=== PATIENT | female | born 1980 | race Caucasian/White ===

== ENCOUNTER → 2018-11-15 09:17 | Outpatient (CLI) | payer OTHER, SELFPAY ==
--- NOTE | 2018-11-15 09:21 | BI_ITS ---
MAMMOGRAPHY - BILATERAL DIAGNOSTIC REASON FOR EXAM: Female, 38 years old. Tiny palpable abnormality in the upper outer quadrant of the left breast. Occasional milky discharge. PERTINENT HISTORY: Non-contributory. TECHNIQUE: Digital bilateral breast crescencio (3D mammographic acquisition) in the CC and MLO projections. 2-D mediolateral oblique (MLO) and craniocaudad (CC) views of both breasts were obtained. CAD: Full Field Digital Mammography with Computer Added Detection was performed. COMPARISON: None. Baseline examination. FINDINGS: Breast Composition: The breasts are heterogeneously dense, which may obscure small masses. There are no dominant masses or suspicious calcifications. No other significant abnormalities are identified. BI/DIAG MAMM W/CAD, BILAT IMPRESSION: Negative diagnostic mammogram. With the patient's history of a papillotomy multi and discharge of the right breast, correlation with ultrasound is recommended. ASSESSMENT CATEGORY: BIRADS Category 0: Incomplete. Need additional imaging evaluation. A letter regarding these results will be sent to the patient by the facility within 30 days. Approximately 10% of breast cancers are not detected by mammography. A normal mammogram should not delay biopsy of a clinically suspicious abnormality. Electronically Signed: Duran Rollins MD at 12:27 EST , Service support ,
--- NOTE | 2018-11-15 09:21 | US_ITS ---
STUDY: ULTRASOUND BREAST - RIGHT REASON FOR EXAM: Female, 38 years old. Palpable lump in the right breast. TECHNIQUE: Axial and longitudinal images of the RIGHT breast were performed with a high resolution ultrasound transducer. COMPARISON: Comparison is made with prior mammogram done earlier today. FINDINGS: RIGHT Breast: The periareolar region was examined by ultrasound. Mild degree of ductal dilatation. No solid or cystic mass lesion is seen. US/Breast Limited Unilateral IMPRESSION: Mild degree of ductal dilatation. ASSESSMENT CATEGORY: BIRADS Category 2: Benign. A letter regarding these results will be sent to the patient by the facility within 30 days. Electronically Signed: Duran Rollins MD at 12:28 EST , Service support ,
== END ==
PROVIDERS: Family Provider Family Medicine; PCP Family Medicine; Referring Provider Obstetrics & Gynecology; Visit Provider Obstetrics & Gynecology
DX: N63.0 Unspecified lump in unspecified breast (principal)
CPT/HCPCS: 76642; 77062; 77066; G0279

== ENCOUNTER → 2019-03-09 | Outpatient (CLI) | payer OTHER, SELFPAY ==
[2019-03-09 10:07] LABS: Absolute Lymphocyte Count 2.05 X10^3/ul (0.83-4.51); Absolute Neutrophil Count 2.3 X10^3/uL (2.0-7.7); Basophil# 0.03 X10^3/uL; Basophil% 0.6 % (0-1); Eosinophil# 0.06 X10^3/uL; Eosinophils% 1.3 % (0-5); Hematocrit 36.7 % (37-47); Hemoglobin 11.5 g/dl (12.0-15.0); Lymphocyte # 2.05 X10^3/ul (4.0); Lymphocyte % 43.4 % (19-41); Mean Corp Hgb Conc 31.3 g/gl (32-36); Mean Corpuscular Hgb 28.2 pg (27.0-32.0); Mean Platelet Vol. 10.4 fl (6.2-12.0); Monocyte# 0.24 X10^3/uL; Monocyte% 5.1 % (0-10); Neutrophil # 2.34 X10^3/uL (2.7-7.7); Neutrophil % 49.6 % (47-70); Platelet Count 329 K/mm3 (150-450); RBC Distribution Width CV 14.4 % (11.6-14.6); RBC Distribution Width SD 46.6 fl (35.1-43.9); Red Blood Count 4.08 M/mm3 (4.2-5.4); White Blood Count 4.7 K/mm3 (4.4-11.0)
[2019-03-09 10:10] LABS: POSITIVE COUNT NO; POSITIVE DIFFERENTIAL NO; POSITIVE MORPHOLOGY NO
[2019-03-09 10:40] LABS: Thyroid Stim Hormone (TSH) 2.17 uIU/mL (0.358-3.74)
== END | disposition home or self-care (01) ==
LOC: BFHLAB 09:30
PROVIDERS: Family Provider Family Medicine; PCP Family Medicine; Visit Provider Family Medicine
DX: R00.0 Tachycardia, unspecified (principal)
CPT/HCPCS: 36415; 84443; 85025

== ENCOUNTER → 2019-03-14 | Outpatient (CLI) | payer OTHER, SELFPAY | END | disposition home or self-care (01) | LOC: PSN 11:15 | PROVIDERS: Family Provider Family Medicine; PCP Family Medicine; Referring Provider Family Medicine; Visit Provider Family Medicine | DX: R00.0 Tachycardia, unspecified (principal) | CPT/HCPCS: 93225; 93226 ==

== ENCOUNTER → 2019-11-28 | Outpatient (CLI) | payer OTHER, SELFPAY ==
[2019-12-04 13:48] LABS: HPV APTIMA, High Risk Negative (Negative); HPV Reflexed? YES, CHARGE PATIENT
== END | disposition home or self-care (01) ==
PROVIDERS: PCP Family Medicine; Referring Provider Obstetrics & Gynecology; Visit Provider Obstetrics & Gynecology
DX: Z12.4 Encounter for screening for malignant neoplasm of cervix (principal)
CPT/HCPCS: 87624; 88175; G0145

== ENCOUNTER → 2019-12-07 09:52 | Outpatient (CLI) | payer OTHER, SELFPAY ==
[2017-04-21 11:16] VITALS: BMI 21.6
[2019-12-05 10:37] VITALS: BMI 20.2
[2019-12-07 12:30] LABS: Estradiol 83.7 pg/mL
[2019-12-07 12:31] LABS: Progesterone Level 15.03 ng/mL (See Comment)
[2019-12-08 06:07] LABS: DHEA Sulfate 171.6 ug/dL (57.3-279.2)
[2019-12-08 08:31] LABS: Sex Hormone-binding Globulin 90.3 nmol/L (24.6-122.0)
== END ==
PROVIDERS: PCP Family Medicine; Visit Provider Obstetrics & Gynecology
DX: N92.6 Irregular menstruation, unspecified (principal)
CPT/HCPCS: 36415; 82627; 82670; 84144; 84270; 84403; 82626

== ENCOUNTER → 2021-01-16 11:26 | Outpatient (CLI) | payer OTHER, SELFPAY ==
[2021-01-16 10:28] VITALS: BMI 22.9
--- NOTE | 2021-01-16 11:56 | EKG12_ITS ---
Test Reason : Blood Pressure : / mmHG Vent. Rate : 066 BPM Atrial Rate : 066 BPM P-R Int : 144 ms QRS Dur : 076 ms QT Int : 394 ms P-R-T Axes : 079 076 070 degrees QTc Int : 413 ms Normal sinus rhythm Normal ECG Confirmed by DENZEL BERGMAN, ALLAN ([id number]), associate entertainment editor BEN JETER ([id number]) on 01/19/2021 8:46:00 AM Referred By: Camacho Winters Confirmed By:ALLAN MAHONEY MD
[2021-01-16 12:33] LABS: Absolute Lymphocyte Count 2.37 X10^3/uL (0.83-4.51); Absolute Neutrophil Count 3.4 X10^3/uL (2.0-7.7); Basophil# 0.04 X10^3/uL; Basophil% 0.6 % (0-1); Eosinophils% 1.6 % (0-5); Hematocrit 34.8 % (37-47); Hemoglobin 10.3 g/dL (12.0-15.0); Lymphocyte # 2.37 X10^3/ul (0.83-4.51); Lymphocyte % 37.8 % (19-41); Mean Corp Hgb Conc 29.6 g/dL (32-36); Mean Corpuscular Hgb 26.4 pg (27.0-32.0); Mean Corpuscular Volume 89.2 fL (81-99); Mean Platelet Vol. 10.3 fl (6.2-12.0); Monocyte% 4.8 % (0-10); NRBC Flagged by Analyzer 0 % (0-5); Neutrophil # 3.44 X10^3/uL (2.7-7.7); Neutrophil % 54.9 % (47-70); Platelet Count 417 K/mm3 (150-450); RBC Distribution Width CV 15.8 % (11.6-14.6); RBC Distribution Width SD 51.6 fl (35.1-43.9); White Blood Count 6.3 K/mm3 (4.4-11.0)
[2021-01-16 13:04] LABS: ALB/GLOB Ratio 1.2 RATIO (0.9-2.4); AST(SGOT) 19 U/L (15-37); Alanine Aminotransfer ALT/SGPT 19 U/L (13-56); Albumin, Serum 4.1 g/dL (3.2-5.0); Alkaline Phosphatase 51 U/L (45-117); Anion Gap 4 (5-15); BUN 9 mg/dL (7-18); BUN/Creat Ratio 13.4 RATIO (10-20); Calcium,Total 8.9 mg/dL (8.5-10.1); Chloride 105 mmol/L (98-107); Cholesterol 165 mg/dL (200); Creatinine, Serum 0.67 mg/dL (0.55-1.02); EST Glomerular Filtration Rate 104 mL/min (>60); Est Glom Filt Rate - Afr Amer 126 mL/min (>60); Globulin 3.3 g/dL (2.2-4.2); Glucose 101 mg/dL (74-106); High Density Lipoprotein 81 mg/dL; Protein, Total 7.4 g/dL (6.4-8.2); Sodium Level 139 mmol/L (136-145); Triglycerides 50 mg/dL; Very Low Density Lipoprotein 10 mg/dL (5-40)
[2021-01-16 13:40] LABS: Ferritin 4 ng/mL (8-252); Iron 19 ug/dL (50-170); Iron Binding Capacity,Total 438 ug/dL (250-450)
== END ==
PROVIDERS: PCP Internal Medicine; Referring Provider Internal Medicine; Visit Provider Internal Medicine
DX: Z00.00 Encounter for general adult medical examination without abnormal findings (principal); D64.9 Anemia, unspecified; Z82.49 Family history of ischemic heart disease and other diseases of the circulatory system
CPT/HCPCS: 36415; 80053; 80061; 82728; 83540; 83550; 85025; 93005

== ENCOUNTER 2022-01-21 05:46 | Day surgery (SDC) | payer OTHER, SELFPAY ==
[2022-01-20 11:40] LABS: Hematocrit 37.7 % (37-47); Hemoglobin 12.3 g/dL (12.0-15.0); Mean Corp Hgb Conc 32.6 g/dL (32-36); Mean Corpuscular Hgb 32.4 pg (27.0-32.0); Mean Corpuscular Volume 99.2 fL (81-99); Mean Platelet Vol. 10.3 fl (6.2-12.0); Platelet Count 318 K/mm3 (150-450); RBC Distribution Width CV 12.2 % (11.6-14.6); White Blood Count 5.4 K/mm3 (4.4-11.0)
[2022-01-20 11:49] LABS: International Normalized Ratio 1.1; Prothrombin Time (Protime)PT. 13.4 SECONDS (11.7-14.9)
[2022-01-21] VITALS (10 sets, daily range): BP systolic 90–100; BP diastolic 54–64; PULSE 59–72; RESP 15–16; TEMP 36.9–37.2; O2SAT 98–100; BMI 20.9
--- NOTE | 2022-01-21 05:06 | PCM.HP.BLA ---
History and Physical Date of Admission: 01/21/22 Date: 01/20/2022 Name: PRASHANT MORAN Age: 41 Date of : 1980 HISTORY OF PRESENT ILLNESS: On 01/20/2022, Prashant Moran, a 41 year old female 2 0 0 0 2, presented for: -- Pre-Op -- Prashant is here for pre-op visit. She has questions about proceeding with tubal. She was planning on having vasectomy but they changed their mind and she will have tubal. Consents are reviewed and signed. LMT as above. Prashant is scheduled for hysteroscopy, D, endometrial ablation with IUD removal and laparoscopic salpingectomy. She has a hx menorrhagia with Paragard IUD in situ. m ALLERGIES: No Known Drug Allergies MEDICATIONS HISTORY: Patient is also takin. ParaGard T 380A 380 square mm intrauterine device, As Directed 2. citalopram 10 mg tablet, daily REVIEW OF SYSTEMS: GENERAL - Denies fever, or chills SKIN - Denies skin changes EYES - Denies visual changes EARS - Denies difficulty hearing NOSE - Denies nasal congestion or bleeding MOUTH - Denies sore throat or difficulty swallowing NECK - Denies pain or swelling RESPIRATORY - Denies shortness of breath or wheezing CARDIOVASCULAR - Denies palpitations or chest pain GASTROINTESTINAL - Denies nausea, vomiting, diarrhea, constipation GENITOURINARY - Heavy menses with large clot MUSCULOSKELETAL - Denies joint or muscle pain NEUROLOGICAL - Denies localized numbness or weakness PSYCHIATRIC - Denies depression or anxiety ENDOCRINE - Denies heat or cold intolerance, weight loss or gain HEMATO-IMMUNOLOGIC - anemic PAST HISTORY: Breast/Ovarian/Colon Cancers - Denies Infections - none Illnesses - none Accidents - no injuries of consequence History of Abnormal PAPS - Denies Hospitalizations - Childbirth low back pain, insomnia and kidney stones; SURGICAL HISTORY: 1. Mckenney Teeth Removal, 1993 2. 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 Illicit Drug Use - denies use of street drugs Sexual Activity - Hours Worked - 30 wk Spouse-Sig Other Name - Lionel Spouse-Sig Other Occupation - infection prevention Children Name(s) - Jason Jose Control - paragard PHYSICAL EXAMINATION BP- 100/70 Sitting, Right arm, regular cuff Temp- 98.4 Taken Orally Weight- 126.0 lbs Height- 65.25 inch BMI:20.80 CONSTITUTIONAL - NAD, well nourished, and well developed SKIN - No rash, lesions, or ulcers HEENT - Normocephalic, PERRLA, EOMI LUNGS - clear to auscultation and normal respiratory rate and rhythm CARDIAC - Regular rate and rhythm, S1, S2 BREAST - No dominant masses, no tenderness, no axillary adenopathy, no nipple discharge, no skin changes ABDOMEN - Without hepatosplenomegaly, distention, masses, rebound, or guarding; normal bowel sounds; no hernias NEUROLOGICAL - normal gait, normal balance, normal motor PSYCHIATRIC - A and O to time, place, person, mood and affect CBC 01/20/22 5.4> 12.3/37.7<318 ASSESSMENT: 1. Excessive And Frequent Menstruation With Regular Cycle 2. Encounter For Sterilization PLAN BY DIAGNOSIS: 1. Encounter For Sterilization, Encounter For Surveillance Of Intrauterine Contraceptive Device and Excessive And Frequent Menstruation With Regular Cycle Plan for hysteroscopy, D and C, ablation and IUD removal with bilateral salpingectomy Reviewed procedural r/b/i/a, consents signed Preop preparation and packet reviewed counseled on postop instructions, physical activity
[2022-01-21 06:13] LABS: Internal QC Validated? YES +Cl - CLEAR BKGD; Pregnancy, Urine Negative Negative
[2022-01-21] MEDS: Lactated Ringers 1,000 ML 15 ML IV ×2 (06:25→09:24)
--- NOTE | 2022-01-21 07:30 | FALS_PTH ---
PATIENT: PRASHANT MORAN LOC: [facility] [place] U#:[id number] AGE/SX: 41/F ROOM: RE01/21/[address]: Dr. Sherri Asif MD : 1980 BED: DIS: 01/21/2022 SPEC #: [id number] RECD: 01/21/22 10:08 STATUS: ADRIANA WALTERS #: [id number] DAVE: 01/21/22 07:[address]: Sherri Patrick DEPT: SURGICAL PATHOLOGY RECD BY: Chelo Daniels ENTERED: 01/21/22 13:37 SP TYPE: FALL TUBES OTHR DR: Dr. Camacho Winters MD Tissues: A - Endometrium, NOS B - Fallopian tube Procedures: Surgery Specimen Level III Surgery Specimen Level IV HEADER OPERATION: Laparoscopic salpingectomy PRE-OP DIAGNOSIS: Excessive and frequent menstruation with regular cycle, sterilization TISSUE SUBMITTED: A ? Endometrial curettings, B ? Bilateral fallopian tubes MICROSCOPIC DIAGNOSIS A. Endometrium, curettings: Mildly disordered proliferative endometrium. Mild chronic endometritis. Rare fragments of benign superficial endocervix and squamous mucosa. B. Right and left fallopian tubes, bilateral salpingectomies: Two complete cross-sections of fallopian tubes with no pathologic change. AM:lyn 01/22/2022 MICROSCOPIC DESCRIPTION Slides are reviewed. GROSS DESCRIPTION A - Received in fixative is one container labeled with the patient's name and designated endometrial curettings. The specimen consists of multiple irregular fragments of red-felix soft tissue that in aggregate measure 5.5 x 3 x 0.2 cm. The specimen is totally submitted in two cassettes. B - Received in fixative is one container labeled with the patient's name and designated bilateral fallopian tubes. The specimen consists of two fallopian tubes with an average length of 6 cm and has an average diameter of 0.6 cm. Both fallopian tubes have normal fimbriated ends. No mass lesions are identified. Turn Laster sections are submitted in two cassettes as follows: 1 - one fallopian tube, 2 - the other fallopian tube. / AM:lyn 01/21/2022 TC:3 CPT: 91960 x2, 16552
[2022-01-21] MEDS: Lubricating Jelly 60 GM Tube 30 GM (07:43)
[2022-01-21] MEDS: Bupivacaine 0.25% 30 ML Vial (08:26)
--- NOTE | 2022-01-21 08:27 | OP.PCM_ITS ---
Problems Associated Problem List Diagnoses (1) Menorrhagia: (2) Anemia: Report of Operation Date of Procedure: 01/21/22 Pre-Operative Diagnosis: 1. Excessive and frequent menstruation with regular cycle 2. Iron deficiency anemia Post-Operative Diagnosis: 1. Excessive and frequent menstruation with regular cycle 2. Iron deficiency anemia Surgery/Procedure Performed:: 1. Hysteroscopy 2. Dilation and curettage 3. ParaGard IUD removal 4. Maritza endometrial ablation 5. Laparoscopic bilateral salpingectomy Description of Surgical Findings:: Indications: 41-year-old 2 para 2-0-0-2 presents with history of heavy menstrual bleeding with associated anemia. She completed childbearing and had a ParaGard IUD in place. She was counseled regarding management options and opted to proceed with IUD removal, hysteroscopy D&C endometrial ablation, and bilateral salpingectomy for tubal sterilization. The risks, benefits, indications and alternatives were reviewed and informed consent was obtained. Procedures: The patient was brought to the operating room and sinus performed. She is placed in the dorsal supine position and induced under general anesthesia and intubated. She was repositioned to dorsal lithotomy. The perineum and abdomen were prepped and draped in sterile fashion. Straight catheterization of the bladder was performed. The patient was placed into high lithotomy and a bivalve speculum was placed vaginally. The IUD strings were visualized grasped and the ParaGard IUD removed. The cervix was grasped at the anterior cervical lip using a single-tooth tenaculum and a paracervical block was placed for total of 10 cc of quarter percent ropivacaine. The uterus sounded to 9 cm. The cervix was subsequently dilated and hysteroscopy performed showing normal uterine cavity shape. The scope was removed and sharp curettage performed. Maritza endometrial ablation system was introduced and the endometrium was ablated. The ablation device was removed and hysteroscopy again performed demonstrating global cavity ablation. The scope was removed. A ZUMI uterine manipulator was placed and the tenaculum was removed from the cervix with hemo static tenaculum site. Attention was turned to the abdomen and patient was placed into lithotomy. An inferior umbilical incision was made using a scalpel and a varies needle was placed at this site with successful hand drop test and no aspirate. The abdomen was insufflated to 15 mmHg and the varies needle removed. A 5 mm port was placed under laparoscopic guidance confirming entry into the abdominal cavity. The abdomen and pelvis were inspected. Tubes and ovaries and uterus were normal in appearance. A tap block was placed under laparoscopic guidance in the right and left lower quadrants using quarter percent mepivacaine. Incisions were placed at both of these sites in the right and left left lower quadrant and 5 mm ports introduced into the abdominal cavity. The patient was placed into Trendelenburg. The left tubal fimbria was identified. The left tube was transected from the mesosalpinx using the Enseal device to the level of the uterine cornua with salpingectomy performed. In similar fashion the right tubal fimbria was identified and right salpingectomy was performed. The tubes were removed via ports under laparoscopic guidance. Excellent hemostasis. The procedure was complete. The abdomen was desufflated and trochars removed. The skin was closed with 4-0 Monocryl by the CONTROLS TECHNICIAN under my supervision. Steri- Strips and OpSite dressings were placed over the incisions. The ZUMI uterine manipulator was removed. The patient was placed into dorsal supine position, awakened, and extubated without complication. She will be transferred to the recovery room. Sponge and needle counts are correct x2. Surgeon: Sherri Patrick set o type operator: Demarcus Vyas Type of Anesthesia: General and Local Anesthesiologist: Alfredo Gonzalez Specimen's removed: 1. endometrial curettings 2. bilateral tubes Estimated Blood Loss (mL): 10 Fluids Replaced: 800 ml Complications None Admit VTE Documentation VTE Present on Admission: No VTE Mechan Device Prophylaxis: SCD's VTE Pharm Prophylaxis ordered?: No
--- NOTE | 2022-01-21 08:41 | PCM.DC ---
Discharge Instructions Diet Discharge Diet: No restrictions Activity Discharge Activity: Return to Normal Activity May resume sexual activity in: - (2- 4 weeks) Lifting Restrictions: 10 lb Dressing / Incision Call your doctor if you observe: Fever of 101 or Higher, Using more than 1 pad per hour, Shortness of breath, Chest pain, Calf discomfort and Uncontrolled pain Remove Dressing in: 1 day (24 hours) Cleanse incision/area with: Soap & Water Additional Dressing/Incision Instructions:: Remove steri-strips in 3 days Follow Up Care Please Follow Up With: Sherri Asif MD When: 2-4 weeks Test Results: Test results from this visit will be discussed in further detail at your follow-up appointment, if applicable. Discharge Plan Admission Primary Reason for Your Visit: Hysteroscopy, D and C, Ablation and Tube Removal Attending Provider: Sherri Patrick Primary Care Provider: Camacho Winters Instructions Patient Instructions: Endometrial Ablation Discharge Orders/Prescriptions Prescriptions: New oxycodone 5 mg capsule 5 mg PO Q8H PRN (Reason: pain) 5 Days Qty: 5 RF: 0 ibuprofen 800 mg tablet 800 mg PO Q8H PRN (Reason: pain) Qty: 30 RF: 0 Continued ferrous sulfate 325 mg (65 mg iron) tablet 325 mg PO DAILY Qty: 90 RF: 3 Referrals / Follow Up: Camacho Winters MD [Primary Care Provider] - Disposition Disposition (needs filled in before D/C Order can be placed): Home, Self Care
[2022-01-21] MEDS: HYDROcodone Bitartrate/Apap 5/325 Tablet PO (10:35)
== END 2022-01-21 11:20 | disposition home or self-care (01) ==
LOC: SDC 05:48 → AC 05:48
PROVIDERS: Anesthesiology; PCP Internal Medicine; Referring Provider Obstetrics & Gynecology; Visit Provider Obstetrics & Gynecology
PROC: (CPT 58661; principal; 2022-01-21 07:15)
PROC: 0U5B8ZZ Destruction of Endometrium, Via Natural or Artificial Opening Endoscopic (ICD-10-PCS; CPT 58558; 2022-01-21 07:15)
DX: N71.1 Chronic inflammatory disease of uterus (principal); Z30.2 Encounter for sterilization; N92.0 Excessive and frequent menstruation with regular cycle; D50.9 Iron deficiency anemia, unspecified; Z30.432 Encounter for removal of intrauterine contraceptive device
CPT/HCPCS: 58661; 58563; 58301; 00840; 36415; 81025; 85027; 85610; 85730; 86850; 86900; 86901; 88304; 88305; J7120; C1760; J2405

== ENCOUNTER → 2022-06-11 | Outpatient (CLI) | payer OTHER, SELFPAY ==
[2022-06-11 15:24] LABS: Absolute Lymphocyte Count 2.01 X10^3/uL (0.83-4.51); Absolute Neutrophil Count 5.1 X10^3/uL (2.0-7.7); Basophil# 0.03 X10^3/uL; Basophil% 0.4 % (0-1); Eosinophil# 0.06 X10^3/uL; Eosinophils% 0.8 % (0-5); Hematocrit 37.9 % (37-47); Hemoglobin 12.6 g/dL (12.0-15.0); Lymphocyte # 2.01 X10^3/ul (0.83-4.51); Lymphocyte % 26.9 % (19-41); Mean Corp Hgb Conc 33.2 g/dL (32-36); Mean Corpuscular Hgb 32.9 pg (27.0-32.0); Mean Platelet Vol. 10.5 fl (6.2-12.0); Monocyte# 0.24 X10^3/uL; Monocyte% 3.2 % (0-10); NRBC Flagged by Analyzer 0 % (0-5); Neutrophil # 5.12 X10^3/uL (2.7-7.7); Neutrophil % 68.4 % (47-70); Platelet Count 317 K/mm3 (150-450); RBC Distribution Width CV 11.8 % (11.6-14.6); RBC Distribution Width SD 43.2 fl (35.1-43.9); Red Blood Count 3.83 M/mm3 (4.2-5.4); White Blood Count 7.5 K/mm3 (4.4-11.0)
[2022-06-11 16:13] LABS: ALB/GLOB Ratio 1.2 RATIO (0.9-2.4); AST(SGOT) 15 U/L (15-37); Alanine Aminotransfer ALT/SGPT 23 U/L (13-56); Alkaline Phosphatase 45 U/L (45-117); Anion Gap 7 (5-15); BUN 15 mg/dL (7-18); BUN/Creat Ratio 23.1 RATIO (10-20); Chloride 101 mmol/L (98-107); Cholesterol 155 mg/dL (200); Creatinine, Serum 0.65 mg/dL (0.55-1.02); EST Glomerular Filtration Rate 108 mL/min (>60); Est Glom Filt Rate - Afr Amer 130 mL/min (>60); Globulin 3.2 g/dL (2.2-4.2); Glucose 90 mg/dL (74-106); High Density Lipoprotein 74 mg/dL; Potassium 3.6 mmol/L (3.5-5.1); Protein, Total 7.2 g/dL (6.4-8.2); Sodium Level 137 mmol/L (136-145); Triglycerides 38 mg/dL; Very Low Density Lipoprotein 8 mg/dL (5-40)
== END | disposition home or self-care (01) ==
LOC: BIMLAB 11:19
PROVIDERS: PCP Internal Medicine; Visit Provider Internal Medicine
DX: Z00.00 Encounter for general adult medical examination without abnormal findings (principal)
CPT/HCPCS: 36415; 80053; 80061; 85025

== ENCOUNTER → 2022-11-26 | Outpatient (CLI) | payer OTHER, SELFPAY ==
--- NOTE | 2022-11-26 09:29 | BI_ITS ---
MAMMOGRAPHY - BILATERAL SCREENING REASON FOR EXAM: Female, 42 years old. Routine annual screening examination. PERTINENT HISTORY: Non-contributory. TECHNIQUE: Digital bilateral breast los (3D mammographic acquisition) in the CC and MLO projections. 2-D mediolateral oblique (MLO) and craniocaudad (CC) views of both breasts were obtained. CAD: Full Field Digital Mammography with Computer Added Detection was performed. COMPARISON: Comparison is made with prior examination dated 11/15/2018. FINDINGS: Breast Composition: The breasts are heterogeneously dense, which may obscure small masses. There are no dominant masses or suspicious calcifications. No other significant abnormalities are identified. There has been no significant change since the prior study. BI/SCRN MAMM (CAD)W/LOS BILAT IMPRESSION: Stable bilateral screening mammogram. Yearly follow-up mammogram recommended. (A) ASSESSMENT CATEGORY: BIRADS Category 1: Negative. A letter regarding these results will be sent to the patient by the facility within 30 days. Approximately 10% of breast cancers are not detected by mammography. A normal mammogram should not delay biopsy of a clinically suspicious abnormality. [id number] Electronically Signed: Duran Rollins MD at 10:54 EST ,
== END | disposition home or self-care (01) ==
LOC: OPBI 09:28
PROVIDERS: PCP Internal Medicine; Visit Provider Internal Medicine
DX: Z12.31 Encounter for screening mammogram for malignant neoplasm of breast (principal)
CPT/HCPCS: 77063; 77067

== ENCOUNTER → 2023-03-17 | Outpatient (CLI) | payer OTHER, SELFPAY | END | disposition home or self-care (01) | LOC: LABSPEC 10:29 | PROVIDERS: PCP Internal Medicine; Referring Provider Physician Assistant Surgical; Visit Provider Physician Assistant Surgical | DX: J02.9 Acute pharyngitis, unspecified (principal) | CPT/HCPCS: 87070 ==

== ENCOUNTER → 2023-04-13 | Outpatient (CLI) | payer OTHER, SELFPAY ==
[2023-04-13 17:58] LABS: Absolute Lymphocyte Count 2.84 X10^3/uL (0.83-4.51); Absolute Neutrophil Count 4.5 X10^3/uL (2.0-7.7); Basophil# 0.04 X10^3/uL; Basophil% 0.5 % (0-1); Eosinophils% 1.3 % (0-5); Hematocrit 38.9 % (37-47); Hemoglobin 12.6 g/dL (12.0-15.0); Lymphocyte # 2.84 X10^3/ul (0.83-4.51); Lymphocyte % 35.7 % (19-41); Mean Corp Hgb Conc 32.4 g/dL (32-36); Mean Corpuscular Hgb 33.3 pg (27.0-32.0); Mean Corpuscular Volume 102.9 fL (81-99); Mean Platelet Vol. 10.7 fl (6.2-12.0); Monocyte# 0.44 X10^3/uL; Monocyte% 5.5 % (0-10); NRBC Flagged by Analyzer 0 % (0-5); Neutrophil # 4.52 X10^3/uL (2.7-7.7); Neutrophil % 56.7 % (47-70); Platelet Count 264 K/mm3 (150-450); RBC Distribution Width CV 12.3 % (11.6-14.6); Red Blood Count 3.78 M/mm3 (4.2-5.4)
[2023-04-13 18:14] LABS: Hepatitis B Surface Antibody Reactive
[2023-04-13 18:31] LABS: ALB/GLOB Ratio 1.1 RATIO (0.9-2.4); AST(SGOT) 16 U/L (15-37); Alanine Aminotransfer ALT/SGPT 18 U/L (13-56); Albumin, Serum 3.9 g/dL (3.2-5.0); Alkaline Phosphatase 51 U/L (45-117); Anion Gap 5 (5-15); BUN 16 mg/dL (7-18); BUN/Creat Ratio 25.2 RATIO (10-20); Chloride 106 mmol/L (98-107); Cholesterol 151 mg/dL (200); Creatinine, Serum 0.63 mg/dL (0.55-1.02); EST Glomerular Filtration Rate 110 mL/min (>60); Est Glom Filt Rate - Afr Amer 133 mL/min (>60); Globulin 3.4 g/dL (2.2-4.2); Glucose 79 mg/dL (74-106); High Density Lipoprotein 79 mg/dL; Potassium 3.9 mmol/L (3.5-5.1); Protein, Total 7.3 g/dL (6.4-8.2); Sodium Level 137 mmol/L (136-145); Triglycerides 39 mg/dL; Very Low Density Lipoprotein 8 mg/dL (5-40)
== END | disposition home or self-care (01) ==
LOC: MTLAB 15:50
PROVIDERS: PCP Family Medicine; Referring Provider Family Medicine; Visit Provider Family Medicine
DX: Z13.220 Encounter for screening for lipoid disorders (principal); R53.83 Other fatigue
CPT/HCPCS: 36415; 80053; 80061; 85025; 86706

== ENCOUNTER → 2024-01-18 | Outpatient (CLI) | payer OTHER, SELFPAY ==
--- NOTE | 2024-01-18 11:47 | BI_ITS ---
MAMMOGRAPHY - BILATERAL SCREENING REASON FOR EXAM: Female, 43 years old. Routine annual screening examination. PERTINENT HISTORY: Non-contributory. TECHNIQUE: Digital bilateral breast los (3D mammographic acquisition) in the CC and MLO projections. 2-D mediolateral oblique (MLO) and craniocaudad (CC) views of both breasts were obtained. CAD: Full Field Digital Mammography with Computer Added Detection was performed. COMPARISON: Comparison is made with prior study dated November 26, 2022 and November 15, 2018. FINDINGS: Breast Composition: The breasts are extremely dense, which lowers the sensitivity of mammography. There are no dominant masses or suspicious calcifications. No other significant abnormalities are identified. There has been no significant change since the prior study. BI/SCRN MAMM (CAD)W/LOS BILAT IMPRESSION: Stable bilateral screening mammogram. Yearly follow-up mammogram recommended. (A) ASSESSMENT CATEGORY: BIRADS Category 1: Negative. A letter regarding these results will be sent to the patient by the facility within 30 days. Approximately 10% of breast cancers are not detected by mammography. A normal mammogram should not delay biopsy of a clinically suspicious abnormality. [id number] Electronically Signed: Duran Rollins MD at 13:36 EDT ,
== END | disposition home or self-care (01) ==
LOC: OPBI 11:46
PROVIDERS: PCP Family Medicine; Referring Provider Family Medicine; Visit Provider Family Medicine
DX: Z12.31 Encounter for screening mammogram for malignant neoplasm of breast (principal)
CPT/HCPCS: 77063; 77067

== ENCOUNTER → 2024-05-30 | Outpatient (CLI) | payer SELFPAY ==
--- NOTE | 2024-05-30 07:45 | CT_ITS ---
STUDY: CT CHEST WITHOUT CONTRAST REASON FOR EXAM: Female, 43 years old. Family history of ischemic heart disease and other diseases of th RADIATION DOSAGE (If Supplied By Facility): CTDIvol = ( 12.19 ) mGy, DLP = ( 170.66 ) mGycm TECHNIQUE: Transaxial imaging was performed without the administration of intravenous contrast material. Cardiac over read examination. Individualized dose optimization techniques were used for this CT. COMPARISON: No relevant priors. FINDINGS: CHEST The lungs are normal. There is no demonstrated pleural abnormality. Normal heart and pericardium. No coronary artery calcification is seen. Normal mediastinum. Normal hilar regions. Normal unenhanced pulmonary arteries. Normal aorta arch and descending thoracic aorta. Normal osseous structures. There is no demonstrated abnormality of the visualized upper abdomen. CT/Limited Chest CT Cardiac Only IMPRESSION: Normal unenhanced CT chest. Electronically Signed: Duran Rollins MD at 9:20 EDT ,
--- NOTE | 2024-06-05 06:33 | CA.SCORE ---
Calcium Scoring Date of Study:: 05/30/24 Coronary Calcium Scoring: High-resolution Computed Tomographic imaging of the chest was performed on [05/30/2024], with particular attention paid to the coronary arteries. Images from the examination were analyzed for the presence and extent of coronary artery calcification , using coronary calcium quantification software. The patient tolerated the procedure well and there were no complications. The results of the coronary calcification analysis are provided below. Findings Coronary Artery Left Main (LM): 0 Left Anterior Descending (LAD): 0 Left Circumflex (LCX): 0 Right Coronary Artery (RCA): 0 Total Agatston Score: 0 Percentile Rankin% Calcium Scoring Interpretation: Different methods to categorize the overall amount of coronary plaque. Overall amount CAC SIS Visual of coronary plaque P1 Mild -100 <2 1-2 vessels with mild amount of plaque P2 Moderate 101-300 3-4 1-2 vessels with moderate amount, 3 vessels with mild amount of plaque P3 Severe 301-999 5-7 3 vessels with moderate amount, 1 vessel with severe amount of plaque P4 Extensive >1000 >8 2-3 vessels with severe amount of plaque Conclusion: No atherosclerotic plaquing noted
== END | disposition home or self-care (01) ==
LOC: CT 07:43
PROVIDERS: PCP Family Medicine; Referring Provider Family Medicine; Visit Provider Family Medicine
DX: Z82.49 Family history of ischemic heart disease and other diseases of the circulatory system (principal)
CPT/HCPCS: 75571; 76380

== ENCOUNTER → 2024-12-03 | Outpatient (CLI) | payer OTHER, SELFPAY ==
--- NOTE | 2024-12-03 12:30 | RAD_ITS ---
EXAM: XR Lumbosacral Spine, 4 or 5 views CLINICAL INDICATION: TECHNIQUE: Five views of the lumbar spine. COMPARISON: No relevant prior studies available. FINDINGS: VERTEBRAE: Mild endplate degenerative changes of L5-S1. Normal alignment. No acute fracture. SACRUM/COCCYX: Unremarkable as visualized. No acute fracture. DISC SPACES: No acute findings. No significant narrowing. SOFT TISSUES: Unremarkable. RAD/L/S Spine Min 4 Views IMPRESSION: 1. No acute fracture. 2. Degenerative changes as above. Reading Location: [facility]
== END | disposition home or self-care (01) ==
LOC: RAD 12:29
PROVIDERS: PCP Family Medicine; Referring Provider Family Medicine; Visit Provider Family Medicine
DX: M54.50 Low back pain, unspecified (principal)
CPT/HCPCS: 72110

== ENCOUNTER → 2024-12-24 | Outpatient (CLI) | payer OTHER, SELFPAY ==
--- NOTE | 2024-12-24 11:00 | MRI_ITS ---
PROCEDURE: SPINE LUMBAR (ROUTINE) 12/24/2024 REASON FOR EXAM: 44 yo F, chronic low back pain, worsening in the last 2 months. No known injury. TECHNIQUE: Multiplaner MRI of the lumbar spine performed without contrast. Multiple pulse sequences were obtained. COMPARISON: Lumbar radiographs 12/03/24. FINDINGS: Vertebrae: No acute fracture. The vertebral bodies are normal in height. Alignment: Normal. Conus Medullaris: Normal in signal, terminates at the L1 vertebral body. L1-2: Unremarkable L2-3: Unremarkable L3-4: Unremarkable L4-5: Unremarkable L5-S1: Ruptured intervertebral disc, disk dessication, and intervertebral herniation of the disc within the anterior S1 vertebral body. No associated osseous STIR hyperintensity. No central or neural foraminal stenosis. Sacrum: The bilateral SI joints are grossly maintained. Enlarged retroflexed uterus seen on senior validation engineer imaging. MRI/Spine Lumbar (Routine) IMPRESSION: 1. Ruptured intervertebral disc with disc desiccation and Schmorl's node at the L5-S1 intervertebral space. No central or neural foraminal stenosis. 2. Partially visualized enlarged uterus. Reading Location: [id number]
== END | disposition home or self-care (01) ==
LOC: MRI 10:18
PROVIDERS: PCP Family Medicine; Referring Provider Family Medicine; Visit Provider Family Medicine
DX: M54.50 Low back pain, unspecified (principal); M79.605 Pain in left leg
CPT/HCPCS: 72148

== ENCOUNTER → 2024-12-31 | Outpatient (CLI) | payer OTHER, SELFPAY ==
--- NOTE | 2024-12-31 16:15 | US_ITS ---
PROCEDURE: PELVIC W/ TRANSVAGINAL REASON FOR EXAM: ENLARGED UTERUS ON MRI TECHNIQUE: Transabdominal and transvaginal pelvic ultrasound COMPARISON: None FINDINGS: Measurements: Uterus: 7.9 cm x 5.5 cm x 4.8 cm with a volume of 109 mL Endometrial Thickness: 4.1 mm Right Ovary: 3.5 cm x 1.8 cm x 2.5 cm with a volume of 8.05 mL. Left Ovary: 2.4 cm x 1.4 cm x 1.4 cm with a volume of 2.49 mL. TRANSABDOMINAL: Uterus: Heterogeneous appearance of the myometrium although no focal fibroid is seen. Endometrium: Unremarkable. Right ovary: There is a 2.1 cm x 1.5 cm x 1.5 cm solid nodule in the right ovary. Left ovary: Normal size and echotexture. Transvaginal sonography was performed to better visualize the endometrium. TRANSVAGINAL: Uterus: Heterogeneous appearance of the myometrium suggestive of fibroid change. Endometrium: Normal echotexture. Right ovary: 2.1 cm x 1.5 cm x 1.5 cm solid nodule in the right ovary. Clinical correlation recommended. Left ovary: Normal size and echotexture. Other adnexal findings: None. Cul-de-sac: No free intraperitoneal fluid identified. US/Pelvic w/ Transvaginal IMPRESSION: Heterogeneous appearance of the uterus in keeping with a fibroid change althoug h no focal fibroid is seen. 2.1 cm x 1.5 cm x 1.5 cm solid nodule in the right ovary. Clinical correlation recommended. Reading Location: [id number]
== END | disposition home or self-care (01) ==
PROVIDERS: PCP Family Medicine; Referring Provider Family Medicine; Visit Provider Family Medicine
DX: N85.2 Hypertrophy of uterus (principal); R93.89 Abnormal findings on diagnostic imaging of other specified body structures
CPT/HCPCS: 76830; 76856

== ENCOUNTER → 2025-01-02 | Outpatient (CLI) | payer OTHER, SELFPAY ==
[2025-01-02 13:35] LABS: Internal QC Validated? YES +Cl - CLEAR BKGD; Pregnancy, Serum, hCG Quali. NEGATIVE Negative
[2025-01-03 04:08] LABS: Cancer Antigen 125 7.4 U/mL (0.0-38.1)
== END | disposition home or self-care (01) ==
LOC: LAB 11:12
PROVIDERS: PCP Family Medicine; Referring Provider Family Medicine; Visit Provider Family Medicine
DX: N83.8 Other noninflammatory disorders of ovary, fallopian tube and broad ligament (principal)
CPT/HCPCS: 36415; 84703; 86304

== ENCOUNTER → 2025-01-18 | Outpatient (CLI) | payer OTHER, SELFPAY ==
--- NOTE | 2025-01-18 08:47 | BI_ITS ---
EXAM: SCRN MAMM (CAD)W/LOS BILAT 01/18/2025 CLINICAL HISTORY: F, Age 44 y/o , SCREENING TECHNIQUE: Bilateral screening digital breast tomosynthesis with 2D and 3D images. Computer aided detection. COMPARISON: Prior exam(s) dated 01/18/2024, 11/26/2022. FINDINGS: TISSUE DENSITY: The breast tissue is heterogenously dense, which may obscure small masses. The mammogram demonstrates that the patient has dense breasts. Supplemental screening with whole breast ultrasound or MRI may be considered for further evaluation. Bilateral Breast Mammographic Findings: There is an asymmetry in the lateral right breast at posterior depth visualized on the CC view. No significant masses, calcifications or other abnormalities are identified in the left breast. BI/SCRN MAMM (CAD)W/LOS BILAT IMPRESSION: The asymmetry in the lateral right breast at posterior depth visualized on the CC view requires further evaluation. Recommend diagnostic mammogram of the right breast and ultrasound on the day of diagnosti c if indicated. Right Breast: BIRADS 0 Incomplete: Need additional imaging evaluation and/or pr ior mammograms for comparison.. Left Breast: BIRADS 1 NEGATIVE. OVERALL FINAL ASSESSMENT: BIRADS 0 Incomplete: Need additional imaging evaluati on and/or prior mammograms for comparison.. RECOMMENDATION: Recommendation: Additional projections. A letter with findings and recommendations will be mailed to the patient. Reading Location: [facility]
== END | disposition home or self-care (01) ==
LOC: OPBI 08:45
PROVIDERS: PCP Family Medicine; Referring Provider Family Medicine; Visit Provider Family Medicine
DX: Z12.31 Encounter for screening mammogram for malignant neoplasm of breast (principal)
CPT/HCPCS: 77063; 77067

== ENCOUNTER → 2025-01-21 | Outpatient (CLI) | payer OTHER, SELFPAY ==
[2025-01-23 15:08] LABS: HPV APTIMA, High Risk Negative (Negative)
== END | disposition home or self-care (01) ==
LOC: LABSPEC 11:07
PROVIDERS: PCP Family Medicine; Referring Provider Nurse Practitioner Women's Health; Visit Provider Nurse Practitioner Women's Health
DX: Z12.4 Encounter for screening for malignant neoplasm of cervix (principal)
CPT/HCPCS: 87624; 88175; G0145

== ENCOUNTER → 2025-01-23 | Outpatient (CLI) | payer OTHER, SELFPAY ==
--- NOTE | 2025-01-23 11:57 | BI_ITS ---
EXAM: Diagnostic unilateral mammogram of right breast. CLINICAL HISTORY: Abnormal screening mammogram. COMPARISON: Comparison is made with prior mammogram dated January 18, 2025. TECHNIQUE: Compression spot views and 90 degree lateral view of the right breast was obtained. FINDINGS: Heterogeneous fibroglandular tissue. No mammographic abnormality is seen. Sonographic correlation recommended. BI/DIAG MAMM W/CAD, UNILAT IMPRESSION: No mammographic abnormality is seen. Sonographic correlation recommended. BI-RADS category 0. Reading Location: [place] [id number]
--- NOTE | 2025-01-23 11:57 | US_ITS ---
PROCEDURE: BREAST LIMITED UNILATERAL 01/23/2025 REASON FOR EXAM: ASYMMETRY Abnormal mammogram. TECHNIQUE: Targeted right breast ultrasound. COMPARISON: Comparison is made with prior mammogram done earlier in the day as well as January 18, 2025. FINDINGS: Right breast ultrasound was targeted to the lateral aspect of the right breast.. The breast tissue appears sonographically normal. No cyst, solid mass, or suspicious shadowing. US/Breast Limited Unilateral IMPRESSION: BI-RADS 1: NEGATIVE. RECOMMEND ANNUAL MAMMOGRAPHIC SCREENING. Follow-up code: Routine Follow-up Reading Location: [place] [id number]
== END | disposition home or self-care (01) ==
LOC: OPBI 11:55
PROVIDERS: PCP Family Medicine; Referring Provider Family Medicine; Visit Provider Family Medicine
DX: N64.89 Other specified disorders of breast (principal)
CPT/HCPCS: 76642; 77061; 77065; G0279

== ENCOUNTER → 2025-02-04 | Outpatient (CLI) | payer OTHER, SELFPAY ==
--- NOTE | 2025-02-04 11:57 | US_ITS ---
PROCEDURE: PELVIC W/ TRANSVAGINAL, 02/04/2025 REASON FOR EXAM: OVARIAN CYST TECHNIQUE: Grayscale and color doppler transabdominal and transvaginal pelvic ultrasound was performed. COMPARISON: 12/31/2024 FINDINGS: Exam limited by shadowing bowel gas. Uterus: 7.8 x 5.7 x 5.0 cm, Retroflexed. Unremarkable echotexture. Endometrium: 4 mm, echogenic secretory appearance. Cervix: Unremarkable. Right ovary: 2.5 x 1.8 x 1.9 cm. Peripherally vascular solid-appearing structure is redemonstrated, ill-defined and difficult to measure, roughly 1.5 x 1.4 x 1.1 cm. A peripherally vascular structure in the region previously measured, unclear if 2.1 x 1.5 x 1.5 cm this reflects the same structure. Left ovary: Only visualized by transabdominal approach. 2.7 x 2.1 x 1.7 cm. Grossly unremarkable limited transabdominal appearance. Free fluid: None visualized. Other: Estimated bladder volume 223 mL.. Prominent parauterine vasculature. US/Pelvic w/ Transvaginal IMPRESSION: 1. A peripherally vascular solid-appearing RIGHT ovarian lesion measures 1.5 cm , possible collapsed/involuting corpus luteal cyst. Unclear if this reflects the previously seen 2.1 cm structure or a new f inding. Given that the appearance is not pathognomonic for a corpus luteal cyst, follow-up is recommended. 2. Additional description as above. Reading Location: [id number]
== END | disposition home or self-care (01) ==
LOC: OPUS 11:56
PROVIDERS: PCP Family Medicine; Referring Provider Nurse Practitioner Women's Health; Visit Provider Nurse Practitioner Women's Health
DX: N83.201 Unspecified ovarian cyst, right side (principal)
CPT/HCPCS: 76830; 76856

== ENCOUNTER 2025-03-08 07:30 | Outpatient (RCR) | payer OTHER, SELFPAY ==
--- NOTE | 2025-01-23 15:07 | HP.PTEVAL ---
Patient's Visit Information Visit Information Visit Information: PRASHANT MORAN is a 44 year old F referred to Physical Therapy by Dr. Camilla Kay DO with a diagnosis of LOW BACK PAIN ,RUPTURED DISC L5-S1. Date of Evaluation: 01/23/25 Physical Therapist: Darnell Renner, PT, Cert MDT, OCS Visit Plan Frequency: 2x /Week Duration: 4 Weeks Plan: FOCUS ON NEUTRAL DLS PT INTERVENTIONS DLS ,POSTURAL EX'S ,LE FLEXABILITY ,ACTIVITY MODIFICATION , POSTURE/BODY MECHANICS AND MODALTIES Subjective Subjective: This 44 y/o female presents to physical therapy with ruptured disc L5-S1 . Patient developed lumbar pain years. Patient reports end of November noticed increase pain in lumbar . Patient had some pain gluts. Patient seen DR x-rays showed DDD L5-S1 ,and MRI 5-S1: Ruptured intervertebral disc, disk desiccation, and intervertebral herniation of the disc. Patient had episode lumbar pain 2 weeks ago severe. Patient prescribed meloxicam and bactofilin. Aggravating bending,sitting ,lifting ,driving adn standing. Alleviating factors walking. Patient denies paresthesia/tingling . Coughing/sneezing-. No pain management . Patient pain affects QOL and function/job demands. Patient goals to decrease pain. Chiropractor did not help. 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 Pain Bilateral Back: Pain Intensity (Out of 10): 1 Pain Intensity Range: 10 Objective Objective: POSTURE: WFL GAIT: reciprocal pattern PALAPTION: unremarkable NEURO: denies paresthesia/tingling , reflexes L3-4 ,L4-L5 ,L5-S1 1/3 FLEXABILITY: hamstring min/mod tight MMT: quads/hams/hip 4/5 ,ankle 5/5 LUMBAR ROM: flexion WFL ,extension min loss ,side glides min loss PROM: hip IR 25 degrees Special Tests L/S Slump test left side: Negative L/S Slump test right side: Negative L/S Left Straight Leg Raise: Negative L/S Right Straight Leg Raise: Negative Lumbar Standing: Flexion - Mechanical Response: No effect Lumbar Standing: Flexion - Symptoms During Testing: No effect Lumbar Standing: Flexion - Symptoms After Testing: No effect Lumbar Standing: Extension - Mechanical Response: No effect Lumbar Standing: Extension - Symptoms During Testing: Increases Lumbar Standing: Extension - Symptoms After Testing: No worse Lumbar Standing: Right Side Glides - Mechanical Response: No effect Lumbar Standing: Right Side [place] - Symptoms During Testing: No effect Lumbar Standing: Right Side [place] - Symptoms After Testing: No effect Lumbar Standing: Left Side [place] - Mechanical Response: No effect Lumbar Standing: Left Side [place] - Symptoms During Testing: No effect Lumbar Standing: Left Side [place] - Symptoms After Testing: No effect Lumbar Lying: Flexion - Mechanical Response: No effect Lumbar Lying: Flexion - Symptoms During Testing: No effect Lumbar Lying: Flexion - Symptoms After Testing: No effect Lumbar Lying: Extension - Mechanical Response: No effect Lumbar Lying: Extension - Symptoms During Testing: Increases Lumbar Lying: Extension - Symptoms After Testing: No worse Balance/Special Test Scores Oswestry Low Back Score: 27 Goals Goal 1:: Patient to be I with Hep for back Goal Time Frame: 4-6 Weeks Goal 2:: Patient to improve lumbar ROM for function of recovery for job demands Goal Time Frame: 4-6 Weeks Goal 3:: Patient to improve lumbar ROM for function of recovery for job demands Goal Time Frame: 4-6 Weeks Goal 4:: Patient to improve back oswestry score by 5 points to improve QOL and function Goal Time Frame: 4-6 Weeks Goal 5:: Patient to improve posture/body mechanics by 90 % to include sitting for job demands and housework tasks Goal Time Frame: 4-6 Weeks Rehabilitation Potential Physical Therapy Diagnosis: Patient has asymmetrical/symmetrical back pain with ruptured disc with pain worse with positioning and motion testing especially sitting with job demands thus benefit from skilled PT Rehabilitation Potential: Good Anticipated Interventions Patient/Client Instruction: Educate patient on: Condition and Plan of Care For the Purpose of:: To decrease pain, To increase ROM, To improve muscle performance and motor function, To improve ability to perform ADL's, To increase tolerance to activity/condition/position, To improve ability of physical actions for home/community/work/leisure, To improve health of tissue, To decrease soft tissue restriction, To increase flexibility/ROM, To reduce risk of recurrence, To prevent re-injury and To improve tolerance to ADL's Therapeutic Exercise to Include: Strength training, Body mechanics, Postural training, Flexibilty training, Dynamic Lumbar Stabilization and Jovanny Exercises For the Purpose of:: To decrease pain, To increase ROM, To improve muscle performance and motor function, To improve ability to perform ADL's, To increase tolerance to activity/condition/position, To improve ability of physical actions for home/community/work/leisure, To improve health of tissue, To decrease soft tissue restriction, To increase flexibility/ROM, To reduce risk of recurrence, To prevent re-injury and To improve tolerance to ADL's TENS: Yes IF ES: Yes Cryotherapy (ice pack, ice massage): Yes Thermo therapy (hot pack): Yes Ultrasound (thermal/non thermal): Yes For the Purpose of:: To decrease pain, To decrease swelling/inflammation, To improve muscle performance and motor function, To improve ability to perform ADL's, To improve health of tissue and To decrease soft tissue restriction Text: Thank you for the opportunity to evaluate your patient. For Medicare and Medicare HMO plans, please review the plan of care and approve it. It will need to be FAXED BACK to us at [phone] for Medicare purposes. For Medicare only, by signing this I certify the plan of care. Please let me know if there are questions or concerns regarding this plan of care. Physician Signature: Date:
--- NOTE | 2025-06-10 18:24 | HP.PTDCNRP_ITS ---
Patient Information Patient Information: PRASHANT MORAN was seen in my office for initial evaluation on 01/23/25. The following Plan of Care was established for this patient: POC Established Initial Frequency: 2x /Week Initial Duration: 4 Weeks Anticipated Interventions Patient/Client Instruction: Educate patient on: Condition and Plan of Care For the Purpose of:: To decrease pain, To increase ROM, To improve muscle performance and motor function, To improve ability to perform ADL's, To increase tolerance to activity/condition/position, To improve ability of physical actions for home/community/work/leisure, To improve health of tissue, To decrease soft tissue restriction, To increase flexibility/ROM, To reduce risk of recurrence, To prevent re-injury and To improve tolerance to ADL's Therapeutic Exercise to Include: Strength training, Body mechanics, Postural training, Flexibilty training, Dynamic Lumbar Stabilization and Jovanny E xercises For the Purpose of:: To decrease pain, To increase ROM, To improve muscle performance and motor function, To improve ability to perform ADL's, To increase tolerance to activity/condition/position, To improve ability of physical actions for home/community/work/leisure, To improve health of tissue, To decrease soft tissue restriction, To increase flexibility/ROM, To reduce risk of recurrence, To prevent re-injury and To improve tolerance to ADL's TENS: Yes IF ES: Yes Cryotherapy (ice pack, ice massage): Yes Thermo therapy (hot pack): Yes Ultrasound (thermal/non thermal): Yes For the Purpose of:: To decrease pain, To decrease swelling/inflammation, To improve muscle performance and motor function, To improve ability to perform ADL's, To improve health of tissue and To decrease soft tissue restriction Last Seen Last Seen: This patient was last seen in our office . Pertinent comments regarding their Physical therapy will appear below: Patient was seen for PT ruptured disc doing fairly well ,managing symptoms thus d/c At this point I will be discontinuing this patient from physical therapy. I would be happy to see this patient again in the future if found appropriate by the physician. Thank you! Darnell Renner, PT, Cert MDT, OCS Balance/Gait/Functional tests Balance/Special Test Scores Oswestry Low Back Score: 27
== END 2025-03-08 19:00 | disposition home or self-care (01) ==
LOC: PT 07:30
PROVIDERS: PCP Family Medicine; Referring Provider Family Medicine; Visit Provider Family Medicine
DX: M54.16 Radiculopathy, lumbar region (principal); M54.50 Low back pain, unspecified
CPT/HCPCS: 97110; 97162

== ENCOUNTER → 2025-03-18 | Outpatient (CLI) | payer OTHER, SELFPAY ==
--- NOTE | 2025-03-18 12:38 | US_ITS ---
PROCEDURE: PELVIC W/ TRANSVAGINAL REASON FOR EXAM: MONITOR CYST TECHNIQUE: PELVIC W/ TRANSVAGINAL COMPARISON: February 04, 2025. FINDINGS: Measurements: Uterus: 8.7 cm x 5.2 cm x 5.1 cm with a volume of 119.8 mL Endometrial Thickness: 5 mm. It is hyperechoic. Right Ovary: 3.6 cm x 2.8 cm x 1.9 cm with a volume of 9.69 mL. Left Ovary: 2.8 cm x 2 cm x 1.4 cm with a volume of 4.12 mL. TRANSABDOMINAL: Uterus: Heterogeneous echotexture of the uterus suggestive of fibroid change although no distinct fibroid is seen. Endometrium: Unremarkable. Right ovary: 2.1 cm 1.7 cm 1.2 cm simple right ovarian cyst. Left ovary: Normal size and echotexture. Other: No large pelvic mass identified. Transvaginal sonography was performed to better visualize the endometrium. TRANSVAGINAL: Uterus: Retroverted. Endometrium: Normal echotexture. Right ovary: 2.1 cm x 1.7 cm 1.2 cm simple right ovarian cyst. Left ovary: Normal size and echotexture. Other adnexal findings: None. Cul-de-sac: Minimal free fluid in the pelvis within normal limits. Tenderness: No tenderness US/Pelvic w/ Transvaginal IMPRESSION: 2.1 cm 1.7 cm 1.2 cm simple cyst in the right ovary. Minimal fluid is seen in the pelvis. Fibroid change of the uterus. Reading Location: [place] [id number]
== END | disposition home or self-care (01) ==
LOC: US 12:31
PROVIDERS: PCP Family Medicine; Referring Provider Nurse Practitioner Women's Health; Visit Provider Nurse Practitioner Women's Health
DX: N83.201 Unspecified ovarian cyst, right side (principal)
CPT/HCPCS: 76830; 76856

== ENCOUNTER 2025-04-23 05:16 | Day surgery (SDC) | payer OTHER, SELFPAY ==
[2025-04-15 12:33] LABS: Hematocrit 39.2 % (37-47); Hemoglobin 13.0 g/dL (12.0-15.0); Mean Corp Hgb Conc 33.2 g/dL (32-36); Mean Corpuscular Volume 99.5 fL (81-99); Mean Platelet Vol. 10.8 fl (6.2-12.0); Platelet Count 272 K/mm3 (150-450); RBC Distribution Width CV 11.5 % (11.6-14.6); RBC Distribution Width SD 42.5 fl (35.1-43.9); Red Blood Count 3.94 M/mm3 (4.2-5.4); White Blood Count 5.8 K/mm3 (4.4-11.0)
[2025-04-15 13:08] LABS: Magnesium 2.3 mg/dL (1.5-2.2)
[2025-04-23] VITALS (14 sets, daily range): BP systolic 91–111; BP diastolic 57–69; PULSE 69–92; RESP 12–18; TEMP 36.2–37.6; O2SAT 97–100; BMI 21.4
--- OUTSIDE RECORDS SUMMARY | 2025-04-23 05:30 | XMS RPT_ITS | CCD ---
Author Organization [facility] Care Team Providers Care Java Application Engineer Name Role Phone Dr. Camacho Winters Primary Care Provider [phone] Dr. Camacho Winters Attending Provider [phone] Dr. Camacho Winters Referring Provider [phone] Vianey, Dr. Sauer Primary Care Provider [phone] Dr. Camacho Winters Referring Provider [phone] TRISTAN Gregg Attending Provider Mylene RECRUITMENT COORDINATOR, RECRUITMENT COORDINATOR-C Thelma Attending Provider [phone] Dr. Camilla Kay DO Primary Care Provider [phone] Dr. Camilla Kay DO Attending Provider [phone] Camilla Kay DO Referring Provider [phone] Mylene RECRUITMENT COORDINATOR-CThelma Attending Provider [phone] Mylene RECRUITMENT COORDINATOR-CThelma Referring Provider Dr. Patsy Torres DO Attending Provider Dr. Camilla Kay DO Primary Care Provider [phone] Dr. Camilla Kay DO Attending Provider [phone] Camilla Kay DO Referring Provider [phone] Camilla Kay Primary Care Unavailable Patsy Torres Attending Unavailabl e Mylene RECRUITMENT COORDINATORThelma Referring Unavailable Mylene RECRUITMENT COORDINATORThelma Attending Unavailable Malys, Camilla Primary Care Unavailable Malys, Camilla Referring Unavailable Loretta, Hussain Attending Unavailable Malys, Camilla Primary Care Unavailable Malys, Camilla Consulting Unavailable Malys, Camilla Primary Care Unavailable Malys, Camilla Referring Unavailable Loretta, Parthenon Attending Unavailable Vande Velde, Patsy Attending Unavailabl e Malys, Camilla Primary Care Unavailable Malys, Camilla Referring Unavailable Malys, Camilla Referring Unavailable Malys, Camilla Primary Care Unavailable Vande Velde, Patsy Attending Unavailabl e Mylene RECRUITMENT COORDINATOR, Thelma Attending Unavailable Malys, Camilla Primary Care Unavailable Malys, Camilla Referring Unavailable Malys, Camilla Attending Unavailable Malys, Camilla Referring Unavailable Malys, Camilla Primary Care Unavailable Malys, Camilla Attending Unavailable Malys, Camilla Referring Unavailable Malys, Camilla Primary Care Unavailable Malys, Camilla Attending Unavailable Malys, Camilla Referring Unavailable Malys, Camilla Primary Care Unavailable Malys, Camilla Attending Unavailable Malys, Camilla Referring Unavailable Malys, Camilla Primary Care Unavailable Malys, Camilla Attending Unavailable Malys, Camilla Primary Care Unavailable Malys, Camilla Referring Unavailable Malys, Camilla Attending Unavailable Malys, Camilla Primary Care Unavailable Malys, Camilla Referring Unavailable Malys, Camilla Attending Unavailable Malys, Camilla Primary Care Unavailable Malys, Camilla Referring Unavailable [place] RECRUITMENT COORDINATOR, Thelma Referring Unavailable [place] RECRUITMENT COORDINATOR, Thelma Attending Unavailable Malys, Camilla Primary Care Unavailable Malys, Camilla Attending Unavailable Malys, Camilla Primary Care Unavailable Malys, Camilla Referring Unavailable Mylene RECRUITMENT COORDINATOR, Thelma Referring Unavailable Mylene RECRUITMENT COORDINATOR, Thelma Attending Unavailable Malys, Camilla Primary Care Unavailable Medications Current Medications Medication Drug Class(es) Dates Sig (Normalized) Sig (Original) Multivitamin tablet (3 sources) Start: 02-13-2025 Multivitamin tablet Active 1 {tbl} PO daily February 13, 2025 12:00am Completed/Discontinued Medications Medication Drug Class(es) Dates Sig (Normalized) Sig (Original) amoxicillin 875 mg / clavulanate 125 mg oral tablet (12 sources) Penicillin-class Antibacterial Start: 03-17-2023 End: 03-27-2023 Amoxicillin-Pot Clavulanate 875-125 mg tablet Discontinued 1 {tbl} PO Q12H 20 10 0 March 17, 2023 12:00am March 26, 2023 12:00am March 27, 2023 12:04am Acute sinusitis, unspecified Start: 03-17-2023 End: 03-27-2023 take 1 tablet by mouth every twelve hours Amoxicillin-Pot Clavulanate Discontinued 1 TABLET PO Q12H 20 10 March 17, 2023 12:00am March 27, 2023 12:04am citalopram 10 mg oral tablet (15 sources) Serotonin Reuptake Inhibitor Start: 01-16-2021 End: 06-17-2021 take 1 tablet by mouth once daily Citalopram 10 mg tablet Discontinued 10 mg PO DAILY January 16, 2021 12:00am June 17, 2021 10:16am ferrous sulfate 325 mg oral tablet (20 sources) Start: 01-19-2021 End: 03-17-2023 take 1 tablet by mouth once daily Ferrous Sulfate 325 mg (65 mg iron) tablet Discontinued 325 mg PO DAILY 90 3 November 05, 2021 7:39pm March 17, 2023 6:47am ibuprofen 200 mg oral capsule (18 sources) Nonsteroidal Anti-inflammatory Drug Start: 02-13-2025 End: 04-10-2025 take 1 capsule by mouth every six hours as needed Ibuprofen 200 mg capsule Discontinued 200 mg PO EVERY 6 HOURS as needed February 13, 2025 12:00am April 10, 2025 2:15pm Start: 01-21-2022 End: 01-21-2025 take 1 tablet by mouth every eight hours as needed for pain Ibuprofen 800 mg tablet Discontinued 800 mg PO Q8H as needed for pain 30 0 January 21, 2022 12:00am January 21, 2025 9:54am meloxicam 15 mg oral tablet (5 sources) Nonsteroidal Anti-inflammatory Drug Start: 01-21-2025 End: 02-13-2025 take 1 tablet by mouth once daily Meloxicam 15 mg tablet Discontinued 15 mg PO daily January 21, 2025 12:00am February 13, 2025 10:33am oxyCODONE hydrochloride 5 mg oral capsule (15 sources) Opioid Agonist Start: 01-21-2022 End: 06-11-2022 take 1 capsule by mouth every eight hours as needed for pain Oxycodone 5 mg capsule Discontinued 5 mg PO Q8H as needed for pain 5 5 0 January 21, 2022 June 11, 2022 11:02am Menorrhagia Anemia Excessive and frequent menstruation with regular cycle Anemia, unspecified Problems Active Problems Problem Classification Problem Date Documented Da te Episodic/Chronic Complications of surgical procedures or medical care (5 sources) Postoperative complication; 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] 02-13-2025 Episodic Deficiency and other anemia (17 sources) Anemia; Translations: [Anemia, unspecified] 01-21-2022 Episodic Comment on above: ON IRON Deficiency and other anemia (1 source) Anemia, unspecified; Translations: [Anemia, unspecified] Episodic Menstrual disorders (20 sources) Menorrhagia; Translations: [Excessive and frequent menstruation with regular cycle] Chronic Comment on above: probable post ablati on syndrome Nonmalignant breast conditions (1 source) Other specified disorders of breast; Translations: [Other specified disorders of breast] Onset: 01-28-2025 Episodic Other bone disease and musculoskeletal deformities (20 sources) Segmental and somatic dysfunction; Translations: [Segmental and somatic dysfunction of cervical region] 12-05-2019 Episodic Other nervous system disorders (5 sources) Ulnar neuropathy; Translations: [Lesion of ulnar nerve, right upper limb] 06-17-2021 Chronic Other nervous system disorders (10 sources) Lesion of ulnar nerve, right upper limb; Translations: [Ulnar neuropathy at elbow of right upper extremity] 06-17-2021 Chronic Other screening for suspected conditions (not mental disorders or infectious disease) (1 source) Abnormal findings on diagnostic imaging of other specified body structures; Translations: [Abnormal findings on diagnostic imaging of other specified body structures] Onset: 01-03-2025 Chronic Other screening for suspected conditions (not mental disorders or infectious disease) (17 sources) Mammography abnormal; Translations: [Other abnormal and inconclusive findings on diagnostic imaging of breast] Onset: 01-24-2025 01-21-2025 Episodic Comment on above: Needs [facility] views and [place] Other skin disorders (11 sources) Hidradenitis; Translations: [Hidradenitis suppurativa] 03-23-2023 Episodic Other skin disorders (1 source) Hidradenitis suppurativa; Translations: [Hidradenitis] 03-23-2023 Episodic Other upper respiratory infections (14 sources) Acute pharyngitis; Translations: [Acute pharyngitis, unspecified] 03-17-2023 Episodic Ovarian cyst (13 sources) Cyst of ovary; Translations: [Unspecified ovarian cyst, right side] Onset: 03-21-2025 01-21-2025 Episodic Comment on above: solid nodule. Nl CA 125. Rpt 4 wk Spondylosis; intervertebral disc disorders; other back problems (12 sources) Pain in the coccyx; Translations: [Sacrococcygeal disorders, not elsewhere classified] 01-21-2025 Episodic Comment on above: chronic Unclassified (1 source) Low back pain, unspecified; Translations: [Low back pain, unspecified] Onset: 12-29-2024 Past or Other Problems Problem Classification Problem Date Documented Date Episodic/Chronic Other female genital disorders (1 source) Other noninflammatory disorders of ovary, fallopian tube and broad ligament; Translations: [Other noninflammatory disorders of ovary, fallopian tube and broad ligament] Onset: 01-07-2025 Episodic Residual codes; unclassified (2 sources) Family history of ischemic heart disease and other diseases of the circulatory system; Translations: [Family history of ischemic heart disease and other diseases of the circulatory system] Onset: 06-12-2024 Episodic Results Test Name Value Interpretation Reference Range Facility CBC-Complete Blood Cnt No Di ffon 04-15-2025 Erythrocyte distribution width (RBC) [Ratio] 11.5 % Low 11.6-14.6 [facility] Comment on above: Performed By: #### L 400.7600, BTSPAT, L100.0500 ####[facility] [address] [place], [place], [id number] Hematocrit (Bld) [Volume fraction] 39.2 % Normal 37-47 [facility] Comment on above: Performed By: #### L 400.7600, BTSPAT, L100.0500 ####[facility] [address] [place], [address] Hemoglobin (Bld) [Mass/Vol] 13.0 g/dL Normal 12.0-15.0 [facility] Comment on above: Performed By: #### L 400.7600, BTSPAT, L100.0500 ####[facility] [address] [place], [address] MCH (RBC) [Entitic mass] 33.0 pg High 27.0-32.0 [facility] Comment on above: Performed By: #### L 400.7600, BTSPAT, L100.0500 ####[facility] [address] [place], [address] MCHC (RBC) [Mass/Vol] 33.2 g/dL Normal 32-36 [facility] Comment on above: Performed By: #### L 400.7600, BTSPAT, L100.0500 ####[facility] [address] [place], [address] MCV (RBC) [Entitic vol] 99.5 fL High 81-99 [facility] Comment on above: Performed By: #### L 400.7600, BTSPAT, L100.0500 ####[facility] [address] [place], [address] Platelet mean volume (Bld) [Entitic vol] 10.8 fL Normal 6.2-12.0 [facility] Comment on above: Performed By: #### L 400.7600, BTSPAT, L100.0500 ####[facility] [address] [place], [address] Platelets (Bld) [#/Vol] 272 10*3/uL Normal 150-450 [facility] Comment on above: Performed By: #### L 400.7600, BTSPAT, L100.0500 ####[facility] [address] [place], [address] RBC (Bld) [#/Vol] 3.94 10*6/uL Low 4.2-5.4 [facility] Comment on above: Performed By: #### L 400.7600, BTSPAT, L100.0500 ####[facility] [address] [place], [address] RDW SD 42.5 fl Normal 35.1-43.9 [facility] Comment on above: Performed By: #### L 400.7600, BTSPAT, L100.0500 ####[facility] [address] [place], [address] WBC (Bld) [#/Vol] 5.8 10*3/uL Normal 4.4-11.0 [facility] Comment on above: Performed By: #### L 400.7600, BTSPAT, L100.0500 ####[facility] [address] [place], [address] Magnesiumon 04-15-2025 Magnesium [Mass/Vol] 2.3 mg/dL High 1.5-2.2 [facility] Comment on above: Performed By: #### L 501.5200 ####[facility] [address] [place], [address] Sales Representative Publications Office Visit Reporton 04-15-2025 Sales Representative Publications Office Visit Report [facility]'[address], [address] [place] [address] OFFICE VISIT Date of Service: 04/15/25 MR#: [id number] Acct: [id number] Name: PRASHANT MORAN Rep #: [id number] : 1980 Provider: Dr. Patsy Ferguson DO Age/Sex: 44/F Location: [facility] [place] Status: Signed Intake Vital Signs 02/13/25 10:26 04/15/25 10:41 04/15/25 10:42 Height 5 ft 5 in 5 ft 5 in 5 ft 5 in Weight: 131 lb 6 oz 125 lb 4 oz BMI 21.8 20.8 BP 109/69 118/73 Intake Visit Reasons: TRH possible right ooph possible cystectomy Chief Complaint: Preop TRH Resolution Specialist Required: No Is patient in pain?: No Allergies No Known Allergies Allergy (Verified 04/15/25 10:41) Medications ???Medication ???Instructions ???Recorded ???Confirmed ???Type multivitamin 1 tab PO QDAY 02/13/25 04/15/25 Hi story Post menopausal: No Patient : No : No [facility] Medical History Low iron Injury of back Alcohol use Non-smoker Normal Holter exam Surgical History History of endometrial ablation History of salpingectomy History of removal of skin mole History of wisdom tooth extraction History of tonsillectomy Family History Brother Myocardial infarction, Onset Age: 49 super healthy Heart disease Hypertension Hyperlipemia Mother Basal cell carcinoma Hypertension Father Heart disease Hypertension Hyperlipemia Grandmother Heart disease Diabetes Uncle Diabetes Social History household members: spouse housing: house number of children: 2 current occupational status: employed 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 She had an ablation and a laparoscopic tubal ligation in [address] Blaine leo. There was no mention of endometriosis in the operative note but she has moderate pelvic pain and back pain. She is seeing chiropractors and PT, etc for her back pain. She also has a nodule on the right ovary that we are following and that side is very painful, enough to keep her up at night. She had 2 vaginal deliveries and is Lionel at [employer]'s . She states that she has been gearing up to just have a hysterectomy and kind of wishes she did it 2 years ago. Ultrasound below: PROCEDURE: PELVIC W/ TRANSVAGINAL, 02/04/2025 REASON FOR EXAM: OVARIAN CYST TECHNIQUE: Grayscale and color doppler transabdominal and transvaginal pelvic ultrasound was performed. COMPARISON: 12/31/2024 FINDINGS: Exam limited by shadowing bowel gas. Uterus: 7.8 x 5.7 x 5.0 cm, Retroflexed. Unremarkable echotexture. Endometrium: 4 mm, echogenic secretory appearance. Cervix: Unremarkable. Right ovary: 2.5 x 1.8 x 1.9 cm. Peripherally vascular solid-appearing structure is redemonstrated, ill-defined and difficult to measure, roughly 1.5 x 1.4 x 1.1 cm. A peripherally vascular structure in the region previously measured, unclear if 2.1 x 1.5 x 1.5 cm this reflects the same structure. Left ovary: Only visualized by transabdominal approach. 2.7 x 2.1 x 1.7 cm. Grossly unremarkable limited transabdominal appearance. Free fluid: None visualized. Other: Estimated bladder volume 223 mL.. Prominent parauterine vasculature. US/Pelvic w/ Transvaginal IMPRESSION: 1. A peripherally vascular solid-appearing RIGHT ovarian lesion measures 1.5 cm, possible collapsed/involuting corpus luteal cyst. Unclear if this reflects the previously seen 2.1 cm structure or a new finding. Given that the appearance is not pathognomonic for a corpus luteal cyst, follow-up is recommended. 2. Additional description as above. History 2 Elective abortions Hx Para 2 Spontaneous abortions Hx # Term Pregnancies Ectopic pregnancies Hx # Pregnancies Multiple births # of living children 2 Past Pregnancies Del. 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 Normal [facility] ,Urineon 04-15-2025 Beta HCG ( test) Ql (U) Normal [facility] Comment on above: Result Comment: TO Bebeto E DONE SDC Performed By: #### L 388.3973, BTSPAT, L100.0500 ####[facility] [address] [place], [address] INTERNAL QC OK? Normal [facility] Comment on above: Result Comment: TO B E DONE SDC Performed By: #### L 400.7600, BTSPAT, L100.0500 ####[facility] [address] [place], [address] RECORD KIT LOT# Normal [facility] Comment on above: Result Comment: TO B E DONE SDC Performed By: #### L 400.7600, BTSPAT, L100.0500 ####[facility] [address] [place], [address] Type AND Screen - PAT ONLYon 04-15-2025 Ab SCREEN GEL Negative Normal [facility] Comment on above: Order Comment: Surge ry Date: 04/23/25Reason for Laboratory Test [id number] HYSTERECTOMY Performed By: #### L 400.7600, BTSPAT, L100.0500 ####[facility] [address] [place], [address] ABO and Rh group Nom (Bld) Blood group A Rh(D) positive [facility] Comment on above: Order Comment: Surge ry Date: 04/23/25Reason for Laboratory Test [id number] HYSTERECTOMY Performed By: #### L 400.7600, BTSPAT, L100.0500 ####[facility] [address] [place], [address] Pelvic w/ Transvaginalon Pelvic w/ Transvaginal [facility] [address] [place] [address] Pelvic w/ Transvaginal MR#: [id number] Acct: [id number] Name: PRASHANT MORAN Rep #: [id number] : 1980 F 44 From: Duran damon MD PCP: Dr. Camilla Kay, DO Status: REG CLI Study: Pelvic w/ Transvaginal Date of Exam: 03/18/25 Exam# [id number] Ordering Dr: Thelma Chakraborty NP, NP PROCEDURE: PELVIC W/ TRANSVAGINAL REASON FOR EXAM: MONITOR CYST TECHNIQUE: PELVIC W/ TRANSVAGINAL COMPARISON: February 04, 2025. FINDINGS: Measurements: Uterus: 8.7 cm x 5.2 cm x 5.1 cm with a volume of 119.8 mL Endometrial Thickness: 5 mm. It is hyperechoic. Right Ovary: 3.6 cm x 2.8 cm x 1.9 cm with a volume of 9.69 mL. Left Ovary: 2.8 cm x 2 cm x 1.4 cm with a volume of 4.12 mL. TRANSABDOMINAL: Uterus: Heterogeneous echotexture of the uterus suggestive of fibroid change although no distinct fibroid is seen. Endometrium: Unremarkable. Right ovary: 2.1 cm 1.7 cm 1.2 cm simple right ovarian cyst. Left ovary: Normal size and echotexture. Other: No large pelvic mass identified. Transvaginal sonography was performed to better visualize the endometrium. TRANSVAGINAL: Uterus: Retroverted. Endometrium: Normal echotexture. Right ovary: 2.1 cm x 1.7 cm 1.2 cm simple right ovarian cyst. Left ovary: Normal size and echotexture. Other adnexal findings: None. Cul-de-sac: Minimal free fluid in the pelvis within normal limits. Tenderness: No tenderness US/Pelvic w/ Transvaginal IMPRESSION: 2.1 cm 1.7 cm 1.2 cm simple cyst in the right ovary. Minimal fluid is seen in the pelvis. Fibroid change of the uterus. Reading Location: [facility] CC: LENORE Chakraborty; Dr. Camilla Kay DO Unit Manager [employer]: Signed Normal [facility] Sales Representative Publications Office Visit Reporton 02-13-2025 Sales Representative Publications Office Visit Report [facility] [address], [address] [place] [address] OFFICE VISIT Date of Service: 02/13/25 MR#: [id number] Acct: [id number] Name: PRASHANT MORAN Rep #: [id number] : 1980 Provider: Dr. Patsy Ferguson DO Age/Sex: 44/F Location: [facility] [place] Status: Signed Intake Vital Signs 01/21/25 09:54 02/13/25 10:26 Height 5 ft 5 in 5 ft 5 in Weight: 131 lb 6 oz BMI 21.8 BP 109/69 Intake Visit Reasons: SURGICAL CONSULT $20 COPAY Resolution Specialist Required: No Is patient in pain?: No Allergies No Known Allergies Allergy (Verified 02/13/25 10:25) Medications ???Medication ???Instructions ???Recorded ???Confirmed ???Type ibuprofen 200 mg capsule 200 mg PO Q6H PRN 02/13/25 5 History multivitamin 1 tab PO QDAY 02/13/25 02/13/25 Hi story Post menopausal: No Patient : No : No [facility] Medical History Alcohol use Anemia Non-smoker Normal Holter exam Ulnar neuropathy at elbow of right upper extremity Surgical History History of endometrial ablation History of salpingectomy History of removal of skin mole History of wisdom tooth extraction History of tonsillectomy Family History Brother Myocardial infarction, Onset Age: 49 super healthy Heart disease Hypertension Hyperlipemia Mother Basal cell carcinoma Hypertension Father Heart disease Hypertension Hyperlipemia Grandmother Heart disease Diabetes Uncle Diabetes Social History household members: spouse housing: house number of children: 2 current occupational status: employed 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 She had an ablation and a laparoscopic tubal ligation in [address] Blaine leo. There was no mention of endometriosis in the operative note but she has moderate pelvic pain and back pain. She is seeing chiropractors and PT, etc for her back pain. She also has a nodule on the right ovary that we are following and that side is very painful, enough to keep her up at night. She had 2 vaginal deliveries and is Lionel at [employer] [employer]'s !. She states that she has been gearing up to just have a hysterectomy and kind of wishes she did it 2 years ago. Ultrasound below: PROCEDURE: PELVIC W/ TRANSVAGINAL, 02/04/2025 REASON FOR EXAM: OVARIAN CYST TECHNIQUE: Grayscale and color doppler transabdominal and transvaginal pelvic ultrasound was performed. COMPARISON: 12/31/2024 FINDINGS: Exam limited by shadowing bowel gas. Uterus: 7.8 x 5.7 x 5.0 cm, Retroflexed. Unremarkable echotexture. Endometrium: 4 mm, echogenic secretory appearance. Cervix: Unremarkable. Right ovary: 2.5 x 1.8 x 1.9 cm. Peripherally vascular solid-appearing structure is redemonstrated, ill-defined and difficult to measure, roughly 1.5 x 1.4 x 1.1 cm. A peripherally vascular structure in the region previously measured, unclear if 2.1 x 1.5 x 1.5 cm this reflects the same structure. Left ovary: Only visualized by transabdominal approach. 2.7 x 2.1 x 1.7 cm. Grossly unremarkable limited transabdominal appearance. Free fluid: None visualized. Other: Estimated bladder volume 223 mL.. Prominent parauterine vasculature. US/Pelvic w/ Transvaginal IMPRESSION: 1. A peripherally vascular solid-appearing RIGHT ovarian lesion measures 1.5 cm, possible collapsed/involuting corpus luteal cyst. Unclear if this reflects the previously seen 2.1 cm structure or a new finding. Given that the appearance is not pathognomonic for a corpus luteal cyst, follow-up is recommended. 2. Additional description as above. History 2 Elective abortions Hx Para 2 Spontaneous abortions Hx # Term Pregnancies Ectopic pregnancies Hx # Pregnancies Multiple births # of living children 2 Past Pregnancies Del. Date Name GA/Weeks Outcome Route Bth Weight Infant Gen Labor Lgth Anesthesia Del Locatn Provider FOB 02/11/09 Rebeca 09/03/10 [place] ROS Const ROS Unobtainable: All systems reviewed are unremarkable except as noted in H Resp Resp: Reports system reviewed and no additional complaints, except as docum (more content not included)... Normal [facility] Pelvic w/ Transvaginalon Pelvic w/ Transvaginal [facility] Imaging Services [address] [place] [address] Pelvic w/ Transvaginal MR#: [id number] Acct: [id number] Name: PRASHANT MORAN Rep #: [id number] : 1980 F 44 From: Gino Tapia MD PCP: Dr. Camilla Kay DO Status: DEP CLI Study: Pelvic w/ Transvaginal Date of Exam: 02/04/25 Exam# [id number] Ordering Dr: Thelma Chakraborty NP, NP -C ADDENDUM by Dr. Gino Tapia MD on 02/13/25 at 1215 Addendum has been requested for billing purposes requesting O-RADS categorization and recommendation. Note that at times, clinical medicine does not conform precisely to established algorithms. The described RIGHT ovarian lesion thought to perhaps reflect a collapsed corpus luteal cyst however not pathognomonic for such is borderline and difficult to categorize by O-RADS, felt best considered O-RADS 3 although again technically not meeting criteria for this. Follow-up again recommended. Consider pelvic ultrasound in 4-6 weeks from the initial exam. END OF ADDENDUM Reading Location: [id number] 02/13/25 1216 Date cc: LENORE Chakraborty; Dr. Camilla Kay DO * Signed PROCEDURE: PELVIC W/ TRANSVAGINAL, 02/04/2025 REASON FOR EXAM: OVARIAN CYST TECHNIQUE: Grayscale and color doppler transabdominal and transvaginal pelvic ultrasound was performed. COMPARISON: 12/31/2024 FINDINGS: Exam limited by shadowing bowel gas. Uterus: 7.8 x 5.7 x 5.0 cm, Retroflexed. Unremarkable echotexture. Endometrium: 4 mm, echogenic secretory appearance. Cervix: Unremarkable. Right ovary: 2.5 x 1.8 x 1.9 cm. Peripherally vascular solid-appearing structure is redemonstrated, ill-defined and difficult to measure, roughly 1.5 x 1.4 x 1.1 cm. A peripherally vascular structure in the region previously measured, unclear if 2.1 x 1.5 x 1.5 cm this reflects the same structure. Left ovary: Only visualized by transabdominal approach. 2.7 x 2.1 x 1.7 cm. Grossly unremarkable limited transabdominal appearance. Free fluid: None visualized. Other: Estimated bladder volume 223 mL.. Prominent parauterine vasculature. US/Pelvic w/ Transvaginal IMPRESSION: 1. A peripherally vascular solid-appearing RIGHT ovarian lesion measures 1.5 cm, possible collapsed/involuting corpus luteal cyst. Unclear if this reflects the previously seen 2.1 cm structure or a new finding. Given that the appearance is not pathognomonic for a corpus luteal cyst, follow-up is recommended. 2. Additional description as above. Reading Location: [id number] CC: LENORE Chakraborty; Dr. Camilla Kay DO Unit Manager [employer]: Signed Normal [facility] Breast Limited Unilateralon 01-23-2025 Breast Limited Unilateral [facility] Imaging Services [address] [place] [id number] Breast Limited Unilateral MR#: [id number] Acct: [id number] Name: PRASHANT MORAN Rep #: [id number] : 1980 F 44 From: Duran damon MD PCP: Dr. Camilla Kay DO Status: REG CLI Study: Breast Limited Unilateral Date of Exam: Exam# [id number] Ordering Dr: Camilla Kay DO PROCEDURE: BREAST LIMITED UNILATERAL 01/23/2025 REASON FOR EXAM: ASYMMETRY Abnormal mammogram. TECHNIQUE: Targeted right breast ultrasound. COMPARISON: Comparison is made with prior mammogram done earlier in the day as well as January 18, 2025. FINDINGS: Right breast ultrasound was targeted to the lateral aspect of the right breast.. The breast tissue appears sonographically normal. No cyst, solid mass, or suspicious shadowing. US/Breast Limited Unilateral IMPRESSION: BI-RADS 1: NEGATIVE. RECOMMEND ANNUAL MAMMOGRAPHIC SCREENING. Follow-up code: Routine Follow-up Reading Location: [place] [address] CC: Dr. Camilla Kay DO Unit Manager [employer]: Signed Normal [facility] DIAG MAMM W/CAD, UNILATon DIAG MAMM W/CAD, UNILAT [facility] Imaging Services [address] [place] [address] DIAG MAMM W/CAD, UNILAT MR#: [id number] Acct: [id number] Name: PRASHANT MORAN Rep #: [id number] : 1980 F 44 From: Duran damon MD PCP: Dr. Camilla Kay DO Status: REG CLI Study: DIAG MAMM W/CAD, UNILAT Date of Exam: 01/23/25 Exam# [id number] Ordering Dr: Camilla Kay DO EXAM: Diagnostic unilateral mammogram of right breast. CLINICAL HISTORY: Abnormal screening mammogram. COMPARISON: Comparison is made with prior mammogram dated January 18, 2025. TECHNIQUE: Compression spot views and 90 degree lateral view of the right breast was obtained. FINDINGS: Heterogeneous fibroglandular tissue. No mammographic abnormality is seen. Sonographic correlation recommended. BI/DIAG MAMM W/CAD, UNILAT IMPRESSION: No mammographic abnormality is seen. Sonographic correlation recommended. BI-RADS category 0. Reading Location: [facility] CC: Dr. Camilla Kay DO Unit Manager [employer]: Signed Normal [facility] Inital Evaluation (1) - PTon 01-23-2025 Inital Evaluation (1) - PT [facility] Physical Therapy [address] [place] [address] / REHABILITATION SERVICES INITIAL EVALUATION MR#: [id number] Acct: [id number] Name: PRASHANT MORAN Rep #: [id number] : 1980 44 From: Darnell Renner PT, Jose Rafael. MD Faith, OCS Referring Dr.: Dr. Camilla Kay DO Status: REG R CR [facility] SELF PAY INSURANCE Patient's Visit Information Visit Information Visit Information: PRASHANT MORAN is a 44 year old F referred to Physical Therapy by Dr. Camilla Kay DO with a diagnosis of LOW BACK PAIN ,RUPTURED DISC L5-S1. Date of Evaluation: 01/23/25 Physical Therapist: Darnell Renner PT, Cert WILBERT, OCS Visit Plan Frequency: 2x /Week Duration: 4 Weeks Plan: FOCUS ON NEUTRAL DLS PT INTERVENTIONS DLS ,POSTURAL EX'S ,LE FLEXABILITY ,ACTIVITY MODIFICATION , POSTURE/BODY MECHANICS AND MODALTIES Subjective Subjective: This 44 y/o female presents to physical therapy with ruptured disc L5-S1 . Patient developed lumbar pain years. Patient reports end of November noticed increase pain in lumbar . Patient had some pain gluts. Patient seen DR x-rays showed DDD L5-S1 ,and MRI 5-S1: Ruptured intervertebral disc, disk desiccation, and intervertebral herniation of the disc. Patient had episode lumbar pain 2 weeks ago severe. Patient prescribed meloxicam and bactofilin. Aggravating bending,sitting ,lifting ,driving adn standing. Alleviating factors walking. Patient denies paresthesia/tingling . Coughing/sneezing-. No pain management . Patient pain affects QOL and function/job demands. Patient goals to decrease pain. Chiropractor did not help. 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 Pain Bilateral Back: Pain Intensity (Out of 10): 1 Pain Intensity Range: 10 Objective Objective: POSTURE: WFL GAIT: reciprocal pattern PALAPTION: unremarkable NEURO: denies paresthesia/tingling , reflexes L3-4 ,L4-L5 ,L5-S1 1/3 FLEXABILITY: hamstring min/mod tight MMT: quads/hams/hip 4/5 ,ankle 5/5 LUMBAR ROM: flexion WFL ,extension min loss ,side glides min loss PROM: hip IR 25 degrees Special Tests L/S Slump test left side: Negative L/S Slump test right side: Negative L/S Left Straight Leg Raise: Negative L/S Right Straight Leg Raise: Negative Lumbar Standing: Flexion - Mechanical Response: No effect Lumbar Standing: Flexion - Symptoms During Testing: No effect Lumbar Standing: Flexion - Symptoms After Testing: No effect Lumbar Standing: Extension - Mechanical Response: No effect Lumbar Standing: Extension - Symptoms During Testing: Increases Lumbar Standing: Extension - Symptoms After Testing: No worse Lumbar Standing: Right Side Glides - Mechanical Response: No effect Lumbar Standing: Right Side [place] - Symptoms During Testing: No effect Lumbar Standing: Right Side [place] - Symptoms After Testing: No effect Lumbar Standing: Left Side [place] - Mechanical Response: No effect Lumbar Standing: Left Side [place] - Symptoms During Testing: No effect Lumbar Standing: Left Side [place] - Symptoms After Testing: No effect Lumbar Lying: Flexion - Mechanical Response: No effect Lumbar Lying: Flexion - Symptoms During Testing: No effect Lumbar Lying: Flexion - Symptoms After Testing: No effect Lumbar Lying: Extension - Mechanical Response: No effect Lumbar Lying: Extension - Symptoms During Testing: Increases Lumbar Lying: Extension - Symptoms After Testing: No worse Balance/Special Test Scores Oswestry Low Back Score: 27 Goals Goal 1:: Patient to be I with Hep for back Goal Time Frame: 4-6 Weeks Goal 2:: Patient to improve lumbar ROM for function of recovery for job demands Goal Time Frame: 4-6 Weeks Goal 3:: Patient to improve lumbar ROM for function of recovery for job demands Goal Time Frame: 4-6 Weeks Goal 4:: Patient to improve back oswestry score by 5 points to improve QOL and function Goal Time Frame: 4-6 Weeks Goal 5:: Patient to improve posture/body mechanics by 90 % to include sitting for job demands and housework tasks Goal Time Frame: 4-6 Weeks Rehabilitation Potential Physical Therapy Diagnosis: Patient has asymmetrical/symmetrical back pain with ruptured disc with pain worse with positioning and motion testing especially sitting with job demands thus benefit from skilled PT Rehabilitation Potential: Good Anticipated Interventions Patient/Client Instruction: Educate patient on: Condition and Plan of Care For the Purpose of:: To decrease pain, To increase ROM, To improve muscle performance and motor function, To improve ability to perform ADL's, To increase tolerance to activity/condition/position , To improve ability of physical actions for home/community/work/leisure , To improve health of tissue, To decrease soft tissue restriction, To increase flexibility/ROM, To reduce risk of recurrence, To prevent re-injury and To i (more content not included)... Normal [facility] PAP IG HPV APTIMA 16/18,45on 01-23-2025 ADEQ Comment Normal . [facility] Comment on above: Order Comment: Speci men Comment: [id number] Comment: No. of containers..01 ThinPrep Vial Result Comment: Sati sfactory for evaluation. Endocervical and/or squamous metaplastic cells (endocervical component) are present. Performed By: #### L 7400.0280 ####[facility] [address] [place], [place], [id number] COMM . Normal . [facility] Comment on above: Order Comment: Speci men Comment: [id number] Comment: No. of containers..01 ThinPrep Vial Performed By: #### L 7400.0280 ####[facility] [address] [place], [address] COMMENT Comment Normal . [facility] Comment on above: Order Comment: Speci men Comment: [id number] Comment: No. of containers..01 ThinPrep Vial Result Comment: This liquid based ThinPrep(R) pap test was screened with the use of an image guided system. Performed By: #### L 7400.0280 ####[facility] [address] [place], [address] DIAG Comment Normal . [facility] Comment on above: Order Comment: Speci men Comment: [id number] Comment: No. of containers..01 ThinPrep Vial Result Comment: NEGA TIVE FOR INTRAEPITHELIAL LESION OR MALIGNANCY. Performed By: #### L 7400.0280 ####[facility] [address] [place], [address] HPV APTIMA, HR Negative Normal Negative [facility] Comment on above: Order Comment: Speci men Comment: [id number] Comment: No. of containers..01 ThinPrep Vial Result Comment: This nucleic acid amplification test detects fourteen high- risk HPV types (16,18,31,33,35,39,45,51,52,56,58,59,66,68) without differentiation. Performed By: #### L 7400.0280 ####[facility] [address] [place], [address] HPV Kendra Rfx Comment Normal . [facility] Comment on above: Order Comment: Speci men Comment: [id number] Comment: No. of containers..01 ThinPrep Vial Result Comment: Crit eria not met, HPV Genotype not performed. Performed at: - [address] [id number] Tool Repair Technician: Nathalie Pozo MD, Phone: [phone] Performed at: = - [facility] [id number] Tool Repair Technician: Nathalie Pozo MD, Phone: [phone] Performed By: #### L 7400.0280 ####[facility] [address] [place], [address] PAPSMR Comment Normal . [facility] Comment on above: Order Comment: Speci men Comment: [id number] Comment: No. of containers..01 ThinPrep Vial Result Comment: The Pap smear is a screening test designed to aid in the detection of premalignant and malignant conditions of the uterine cervix. It is not a diagnostic procedure and should not be used as the sole means of detecting cervical cancer. Both false-positive and false-negative reports do occur. Performed By: #### L 7400.0280 ####[facility] [address] [place], [place], [id number] PERFORM Comment Normal . [facility] Comment on above: Order Comment: Speci men Comment: [id number] Comment: No. of containers..01 ThinPrep Vial Result Comment: Brigida Perez, Lab Director (ASCP) Performed By: #### L 7400.0280 ####[facility] [address] [place], [address] Cervical or vaginal specimen microscopic examination by liquid based cytology (reportOrdered By: Thelma Chakraborty on 01-21-2025 Cytology report Cyto stain.thin prep Doc (Cvx/Vag) Comment . [facility] Comment on above: Criteria not met, HP V Genotype not performed.Performed at: [facility] [address] [id number] Director: Nathalie Pozo MD, Phone: [phone] at: =[facility] [address] [id number] Director: Nathalie Pozo MD, Phone: [phone] Cervical or vagninal specime n microscopic examination by cytology stain (reported asOrdered By: Thelma Chakraborty on 01-21-2025 Cytology report Cyto stain Doc (Cvx/Vag) Comment . [facility] Comment on above: The Pap smear is a s creening test designed to aid in thedetection of premalignant and malignant conditions of theuterine cervix. It is not a diagnostic procedure andshould not be used as the sole means of detecting cervicalcancer. Both false-positive and false-negative reports dooccur. Lab Director Cyto stain Nom (C vx/Vag) [ID]Ordered By: Thelma Chakraborty on 01-21-2025 Pap Smear Performed By Comment . [facility] Comment on above: Jerri Perez Cyto logist (ASCP) Cytology report Cyto stain D oc (Cvx/Vag)Ordered By: Thelma Chakraborty on 01-21-2025 Thin Prep Pap Smear Comment . [facility] Comment on above: The Pap smear is a s creening test designed to aid in thedetection of premalignant and malignant conditions of theuterine cervix. It is not a diagnostic procedure andshould not be used as the sole means of detecting cervicalcancer. Both false-positive and false-negative reports dooccur. Cytology report Cyto stain.t hin prep Doc (Cvx/Vag)Ordered By: Thelma Chakraborty on 01-21-2025 HPV Genotype Special Info Comment . [facility] Comment on above: Criteria not met, HP V Genotype not performed.Performed at: WB - [facility] [address] [id number] Director: Nathalie Pozo MD, Phone: [phone] at: =G - [facility] [address] [id number] Director: Nathalie Pozo MD, Phone: [phone] Detection in cervical specim en of any of human papilloma virus (HPV) 16, 18, 31, 33,Ordered By: Thelma Chakraborty on 01-21-2025 HPV 16+18+31+33+35+39+45+ 51+52+56+58+59+66+68 DNA Probe+sig amp Ql (Cvx) Negative Negative [facility] Comment on above: This nucleic acid am plification test detects fourteen high- risk HPV types (16,18,31,33,35,39,45,51,52,56,58,59,66,68)without differentiation. HPV 16+18+31+33+35+39+45+51+ 52+56+58+59+66+68 DNA Probe+sig amp Ql (Cvx)Ordered By: Thelma Chakraborty on 01-21-2025 Human Papillomavirus High Risk Negative Negative [facility] Comment on above: This nucleic acid am plification test detects fourteen high- risk HPV types (16,18,31,33,35,39,45,51,52,56,58,59,66,68)without differentiation. Image-guided ThinPrep PapOrd ered By: Thelma Chakraborty on 01-21-2025 Pap Smear Note Comment . [facility] Comment on above: This liquid based Th inPrep(R) pap test was screened withthe use of an image guided system. Image-guided liquid-based Pa pOrdered By: Thelma Chakraborty on 01-21-2025 Pap Smear Diagnosis Comment . [facility] Comment on above: NEGATIVE FOR INTRAEP ITHELIAL LESION OR MALIGNANCY. Laboratory - CytologyOrdered By: Thelma Chakraborty on 01-21-2025 Lab Director Cyto stain Nom (Cvx/Vag) [ID] Comment . [facility] Comment on above: Parul Christy logist (ASCP) Laboratory - Miscellaneous t estsOrdered By: Thelma Chakraborty on 01-21-2025 Service comment (Unsp spec) [Interp] . . [facility] No Panel InformationOrdered By: Thelma Chakraborty on 01-21-2025 Pap Smear Specimen Adequacy Comment . [facility] Comment on above: Satisfactory for raven luation. Endocervical and/or squamous metaplasticcells (endocervical component) are present. Sales Representative Publications Office Visit Reporton 01-21-2025 Sales Representative Publications Office Visit Report [facility] [address], [address] [place] [address] OFFICE VISIT Date of Service: 01/21/25 MR#: [id number] Acct: [id number] Name: PRASHANT MORAN Rep #: [id number] : 1980 Provider: LENORE anderson Age/Sex: 44/F Location: [facility] [place] Status: Signed Intake Vital Signs 03/23/23 14:34 01/21/25 09:49 01/21/25 09:54 Height 5 ft 5 in 5 ft 5 in 5 ft 5 in Weight: 132 lb BMI 21.9 BP 108/64 Intake Visit Reasons: BACK PAIN HAD (US COMPLETED) *copay $20 Chief Complaint: Back pain Resolution Specialist Required: No Is patient in pain?: No Allergies No Known Allergies Allergy (Verified 01/21/25 09:48) Medications ???Medication ???Instructions ???Recorded ???Confirmed ???Type meloxicam 15 mg tablet 15 mg PO QDAY 01/21/25 01/21/25 Hi story Is last menstrual period known: Yes Last Menstrual Period: 01/06/25 Post menopausal: No Patient : No : No Control Method: Tubal PFSH Medical History Alcohol use Anemia Non-smoker Normal Holter exam Ulnar neuropathy at elbow of right upper extremity Surgical History History of endometrial ablation History of salpingectomy History of removal of skin mole History of wisdom tooth extraction History of tonsillectomy Family History Brother Myocardial infarction, Onset Age: 49 super healthy Heart disease Hypertension Hyperlipemia Mother Basal cell carcinoma Hypertension Father Heart disease Hypertension Hyperlipemia Grandmother Heart disease Diabetes Uncle Diabetes Social History household members: spouse housing: house number of children: 2 current occupational status: employed 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 She had pelvic ultrasound 12/31/[address] Kay: normal uterus but does have 2cm solid nodule in right ovary/CA 125 was normal. States she had uterine ablation and although very light menses, has significant pain with menses. She denies issues with bowel habits, no constipation. Female Reproductive History Last Menstrual Period: 01/06/25 History 2 Elective abortions Hx Para 2 Spontaneous abortions Hx # Term Pregnancies Ectopic pregnancies Hx # Pregnancies Multiple births # of living children 2 Past Pregnancies Del. Date Name GA/Weeks Outcome Route Bth Weight Gen Labor Lgth Anesthesia Del Locatn Provider FOB 02/11/09 [place] 09/03/10 [place] ROS Const Constitutional: Reports system reviewed and no additional complaints, except as documented Eyes Eyes: Reports system reviewed and no additional complaints, except as documented GI GI: Denies abdominal pain or change in bowel habits : Reports as per HPI Exam Const General: cooperative and no acute distress Orientation: oriented x3 General: bladder normal to palpation External Female Exam: normal external appearance and normal appearance of the urethra Urethra: normal appearance of the urethra Speculum Exam - Vagina: normal appearance of the vagina, normal vaginal discharge, no lesions and nontender Speculum Exam - Cervix: normal appearance of the cervix Bimanual Exam- Vagina Uterus: normal bimanual exam, uterine size normal, bladder normal to palpation, uterine shape normal, uterine mobility normal and non-tender Bimanual Exam- Adnexa, other: normal adnexae, no masses and non-tender Coding Level of Care Code Off vis,est,level 4 Diagnoses Dysmenorrhea N94.6 Right ovarian cyst N83.201 Pain, coccyx M53.3 Abnormal mammogram of right breast R92.8 Pap smear for cervical cancer screening Z12.4 Assessment and Plan Assessment and Plan (1) Dysmenorrhea: Status: Acute Comment: 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 Nl CA 125. Rpt 4 wk (3) Pain, coccyx: Status: Acute Comment: chronic (4) Abnormal mammogram of right breast: Status: Acute Comment: Needs rpt views and US (5) Pap smear for cervical cancer screening: Orders: Ord (more content not included)... Normal [facility] Service comment (Unsp spec) [Interp]Ordered By: Thelma Chakraborty on 01-21-2025 Pap Smear Comment (3) . . [facility] Breast imaging reportOrdered By: Erin Solorzano on 01-18-2025 Study report [facility] Imaging Services [address] [place] [address] SCRN MAMM (CAD)W/LOS BILAT MR#: [id number] Acct: [id number] Name: PRASHANT MORAN Rep #: [id number] : 1980 F 44 From: Gayathri Solorzano MD PCP: Dr. Camilla Kay DO Status: REG CLI Study:SCRN MAMM (CAD)W/LOS BILAT Date of Exa m: 01/18/25 Exam# [id number] Ordering Dr: Armida Kay sa, DO EXAM: SCRN MAMM (CAD)W/LOS BILAT 01/18/2025 CLINICAL HISTORY: F, Age 44 y/o , SCREENING TECHNIQUE: Bilateral screening digital breast tomosynthesis with 2D and 3D images. Computeraided detection. COMPARISON: Prior exam(s) dated 01/18/2024, 11/26/2022. FINDINGS: TISSUE DENSITY: The breast tissue is heterogenously dense, which may obscure small masses. The mammogram demonstrates that the patient has dense breasts. Supplemental screening with whole breast ultrasound or MRI may be considered for further evaluation. Bilateral Breast Mammographic Findings: There is an asymmetry in the lateral right breast at posterior depth visualized on the CC view. No significant masses, calcifications or other abnormalities are identified in the left breast. BI/SCRN MAMM (CAD)W/LOS BILAT IMPRESSION: The asymmetry in the lateral right breast at posterior depth visualized on the CC view requires further evaluation. Recommend diagnostic mammogram of the right breast and ultrasound on the day of diagnosticif indicated. Right Breast: BIRADS 0 Incomplete: Need additional imaging evaluation and/or prior mammograms for comparison.. Left Breast: BIRADS 1 NEGATIVE. OVERALL FINAL ASSESSMENT: BIRADS 0 Incomplete: Need additional imaging evaluation and/or prior mammograms for comparison.. RECOMMENDATION: Recommendation: Additional projections. A letter with findings and recommendations will be mailed to the patient. Reading Location: [facility] CC: Dr. Camilla Kay DO ~ Unit Manager [employer]: Signed [facility] SCRN MAMM (CAD)W/LOS BILATo n 01-18-2025 SCRN MAMM (CAD)W/LOS BILAT [facility] Imaging Services [address] [place] [id number] SCRN MAMM (CAD)W/LOS BILAT MR#: [id number] Acct: [id number] Name: PRASHANT MORAN Rep #: [id number] : 1980 F 44 From: Erin Solorzano MD PCP: Dr. Camilla Kay DO Status: REG CLI Study: SCRN MAMM (CAD)W/LOS BILAT Date of Exam: 01/01 05/27 Exam# [id number] Ordering Dr: Camilla Kay DO EXAM: SCRN MAMM (CAD)W/LOS BILAT 01/18/2025 CLINICAL HISTORY: F, Age 44 y/o , SCREENING TECHNIQUE: Bilateral screening digital breast tomosynthesis with 2D and 3D images. Computer aided detection. COMPARISON: Prior exam(s) dated 01/18/2024, 11/26/2022. FINDINGS: TISSUE DENSITY: The breast tissue is heterogenously dense, which may obscure small masses. The mammogram demonstrates that the patient has dense breasts. Supplemental screening with whole breast ultrasound or MRI may be considered for further evaluation. Bilateral Breast Mammographic Findings: There is an asymmetry in the lateral right breast at posterior depth visualized on the CC view. No significant masses, calcifications or other abnormalities are identified in the left breast. BI/SCRN MAMM (CAD)W/LOS BILAT IMPRESSION: The asymmetry in the lateral right breast at posterior depth visualized on the CC view requires further evaluation. Recommend diagnostic mammogram of the right breast and ultrasound on the day of diagnostic if indicated. Right Breast: BIRADS 0 Incomplete: Need additional imaging evaluation and/or prior mammograms for comparison.. Left Breast: BIRADS 1 NEGATIVE. OVERALL FINAL ASSESSMENT: BIRADS 0 Incomplete: Need additional imaging evaluation and/or prior mammograms for comparison.. RECOMMENDATION: Recommendation: Additional projections. A letter with findings and recommendations will be mailed to the patient. Reading Location: [facility] CC: Dr. Camilla Kay DO Unit Manager [employer]: Signed Normal [facility] Cancer Antigen 125on 01-03-2 025 CA 125 7.4 U/mL Normal 0.0-38.1 [facility] Comment on above: Result Comment: [employer] Electrochemiluminescence Immunoassay (ECLIA) Values obtained with different assay methods or kits cannot be used interchangeably. Results cannot be interpreted as absolute evidence of the presence or absence of malignant disease. Performed at: [address] [id number] Tool Repair Technician: Robert Conteh PhD, Phone: [phone] Performed By: #### L 935.4250, L3055.5000 #### [facility] [address] [place], [address] Beta HCG ( test) Ql Ordered By: Camilla Kay on 01-02-2025 Serum Test, Qualitative Negative [facility] Cancer antigen 125 (CA-125) measurementOrdered By: Camilla Kay on 01-02-2025 CA 125 Antigen 7.4 U/mL 0.0-38.1 [facility] Comment on above: [employer] ectrochemiluminescence Immunoassay(ECLIA)Values obtained with different assay methods or kits cannotbe used interchangeably. Results cannot be interpreted asabsolute evidence of the presence or absence of malignantdisease.Performed at: [facility] [address] [id number] Director: Robert Conteh PhD, Phone: [phone] Cancer antigen 125 (CA-125) measurement 7.4 U/mL 0.0-38.1 [facility] Comment on above: [employer] ectrochemiluminescence Immunoassay(ECLIA)Values obtained with different assay methods or kits cannotbe used interchangeably. Results cannot be interpreted asabsolute evidence of the presence or absence of malignantdisease.Performed at: [facility] [address] [id number] Director: Robert Conteh PhD, Phone: [phone] ,Serum,hCG Quali.on 01-02-2025 HCG, SERUM QUAL Negative Normal [facility] Comment on above: Performed By: #### L 700.6800, L3100.5000 #### [facility] [address] [place], [address] Serum beta-hCG test, qualita tiveOrdered By: Camilla Kay on 01-02-2025 Beta HCG ( test) Ql Negative [facility] Pelvic w/ Transvaginalon Pelvic w/ Transvaginal [facility] Imaging Services [address] [place] [address] Pelvic w/ Transvaginal MR#: [id number] Acct: [id number] Name: PRASHANT MORAN Rep #: [id number] : 1980 F 44 From: Duran damon MD PCP: Dr. Camilla Kay DO Status: REG CLI Study: Pelvic w/ Transvaginal Date of Exam: 12/31/24 Exam# [id number] Ordering Dr: Camilla Kay DO PROCEDURE: PELVIC W/ TRANSVAGINAL REASON FOR EXAM: ENLARGED UTERUS ON MRI TECHNIQUE: Transabdominal and transvaginal pelvic ultrasound COMPARISON: None FINDINGS: Measurements: Uterus: 7.9 cm x 5.5 cm x 4.8 cm with a volume of 109 mL Endometrial Thickness: 4.1 mm Right Ovary: 3.5 cm x 1.8 cm x 2.5 cm with a volume of 8.05 mL. Left Ovary: 2.4 cm x 1.4 cm x 1.4 cm with a volume of 2.49 mL. TRANSABDOMINAL: Uterus: Heterogeneous appearance of the myometrium although no focal fibroid is seen. Endometrium: Unremarkable. Right ovary: There is a 2.1 cm x 1.5 cm x 1.5 cm solid nodule in the right ovary. Left ovary: Normal size and echotexture. Transvaginal sonography was performed to better visualize the endometrium. TRANSVAGINAL: Uterus: Heterogeneous appearance of the myometrium suggestive of fibroid change. Endometrium: Normal echotexture. Right ovary: 2.1 cm x 1.5 cm x 1.5 cm solid nodule in the right ovary. Clinical correlation recommended. Left ovary: Normal size and echotexture. Other adnexal findings: None. Cul-de-sac: No free intraperitoneal fluid identified. US/Pelvic w/ Transvaginal IMPRESSION: Heterogeneous appearance of the uterus in keeping with a fibroid change although no focal fibroid is seen. 2.1 cm x 1.5 cm x 1.5 cm solid nodule in the right ovary. Clinical correlation recommended. Reading Location: [id number] CC: Dr. Camilla Kay DO Unit Manager [employer]: Signed Normal [facility] Magnetic resonance imaging r eportOrdered By: Rose Pereyra on 12-24-2024 Study report [facility] Imaging Services [address] [place] [address] Spine Lumbar (Routine) MR#: [id number] Acct: [id number] Name: PRASHANT MORAN Rep #: [id number] : 1980 F 44 From: Pia Pereyra MD PCP: Dr. Camilla Kay DO Status: REG CLI Study:Spine Lumbar (Routine) Date of Exam: 12/24/24 Exam# [id number] Ordering Dr: Armida Kay sa, DO PROCEDURE: SPINE LUMBAR (ROUTINE) 12/24/2024 REASON FOR EXAM: 44 yo F, chronic low back pain, worsening in the last 2 months. No known injury. TECHNIQUE: Multiplaner MRI of the lumbar spine performed without contrast. Multiple pulse sequences were obtained. COMPARISON: Lumbar radiographs 12/03/24. FINDINGS: Vertebrae: No acute fracture. The vertebral bodies are normal in height. Alignment: Normal. Conus Medullaris: Normal in signal, terminates at the L1 vertebral body. L1-2: Unremarkable L2-3: Unremarkable L3-4: Unremarkable L4-5: Unremarkable L5-S1: Ruptured intervertebral disc, disk dessication, and intervertebral herniation of the disc within the anterior S1 vertebral body. No associated osseous STIR hyperintensity. No central or neural foraminal stenosis. Sacrum: The bilateral SI joints are grossly maintained. Enlarged retroflexed uterus seen on medical center representative imaging. MRI/Spine Lumbar (Routine) IMPRESSION: 1. Ruptured intervertebral disc with disc desiccation and Schmorl's node at the L5-S1 intervertebral space. No central or neural foraminal stenosis. 2. Partially visualized enlarged uterus. Reading Location: [id number] CC: Dr. Camilla Kay DO ~ Unit Manager [employer]: Signed [facility] Spine Lumbar (Routine)on Spine Lumbar (Routine) [facility] Imaging Services [address] [place] [address] Spine Lumbar (Routine) MR#: [id number] Acct: [id number] Name: PRASHANT MORAN Rep #: [id number] : 1980 F 44 From: Rose Camacho nd, MD PCP: Dr. Camilla Kay DO Status: REG CLI Study: Spine Lumbar (Routine) Date of Exam: 12/24/24 Exam# [id number] Ordering Dr: Camilla Kay DO PROCEDURE: SPINE LUMBAR (ROUTINE) 12/24/2024 REASON FOR EXAM: 44 yo F, chronic low back pain, worsening in the last 2 months. No known injury. TECHNIQUE: Multiplaner MRI of the lumbar spine performed without contrast. Multiple pulse sequences were obtained. COMPARISON: Lumbar radiographs 12/03/24. FINDINGS: Vertebrae: No acute fracture. The vertebral bodies are normal in height. Alignment: Normal. Conus Medullaris: Normal in signal, terminates at the L1 vertebral body. L1-2: Unremarkable L2-3: Unremarkable L3-4: Unremarkable L4-5: Unremarkable L5-S1: Ruptured intervertebral disc, disk dessication, and intervertebral herniation of the disc within the anterior S1 vertebral body. No associated osseous STIR hyperintensity. No central or neural foraminal stenosis. Sacrum: The bilateral SI joints are grossly maintained. Enlarged retroflexed uterus seen on medical center representative imaging. MRI/Spine Lumbar (Routine) IMPRESSION: 1. Ruptured intervertebral disc with disc desiccation and Schmorl's node at the L5-S1 intervertebral space. No central or neural foraminal stenosis. 2. Partially visualized enlarged uterus. Reading Location: [facility] CC: Dr. Camilla Kay DO Unit Manager [employer]: Signed Normal [facility] L/S Spine Min 4 Viewson L/S Spine Min 4 Views [facility] Imaging Services [address] [place] [address] L/S Spine Min 4 Views MR#: [id number] Acct: [id number] Name: PRASHANT MORAN Rep #: [id number] : 1980 F 44 From: Gino Williamson MD PCP: Dr. Camilla Kay DO Status: REG CLI Study: L/S Spine Min 4 Views Date of Exam: 12/03/24 Exam# [id number] Ordering Dr: Camilla Kay DO EXAM: XR Lumbosacral Spine, 4 or 5 views CLINICAL INDICATION: TECHNIQUE: Five views of the lumbar spine. COMPARISON: No relevant prior studies available. FINDINGS: VERTEBRAE: Mild endplate degenerative changes of L5-S1. Normal alignment. No acute fracture. SACRUM/COCCYX: Unremarkable as visualized. No acute fracture. DISC SPACES: No acute findings. No significant narrowing. SOFT TISSUES: Unremarkable. RAD/L/S Spine Min 4 Views IMPRESSION: 1. No acute fracture. 2. Degenerative changes as above. Reading Location[facility] CC: Dr. Camilla Kay DO Unit Manager [employer]: Signed Normal [facility] Coronary Angiography CTon Coronary Angiography CT [facility] Imaging Services [address] [place] [address] 06/05/24 0633 MR#: [id number] Acct: [id number] Name: PRASHANT MORAN Rep #: [id number] : 1980 43 From: Hussain Burgos MD PCP: Dr. Camilla Kay DO Status:REG CLI Y Location: CT Calcium Scoring Date of Study:: 05/30/24 Coronary Calcium Scoring: High-resolution Computed Tomographic imaging of the chest was performed on [05/30/2024], with particular attention paid to the coronary arteries. Images from the examination were analyzed for the presence and extent of coronary artery calcification , using coronary calcium quantification software. The patient tolerated the procedure well and there were no complications. The results of the coronary calcification analysis are provided below. Findings Coronary Artery Left Main (LM): 0 Left Anterior Descending (LAD): 0 Left Circumflex (LCX): 0 Right Coronary Artery (RCA): 0 Total Agatston Score: 0 Percentile Rankin% Calcium Scoring Interpretation: Different methods to categorize the overall amount of coronary plaque. Overall amount CAC SIS Visual of coronary plaque P1 Mild -100 <2 1-2 vessels with mild amount of plaque P2 Moderate 101-300 3-4 1-2 vessels with moderate amount, 3 vessels with mild amount of plaque P3 Severe 301-999 5-7 3 vessels with moderate amount, 1 vessel with severe amount of plaque P4 Extensive >1000 >8 2-3 vessels with severe amount of plaque Conclusion: No atherosclerotic plaquing noted 06/05/24 0634 Date Hussain Burgos MD Cosigner Signature (if applicable): Date CC: Dr. Hussain Burgos MD; Dr. Camilla Kay DO Signed Normal [facility] Limited Chest CT Cardiac Onl yon 05-30-[address] Cardiac Only [facility] Imaging Services [address] [place] [id number] Cardiac Only MR#: [id number] Acct: [id number] Name: PRASHANT MORAN Rep #: [id number] : 1980 F 43 From: Duran damon MD PCP: Dr. Camilla Kay DO Status: [facility] Study: Limited Chest CT Cardiac Only Date of Exam: Exam# [id number] Ordering Dr: Camilla Kay DO [id number] STUDY: CT CHEST WITHOUT CONTRAST REASON FOR EXAM: Female, 43 years old. Family history of ischemic heart disease and other diseases of th RADIATION DOSAGE (If Supplied By Facility): CTDIvol = ( 12.19 ) mGy, DLP = ( 170.66 ) mGycm TECHNIQUE: Transaxial imaging was performed without the administration of intravenous contrast material. Cardiac over read examination. Individualized dose optimization techniques were used for this CT. COMPARISON: No relevant priors. FINDINGS: CHEST The lungs are normal. There is no demonstrated pleural abnormality. Normal heart and pericardium. No coronary artery calcification is seen. Normal mediastinum. Normal hilar regions. Normal unenhanced pulmonary arteries. Normal aorta arch and descending thoracic aorta. Normal osseous structures. There is no demonstrated abnormality of the visualized upper abdomen. CT/Limited Chest CT Cardiac Only IMPRESSION: Normal unenhanced CT chest. Electronically Signed: Duran Rollins MD at 9:20 EDT , CC: Dr. Camilla Kay, Unit Manager [employer]: Signed Normal [facility] Absolute lymphocyte countOrd ered By: Camilla Kay on 04-13-2023 Lymphocytes Auto (Unsp spec) [#/Vol] 2.84 10*3/uL 0.83-4.51 [facility] Basophil percentageOrdered B y: Camilla Kay on 04-13-2023 Basophils/100 WBC (Bld) 0.5 % 0-1 [facility] Bilirubin [Mass/Vol] 0.40 mg/dL 0.20-1.00 [facility] Comment on above: For patients on eltr ombopag therapy, use of Dimension Entiat TBIL is not recommended. Chloride [Moles/Vol] 106 mmol/L 98-107 [facility] Cholesterol [Mass/Vol] 151 mg/dL <200 [facility] Comment on above: <200 mg/dL Desirable 200-240 mg/dL Borderline >240 mg/dL High Risk Eosinophils/100 WBC (Bld) 1.3 % 0-5 [facility] Glucose [Mass/Vol] 79 mg/dL 74-106 [facility] Neutrophils (Bld) [#/Vol] 4.5 10*3/uL 2.0-7.7 [facility] Neutrophils/100 WBC (Bld) 56.7 % 47-70 [facility] Potassium [Moles/Vol] 3.9 mmol/L 3.5-5.1 [facility] Protein [Mass/Vol] 7.3 g/dL 6.4-8.2 [facility] Sodium [Moles/Vol] 137 mmol/L 136-145 [facility] Triglyceride [Mass/Vol] 39 mg/dL <199 [facility] Comment on above: The drugs N-Acetylcy steine and Metamizole may falsely depress this assay.Serum Triglycerides Reference Interval Normal <150 mg/dL Borderline high 150 - 199 mg/dL High 200 - 499 mg/dL Very High > or = 500 mg/dL WBC (Bld) [#/Vol] 8.0 10*3/uL 4.4-11.0 [facility] Blood erythrocytes count (nu mber/volume)Ordered By: Camilla Kay on 04-13-2023 RBC (Bld) [#/Vol] 3.78 10*6/uL 4.2-5.4 [facility] Blood hemoglobin measurement (mass/volume)Ordered By: Camilla Kay on 04-13-2023 Hemoglobin (Bld) [Mass/Vol] 12.6 g/dL 12.0-15.0 [facility] Blood lymphocytes/100 leukoc ytesOrdered By: Camilla Kay on 04-13-2023 Lymphocytes/100 WBC (Bld) 35.7 % 19-41 [facility] Blood monocytes/100 leukocyt esOrdered By: Camilla Kay on 04-13-2023 Monocytes/100 WBC (Bld) 5.5 % 0-10 [facility] Blood platelet mean volumeOr dered By: Camilla Kay on 04-13-2023 Platelet mean volume (Bld) [Entitic vol] 10.7 fL 6.2-12.0 [facility] Determination of erythrocyte mean corpuscular volume (MCV)Ordered By: Camilla Kay on 04-13-2023 MCV (RBC) [Entitic vol] 102.9 fL 81-99 [facility] Hematocrit Auto (Bld) [Volum e fraction]Ordered By: Camilla Kay on 04-13-2023 Hematocrit (Bld) [Volume fraction] 38.9 % 37-47 [facility] - Chemistry and C hemistry - challengeOrdered By: Camilla Kay on 04-13-2023 ALP [Catalytic activity/Vol] 51 U/L 45-117 [facility] ALT [Catalytic activity/Vol] 18 U/L 13-56 [facility] CO2 [Moles/Vol] 26.0 mmol/L 21.0-32.0 [facility] Globulin (S) [Mass/Vol] 3.4 g/dL 2.2-4.2 [facility] Urea nitrogen/Creatinine [Mass ratio] 25.2 mg/mg 10-20 [facility] - Hematology and Cell countsOrdered By: Camilla Kay on 04-13-2023 Erythrocyte distribution width (RBC) [Entitic vol] 47.0 fL 35.1-43.9 [facility] Erythrocyte distribution width (RBC) [Ratio] 12.3 % 11.6-14.6 [facility] Immature granulocytes/100 WBC (Bld) 0.300 % 0.0-0.9 [facility] Comment on above: IG% - Immature Granu locytes (promyelocytes, myelocytes and metamyelocytes) > 1% indicates that a LEFT SHIFT is Present. MCH (RBC) [Entitic mass] 33.3 pg 27.0-32.0 [facility] Nucleated RBC/100 WBC (Bld) [Ratio] 0 % 0-5 [facility] MCHC Auto (RBC) [Mass/Vol]Or dered By: Camilla Kay on 04-13-2023 MCHC (RBC) [Mass/Vol] 32.4 g/dL 32-36 [facility] No Panel InformationOrdered By: Camilla Kay on 04-13-2023 Estimated GFR (MDRD) Amer 133 mL/min >60 [facility] Comment on above: GFR Calc Estimated GFR (MDRD) Non-Af Amer 110 mL/min >60 [facility] Comment on above: Non- GFR Calc Platelets bldOrdered By: Pinky Kay on 04-13-2023 Platelets (Bld) [#/Vol] 264 10*3/uL 150-450 [facility] Serum hepatitis B virus surf bernice antibody IgG detectionOrdered By: Camilla Kay on 04-13-2023 HBV surface IgG Ql (S) Reactive [facility] Comment on above: Non Reactive: Incons istent with immunity less than <10 mIU/mL Reactive: Consistent with immunity greater than or equal to 10 mIU/mL Serum or plasma albumin doni urement (mass/volume)Ordered By: Camilla Kay on 04-13-2023 Albumin [Mass/Vol] 3.9 g/dL 3.2-5.0 [facility] Serum or plasma albumin/glob ulin mass ratioOrdered By: Camilla Kay on 04-13-2023 Albumin/Globulin [Mass ratio] 1.1 {ratio} 0.9-2.4 [facility] Serum or plasma calcium doni urement (mass/volume)Ordered By: Camilla Kay on 04-13-2023 Calcium [Mass/Vol] 9.0 mg/dL 8.5-10.1 [facility] Serum or plasma cholesterol in HDL measurement (mass/volume)Ordered By: Camilla Kay on 04-13-2023 Cholesterol in HDL [Mass/Vol] 79 mg/dL >40 [facility] Comment on above: The drugs N-Acetylcy steine and Metamizole may falsely depress this assay. Reference Range HDL <40 mg/dL Low HDL Cholesterol HDL >or= 60 mg/dL High HDL Cholesterol Serum or plasma cholesterol in VLDL measurement (mass/volume)Ordered By: Camilla Kay on 04-13-2023 Cholesterol in VLDL [Mass/Vol] 8 mg/dL 5-40 [facility] Serum or plasma creatinine m easurement (mass/volume)Ordered By: Camilla Kay on 04-13-2023 Creatinine [Mass/Vol] 0.63 mg/dL 0.55-1.02 [facility] Comment on above: The validity of the calculated GFR & GFRAA in patients over 70 years has not been determined. Clinical correlation is essential. Serum or plasma low density lipoprotein (LDL) cholesterol measurement (mass/volume)Ordered By: Camilla Kay on 04-13-2023 Cholesterol in LDL [Mass/Vol] 64 mg/dL 0-130 [facility] Serum or plasma urea nitroge n measurement (mass/volume)Ordered By: Camilla Kay on 04-13-2023 Urea nitrogen [Mass/Vol] 16 mg/dL 7-18 [facility] Thin prep Papanicolaou smear with manual screeningOrdered By: Camilla Kay on 04-13-2023 Thin prep Papanicolaou smear with manual screening 16 U/L 15-37 [facility] Thin prep Papanicolaou smear with manual screening 5 5-15 [facility] Throat specimen bacteria kirby ntification by cultureOrdered By: Karl Weiner on 03-19-2023 Bacteria identified Cx Nom (Throat) streptococcus isolated. [facility] Throat specimen bacteria kirby ntification by cultureOrdered By: Karl Weiner on 03-17-2023 Bacteria identified Cx Nom (Throat) streptococcus isolated. [facility] Absolute lymphocyte counton 06-11-2022 Lymphocytes Auto (Unsp spec) [#/Vol] 2.01 10*3/uL 0.83-4.51 [facility] Work Phone: Basophil percentageon 2021 Basophils/100 WBC (Bld) 0.4 % 0-1 [facility] Work Phone: Bilirubin [Mass/Vol] 0.60 mg/dL 0.20-1.00 [facility] Work Phone: Comment on above: For patients on eltr ombopag therapy, use of Dimension Entiat TBIL is not recommended. Chloride [Moles/Vol] 101 mmol/L 98-107 [facility] Work Phone: Cholesterol [Mass/Vol] 155 mg/dL <200 [facility] Work Phone: Comment on above: <200 mg/dL Desirable 200-240 mg/dL Borderline >240 mg/dL High Risk Eosinophils/100 WBC (Bld) 0.8 % 0-5 [facility] Work Phone: Glucose [Mass/Vol] 90 mg/dL 74-106 [facility] Work Phone: Neutrophils (Bld) [#/Vol] 5.1 10*3/uL 2.0-7.7 [facility] Work Phone: Neutrophils/100 WBC (Bld) 68.4 % 47-70 [facility] Work Phone: Potassium [Moles/Vol] 3.6 mmol/L 3.5-5.1 [facility] Work Phone: Protein [Mass/Vol] 7.2 g/dL 6.4-8.2 [facility] Work Phone: Sodium [Moles/Vol] 137 mmol/L 136-145 [facility] Work Phone: Triglyceride [Mass/Vol] 38 mg/dL <199 [facility] Work Phone: Comment on above: The drugs N-Acetylcy steine and Metamizole may falsely depress this assay.Serum Triglycerides Reference Interval Normal <150 mg/dL Borderline high 150 - 199 mg/dL High 200 - 499 mg/dL Very High > or = 500 mg/dL WBC (Bld) [#/Vol] 7.5 10*3/uL 4.4-11.0 [facility] Work Phone: Blood erythrocytes count (nu mber/volume)on 06-11-2022 RBC (Bld) [#/Vol] 3.83 10*6/uL 4.2-5.4 [facility] Work Phone: Blood hemoglobin measurement (mass/volume)on 06-11-2022 Hemoglobin (Bld) [Mass/Vol] 12.6 g/dL 12.0-15.0 [facility] Work Phone: Blood lymphocytes/100 leukoc yteson 06-11-2022 Lymphocytes/100 WBC (Bld) 26.9 % 19-41 [facility] Work Phone: Blood monocytes/100 leukocyt eson 06-11-2022 Monocytes/100 WBC (Bld) 3.2 % 0-10 [facility] Work Phone: Blood platelet mean volumeon 06-11-2022 Platelet mean volume (Bld) [Entitic vol] 10.5 fL 6.2-12.0 [facility] Work Phone: Determination of erythrocyte mean corpuscular volume (MCV)on 06-11-2022 MCV (RBC) [Entitic vol] 99.0 fL 81-99 [facility] Work Phone: Hematocrit Auto (Bld) [Volum e fraction]on 06-11-2022 Hematocrit (Bld) [Volume fraction] 37.9 % 37-47 [facility] Work Phone: Laboratory - Chemistry and C hemistry - challengeon 06-11-2022 ALP [Catalytic activity/Vol] 45 U/L 45-117 [facility] Work Phone: ALT [Catalytic activity/Vol] 23 U/L 13-56 [facility] Work Phone: CO2 [Moles/Vol] 29.0 mmol/L 21.0-32.0 [facility] Work Phone: Globulin (S) [Mass/Vol] 3.2 g/dL 2.2-4.2 [facility] Work Phone: Urea nitrogen/Creatinine [Mass ratio] 23.1 mg/mg 10-20 [facility] Work Phone: Laboratory - Hematology and Cell countson 06-11-2022 Erythrocyte distribution width (RBC) [Entitic vol] 43.2 fL 35.1-43.9 [facility] Work Phone: Erythrocyte distribution width (RBC) [Ratio] 11.8 % 11.6-14.6 [facility] Work Phone: Immature granulocytes/100 WBC (Bld) 0.300 % 0.0-0.9 [facility] Work Phone: Comment on above: IG% - Immature Granu locytes (promyelocytes, myelocytes and metamyelocytes) > 1% indicates that a LEFT SHIFT is Present. MCH (RBC) [Entitic mass] 32.9 pg 27.0-32.0 [facility] Work Phone: Nucleated RBC/100 WBC (Bld) [Ratio] 0 % 0-5 [facility] Work Phone: MCHC Auto (RBC) [Mass/Vol]on 06-11-2022 MCHC (RBC) [Mass/Vol] 33.2 g/dL 32-36 [facility] Work Phone: No Panel Informationon 06-11 Estimated GFR (MDRD) Amer 130 mL/min >60 [facility] Work Phone: Comment on above: GFR Calc Estimated GFR (MDRD) Non-Af Amer 108 mL/min >60 [facility] Work Phone: Comment on above: Non- GFR Calc Platelets bldon 06-11-2022 Platelets (Bld) [#/Vol] 317 10*3/uL 150-450 [facility] Work Phone: Serum or plasma albumin doni urement (mass/volume)on 06-11-2022 Albumin [Mass/Vol] 4.0 g/dL 3.2-5.0 [facility] Work Phone: Serum or plasma albumin/glob ulin mass ratioon 06-11-2022 Albumin/Globulin [Mass ratio] 1.2 {ratio} 0.9-2.4 [facility] Work Phone: Serum or plasma calcium doni urement (mass/volume)on 06-11-2022 Calcium [Mass/Vol] 9.0 mg/dL 8.5-10.1 [facility] Work Phone: Serum or plasma cholesterol in HDL measurement (mass/volume)on 06-11-2022 Cholesterol in HDL [Mass/Vol] 74 mg/dL >40 [facility] Work Phone: Comment on above: The drugs N-Acetylcy steine and Metamizole may falsely depress this assay. Reference Range HDL <40 mg/dL Low HDL Cholesterol HDL >or= 60 mg/dL High HDL Cholesterol Serum or plasma cholesterol in VLDL measurement (mass/volume)on 06-11-2022 Cholesterol in VLDL [Mass/Vol] 8 mg/dL 5-40 [facility] Work Phone: Serum or plasma creatinine m easurement (mass/volume)on 06-11-2022 Creatinine [Mass/Vol] 0.65 mg/dL 0.55-1.02 [facility] Work Phone: Comment on above: The validity of the calculated GFR & GFRAA in patients over 70 years has not been determined. Clinical correlation is essential. Serum or plasma low density lipoprotein (LDL) cholesterol measurement (mass/volume)on 06-11-2022 Cholesterol in LDL [Mass/Vol] 73 mg/dL 0-130 [facility] Work Phone: Serum or plasma urea nitroge n measurement (mass/volume)on 06-11-2022 Urea nitrogen [Mass/Vol] 15 mg/dL 7-18 [facility] Work Phone: Thin prep Papanicolaou smear with manual screeningon 06-11-2022 Thin prep Papanicolaou smear with manual screening 15 U/L 15-37 [facility] Work Phone: Thin prep Papanicolaou smear with manual screening 7 5-15 [facility] Work Phone: Laboratory - Chemistry and C hemistry - challengeon 01-21-2022 HCG ( test) Ql (U) Negative [facility] Work Phone: Comment on above: Very dilute urine sp ecimens, as indicated by a low specificgravity, may not contain statement services representative levels of hCG. If is still suspected, a first morning urinespecimen should be collected 48 hours later and tested. Basophil percentageon 2021 WBC (Bld) [#/Vol] 5.4 10*3/uL 4.4-11.0 [facility] Work Phone: Blood erythrocytes count (nu mber/volume)on 01-20-2022 RBC (Bld) [#/Vol] 3.80 10*6/uL 4.2-5.4 [facility] Work Phone: Blood hemoglobin measurement (mass/volume)on 01-20-2022 Hemoglobin (Bld) [Mass/Vol] 12.3 g/dL 12.0-15.0 [facility] Work Phone: Blood platelet mean volumeon 01-20-2022 Platelet mean volume (Bld) [Entitic vol] 10.3 fL 6.2-12.0 [facility] Work Phone: Determination of erythrocyte mean corpuscular volume (MCV)on 01-20-2022 MCV (RBC) [Entitic vol] 99.2 fL 81-99 [facility] Work Phone: Hematocrit Auto (Bld) [Volum e fraction]on 01-20-2022 Hematocrit (Bld) [Volume fraction] 37.7 % 37-47 [facility] Work Phone: INR in Blood by Coagulation assayon 01-20-2022 INR Coag (Bld) [Relative time] 1.1 {INR} [facility] Work Phone: Laboratory - Coagulationon 0 01-20-2022 aPTT Coag (Bld) [Time] 32.0 s 24.1-36.2 [facility] Work Phone: PT Coag (PPP) [Time] 13.4 s 11.7-14.9 [facility] Work Phone: Laboratory - Hematology and Cell countson 01-20-2022 Erythrocyte distribution width (RBC) [Entitic vol] 45.0 fL 35.1-43.9 [facility] Work Phone: Erythrocyte distribution width (RBC) [Ratio] 12.2 % 11.6-14.6 [facility] Work Phone: MCH (RBC) [Entitic mass] 32.4 pg 27.0-32.0 [facility] Work Phone: MCHC Auto (RBC) [Mass/Vol]on 01-20-2022 MCHC (RBC) [Mass/Vol] 32.6 g/dL 32-36 [facility] Work Phone: Platelets bldon 01-20-2022 Platelets (Bld) [#/Vol] 318 10*3/uL 150-450 [facility] Work Phone: Vital Signs Date Time Vital Sign Value Performing Clinician Jered hines 04-15-2025 10:42-0400 Body height 165.[address] Camilla Kay DO Work Phone: [facility] 04-15-2025 10:41-0400 Body mass index (BMI) [Ratio] 20.8 kg/m2 Dr. Camilla Kay DO Work Phone: [facility] 04-15-2025 10:41-0400 Body weight 56.[address] Camilla Kay DO Work Phone: [facility] 04-15-2025 10:41-0400 Diastolic blood pressure 73 mm[Hg] Dr. Camilla Kay DO Work Phone: [facility] 04-15-2025 10:41-0400 Systolic blood pressure 118 mm[Hg] Dr. Camilla Kay DO Work Phone: [facility] 02-13-2025 10:26-0400 Body height 165.[address] Camilla Kay DO Work Phone: [facility] 02-13-2025 10:26-0400 Body mass index (BMI) [Ratio] 21.8 kg/m2 Dr. Camilla Kay DO Work Phone: [facility] 02-13-2025 10:26-0400 Body weight 59.[address] Camilla Kay DO Work Phone: [facility] 02-13-2025 10:26-0400 Diastolic blood pressure 69 mm[Hg] Dr. Camilla Kay DO Work Phone: [facility] 02-13-2025 10:26-0400 Systolic blood pressure 109 mm[Hg] Dr. Camilla Kay DO Work Phone: [facility] 01-21-2025 09:54-0400 Body height 165.[address] Camilla Kay DO Work Phone: [facility] 01-21-2025 09:49-0400 Body mass index (BMI) [Ratio] 21.9 kg/m2 Dr. Camilla Kay DO Work Phone: [facility] 01-21-2025 09:49-0400 Body weight 59.[address] Camilla Kay DO Work Phone: [facility] 01-21-2025 09:49-0400 Diastolic blood pressure 64 mm[Hg] Dr. Camilla Kay DO Work Phone: [facility] 01-21-2025 09:49-0400 Systolic blood pressure 108 mm[Hg] Dr. Camilla Kay DO Work Phone: [facility] 03-23-2023 14:34-0400 Body height 165.[address] Camacho Winters Work Phone: [facility] 03-23-2023 14:26-0400 Body mass index (BMI) [Ratio] 20 kg/m2 Dr. Camacho Winters Work Phone: [facility] 03-23-2023 14:26-0400 Body weight 54.[address] Camacho Winters Work Phone: [facility] 03-23-2023 14:26-0400 Diastolic blood pressure 62 mm[Hg] Dr. Camacho Winters Work Phone: [facility] 03-23-2023 14:26-0400 Systolic blood pressure 94 mm[Hg] Dr. Camacho Winters Work Phone: [facility] 03-17-2023 06:44-0400 Body height 165.[address] Camacho Winters Work Phone: [facility] 03-17-2023 06:44-0400 Body mass index (BMI) [Ratio] 20 kg/m2 Dr. Camacho Winters Work Phone: [facility] 03-17-2023 06:44-0400 Body temperature 98.2 [degF] Dr. Camacho Winters Work Phone: [facility] 03-17-2023 06:44-0400 Body weight 54.[address] Camacho Winters Work Phone: [facility] 03-17-2023 06:44-0400 Diastolic blood pressure 60 mm[Hg] Dr. Camacho Winters Work Phone: [facility] 03-17-2023 06:44-0400 Heart rate 97 /min Dr. Camacho Winters Work Phone: [facility] 03-17-2023 06:44-0400 Respiratory rate 16 /min Dr. Camacho Winters Work Phone: [facility] 03-17-2023 06:44-0400 SaO2% (BldA) [Mass fraction] 98 % Dr. Camacho Winters Work Phone: [facility] 03-17-2023 06:44-0400 Systolic blood pressure 102 mm[Hg] Dr. Camacho Winters Work Phone: [facility] 06-11-2022 10:58-0400 Body height 165.[address] Camacho Winters Work Phone: [facility] Work Phone: 06-11-2022 10:58-0400 Body mass index (BMI) [Ratio] 21.8 kg/m2 Dr. Camacho Witners Work Phone: [facility] Work Phone: 06-11-2022 10:58-0400 Body temperature 97.5 [degF] Dr. Camacho Winters Work Phone: [facility] Work Phone: 06-11-2022 10:58-0400 Body weight 59.[address] Camacho Winters Work Phone: [facility] Work Phone: 06-11-2022 10:58-0400 Diastolic blood pressure 58 mm[Hg] Dr. Camacho Winters Work Phone: [facility] Work Phone: 06-11-2022 10:58-0400 Heart rate 85 /min Dr. Camacho Winters Work Phone: [facility] Work Phone: 06-11-2022 10:58-0400 Respiratory rate 16 /min Dr. Camacho Winters Work Phone: [facility] Work Phone: 06-11-2022 10:58-0400 SaO2% (BldA) [Mass fraction] 94 % Dr. Camacho Winters Work Phone: [facility] Work Phone: 06-11-2022 10:58-0400 Systolic blood pressure 92 mm[Hg] Dr. Camacho Winters Work Phone: [facility] Work Phone: 01-21-2022 11:15-0400 Body temperature 99 [degF] [facility] Work Phone: 01-21-2022 11:15-0400 Diastolic blood pressure 54 mm[Hg] [facility] Work Phone: 01-21-2022 11:15-0400 Heart rate 70 /min [facility] Work Phone: 01-21-2022 11:15-0400 Respiratory rate 15 /min [facility] Work Phone: 01-21-2022 11:15-0400 SaO2% (BldA) [Mass fraction] 100 % [facility] Work Phone: 01-21-2022 11:15-0400 Systolic blood pressure 100 mm[Hg] [facility] Work Phone: 01-21-2022 06:21-0400 Body height 165.1 cm [facility] Work Phone: 01-21-2022 06:21-0400 Body mass index (BMI) [Ratio] 20.9 kg/m2 [facility] Work Phone: 01-21-2022 06:21-0400 Body weight 57 kg [facility] Work Phone: Encounters Encounter Date Encounter Type Care Provider Facility Start: 04-23-2025 ambulatory Camilla Kay Facility:[facility] Start: 04-22-2025 Encounter for other preprocedural examination Patsy Torres [facility] Start: 04-15-2025 End: 04-15-[address] Patsy Torres DO -[facility] Work Phone: Start: 04-15-2025 End: 04-15-[address] Camilla Kay DO Work Phone: -[facility] Start: 03-18-2025 End: 03-18-[address] Camilla Kay DO Work Phone: [facility] Work Phone: Start: 03-18-2025 End: 03-18-2025 Patient encounter procedure Thelma Chakraborty RECRUITMENT COORDINATOR-C -Ultrasound [facility] Work Phone: Start: 03-18-2025 End: 03-18-2025 ambulatory Thelma Chakraborty NP Facility:[facility] Start: 03-08-2025 ambulatory Camilla Kay Facility:[facility] Start: 03-08-[address] Camilla Kay DO -Physical Therapy Work Phone: Start: 02-13-2025 End: 02-13-[address] Patsy Torres DO -[facility] Work Phone: Start: 02-13-2025 End: 02-13-[address] Camilla Kay DO Work Phone: [facility] Work Phone: Start: 02-08-[address] Camilla Kay DO -Physical Therapy Work Phone: Start: 02-04-2025 End: 02-04-[address] Camilla Kay DO Work Phone: [facility] Work Phone: Start: 02-04-2025 End: 02-04-2025 Patient encounter procedure Thelma Mylene RECRUITMENT COORDINATOR-C -[facility] Work Phone: Start: 02-04-[address] Camilla Kay DO -Physical Therapy Work Phone: Start: 02-04-2025 End: 02-04-2025 ambulatory Thelma Chakraborty RECRUITMENT COORDINATOR Facility:[facility] Start: 01-23-2025 End: 01-23-[address] Camilla Kay DO -Outpatient Breast Imaging Work Phone: Start: 01-23-[address] Camilla Kay DO -Physical Therapy Work Phone: Start: 01-23-2025 End: 01-23-2025 ambulatory Camilla Kay Facility:[facility] Start: 01-21-2025 End: 01-21-2025 Patient encounter procedure Thelma [place] RECRUITMENT COORDINATOR-C -Laboratory, Specimen Work Phone: Start: 01-21-2025 End: 01-21-2025 Patient encounter procedure Thelma Mylene RECRUITMENT COORDINATOR-C -[facility] Work Phone: Start: 01-21-2025 End: 01-21-2025 ambulatory Thelma Chakraborty RECRUITMENT COORDINATOR Facility:[facility] Start: 01-21-2025 End: 01-21-2025 ambulatory Thelma Chakraborty RECRUITMENT COORDINATOR Facility:[facility] Start: 01-18-2025 End: 01-18-[address] Camilla Kay DO Work Phone: [facility] Work Phone: Start: 01-18-2025 End: 01-18-[address] Camilla Kay DO -Outpatient Breast Imaging Work Phone: Start: 01-18-2025 End: 01-18-2025 ambulatory Camilla Kay Facility:[facility] Start: 01-02-2025 End: 01-02-[address] Camilla Kay DO Work Phone: [facility] Work Phone: Start: 01-02-2025 End: 01-02-[address] Camilla Kay DO -Laboratory Work Phone: Start: 01-02-2025 End: 01-02-2025 ambulatory Camilla Kay Facility:[facility] Start: 12-31-2024 End: 12-31-[address] Camilla Kay DO Work Phone: [facility] Work Phone: Start: 12-31-2024 End: 12-31-[address] Camilla Kay DO -Ultrasound, [facility] Work Phone: Start: 12-31-2024 End: 12-31-2024 ambulatory Camilla Kay Facility:[facility] Start: 12-24-2024 End: 12-24-[address] Camilla Kay DO Work Phone: [facility] Work Phone: Start: 12-24-2024 End: 12-24-[address] Camilla Kay DO -MRI - [facility] Work Phone: Start: 12-24-2024 End: 12-24-2024 ambulatory Camilla Kay Facility:[facility] Start: 12-03-2024 End: 12-03-[address] Camilla Kay DO Work Phone: [facility] Work Phone: Start: 12-03-2024 End: 12-03-[address] Camilla Kay DO -Radiology, [facility] Work Phone: Start: 12-03-2024 End: 12-03-2024 ambulatory Camilla Kay Facility:[facility] Start: 06-05-2024 ambulatory Camilla Kay Facility:[facility] Start: 05-30-2024 End: 05-30-2024 [facility] Start: 01-18-2024 End: 01-18-[address] [facility] Work Phone: Start: 01-18-2024 End: 01-18-[address] [facility] Work Phone: Start: 04-13-2023 End: 04-13-[address] Camacho Winters Work Phone: [facility] Work Phone: Start: 04-13-2023 End: 04-13-[address] Camacho Winters Work Phone: [facility], [place] Work Phone: Start: 03-23-2023 End: 03-23-[address] Camacho Winters Work Phone: [facility] Work Phone: Start: 03-17-2023 End: 03-17-[address] Camacho Winters Work Phone: [facility] Work Phone: Start: 03-17-2023 End: 03-17-[address] Camacho Winters Work Phone: [facility]-Laboratory, Specimen Start: 03-17-2023 End: 03-17-[address] Camacho Winters Work Phone: [facility] Start: 11-26-2022 End: 11-26-[address] [facility] Work Phone: Start: 11-26-2022 End: 11-26-[address] [facility] Start: 06-11-2022 End: 06-11-[address] Camacho Winters Work Phone: [facility] Work Phone: Start: 06-11-[address] Julio Cesar Winters Work Phone: [facility] Start: 06-11-2022 End: 06-11-2022 Encounter for general adult medical examination without abnormal findings Dr. Camacho Winters Work Phone: [facility] Start: 06-11-2022 End: 06-11-[address] Camacho Winters Work Phone: [facility] Start: 01-21-2022 End: 01-21-2022 Admission to same day surgery center [facility] Procedures Date Procedure Procedure Detail Performing Clinician Start: 03-18-[address] Florinda Kay DO Work Phone: Start: 02-04-[address] Florinda Kay DO Work Phone: Start: 01-23-[address] Camilla carvajal DO Work Phone: Start: 01-23-[address] Camilla Kay DO Work Phone: Start: 01-21-2025 Liquid based cervica l cytology screening Dr. Camilla Kay DO Work Phone: Comment on above: NEGATIVE FOR INTRAEP ITHELIAL LESION OR MALIGNANCY. This liquid based Th inPrep(R) pap test was screened withthe use of an image guided system. Start: 01-18-2025 Screening mammography Dennis Kay DO Work Phone: Start: 12-31-[address] Florinda Kay DO Work Phone: Start: 12-24-2024 MRI of lumbar spine Dr. Camilla Kay DO Work Phone: Start: 12-03-2024 X-ray of lumbosacral spine Dr. Camilla Kay DO Work Phone: Start: 01-18-2024 Screening mammography Start: 03-17-2023 Bacteria identificat ion test Dr. Camacho Winters Work Phone: Start: 11-26-2022 Screening mammography Start: 01-21-2022 Hysteroscopy with endometrial ablation Start: 01-21-2022 Laparoscopic salpingectomy Bacteria identificat ion test Dr. Camacho Winters Work Phone: H/O: surgery History of salpingectomy Dr. Camacho Winters Work Phone: Comment on above: 2021 H/O: surgery History of salpingectomy Dr. Patsy Torres DO Plan of Treatment Date Care Activity Detail Author Start: 01-23-2025 Mammography DIAG MAMM W/CAD, UNILAT [facility] Start: 01-23-[address] [facility] Start: 01-23-2025 Ultrasonography of breast Breast Limited Unilateral [facility] Start: 01-23-[address] [facility] Start: 06-11-[address] [facility] Work Phone: MG Breast - bilatera l Screening [facility] Work Phone: Patient Education Endometrial Ablation [facility] Work Phone: Patient referral [facility] Work Phone: US Pelvis [facility] Payers Date Payer Category Payer Unknown [id number] 2024 Self-pay [id number] 2024 Self-pay [id number] Unknown [id number] Unknown [id number] 2.16.8 [id number] Unknown [id number] 2.16.8 [id number] Unknown [id number] 2.16.8 [id number] Unknown [id number] 2.16.8 [id number] Unknown [id number] 2.16.8 [id number] Unknown [id number] 2.16.8 [id number] Unknown [id number] 2.16.8 [id number] Unknown [id number] 2.16.8 [id number] Unknown [id number] 2.16.8 [id number] Unknown [id number] 2.16.8 [id number] Unknown [id number] 2.16.8 [id number] Unknown [id number] 2.16.8 [id number] Unknown [id number] 2.16.8 [id number] Unknown [id number] 2.16.8 [id number] Unknown [id number] 2.16.8 [id number] Unknown [id number] 2.16.8 [id number] Unknown [id number] 2.16.8 [id number] Social History Date Type Detail Facility [facility] Work Phone: Start: 01-13-2022 End: 03-23-2023 Tobacco smoking status NHIS Unknown if ever smoked [facility] Start: 1980 Sex Assigned At Female W [facility] Start: 03-23-2023 End: 04-10-2025 Tobacco smoking status NHIS Never smoked tobacco (finding) [facility] Start: 12-12-2024 End: 01-24-2025 Sex Female (finding) [facility] Goals Date Patient Goal Desired Activity /State Mental Status Date Assessment Result Facility 01-21-2022 Cognitive function Voice/Name [facility] Work Phone: Clinical Notes 12-03-2024 to 03-19-2025 Note Date & Type Note Facility 03-19-2025 Radiology Diagnostic study note [facility] Imaging Services [address] [place] [address] Pelvic w/ Transvaginal MR#: [id number] Acct: [id number] Name: PRASHANT MORAN Rep #: [id number] : 1980 F 44 From: Lenny Rollins MD PCP: Dr. Camilla Kay, DO Status: REG CLI Study:Pelvic w/ Transvaginal Date of Exam: 03/18/25 Exam# [id number] Ordering Dr: Thelma Chakraborty RECRUITMENT COORDINATOR RECRUITMENT COORDINATOR-C PROCEDURE: PELVIC W/ TRANSVAGINAL REASON FOR EXAM: MONITOR CYST TECHNIQUE: PELVIC W/ TRANSVAGINAL COMPARISON: February 04, 2025. FINDINGS: Measurements: Uterus: 8.7 cm x 5.2 cm x 5.1 cm with a volume of 119.8 mL Endometrial Thickness: 5 mm. It is hyperechoic. Right Ovary: 3.6 cm x 2.8 cm x 1.9 cm with a volume of 9.69 mL. Left Ovary: 2.8 cm x 2 cm x 1.4 cm with a volume of 4.12 mL. TRANSABDOMINAL: Uterus: Heterogeneous echotexture of the uterus suggestive of fibroid change although no distinct fibroid is seen. Endometrium: Unremarkable. Right ovary: 2.1 cm 1.7 cm 1.2 cm simple right ovarian cyst. Left ovary: Normal size and echotexture. Other: No large pelvic mass identified. Transvaginal sonography was performed to better visualize the endometrium. TRANSVAGINAL: Uterus: Retroverted. Endometrium: Normal echotexture. Right ovary: 2.1 cm x 1.7 cm 1.2 cm simple right ovarian cyst. Left ovary: Normal size and echotexture. Other adnexal findings: None. Cul-de-sac: Minimal free fluid in the pelvis within normal limits. Tenderness: No tenderness US/Pelvic w/ Transvaginal IMPRESSION: 2.1 cm 1.7 cm 1.2 cm simple cyst in the right ovary. Minimal fluid is seen in the pelvis. Fibroid change of the uterus. [facility] CC: LENORE Chakraborty; Dr. Camilla Kay DO ~ Unit Manager [employer]: Signed [facility] 02-04-2025 Radiology Diagnostic study note [facility] Imaging Services [address] [place] [address] Pelvic w/ Transvaginal MR#: [id number] Acct: [id number] Name: PRASHANT MORAN Rep #: [id number] : 1980 F 44 From: Agnieszka Tapia MD PCP: Dr. Camilla Kay DO Status: REG CLI Study:Pelvic w/ Transvaginal Date of Exam: 02/04/25 Exam# [id number] Ordering Dr: Thelma Chakraborty NP, NP-C PROCEDURE: PELVIC W/ TRANSVAGINAL, 02/04/2025 REASON FOR EXAM: OVARIAN CYST TECHNIQUE: Grayscale and color doppler transabdominal and transvaginal pelvic ultrasound was performed. COMPARISON: 12/31/2024 FINDINGS: Exam limited by shadowing bowel gas. Uterus: 7.8 x 5.7 x 5.0 cm, Retroflexed. Unremarkable echotexture. Endometrium: 4 mm, echogenic secretory appearance. Cervix: Unremarkable. Right ovary: 2.5 x 1.8 x 1.9 cm. Peripherally vascular solid-appearing structure is redemonstrated, ill-defined and difficult to measure, roughly 1.5 x 1.4 x 1.1 cm. A peripherally vascular structure in the region previously measured, unclear if 2.1 x 1.5 x 1.5 cm this reflects the same structure. Left ovary: Only visualized by transabdominal approach. 2.7 x 2.1 x 1.7 cm. Grossly unremarkable limited transabdominal appearance. Free fluid: None visualized. Other: Estimated bladder volume 223 mL.. Prominent parauterine vasculature. US/Pelvic w/ Transvaginal IMPRESSION: 1. A peripherally vascular solid-appearing RIGHT ovarian lesion measures 1.5 cm,possible collapsed/involuting corpus luteal cyst. Unclear if this reflects the previously seen 2.1 cm structure or a new finding. Given that the appearance is not pathognomonic for a corpus luteal cyst, follow-up is recommended. 2. Additional description as above. Reading Location: [id number] CC: LENORE Chakraborty; Dr. Camilla Kay, DO ~ Unit Manager [employer]: Signed [facility] 01-21-[address] [facility] Pap Smear Specimen Adequacy January 21, 2025 11:59pm Comment . Satisfactory for evaluation. Endocervical and/or squamous metaplasticcells (endocervical component) are present. Comment on above: Satisfactory for raven luation. Endocervical and/or squamous metaplasticcells (endocervical component) are present. 01-21-2025 Evaluation note Diagnosis Onset Date Resolution Abnormal mammogram of right breast acute January 21, 2025 9:44am Dysmenorrhea acute January 21, 2025 9:44am Pain, coccyx acute January 21, 2025 9:44am Right ovarian cyst acute January 21, 2025 9:44am Pap smear for cervical cancer screening noneactive January 21 9:44am [facility] Work Phone: 1(891) 812-936004-21-2025 Evaluation note* Diagnosis Onset Date Resolution Status Admit Date Abnormal mammogram of right breast acute January 21, 2025 9:44am Dysmenorrhea acute January 21, 2025 9:44am Pain, coccyx acute January 21, 2025 9:44am Right ovarian cyst acute January 21, 2025 9:44am Pap smear for cervical cance r screening noneactive January 21, 2025 9:44am Anemia acute February 13, 2025 9:48am Dysmenorrhea acute February 13 9:48am History of salpingectomy acute February 13, 2025 9:48am Menorrhagia acute February 13 9:48am Pain, coccyx acute February 13 9:48am 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 Work Phone: 1(864) 580-346604-01-2025 Radiology Diagnostic study note [facility] Imaging Services [address] [place] [address] Pelvic w/ Transvaginal MR#: [id number] Acct: [id number] Name: PRASHANT MORAN Rep #: [id number] : 1980 F 44 From: Lenny Rollins MD PCP: Dr. Camilla Kay DO Status: REG CLI Study:Pelvic w/ Transvaginal Date of Exam: 12/31/24 Exam# [id number] Ordering Dr: Armida Kay sa, DO PROCEDURE: PELVIC W/ TRANSVAGINAL REASON FOR EXAM: ENLARGED UTERUS ON MRI TECHNIQUE: Transabdominal and transvaginal pelvic ultrasound COMPARISON: None FINDINGS: Measurements: Uterus: 7.9 cm x 5.5 cm x 4.8 cm with a volume of 109 mL Endometrial Thickness: 4.1 mm Right Ovary: 3.5 cm x 1.8 cm x 2.5 cm with a volume of 8.05 mL. Left Ovary: 2.4 cm x 1.4 cm x 1.4 cm with a volume of 2.49 mL. TRANSABDOMINAL: Uterus: Heterogeneous appearance of the myometrium although no focal fibroid is seen. Endometrium: Unremarkable. Right ovary: There is a 2.1 cm x 1.5 cm x 1.5 cm solid nodule in the right ovary. Left ovary: Normal size and echotexture. Transvaginal sonography was performed to better visualize the endometrium. TRANSVAGINAL: Uterus: Heterogeneous appearance of the myometrium suggestive of fibroid change. Endometrium: Normal echotexture. Right ovary: 2.1 cm x 1.5 cm x 1.5 cm solid nodule in the right ovary. Clinicalcorrelation recommended. Left ovary: Normal size and echotexture. Other adnexal findings: None. Cul-de-sac: No free intraperitoneal fluid identified. US/Pelvic w/ Transvaginal IMPRESSION: Heterogeneous appearance of the uterus in keeping with a fibroid change althoughno focal fibroid isseen. 2.1 cm x 1.5 cm x 1.5 cm solid nodule in the right ovary. Clinical correlation recommended. Reading Location: LOCO CC: Dr. Camilla Kay DO ~ Unit Manager [employer]: Signed [facility]03-03-2025 Radiology Diagnostic study note [facility] Imaging Services [address] [place] [address] [id number] L/S Spine Min 4 Views MR#: [id number] Acct: [id number] Name: PRASHANT MORAN Rep #: [id number] : 1980 F 44 From: Agnieszka Williamson MD PCP: Dr. Camilla Kay DO Status: REG CLI Study:L/S Spine Min 4 Views Date of Exam: 12/03/24 Exam# [id number] Ordering Dr: Armida Kay sa, DO EXAM: XR Lumbosacral Spine, 4 or 5 views CLINICAL INDICATION: TECHNIQUE: Five views of the lumbar spine. COMPARISON: No relevant prior studies available. FINDINGS: VERTEBRAE: Mild endplate degenerative changes of L5-S1. Normal alignment. No acute fracture. SACRUM/COCCYX: Unremarkable as visualized. No acute fracture. DISC SPACES: No acute findings. No significant narrowing. SOFT TISSUES: Unremarkable. RAD/L/S Spine Min 4 Views IMPRESSION: 1. No acute fracture. 2. Degenerative changes as above. Reading Location: [place] CC: Dr. Camilla Kay DO ~ Unit Manager [employer]: [facility] Diagnosis Onset Date Resolution Status Anemia acute Menorrhagia acute [facility] Work Phone: Evaluation note* Diagnosis Onset Date Resolution Status Preventative health care acu te [facility] Work Phone: Evaluation noteNo assessment information available [facility] Work Phone: Evaluation note* Diagnosis Onset Date Resolution Status Acute pharyngitis acute [facility] Work Phone: Evaluation note* Diagnosis Onset Date Resolution Status Acute pharyngitis resolved Hidradenitis acute Encounter for routine gynecological examination noneactive 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 Acute pharyngitis Hidradenitis Encounter for routine gynecological examination Chief Complaint Admit Date LOW BACK PAIN WITH RADICULOPATHY December 022024 10:18am Chief Complaint Admit Date LOW BACK PAIN WITH RADICULOPATHY December 022024 10:18am ENLARGED UTERUS ON MRI December 31, 2024 4:10pm Chief Complaint Admit Date LOW BACK PAIN WITH RADICULOPATHY December 022024 10:18am ENLARGED UTERUS ON MRI December 31, 2024 4:10pm SCREENING January 18, 2025 8:4 4am BACK PAIN HAD (US COMPLETED) *copay $20 January 21, 2025 9:44am BACK RX HERE January 23, 2025 9:5 4am ABNORMAL BI January 23, 2025 11: 55am Reason for Visit Admit Date Abnormal mammogram of right breast January 21, 2025 9:44am Dysmenorrhea January 21, 2025 9:4 4am Pain, coccyx January 21, 2025 9:4 4am Right ovarian cyst January 21, 2025 9:4 4am Pap smear for cervical cancer screening January 21, 2025 9:44am Chief Complaint Admit Date LOW BACK PAIN WITH RADICULOPATHY December 022024 10:18am ENLARGED UTERUS ON MRI December 31, 2024 4:10pm SCREENING January 18, 2025 8:4 4am BACK PAIN HAD (US COMPLETED) *copay $20 January 21, 2025 9:44am ABNORMAL BI January 23, 2025 11: 55am BACK RX HERE February 04, 2025 10:30a m OVARIAN CYST February 04, 2025 11:56a m Chief Complaint Admit Date LOW BACK PAIN WITH RADICULOPATHY December 022024 10:18am ENLARGED UTERUS ON MRI December 31, 2024 4:10pm SCREENING January 18, 2025 8:4 4am BACK PAIN HAD (US COMPLETED) *copay $20 January 21, 2025 9:44am ABNORMAL BI January 23, 2025 11: 55am OVARIAN CYST February 04, 2025 11:56a m BACK RX HERE February 08, 2025 8:00am SURGICAL CONSULT $20 COPAY February 13 9:48am Chief Complaint Admit Date LOW BACK PAIN WITH RADICULOPATHY December 022024 10:18am ENLARGED UTERUS ON MRI December 31, 2024 4:10pm SCREENING January 18, 2025 8:4 4am BACK PAIN HAD (US COMPLETED) *copay $20 January 21, 2025 9:44am ABNORMAL BI January 23, 2025 11: 55am OVARIAN CYST February 04, 2025 11:56a m SURGICAL CONSULT $20 COPAY February 13 9:48am BACK RX HERE March 08, 2025 7:30a m RIGHT OVARIAN CYST March 18, 2025 12:3 0pm Reason for Visit Admit Date Abnormal mammogram of right breast January 21, 2025 9:44am Dysmenorrhea January 21, 2025 9:4 4am Pain, coccyx January 21, 2025 9:4 4am Right ovarian cyst January 21, 2025 9:4 4am Pap smear for cervical cancer screening January 21, 2025 9:44am Anemia February 13, 2025 9:48a m Dysmenorrhea February 13, 2025 9:48a m History of salpingectomy February 13, 2025 9:48am Menorrhagia February 13, 2025 9:48a m Pain, coccyx February 13, 2025 9:48a m Post endometrial ablation syndrome January 312024 9:48am Right ovarian cyst February 13, 2025 9:48a m Chief Complaint Admit Date LOW BACK PAIN WITH RADICULOPATHY December 022024 10:18am ENLARGED UTERUS ON MRI December 31, 2024 4:10pm SCREENING January 18, 2025 8:4 4am BACK PAIN HAD (US COMPLETED) *copay $20 January 21, 2025 9:44am ABNORMAL BI January 23, 2025 11: 55am OVARIAN CYST February 04, 2025 11:56a m SURGICAL CONSULT $20 COPAY February 13 9:48am BACK RX HERE March 08, 2025 7:30a m RIGHT OVARIAN CYST March 18, 2025 12:3 0pm TRH possible right ooph possible cystect nan April 15, 2025 10:25am Family History No Family History Records Found Relationship Condition Age at Onset Recorded Date/T john brother Myocardial infarction 51 Cardiac disease Unknown Hypertension Unknown Hyperlipidemia Unknown mother Basal cell carcinoma (BCC) Unknown father Cardiac disease Unknown grandmother Cardiac disease Unknown Diabetes mellitus Unknown uncle Diabetes mellitus Unknown Advance Directives No Advanced Directives Records Found Advance Directive Response Recorded Date/ Time Living Will No January 13, 2022 2:49pm Power of Loom Operator Apprentice No January 13 2:49pm Advance Directive Response Recorded Date/ Time Living Will No January 13, 2022 1:49pm Power of Loom Operator Apprentice No January 13 1:49pm Summary Purpose Additional Source Comments Care Teams (unrecognized sec tion and content) Team Status: Active Member Role Status Dates Dr. Camilla Kay DO Family Provider Active Dr. Camacho Winters MD Primary Care Provider Active Team Status: Inactive Member Role Status Dates Dr. Camacho Winters MD Primary Care Provider, Atten ding Provider Active Team Status: Inactive Member Role Status Dates Dr. Camacho Winters MD Primary Care Provider, Refer ring Provider Active Karl HUDSON PA Attending Provider Active Team Status: Inactive Member Role Status Dates Dr. Camacho Winters MD Primary Care Provider Active Karl HUDSON PA Attending Provider, Referring Provi bryon Active Team Status: Active Member Role Status Dates Dr. Camilla Kay DO Family Provider Active Dr. Camilla Kay DO Primary Care Provider Active Team Status: Inactive Member Role Status Dates Dr. Camacho Winters MD Primary Care Provider, Refer ring Provider Active Thelma Chakraborty RECRUITMENT COORDINATOR, RECRUITMENT COORDINATOR-C Attending Provider Active Team Status: Inactive Member Role Status Dates Dr. Camilla Kay DO Primary Care Provide r, Attending Provider, Referring Provider Active Team Status: Active Member Role Status Dates Dr. Camilla Kay DO Primary Care Provider Active Team Status: Inactive Member Role Status Dates Dr. Camilla Kay DO Primary Care Provider Active Start: December 03, 2024 End: December 03, 2024 Dr. Camilla Kay DO Attending Provider Active St art: December 03, 2024 End: December 03, 2024 Dr. Camilla Kay DO Referring Provider Active St art: December 03, 2024 End: December 03, 2024 Team Status: Inactive Member Role Status Dates Dr. Camilla Kay DO Primary Care Provider Active Start: December 24, 2024 End: December 24, 2024 Dr. Camilla Kay DO Attending Provider Active St art: December 24, 2024 End: December 24, 2024 Dr. Camilla Kay DO Referring Provider Active St art: December 24, 2024 End: December 24, 2024 Team Status: Inactive Member Role Status Dates Dr. Camilla Kay DO Primary Care Provider Active Start: December 31, 2024 End: December 31, 2024 Dr. Camilla Kay DO Attending Provider Active St art: December 31, 2024 End: December 31, 2024 Dr. Camilla Kay DO Referring Provider Active St art: December 31, 2024 End: December 31, 2024 Team Status: Active Member Role Status Dates Dr. Camilla Kay DO Primary Care Provider Active Start: January 02, 2025 Dr. Camilla Kay DO Attending Provider Active St art: January 02, 2025 Dr. Camilla Kay DO Referring Provider Active St art: January 02, 2025 Team Status: Inactive Member Role Status Dates Dr. Camilla Kay DO Primary Care Provider Active Start: January 02, 2025 End: January 02, 2025 Dr. Camilla Kay DO Attending Provider Active St art: January 02, 2025 End: January 02, 2025 Dr. Camilla Kay DO Referring Provider Active St art: January 02, 2025 End: January 02, 2025 Team Status: Inactive Member Role Status Dates Dr. Camilla Kay DO Primary Care Provider Active Start: January 18, 2025 End: January 18, 2025 Dr. Camilla Kay DO Attending Provider Active St art: January 18, 2025 End: January 18, 2025 Dr. Camilla Kay DO Referring Provider Active St art: January 18, 2025 End: January 18, 2025 Team Status: Inactive Member Role Status Dates Dr. Camilla Kay DO Primary Care Provider Active Start: January 21, 2025 End: January 21, 2025 Dr. Camilla Kay DO Referring Provider Active St art: January 21, 2025 End: January 21, 2025 Thelma Chakraborty RECRUITMENT COORDINATOR, RECRUITMENT COORDINATOR-C Attending Provider Active Start: January 21, 2025 End: January 21, 2025 Team Status: Active Member Role Status Dates Dr. Camilla Kay DO Primary Care Provider Active Start: January 21, 2025 Thelma Chakraborty RECRUITMENT COORDINATOR, RECRUITMENT COORDINATOR-C Attending Provider Active Start: January 21, 2025 Thelma Chakraborty RECRUITMENT COORDINATOR, RECRUITMENT COORDINATOR-C Referring Provider Active Start: January 21, 2025 Team Status: Active Member Role Status Dates Dr. Camilla Kay DO Primary Care Provider Active Start: January 23, 2025 Dr. Camilla Kay DO Attending Provider Active St art: January 23, 2025 Dr. Camilla Kay DO Referring Provider Active St art: January 23, 2025 Team Status: Inactive Member Role Status Dates Dr. Camilla Kay DO Primary Care Provider Active Start: January 21, 2025 End: January 21, 2025 Thelma Chakraborty RECRUITMENT COORDINATOR, RECRUITMENT COORDINATOR-C Attending Provider Active Start: January 21, 2025 End: January 21, 2025 Thelma Chakraborty RECRUITMENT COORDINATOR, RECRUITMENT COORDINATOR-C Referring Provider Active Start: January 21, 2025 End: January 21, 2025 Team Status: Inactive Member Role Status Dates Dr. Camilla Kay DO Primary Care Provider Active Start: January 23, 2025 End: January 23, 2025 Dr. Camilla Kay DO Attending Provider Active St art: January 23, 2025 End: January 23, 2025 Dr. Camilla Kay DO Referring Provider Active St art: January 23, 2025 End: January 23, 2025 Team Status: Active Member Role Status Dates Dr. Camilla Kay DO Primary Care Provider Active Start: February 04, 2025 Dr. Camilla Kay DO Attending Provider Active St art: February 04, 2025 Dr. Camilla Kay DO Referring Provider Active St art: February 04, 2025 Team Status: Inactive Member Role Status Dates Dr. Camilla Kay DO Primary Care Provider Active Start: February 04, 2025 End: February 04, 2025 Thelma Chakraborty RECRUITMENT COORDINATOR, RECRUITMENT COORDINATOR-C Attending Provider Active Start: February 04, 2025 End: February 04, 2025 Thelma Chakraborty RECRUITMENT COORDINATOR, RECRUITMENT COORDINATOR-C Referring Provider Active Start: February 04, 2025 End: February 04, 2025 Team Status: Active Member Role Status Dates Dr. Camilla Kay DO Primary Care Provider Active Start: February 08, 2025 Dr. Camilla Kay DO Attending Provider Active St art: February 08, 2025 Dr. Camilla Kay DO Referring Provider Active St art: February 08, 2025 Team Status: Inactive Member Role Status Dates Dr. Camilla Kay DO Primary Care Provider Active Start: February 13, 2025 End: February 13, 2025 Dr. Camilla Kay DO Referring Provider Active St art: February 13, 2025 End: February 13, 2025 Dr. Patsy Torres DO Attending Provider Activ e Start: February 13, 2025 End: February 13, 2025 Team Status: Active Member Role Status Dates Dr. Camilla Kay DO Primary Care Provider Active Start: March 08, 2025 Dr. Camilla Kay DO Attending Provider Active St art: March 08, 2025 Dr. Camilla Kay DO Referring Provider Active St art: March 08, 2025 Team Status: Inactive Member Role Status Dates Dr. Camilla Kay DO Primary Care Provider Active Start: March 18, 2025 End: March 18, 2025 Thelma Chakraborty RECRUITMENT COORDINATOR, RECRUITMENT COORDINATOR-C Attending Provider Active Start: March 18, 2025 End: March 18, 2025 Thelma Chakraborty RECRUITMENT COORDINATOR, RECRUITMENT COORDINATOR-C Referring Provider Active Start: March 18, 2025 End: March 18, 2025 Team Status: Active Member Role/Relationship Status Dates Dr. Camilla Kay DO Primary Care Provider Active Team Status: Inactive Member Role/Relationship Status Dates Dr. Camilla Kay DO Primary Care Provider Active Start: December 24, 2024 End: December 24, 2024 Dr. Camilla Kay DO Attending Provider Active St art: December 24, 2024 End: December 24, 2024 Dr. Camilla Kay DO Referring Provider Active St art: December 24, 2024 End: December 24, 2024 Team Status: Inactive Member Role/Relationship Status Dates Dr. Camilla Kay DO Primary Care Provider Active Start: December 31, 2024 End: December 31, 2024 Dr. Camilla Kay DO Attending Provider Active St art: December 31, 2024 End: December 31, 2024 Dr. Camilla Kay DO Referring Provider Active St art: December 31, 2024 End: December 31, 2024 Team Status: Inactive Member Role/Relationship Status Dates Dr. Camilla Kya DO Primary Care Provider Active Start: January 02, 2025 End: January 02, 2025 Dr. Camilla Kay DO Attending Provider Active St art: January 02, 2025 End: January 02, 2025 Dr. Camilla Kay DO Referring Provider Active St art: January 02, 2025 End: January 02, 2025 Team Status: Inactive Member Role/Relationship Status Dates Dr. Camilla Kay DO Primary Care Provider Active Start: January 18, 2025 End: January 18, 2025 Dr. Camilla Kay DO Attending Provider Active St art: January 18, 2025 End: January 18, 2025 Dr. Camilla Kay DO Referring Provider Active St art: January 18, 2025 End: January 18, 2025 Team Status: Inactive Member Role/Relationship Status Dates Dr. Camilla Kay DO Primary Care Provider Active Start: January 21, 2025 End: January 21, 2025 Dr. Camilla Kay DO Referring Provider Active St art: January 21, 2025 End: January 21, 2025 Thelma Chakraborty RECRUITMENT COORDINATOR, RECRUITMENT COORDINATOR-C Attending Provider Active Start: January 21, 2025 End: January 21, 2025 Team Status: Inactive Member Role/Relationship Status Dates Dr. Camilla Kay DO Primary Care Provider Active Start: January 21, 2025 End: January 21, 2025 Thelma Chakraborty RECRUITMENT COORDINATOR, RECRUITMENT COORDINATOR-C Attending Provider Active Start: January 21, 2025 End: January 21, 2025 Thelma Chakraborty RECRUITMENT COORDINATOR, RECRUITMENT COORDINATOR-C Referring Provider Active Start: January 21, 2025 End: January 21, 2025 Team Status: Inactive Member Role/Relationship Status Dates Dr. Camilla Kay DO Primary Care Provider Active Start: January 23, 2025 End: January 23, 2025 Dr. Camilla Kay DO Attending Provider Active St art: January 23, 2025 End: January 23, 2025 Dr. Camilla Kay DO Referring Provider Active St art: January 23, 2025 End: January 23, 2025 Team Status: Inactive Member Role/Relationship Status Dates Dr. Camilla Kay DO Primary Care Provider Active Start: February 04, 2025 End: February 04, 2025 Thelma Chakraborty RECRUITMENT COORDINATOR, RECRUITMENT COORDINATOR-C Attending Provider Active Start: February 04, 2025 End: February 04, 2025 Thelma Chakraborty RECRUITMENT COORDINATOR, RECRUITMENT COORDINATOR-C Referring Provider Active Start: February 04, 2025 End: February 04, 2025 Team Status: Inactive Member Role/Relationship Status Dates Dr. Camilla Kay DO Primary Care Provider Active Start: February 13, 2025 End: February 13, 2025 Dr. Camilla Kay DO Referring Provider Active St art: February 13, 2025 End: February 13, 2025 Dr. Patsy Torres DO Attending Provider Activ e Start: February 13, 2025 End: February 13, 2025 Team Status: Active Member Role/Relationship Status Dates Dr. Camilla Kay DO Primary Care Provider Active Start: March 08, 2025 Dr. Camilla Kay DO Attending Provider Active St art: March 08, 2025 Dr. Camilla Kay DO Referring Provider Active St art: March 08, 2025 Team Status: Inactive Member Role/Relationship Status Dates Dr. Camilla Kay DO Primary Care Provider Active Start: March 18, 2025 End: March 18, 2025 Thelma Chakraborty RECRUITMENT COORDINATOR, RECRUITMENT COORDINATOR-C Attending Provider Active Start: March 18, 2025 End: March 18, 2025 Thelma Chakraborty RECRUITMENT COORDINATOR, RECRUITMENT COORDINATOR-C Referring Provider Active Start: March 18, 2025 End: March 18, 2025 Team Status: Inactive Member Role/Relationship Status Dates Dr. Camilla Kay DO Primary Care Provider Active Start: April 15, 2025 End: April 15, 2025 Dr. Camilla Kay DO Referring Provider Active St art: April 15, 2025 End: April 15, 2025 Dr. Patsy Torres DO Attending Provider Activ e Start: April 15, 2025 End: April 15, 2025 INFORMATION SOURCE (unrecogn ized section and content) DATE CREATED AUTHOR 04/22/2025 [facility] FOR RECORDS PERTAINING TO PATIENTS WHO ARE OR HAVE BEEN ENROLLED IN A CHEMICAL DEPENDENCY/SUBSTANCEABUSE PROGRAM, SOME INFORMATION MAY BE OMITTED. This clinical summary was aggregated from multiple sources. Caution should be exercised in using it in the provision of clinical care. This summary normalizes information from multiple sources, and as a consequence, information in this document may materially change the coding, format and clinical context of patient data. In addition, data may be omitted in some cases. CLINICAL DECISIONS SHOULD BE BASED ON THE PRIMARY CLINICAL RECORDS. [employer] provides no warranty or guarantee of the accuracy or completeness of information in this document.
[2025-04-23 06:06] LABS: Internal QC Validated? YES +Cl - CLEAR BKGD; Pregnancy, Urine Negative Negative; Record Kit Lot#,Urine Preg 0000962302
[2025-04-23] MEDS: Magnesium 1 GM over 15 mins IV (06:16)
[2025-04-23] MEDS: Lactated Ringers 1,000 ML 40 ML IV (06:16)
--- NOTE | 2025-04-23 06:55 | PCM.PRE.AN2 ---
ASA Classification* ASA Classification ASA Classification: 1 Assessment & Plan Anesthesia* Anesthesia Assessment Anesthesia Assessment: Discussed sedation and/or anesthesia options, risks, benefits, and alternatives with patient/parents/legal guardian/POA. Questions invited. The patient/parents/legal guardian/POA seems to understand and agrees to proceed with anesthesia plan. Reviewed the physical assessment, medical history, allergy history and patient home medications list prior to surgery/procedure/anesthetic and documented any changes. Performed airway and anesthesia risk assessments. Anesthesia Type Anesthesia Type: General History Source History Obtained from:: Patient and Chart Anesthesia Focused Assessment* Temperature: 98.1 F Pulse Rate: 75 Blood Pressure: 91/68 Respiratory Rate: 12 Pulse Ox: 99 Airway Assessment Mouth opens: >3 cm Mallampati Score: I Teeth Condition: Intact Neck Range of motion (ROM): Full ROM Labs Anesthesia Preop lab: CBC WBC 5.8 K/mm3 (4.4-11.0) 04/15/25 11:24 04/15/25 RBC 3.94 M/mm3 (4.2-5.4) L 04/15/25 11:24 04/15/25 Hgb 13.0 g/dL (12.0-15.0) 04/15/25 11:24 04/15/25 Hct 39.2 % (37-47) 04/15/25 11:24 04/15/25 Plt Count 272 K/mm3 (150-450) 04/15/25 11:24 04/15/25 CHEMISTRY Potassium 3.9 mmol/L (3.5-5.1) 04/13/23 15:52 04/13/23 Sodium 137 mmol/L (136-145) 04/13/23 15:52 04/13/23 Magnesium 2.3 mg/dL (1.5-2.2) H 04/15/25 11:23 04/15/25 BUN 16 mg/dL (7-18) 04/13/23 15:52 04/13/23 Creatinine 0.63 mg/dL (0.55-1.02) 04/13/23 15:52 04/13/23 Glucose 79 mg/dL (74-106) 04/13/23 15:52 04/13/23 TSH 2.17 uIU/mL (0.358-3.74) 03/09/19 09:31 03/09/19 COAG PT 13.4 SECONDS (11.7-14.9) 01/20/22 10:53 01/20/22 Urine Test Negative Negative 04/23/25 06:00 04/23/25 Pre-Assessment Diagnosis/Proposed Procedure Planned Operative Procedure(s): LAP TOTAL ROBOTIC HYSTERECTOMY POSS RIGHT OOPHERECTOMY POSS CYSTECTOMY POSS CYSTO Anesthesia History Anesthesia History - informatics developer: Anesthesia History - informatics developer Hx Hospitalization No 04/10/25 14:16 Any Problems With Anesthesia No 04/10/25 14:16 Cholinesterase deficiency No 04/10/25 14:16 You/Your Family Experience No 04/10/25 14:16 fever (hyperthermia) with Relationship Recent Exposure to Contagious No 04/23/25 06:25 Disease Does patient have nerve No 04/10/25 14:16 stimulator Patient instructed to have device shut off --Does patient have Pacemaker No 04/23/25 06:25 or ICD? When Was Last Pacemaker Check QUESTION #4 FULL TEXT: You/Your Family Experience fever (hyperthermia) with Anesthesia Any additional information?: No Last Oral Intake Last Oral intake: Last Oral Intake NPO since 04:00 04/23/25 06:25 Meds taken in AM with sips of No 04/23/25 06:25 water? Meds patient instructed to take am of surgery Any additional information?: No PONV PONV - informatics developer: PONV - informatics developer Female Yes 04/10/25 14:16 HX of Motion Sickness No 04/10/25 14:16 HX of N/V After Surgery No 04/10/25 14:16 Non-Smoker Yes 04/10/25 14:16 Duration of Surgery greater Yes 04/10/25 14:16 than 60 minutes Number of Risk Factors 3 04/10/25 14:16 PONV Score Moderate Risk 04/10/25 14:16 Any additional information?: No Height & Weight Height & Weight: Anesthesia: Height & Weight Height 5 ft 5 in 04/23/25 06:25 Weight: 58.3 kg 04/23/25 06:25 Body Mass Index (BMI) 21.4 04/23/25 06:25 Respiratory Assessment Respiratory Assessment - informatics developer: Respiratory Tract Infection Hx - informatics developer Hx Respiratory Tract Infection No 04/10/25 14:16 Any additional information?: No STOP Sleep Apnea STOP Sleep Apnea - informatics developer: STOP Sleep Apnea - informatics developer Hx Hypertension No 04/10/25 14:16 Hx Sleep Apnea No 04/10/25 14:16 CPAP BIPAP Do you snore loudly (louder No 04/10/25 14:16 than talking or can be heard Do you often feel tired/ No 04/10/25 14:16 fatigued/ sleepy during daytime? Has anyone observed you stop No 04/10/25 14:16 breathing during sleep? STOP Results Negative 04/10/25 14:16 QUESTION #5 FULL TEXT : Do you snore loudly (louder than talking or can be heard through closed doors)? 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 Specify any problems Hx of Preganancy in last 3 No 04/10/25 14:16 Months Nurse Filling Out Transfusion DSCHRIBER 04/10/25 14:16 & Questions: Date: 04/10/25 04/10/25 14:16 Time: 14:17 04/10/25 14:16 Patient unable to answer at this time (ie. confused, unrespo Any additional information?: No /Reproduction History /Reproductive History - informatics developer: /Reproductive Hx- informatics developer Hx Now No 04/10/25 14:16 Gestational Age (in weeks): EDC: Hx Hx Para Hx Section SAB No 04/15/25 10:42 Any additional information?: No Active Medications Active Medications: Current Medications Generic Name Dose Route Start Last Admin Trade Name Freq PRN Reason Stop Dose Admin Acetaminophen 1,000 mg 04/23/25 09:55 04/23/25 06:33 Acetaminophen 500 Mg Tablet PO 04/23/25 09:56 1,000 mg PREOP ONE Administration Celecoxib 400 mg 04/23/25 09:55 04/23/25 06:33 Celecoxib 200 Mg Capsule PO 04/23/25 09:56 400 mg PREOP ONE Administration Gabapentin 600 mg 04/23/25 09:55 04/23/25 06:34 Gabapentin 600 Mg Tablet PO 04/23/25 09:56 600 mg PREOP ONE Administration Lactated Ringer's 1,000 mls @ 40 mls/hr 04/23/25 09:55 04/23/25 06:16 IV 40 mls/hr .Q25H BRIANNA Administration Cefazolin Sodium 2 gm/ Sodium 110 mls @ 150 mls/hr 04/23/25 09:55 Chloride IV 04/23/25 10:38 INTRAOP ONE Lactated Ringer's 1,000 mls @ 70 mls/hr 04/23/25 09:55 IV .[id number] BRIANNA Magnesium Sulfate 1 gm/ 102 mls @ 408 mls/hr 04/23/25 09:55 04/23/25 06:16 Dextrose IV 04/23/25 10:09 408 mls/hr PREOP ONE Administration Insulin Human Lispro 0 unit 04/23/25 09:55 Insulin Lispro 100 Unit/Ml Insuln.Pen SC 04/23/25 16:00 Q4H PRN PRN BG >/= 180, SEE PROTOCOL Protocol Ondansetron HCl 4 mg 04/23/25 09:55 Ondansetron 4 Mg/2 Ml Vial IV 04/23/25 09:56 INTRAOP ONE Phenazopyridine HCl 190 mg 04/23/25 09:55 04/23/25 06:34 Phenazopyridine 95 Mg Tablet PO 04/23/25 09:56 190 mg PREOP ONE Administration Scopolamine HBr 1 patch 04/23/25 09:55 Scopolamine 1mg/72hr Patch TD 04/23/25 09:56 PREOP ONE PFSH Medical History Low iron Injury of back Alcohol use Non-smoker Normal Holter exam Home Medications Medication Instructions Recorded Last Taken Type multivitamin 1 tab PO QDAY 02/13/25 04/20/25 History Allergy/AdvReac Type Severity Reaction Status Date / Time No Known Allergies Allergy Verified 04/23/25 06:14 Family History Brother Myocardial infarction, Onset Age: 49 super healthy Heart disease Hypertension Hyperlipemia Mother Basal cell carcinoma Hypertension Father Heart disease Hypertension Hyperlipemia Grandmother Heart disease Diabetes Uncle Diabetes Surgical History History of endometrial ablation History of salpingectomy History of removal of skin mole History of wisdom tooth extraction History of tonsillectomy Social History household members: spouse housing: house number of children: 2 current occupational status: employed 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 Review of Systems (Anesthesia) ROS Narrative System reviewed and no additional complaints, except as documented.
--- NOTE | 2025-04-23 07:07 | PCM.HP.BLA ---
History and Physical Date of Admission: 04/23/25 Intake Vital Signs 02/13/2510:26 04/15/2510:41 04/15/2510:42 Height 5 ft 5 in 5 ft 5 in 5 ft 5 in Weight: 131 lb 6 oz 125 lb 4 oz BMI 21.8 20.8 BP 109/69 118/73 Intake Visit Reasons: TRH possible right ooph possible cystectomy Chief Complaint: Preop TRH Air Breaker Operator Required: No Is patient in pain?: No Allergies No Known Allergies Allergy (Verified 04/15/25 10:41) Medications Medication Instructions Recorded Confirmed Type multivitamin 1 tab PO QDAY 02/13/25 04/15/25 History Post menopausal: No Patient : No : No [facility], [facility] Medical History Low iron Injury of back Alcohol use Non-smoker Normal Holter exam Surgical History History of endometrial ablation History of salpingectomy History of removal of skin mole History of wisdom tooth extraction History of tonsillectomy Family History Brother Myocardial infarction, Onset Age: 49 super healthy Heart disease Hypertension HyperlipemiaMother Basal cell carcinoma HypertensionFather Heart disease Hypertension HyperlipemiaGrandmother Heart disease DiabetesUncle Diabetes Social History household members: spouse housing: house number of children: 2 current occupational status: employed 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 She had an ablation and a laparoscopic tubal ligation in [address] Blaine leo. There was no mention of endometriosis in the operative note but she has moderate pelvic pain and back pain. She is seeing chiropractors and PT, etc for her back pain. She also has a nodule on the right ovary that we are following and that side is very painful, enough to keep her up at night. She had 2 vaginal deliveries and is Lionel at [facility] . She states that she has been gearing up to just have a hysterectomy and kind of wishes she did it 2 years ago. Ultrasound below: PROCEDURE: PELVIC W/ TRANSVAGINAL, 02/04/2025 REASON FOR EXAM: OVARIAN CYST TECHNIQUE: Grayscale and color doppler transabdominal and transvaginal pelvic ultrasound was performed. COMPARISON: 12/31/2024 FINDINGS: Exam limited by shadowing bowel gas. Uterus: 7.8 x 5.7 x 5.0 cm, Retroflexed. Unremarkable echotexture. Endometrium: 4 mm, echogenic secretory appearance. Cervix: Unremarkable. Right ovary: 2.5 x 1.8 x 1.9 cm. Peripherally vascular solid-appearing structure is redemonstrated, ill-defined and difficult to measure, roughly 1.5 x 1.4 x 1.1 cm. A peripherally vascular structure in the region previously measured, unclear if 2.1 x 1.5 x 1.5 cm this reflects the same structure. Left ovary: Only visualized by transabdominal approach. 2.7 x 2.1 x 1.7 cm. Grossly unremarkable limited transabdominal appearance. Free fluid: None visualized. Other: Estimated bladder volume 223 mL.. Prominent parauterine vasculature. US/Pelvic w/ Transvaginal IMPRESSION: 1. A peripherally vascular solid-appearing RIGHT ovarian lesion measures 1.5 cm, possible collapsed/involuting corpus luteal cyst. Unclear if this reflects the previously seen 2.1 cm structure or a new finding. Given that the appearance is not pathognomonic for a corpus luteal cyst, follow-up is recommended. 2. Additional description as above. History 2 Elective abortions Hx Para 2 Spontaneous abortions Hx # Term Pregnancies Ectopic pregnancies Hx # Pregnancies Multiple births # of living children 2 Past Pregnancies Del. 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 Nl CA 125. Rpt 4 wk Orders: Orders ,Urine Today N94.6 - Dysmenorrhea, unspecified, Z41.9 - Encounter for procedure for purposes other than remedying health state, unspecified Plan After discussing the patient's diagnosis and treatment plan options, patient wishes to proceed with surgical management. I have discussed with the patient the risks, benefits, and alternatives of the procedure which include but are not limited to risks of anesthesia, bleeding, infection, possible damage to bowel, bladder, or surrounding vasculature which could lead to additional surgery to evaluate any complications. Patient agrees to procedure and wishes to proceed. ACOG/uptodate references given for additional information regarding procedure. plan is for a total robotic hysterectomy, bs,possible right cystectomy or oophorectomy (if still there), and cystoscopy.
[2025-04-23] MEDS: Scopolamine 1mg/72hr Patch 1 PATCH TD (07:15)
--- NOTE | 2025-04-23 07:15 | DCINST_ITS ---
Discharge Instructions DC O2, CPAP, BIPAP needs Home O2 Discharge instructions: No Dressing / Incision Discharge Activity: May Shower May resume sexual activity in: 8 weeks Weight Bearing Status: Full weight bearing Lifting Restrictions: 10 pounds for 2 weeks Dressing / Incision Call your doctor if your incision/area has: Continuous Slow Oozing, Sudden I ncreased Bleeding, Increased Pain/ Swelling, Increased Redness and Foul Smelling Discharge Call your doctor if you observe: Fever of 101 or Higher, Using more than 1 pad per hour, Shortness of breath, Chest pain and Uncontrolled pain Suture Line Care: Avoid Pulling/Pushing and Avoid Pinching/Bending Remove Dressing in: 1 week (if present) Cleanse incision/area with: Soap & Water and Keep Dressing Clean & Dry Follow Up Care Please Follow Up With: Patsy Torres DO When: Call to make an appointment with your doctor for a postop visit in 2 and 6 weeks Test Results: Test results from this visit will be discussed in further detail at your follow- up appointment, if applicable. Discharge Plan Admission Primary Reason for Your Visit: hysterectomy Attending Provider: Patsy Torres Primary Care Provider: Camilla Kay Instructions Print Language: Korean Discharge Orders/Prescriptions Prescriptions: New ibuprofen 800 mg tablet 800 mg PO Q8H PRN (Reason: pain) Qty: 30 0RF ondansetron HCl 4 mg tablet 4 mg PO Q6H PRN (Reason: nausea and vomiting) Qty: 20 0RF oxycodone-acetaminophen [Percocet] 5-325 mg tablet 1 tab PO Q4H PRN (Reason: pain) 7 Days Qty: 20 0RF No Action multivitamin Tablet 1 tab PO QDAY Referrals / Follow Up: Camilla Kay DO [Primary Care Provider] - Disposition Disposition (needs filled in before D/C Order can be placed): Home, Self Care
--- NOTE | 2025-04-23 07:30 | UT_PTH ---
PATIENT: PRASHANT MORAN LOC: [facility] [place] U#:[id number] AGE/SX: 44/F ROOM: RE04/23/[address]: Dr. Patsy Torres DO : 1980 BED: DIS: 04/23/2025 SPEC #: [id number] RECD: 04/23/25 11:48 STATUS: ADRIANA WALTERS #: [id number] DAVE: 04/23/25 07:[address]: Patsy Torres DEPT: SURGICAL PATHOLOGY RECD BY: Christiano Horta ENTERED: 04/23/25 14:33 SP TYPE: UTERUS OTHR DR: Dr. Camilla Kay DO Tissues: A - Uterus, NOS Procedures: Surgery Specimen Level V HEADER OPERATION: ERAS, laparoscopic total robotic hysterectomy, cystoscopy PRE-OP DIAGNOSIS: Post endometrial ablation syndrome, dysmenorrhea, right ovarian cyst TISSUE SUBMITTED: A- Uterus, cervix MICROSCOPIC DIAGNOSIS A. Uterus, cervix, "post endometrial ablation syndrome, dysmenorrhea", total robotic hysterectomy: - Cervix: mild hyperkeratosis, dilated endocervical glands. - Endometrium: focal endometrial hyperplasia without atypia. - Myometrium: adenomyoma (1.2 cm), subserosal adenomyosis. MICROSCOPIC DESCRIPTION Slides are reviewed. GROSS DESCRIPTION A. Received in formalin labeled with the patient's name and date of . Designated as "uterus, cervix" is a 95.7 g, 7.6 x 5.1 x 4.4 cm uterus without attached adnexa. The serosa is eflix-pink with a 0.4 x 0.3 cm felix-white, possible serosal nodule on the posterior aspect. The attached cervix is felix-pink and measures 3.2 x 3.0 cm; the 1.0 cm os is probe patent and focally erythematous. The specimen is inked as follows: Dtidfafk-lsngnRkoirowjg-zdlsgSrsuziviptd-orange. Opening reveals a 5.4 x 0.7 cm stenotic and somewhat fibrotic endometrial canal (consistent with endometrial ablation) lined by minimal, possible pink endometrium that measures up to <0.1 cm thick. The myometrium is pale felix-pink and trabeculated and measures up to 2.2 cm thick. A 1.2 cm possible, intramural leiomyoma is identified (anterior) Levelman sections are submitted as follows: A1-A2: Anterior cervixA3-A4: Posterior cervixA5: Anterior endomyometriumA6: Posterior endomyometriumA7: Anterior endomyometrium with possible intramural leiomyomaA9: Posterior myometrium A9: Posterior serosa with possible nodule KS 04/23/2025 CPT:23319
--- NOTE | 2025-04-23 07:38 | OP.PCM_ITS ---
Problems Associated Problem List Diagnoses (1) Post endometrial ablation syndrome: (2) Dysmenorrhea: (3) Right ovarian cyst: Multi Select Codes Urinary/Genital Urinary/Genital CPT Codes: 27949 Cystoscopy and 73684 TLH <250gr uterus Operative Report (Standard) Operative Information Date of Procedure: 04/23/25 Pre-Operative Diagnosis: post-ablation syndrome, pelvic pain, ovarian nodule Post-Operative Diagnosis: post-ablation syndrome, pelvic pain, ovarian nodule Surgery/Procedure Performed: total robotic hysterectomy, cystoscopy sheet writer: Yes Floatlight Powder Mixer: Isidro Huerta Tasks completed by family readiness support assistant: Closing, Trocar and Other (irrigation, insertion of robotic instruments ) Additional refinery operator assistant?: No Type of Anesthesia: General RN Documented Start/Stop Times: Operation Date: 04/23/25 07:30 Case Time Into Pre-Op 04/23/25 06:14 Out of Pre-Op 04/23/25 07:25 Anesthesia Start 04/23/25 07:29 Into Room 04/23/25 07:29 Procedure Start 04/23/25 07:56 Procedure Start Time: 07:56 Procedure Stop Time: 09:21 Select all DRAINS/GRAFTS/IMPLANTS that apply: None Estimated Blood Loss: 30cc Fluids Replaced: 1000cc Specimen collected: Yes Description of specimen(s) removed: uterus and cervix Description of surgery: P Findings: 8 cm size uterus, normal appearing ovaries and tubes. On exploration of the abdominal cavity the uterus, adnexa, bowel, and liver were found to be normal. Cystoscopy showed no evidence of leaking at approximately 250 cc of normal saline, positive ureteral orifices and jet flow are seen and no suture material was appreciated in the bladder. Specimens removed: Uterus and cervix, [Bilateral tubes and ovaries] Reason for surgery: This is a 44year-old G3, P2 who presented to my office with history of post ablation syndrome. the planned procedure is for a robotic hysterectomy the risks benefits and alternatives were discussed with the patient the patient had a clear understanding of the procedure and a consent form was signed. Procedure: The patient was placed in the dorsal low lithotomy position and prepped and draped in the normal sterile fashion both abdominally and in the perineum. Her legs were placed in stirrups a Cheng catheter was inserted into the urethra without difficulty. A weighted speculum was placed in the vagina and a single- tooth tenaculum was used to grasp the anterior lip of the cervix. An advincula uterine manipulator was inserted through the cervix without complication. It was then tied into place at the 2 and 10:00 locations on the cervix. Gloves were changed and attention was turned towards the abdomen. Approximately 23 cm above the pubic symphysis in the midline, and after Marcaine injection, a 8 mm incision was made. An 8 mm trocar was inserted through the laparoscope, then inserted into the abdomen under direct visualization using the laparoscope. Good abdominal placement was noted and no complications were appreciated. An air seal device was utilized to create pneumoperitoneum. At 12 cm lateral to the midline on the left and right sides 8 mm accessory ports were placed. Next a left upper quadrant 8 mm refinery operator assistant port site was placed. The patient was placed in steep Trendelenburg position. The robot was docked. The hysterectomy was initiated first by taking down the round ligament on each side using the vessel sealer device. The fallopian tubes were noted to be surgically absent. The left ovary was found to have a small less than 1 cm cystic structure that was grasped with the vessel sealer and gently cauterized. There was a similar cyst on the right ovary and this was also ruptured and cauterized clear fluid returned from both sides. The broad ligament was then and taken down using the vessel sealer device. Next the bladder flap was taken down without complication. This was done using monopolar cautery to the level of the cervical vaginal junction. After the bladder flap was created, uterine vessels were then isolated and cauterized using the vessel sealer device and EndoShears. At this point the uterine vessels were taken down further starting from the ascending branch, dissecting along the edges of the cervix to the level of the cervical vaginal junction with hemostasis appreciated. The cervical vaginal junction was then using monopolar cautery in a circumferential pattern across the superior aspect of the cervix. The specimen was delivered through the vagina and sent to pathology. The remaining vaginal cuff was then closed using a V lock suture. This was performed in a running technique. Excellent hemostasis was obtained and good closure was noted. Irrigation was then performed. All operative sites were noted to be hemostatic. A cystoscopy was performed with a 70 degree cystoscope through the urethra into the bladder without complication. The bladder was instilled with approximately 250 cc of normal saline. Intraoperative images were made. Ureteral orifices and jets were identified. No suture material was appreciated in the bladder. The bladder was then drained and cystoscope was removed. The abdominal cavity was again examined using the laparoscope after the robot was undocked. All operative sites were noted to be hemostatic. The trochars were removed under direct visualization without complication and pneumoperitoneum was reduced. At this point the skin was then closed using 4-0 Monocryl subcuticular stitch and sealed with surgical glue. The patient tolerated the procedure well sponge lap and needle counts were correct x2 the patient was taken to the recovery room in stable condition. Surgical Findings: Stenotic cervix, bilateral functional appearing cysts on the ovaries. Complications Complications: No Admit VTE Documentation VTE Present on Admission: No VTE Mechan Device Prophylaxis: SCD's VTE Pharm Prophylaxis ordered?: No Reason prophylaxis not ordered: Treatment Not Indicated
--- NOTE | 2025-04-23 09:41 | PCM.POST.ANE ---
Anesthesia: Postop Eval I Current Vital Signs Temperature: 97.1 F Pulse Rate: 92 Blood Pressure: 106/64 Respiratory Rate: 16 Pulse Ox: 99 Oxygen Delivery Method: Room Air Assessment Airway patent: Yes Spontaneous unlabored respirations: Yes Mental status: Awake nausea: No Vomiting: No Anesthesia Complication: No Fluid Hydration Crystalloid volume administer (ml): 1,000 Total IV fluid infused: 1,000 Progress Note Anesthesia document: Postop Eval 1 completed: Yes
[2025-04-23] MEDS: Lactated Ringers @ 70 MLS/HR 70 ML IV (10:00)
--- NOTE | 2025-04-23 10:07 | POSTOPAN2_ITS ---
Anesthesia Postop Eval I Sum Postop Eval Completion status Anesthesia document: Postop Eval 1 completed: Yes Anesthesia Postop Eval I Summary Anesthesia Postop Eval I Summary: Anesthesia Postop Eval I: Assessment Summary Airway patent Yes 04/23/25 09:42 MACHINE SILVER [email or web address] Spontaneous unlabored Yes 04/23/25 09:42 MACHINE SILVER STRIPPER.SHOF respirations Mental status Awake 04/23/25 09:42 MACHINE SILVER STRIPPER.SHOF nausea No 04/23/25 09:42 MACHINE SILVER STRIPPER.SHOF Vomiting No 04/23/25 09:42 MACHINE SILVER STRIPPER.SHOF Anesthesia Postop Eval I: Fluid Summary Crystalloid volume administer 1,000 04/23/25 09:42 MACHINE SILVER STRIPPER.SHOF (ml) Colloids volume administered ( ml) Blood Product volume administered (ml) Total IV fluid infused 1,000 04/23/25 09:42 MACHINE SILVER STRIPPER.SHOF Anesthesia Postop Eval I: Summary Notes Anesthesia Complication No 04/23/25 09:42 MACHINE SILVER STRIPPER.SHOF Anesthesia Complication Comment: Post-operative progress note Anesthesia: Postop Eval II Evaluation Mental status: Awake and Calm Pain Level: 0 nausea: No Vomiting: No Complications Anesthesia Complication: No
--- NOTE | 2025-04-23 10:07 | PCM.POSTANE2 ---
Anesthesia Postop Eval I Sum Postop Eval Completion status Anesthesia document: Postop Eval 1 completed: Yes Anesthesia Postop Eval I Summary Anesthesia Postop Eval I Summary: Anesthesia Postop Eval I: Assessment Summary Airway patent Yes 04/23/25 09:42 [email or web address] Spontaneous unlabored Yes 04/23/25 09:42 COMPLIANCE [email or web address] respirations Mental status Awake 04/23/25 09:42 COMPLIANCE [email or web address] nausea No 04/23/25 09:42 COMPLIANCE CLERK.SHOF Vomiting No 04/23/25 09:42 COMPLIANCE CLERK.SHOF Anesthesia Postop Eval I: Fluid Summary Crystalloid volume administer 1,000 04/23/25 09:42 COMPLIANCE CLERK.SHOF (ml) Colloids volume administered ( ml) Blood Product volume administered (ml) Total IV fluid infused 1,000 04/23/25 09:42 COMPLIANCE CLERK.SHOF Anesthesia Postop Eval I: Summary Notes Anesthesia Complication No 04/23/25 09:42 COMPLIANCE CLERK.SHOF Anesthesia Complication Comment: Post-operative progress note Anesthesia: Postop Eval II Evaluation Mental status: Awake and Calm Pain Level: 0 nausea: No Vomiting: No Complications Anesthesia Complication: No
[2025-04-23] MEDS: HYDROcodone Bitartrate/Apap 5/325 Tablet PO (11:53)
== END 2025-04-23 13:40 | disposition home or self-care (01) ==
LOC: SDC 05:17 → AC 05:18
PROVIDERS: Anesthesiology; PCP Family Medicine; Referring Provider Obstetrics & Gynecology; Visit Provider Obstetrics & Gynecology
PROC: 0UT90ZZ Resection of Uterus, Open Approach (ICD-10-PCS; CPT 58570; principal; 2025-04-23 07:10)
DX: N99.85 Post endometrial ablation syndrome (principal); N80.03 Adenomyosis of the uterus; N83.201 Unspecified ovarian cyst, right side; N94.6 Dysmenorrhea, unspecified; N88.0 Leukoplakia of cervix uteri; D26.1 Other benign neoplasm of corpus uteri; R10.2 Pelvic and perineal pain
CPT/HCPCS: 58570; S2900; 00840; 36415; 81025; 82962; 83735; 85027; 86850; 86900; 86901; 88307; J2405; J3475

== ENCOUNTER 2025-05-06 10:56 | Emergency (ER) | payer OTHER, SELFPAY ==
[2025-05-06 10:57] VITALS: BP 109/72; PULSE 91; RESP 14; TEMP 37.1; O2SAT 98; BMI 21.1
[2025-05-06 11:48] LABS: Mucous, Urine 0 SEEN /hpf (<or=2+); Red Blood Cells-Urine 0 SEEN /hpf (0-5)
[2025-05-06 11:52] LABS: Hematocrit 38.9 % (37-47); Hemoglobin 12.8 g/dL (12.0-15.0); Immature Granulocytes Count 0.060 X10^3/uL (0.0-0.0); Mean Corp Hgb Conc 32.9 g/dL (32-36); Mean Corpuscular Volume 99.7 fL (81-99); Mean Platelet Vol. 9.6 fl (6.2-12.0); NRBC Flagged by Analyzer 0 % (0-5); Platelet Count 302 K/mm3 (150-450); RBC Distribution Width CV 11.6 % (11.6-14.6); RBC Distribution Width SD 42.7 fl (35.1-43.9); Red Blood Count 3.90 M/mm3 (4.2-5.4); White Blood Count 13.4 K/mm3 (4.4-11.0)
[2025-05-06 11:56] LABS: Color, Urine Straw (Yellow); Glucose, Dipstick Normal (Normal); Ketone-Dipstick Negative (Negative); Leukocyte Esterase-Dipstick Negative /ul (Negative); Nitrite-Dipstick Negative (Negative); Occult Blood-Urine 10 /ul (Negative); Protein-Dipstick 15 mg/dl (Negative); Specific Gravity, Urine 1.010 (1.002-1.030); Urine Bilirubin Dipstick Negative (Negative)
[2025-05-06 12:12] LABS: Squamous Epithelial Cells - UA 0-5 SEEN /hpf (5-10)
--- NOTE | 2025-05-06 12:28 | CT_ITS ---
PROCEDURE: ABDOMEN/PELVIS W IV CONT ONLY 05/06/2025 REASON FOR EXAM: DIFFUSE ABDOMINAL PAIN, RECENT LAPAROSCOPIC SURGER Patient had total hysterectomy 2 weeks ago. History of prior endometrial ablation. TECHNIQUE: ABDOMEN/PELVIS W IV CONT ONLY Coronal and Sagittal reconstruction series were provided. CONTRAST: Isovue-300 VOLUME: 100 mL One or more dose reduction techniques were used (e.g., Automated exposure control, adjustment of the mA and/or kV according to patient size, use of iterative reconstruction technique. RADIATION DOSE SUMMARY: CTDlvol: 13.8 mGy DLP: 329.64 mGycm COMPARISON: None FINDINGS: Lung bases: The lung bases are clear. The heart is nonenlarged. No coronary artery calcification is seen. Liver: Minimal degree of edematous changes in the portal triads. This may represent early inflammatory process. Gallbladder: No gallstones are seen. Spleen: Normal size. Pancreas: Normal size without evidence of mass surrounding inflammation or ductal dilation. Adrenals: Unremarkable Kidneys: Normal renal sizes. No hydronephrosis. Bladder: The urinary bladder is unremarkable. Reproductive Organs: The patient is status post hysterectomy. Bowel: Nonspecific bowel pattern Appendix: Unremarkable Lymph nodes: Unremarkable. Vasculature: The abdominal aorta and IVC are normal. Peritoneum / Retroperitoneum: Unremarkable Bones: Unremarkable CT/Abdomen/Pelvis W IV Cont ONLY IMPRESSION: Minimal degree of edematous changes in the portal triads. This may represent e levon inflammatory process. Status post hysterectomy. Reading Location: [id number]
[2025-05-06 12:32] LABS: Lipase 29 U/L (13-75)
--- NOTE | 2025-05-06 12:36 | EDS_ITS ---
HPI History of Present Illness Chief Complaint: Abd Pain Narrative Narrative: Chief complaint and HPI: Abdominal pain. History taken by patient as well as medical record. 44-year-old female who underwent total robotic hysterectomy, cystoscopy on 04/[address] Siddiqui presents for evaluation of abdominal pain. Patient states that her abdominal pain started approximately 3 days ago. Diffuse and radiates to her back. She endorses worsening pain with eating. Has had decreased p.o. intake due to this. Patient states that she has had pain since her surgery although states that the pain was improving. She states that she had issues with constipation which caused her to stop taking her narcotics. She states she stopped about a week ago. She is no longer constipated. She has been taking ibuprofen regularly. She denies any fever, chills, shortness of breath, chest pain, nausea, vomiting, dysuria, diarrhea. States she was seen at the [facility] office today in which she was sent in for further workup of abdominal pain. Review of systems: See HPI Medications: As listed on the chart Allergies: As listed on the chart PFSH: Per chart Vital signs: As listed on the chart. Reviewed. Physical exam: Gen: A&O x3 Head: Normocephalic, atraumatic Eyes: No sclera icterus, conjunctiva clear ENT: Moist mucous membranes Neck: Trachea midline, No JVD CV: RRR, no murmurs, no peripheral edema Resp: Lungs CTA BL, no w/r/c GI: Abd soft, non-distended, tender to palpation diffusely, + voluntary guarding, no rebound or rigidity : No CVA tenderness Musc: Full ROM, no deformity Skin: Warm, dry Neuro: Alert, oriented, grossly intact, sensation intact Psych: Cooperative, appropriate mood and affect [facility] Medical History Dysmenorrhea Menorrhagia Low iron Injury of back Alcohol use Non-smoker Normal Holter exam Home Medications ?Medication ?Instructions ?Recorded ?Last Taken ?Type NK 05/06/25 Unknown History Allergy/AdvReac Type Severity Reaction Status Date / Time No Known Allergies Allergy Verified 05/06/25 10:57 Family History Brother Myocardial infarction, Onset Age: 49 super healthy Heart disease Hypertension Hyperlipemia Mother Basal cell carcinoma Hypertension Father Heart disease Hypertension Hyperlipemia Grandmother Heart disease Diabetes Uncle Diabetes Surgical History History of robot-assisted laparoscopic hysterectomy (04/23/25) History of endometrial ablation History of salpingectomy History of removal of skin mole History of wisdom tooth extraction History of tonsillectomy Social History household members: spouse housing: house number of children: 2 current occupational status: employed 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 Smoking Status: Never smoker alcohol intake: current alcohol intake frequency: holidays/special occasions only substance use type: does not use what type of physical activity do you participate in: none seatbelt use: always do you feel safe at home: Yes additional social history: - 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 [employer] EXAM Physical Exam Const Vital Signs: 05/06/25 10:57 05/06/25 12:57 05/06/25 14:00 Temperature 98.7 F Temperature Source Temporal Pulse Rate 91 79 75 Respiratory Rate 14 14 16 Blood Pressure 109/72 105/79 106/69 Blood Pressure Mean 84 87 81 Pulse Ox 98 100 Oxygen Delivery Method Room Air Room Air 05/06/25 15:21 Temperature 97 F L Temperature Source Pulse Rate 78 Respiratory Rate 16 Blood Pressure 110/74 Blood Pressure Mean 86 Pulse Ox 100 Oxygen Delivery Method MDM MDM MDM Narrative Medical decision making narrative: 44-year-old female who underwent total robotic hysterectomy, cystoscopy on 04/[address] Siddiqui presents for evaluation of abdominal pain. See HPI. On chart review, I was able to find the operative note from [facility] which I did review. Differential diagnosis includes but is not limited to postoperative pain, ileus, constipation, bowel obstruction, appendicitis, pancreatitis, biliary disease, postoperative complication, UTI, gastritis. NS bolus, Zofran, Pepcid ordered for symptoms. Patient was offered narcotics but declined. She is concerned about constipation. I did explain to her that 1 dose of narcotics will not cause constipation however she declined. Abdominal pain workup ordered including CT abdomen and pelvis. CBC with mild leukocytosis of 13.4. No anemia or platelet dysfunction. CMP relatively unremarkable without significant electrolyte abnormality, KAI, transaminitis. Lipase unremarkable. Lactic acid unremarkable. UA negative for UTI. While waiting for CT abdomen pelvis, patient now agreeable to morphine. Morphine ordered. CT abdomen pelvis shows minimal degree of edematous changes in the portal triads. This may represent early inflammatory process. Status post hysterectomy. Otherwise no acute intra-abdominal process. Given the findings of CT abdomen pelvis, GI was consulted I spoke with Dr. Uribe. He reviewed the images. This is very nonspecific, can be seen with bowel cramping. No further workup needed. On reevaluation, patient still having abdominal pain. However her pain is more localized in the lower quadrants now. Not guarding is much. Her and her were updated of the results. Will p.o. challenge the patient. [facility] was consulted and he spoke with Dr. Siddiqui. Her concern was for possible appendicitis. She was updated on all the laboratory work results as well as the imaging. She suspects may be the patient's pain is secondary to postoperative changes and her not taking narcotics. She would like me to reiterate to the patient that it is okay to take narcotics for pain I am just to make sure that she continues her bowel regimen and MiraLAX daily. I do have low suspicion for ovarian torsion given that patient has no history of cyst however I did not officially rule this out as I did not perform ultrasound. I talked to Dr. Siddiqui about this, no concern for ovarian torsion at this time no ultrasound needed. I did update the patient and her of the rectum recommendations of Dr. Siddiqui. I did educate the patient that if she does continue to take ibuprofen she should take it not on an empty stomach as this can cause gastritis and stomach irritation. Recommended her continue the bowel regimen and the narcotics as needed for pain. Return precautions explained. Follow-up with [facility]. She was able to tolerate her p.o. intake. Patient stable to discharge home. Impression: 1. Abdominal pain 2. Total robotic hysterectomy/cystoscopy on 04/23 Lab Data Labs: Laboratory Results - last 24 hr 05/06/25 05/06/25 05/06/25 11:08 11:40 12:50 WBC 13.4 H RBC 3.90 L Hgb 12.8 Hct 38.9 MCV 99.7 H MCH 32.8 H MCHC 32.9 RDW Std Deviation 42.7 RDW Coeff of Felicity 11.6 Plt Count 302 MPV 9.6 Immature Gran % (Auto) 0.400 Neut % (Auto) 83.2 H Lymph % (Auto) 10.8 L Overton % (Auto) 4.8 Eos % (Auto) 0.4 Baso % (Auto) 0.4 Absolute Neuts (auto) 11.1 H Absolute Lymphs (auto) 1.45 Nucleated RBC % 0 Sodium 136 Potassium 4.1 Chloride 101 Carbon Dioxide 20.4 L Anion Gap 14 BUN 8 Creatinine 0.58 L Estim Creat Clear Calc 113.70 Est GFR (MDRD) Non-Af 116 BUN/Creatinine Ratio 13.8 Glucose 80 Lactic Acid 1.3 Calcium 9.5 Total Bilirubin 0.60 AST 19 ALT 11 Alkaline Phosphatase 64 Total Protein 7.3 Albumin 4.3 Globulin 3.0 Albumin/Globulin Ratio 1.4 Lipase 29 Urine Color Straw Urine Clarity Clear Urine pH 6.5 Ur Specific Blackstone 1.010 Urine Protein 15 H Urine Glucose (UA) Normal Urine Ketones Negative Urine Occult Blood 10 H Urine Nitrite Negative Urine Bilirubin Negative Urine Urobilinogen Normal Ur Leukocyte Esterase Negative Urine RBC 0 SEEN Urine WBC 0 SEEN Ur Squamous Epith Cells 0-5 SEEN Urine Bacteria 0 SEEN Urine Mucus 0 SEEN Radiography Diagnostic Testing: Clinical Impression(s) from Imaging Studies Abdomen/Pelvis CT 05/06/25 12:28 IMPRESSION: Minimal degree of edematous changes in the portal triads. This may represent early inflammatory process. Status post hysterectomy. Reading Location: [facility] Discharge Plan Triage Chief Complaint: Abd Pain ED Provider: Kurt Richardson Dx/Rx/DC Orders Clinical Impression: Abdominal pain Instructions: ED Abdominal Pain Unkn Cause Fem Prescriptions: No Action NK Primary Care Provider: Camilla Kay Referrals: Patsy Torres DO [Med Staff - Active Staff] - 3-5 Days Camilla Kay DO [Primary Care Provider] - 3-5 Days Activity Restrictions/Additional Instructions: Recommend taking your narcotic pain medicine that were prescribed to you along with the stool softeners and MiraLAX. Return back to ED if symptoms change or worsen. Follow-up with [facility]. Print Language: Kazakh Disposition Disposition: Home, Self Care Discharge Date/Time: 05/06/25 15:22
[2025-05-06 12:40] LABS: Albumin, Serum 4.3 g/dL (3.5-5.0); BUN 8 mg/dL (4-19); BUN/Creat Ratio 13.8 RATIO (10-20); Estimated Creatinine Clearance 113.70 ml/min (50-250); Glucose 80 mg/dL (70-99)
[2025-05-06 12:41] LABS: AST(SGOT) 19 U/L (<=31); Alanine Aminotransfer ALT/SGPT 11 U/L (<=34); Alkaline Phosphatase 64 U/L (35-104); Anion Gap 14 (5-15); Calcium,Total 9.5 mg/dL (7.6-11.0); Carbon Dioxide 20.4 mmol/L (21.0-32.0); Chloride 101 mmol/L (98-108); Globulin 3.0 g/dL (2.2-4.2); Potassium 4.1 mmol/L (3.3-5.1)
[2025-05-06] MEDS: 0.9% Normal Saline (1000mL) 1,000 ML 999 ML IV (12:42)
[2025-05-06] MEDS: Famotidine 200 MG/20 ML MDV 20 MG in 0.9% Normal Saline (Pres. free 8 ML 300 MG IV (12:43)
[2025-05-06 12:57] VITALS: BP 105/79; PULSE 79; RESP 14; O2SAT 100
[2025-05-06 14:00] VITALS: BP 106/69; PULSE 75; RESP 16
[2025-05-06 15:21] VITALS: BP 110/74; PULSE 78; RESP 16; TEMP 36.1; O2SAT 100
== END 2025-05-06 15:22 | disposition home or self-care (01) ==
PROVIDERS: Emergency Provider Surgery; PCP Family Medicine; Visit Provider Surgery
DX: R10.9 Unspecified abdominal pain (principal); Z98.890 Other specified postprocedural states
CPT/HCPCS: 74177; 80053; 81001; 83605; 83690; 85025; 96365; 96375; 99283; Q9967; A4216; J2405

== ENCOUNTER → 2025-09-11 | Outpatient (CLI) | payer OTHER, SELFPAY ==
--- NOTE | 2025-09-11 06:59 | BD_ITS ---
PROCEDURE: DEXA BONE DENSITY STUDY 09/11/2025 REASON FOR EXAM: F, age 44 y/o . Screening examination.. TECHNIQUE: Procedure Code: BDDBD Modality: DX Procedure: DEXA BONE DENSITY STUDY COMPARISON: None FINDINGS: BMD and T-SCORES Lumbar spine: 1.104 g/cm2, T-score 0.5 Levels: L1 through L4 Left femoral neck: 0.743 g/cm2, T-score -1.0 Femoral neck comparison data not recommended for monitoring change. Left total hip: 0.869 g/cm2, T-score -0.6 Right femoral neck: 0.745 g/cm2, T-score -0.9 Femoral neck comparison data not recommended for monitoring change. Right total hip: 0.855 g/cm2, T-score -0.7 The World Health Organization has defined the following categories based on bone density: Normal bone density: T-score equal to or greater than -1.0 Osteopenia: T-score between -1.0 and -2.5 Osteoporosis: T-score equal to or less than -2.5 FRAX (or Comparable) Fracture Risk Assessment: 10 Year Probability of Fracture: Major Osteoporotic Fracture: 2.1% Hip Fracture: 0.1% (Note: FRAX is not to be reported in setting of normal range bone density, osteoporosis on DEXA, known history of osteoporosis, prior osteoporotic hip or vertebral fracture, or for any patient undergoing pharmacological treatment for bone loss.) The National Osteoporosis Foundation (NOF) recommends pharmacological treatment for patients with a FRAX 10-year risk of 3% or higher for a hip fracture, or 20% or higher for a major osteoporotic fracture, to prevent osteoporosis and reduce fracture risk. The patient does not meet the pharmacological treatment recommendations for prevention of osteoporosis. BD/Dexa Bone Density Study IMPRESSION: NORMAL T-SCORES. Recommend follow-up as clinically warranted. Reading Location: [place] [id number]
--- OUTSIDE RECORDS SUMMARY | 2025-09-11 07:00 | XMS RPT_ITS | CCD ---
Author Organization [facility] CliniSyny Care Team Providers Care Slimer Name Role Phone Dr. Camacho Winters Primary Care Provider [phone] Dr. Camacho Winters Attending Provider [phone] Dr. Camacho Winters Referring Provider [phone] Vianey, Dr. Sauer Primary Care Provider [phone] Vianey, Dr. Sauer Referring Provider [phone] TRISTAN Gregg Attending Provider Mylene PAN DEVULCANIZER HELPER, PAN DEVULCANIZER HELPER-C Thelma Attending Provider [phone] Dr. Camilla Kay DO Primary Care Provider [phone] Dr. Camilla Kay DO Attending Provider Dr. Camilla Kay DO Referring Provider Mylene PAN DEVULCANIZER HELPER-CThelma Attending Provider Mylene PAN DEVULCANIZER HELPER-CThelma Referring Provider Dr. Patsy Torres DO Attending Provider Dr. Camilla Kay DO Primary Care Provider [phone] Dr. Camilla Kya DO Attending Provider Dr. Camilla Kay DO Referring Provider Dr. Patsy Torres DO Referring Provider Dr. Patsy Torres DO Other Provider Dr. Camilla Kay DO Primary Care Provider [phone] Camilla Kay DO Attending Provider Eliza DO, Dr. Sampson Referring [facility] Dr. Hicks Emergency Provider Eliza DO, Dr. Sampson Primary Care Provider Eliza DO, Dr. Sampson Referring Provider Eliza DO, Dr. Sampson Attending Provider Galena PAN DEVULCANIZER HELPER-C, Thelma Attending Provider Galena PAN DEVULCANIZER HELPER-C, Thelma Referring Provider [phone] [facility] Dr. Hicks Attending Provider Eliza DO, Dr. Sampson Primary Care Physician Eliza DO, Dr. Sampson Attending Physician Eliza DO, Dr. Sampson Referring Provider Galena PAN DEVULCANIZER HELPER-C, Thelma Attending Physician [phone] Lila Davis DO, Dr. Garner Attending Physician Lila Davis DO, Dr. Garner Nurse Practitioner [facility], Dr. Hicks Attending Physician [facility] , Dr[facility] Hicks [facility] Malys, Camilla Primary Care Unavailable Malys, Camilla Referring Unavailable Patsy Torres Attending Unavailabl e Galena PAN DEVULCANIZER HELPERThelma Attending Unavailable Malys, Camilla Primary Care Unavailable Malys, Camilla Referring Unavailable Malys, Camilla Attending Unavailable Malys, Camilla Primary Care Unavailable Malys, Camilla Referring Unavailable Malys, Camilla Primary Care Unavailable Malys, Camilla Referring Unavailable Patsy Torres Attending Unavailabl e Malys, Camilla Referring Unavailable Mylene PAN DEVULCANIZER HELPER, Thelma Attending Unavailable Malys, Camilla Primary Care Unavailable VandPatsy Avendano Attending Unavailabl e Malys, Camilla Primary Care Unavailable Malys, Camilla Referring Unavailable Malys, Camilla Attending Unavailable Malys, Camilla Referring Unavailable Malys, Camilla Primary Care Unavailable Malys, Camilla Primary Care Unavailable Malys, Camilla Referring Unavailable Malys, Camilla Attending Unavailable Malys, Camilla Attending Unavailable Malys, Camilla Primary Care Unavailable Malys, Camilla Referring Unavailable YariyKurt Zhu Attending Unavailabl e Malys, Camilla Primary Care Unavailable Patsy Torres Referring Unavailabl e Malys, Camilla Primary Care Unavailable Patsy Torres Attending Unavailabl e [place]ena PAN DEVULCANIZER HELPER, Thelma Referring Unavailable Mylene PAN DEVULCANIZER HELPER, Thelma Attending Unavailable Malys, Camilla Primary Care Unavailable Mylene PAN DEVULCANIZER HELPER, Thelma Referring Unavailable Mylene PAN DEVULCANIZER HELPER, Thelma Attending Unavailable Malys, Camilla Primary Care Unavailable Myelne PAN DEVULCANIZER HELPER, Thelma Referring Unavailable Mylene PAN DEVULCANIZER HELPER, Thelma Attending Unavailable Malys, Camilla Primary Care Unavailable Malys, Camilla Primary Care Unavailable Malys, Camilla Referring Unavailable Malys, Camilla Attending Unavailable Malys, Camilla Attending Unavailable Malys, Camilla Referring Unavailable Malys, Camilla Primary Care Unavailable Malys, Camilla Attending Unavailable Malys, Camilla Referring Unavailable Malys, Camilla Primary Care Unavailable Patsy Torres Consulting Unavailabl e Patsy Torres Referring Unavailabl e Malys, Camilla Primary Care Unavailable Patsy Torres Attending Unavailabl e Medications Current Medications Medication Drug Class(es) Dates Sig (Normalized) Sig (Original) [employer] (Nk) (3 sources) Start: 05-06-2025 [employer] (Nk) A ctive May 06, 2025 12:00am Completed/Discontinued Medications Medication Drug Class(es) Dates Sig (Normalized) Sig (Original) acetaminophen 325 mg / oxyCODONE hydrochloride 5 mg oral tablet (5 sources) Opioid Agonist Start: 04-23-2025 End: 05-06-2025 Oxycodone-Acetamin ophen (Percocet) 5-325 mg tablet Discontinued 1 {tbl} PO Q4H as needed for pain 20 7 0 April 23, 2025 May 06, 2025 11:12am Status post hysterectomy Acquired absence of both cervix and uterus amoxicillin 875 mg / clavulanate 125 mg oral tablet (17 sources) Penicillin-class Antibacterial Start: 03-17-2023 End: 03-27-2023 [...] 2023 12:04am citalopram 10 mg oral tablet (20 sources) Serotonin Reuptake Inhibitor Start: 01-16-2021 End: 06-17-2021 take 1 tablet by mouth once daily Citalopram 10 mg tablet Discontinued 10 mg PO DAILY January 16, 2021 12:00am June 17, 2021 10:16am diphenhydrAMINE hydrochloride 25 mg oral capsule (4 sources) Histamine-1 Receptor Antagonist Start: 05-06-2025 End: 05-06-2025 take 1 capsule by mouth at bedtime as needed Diphenhydramine Hcl (Benadryl) 25 mg capsule Discontinued 25 mg PO AT BEDTIME as needed May 06, 2025 12:00am May 06, 2025 11:12am ferrous sulfate 325 mg oral tablet (20 sources) Start: 01-19-2021 End: 03-17-2023 take 1 tablet by mouth once daily Ferrous Sulfate 325 mg (65 mg iron) tablet Discontinued 325 mg PO DAILY 90 3 November 05, 2021 7:39pm March 17, 2023 6:47am ibuprofen 800 mg oral tablet (20 sources) Nonsteroidal Anti-inflammatory Drug Start: 04-23-2025 End: 05-06-2025 take 1 tablet by mouth every eight hours as needed for pain Ibuprofen 800 mg tablet Discontinued 800 mg PO Q8H as needed for pain 30 0 April 23, 2025 12:00am May 06, 2025 11:12am Start: 02-13-2025 End: 04-10-2025 take 1 capsule [...] 2025 9:54am meloxicam 15 mg oral tablet (10 sources) Nonsteroidal Anti-inflammatory Drug Start: 01-21-2025 End: 02-13-2025 take 1 tablet by mouth once daily Meloxicam 15 mg tablet Discontinued 15 mg PO daily January 21, 2025 12:00am February 13, 2025 10:33am Multivitamin tablet (8 sources) Start: 02-13-2025 End: 05-06-2025 Multivitamin tablet Discontinued 1 {tbl} PO daily February 13, 2025 12:00am May 06, 2025 11:12am Start: 02-13-2025 Multivitamin t ablet Active 1 {tbl} PO daily February 13, 2025 12:00am ondansetron 4 mg oral tablet (5 sources) Serotonin-3 Receptor Antagonist Start: 04-23-2025 End: 05-06-2025 take 1 tablet by mouth every six hours as needed for nausea and vomiting Ondansetron Hcl 4 mg tablet Discontinued 4 mg PO EVERY 6 HOURS as needed for nausea and vomiting 20 0 April 23, 2025 12:00am May 06, 2025 11:12am oxyCODONE hydrochloride 5 mg oral capsule (20 sources) Opioid Agonist Start: 01-21-2022 End: 06-11-2022 [...] Classification Problem Date Documented Da te Episodic/Chronic Abdominal pain (11 sources) Abdominal pain; Translations: [Unspecified abdominal pain] Onset: 05-06-2025 05-06-2025 Episodic Comment on above: right > left Complications of surgical procedures or medical care (20 sources) Postoperative complication; 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] 02-13-2025 Episodic Deficiency and other anemia (20 sources) Anemia; Translations: [Anemia, unspecified] 01-21-2022 Episodic Comment on above: ON IRON Deficiency and other anemia (1 source) Anemia, unspecified; Translations: [Anemia, unspecified] Episodic Menstrual disorders (20 sources) Menorrhagia; Translations: [Excessive and frequent menstruation with regular cycle] Onset: 05-02-2025 Chronic Comment on above: probable post ablati on syndrome 04/23/25 hysterectomy probable post ablati on syndrome. resolved with hysterectomy 04/23/25 Other aftercare (3 sources) Surgical follow-up; Translations: [Encounter for follow-up examination after completed treatment for conditions other than malignant neoplasm] 05-06-2025 Episodic Other aftercare (1 source) Encounter for follow-up examination after completed treatment for conditions other than malignant neoplasm; Translations: [Encounter for follow-up examination after completed treatment for conditions other than malignant neoplasm] Onset: 05-06-2025 Episodic Other bone disease and musculoskeletal deformities (20 sources) Segmental and somatic dysfunction; Translations: [Segmental and somatic dysfunction of cervical region] 12-05-2019 Episodic Other nervous system disorders (5 sources) Ulnar neuropathy; Translations: [Lesion of ulnar nerve, right upper limb] 06-17-2021 Chronic Other nervous system disorders (15 sources) Lesion of ulnar nerve, right upper limb; Translations: [Ulnar neuropathy at elbow of right upper extremity] 06-17-2021 Chronic Other screening for suspected conditions (not mental disorders or infectious disease) (1 source) Abnormal findings on diagnostic imaging of other specified body structures; Translations: [Abnormal findings on diagnostic imaging of other specified body structures] Onset: 01-03-2025 Chronic Other skin disorders (16 sources) Hidradenitis; Translations: [Hidradenitis suppurativa] 03-23-2023 Episodic Other skin disorders (1 source) Hidradenitis suppurativa; Translations: [Hidradenitis] 03-23-2023 Episodic Other upper respiratory infections (19 sources) Acute pharyngitis; Translations: [Acute pharyngitis, unspecified] 03-17-2023 Episodic Residual codes; unclassified (1 source) Acquired absence of both cervix and uterus; Translations: [Acquired absence of both cervix and uterus] Onset: 05-06-2025 Episodic Residual codes; unclassified (1 source) Encounter for procedure for purposes other than remedying health state, unspecified; Translations: [Encounter for procedure for purposes other than remedying health state, unspecified] Onset: 05-02-2025 Episodic Spondylosis; intervertebral disc disorders; other back problems (20 sources) Pain in the coccyx; Translations: [Sacrococcygeal disorders, not elsewhere classified] 01-21-2025 Episodic Comment on above: chronic Unclassified (1 source) Post endometrial ablation syndrome; 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] Onset: 05-02-2025 Unclassified (1 source) Low back pain, unspecified; Translations: [Low back pain, unspecified] Onset: 12-29-2024 Past or Other Problems Problem Classification Problem Date Documented Date Episodic/Chronic Nonmalignant breast conditions (1 source) Other specified disorders of breast; Translations: [Other specified disorders of breast] Onset: 01-28-2025 Episodic Other female genital disorders (1 source) Other noninflammatory disorders of ovary, fallopian tube and broad ligament; Translations: [Other noninflammatory disorders of ovary, fallopian tube and broad ligament] Onset: 01-07-2025 Episodic Other screening for suspected conditions (not mental disorders or infectious disease) (20 sources) Mammography abnormal; Translations: [Other abnormal and inconclusive findings on diagnostic imaging of breast] Onset: 01-24-2025 01-21-2025 Episodic Comment on above: Needs rpt views and US Ovarian cyst (20 sources) Cyst of ovary; Translations: [Unspecified ovarian cyst, right side] Onset: 03-21-2025 01-21-2025 Episodic Comment on above: solid nodule. Nl CA 125. Rpt 4 wk Results Test Name Value Interpretation Reference Range Facility Milk Tester Office Visit Reporton 06-05-2025 Milk Tester Office Visit Report [facility] [address], [address] [place] [address] OFFICE VISIT Date of Service: 06/05/25 MR#: [id number] Acct: [id number] Name: PRASHANT MORAN Rep #: [id number] : 1980 Provider: Dr. Patsy Ferguson DO Age/Sex: 44/F Location: [facility] [place] Status: Signed Intake Vital Signs 02/13/25 10:26 05/06/25 10:57 06/05/25 13:07 06/05/25 13:08 Height 5 ft 5 in 5 ft 5 in 5 ft 5 in 5 ft 5 in Weight: 127 lb BMI 21.1 BP 107/67 Intake Visit Reasons: 6 wk hysterectomy Boiling Off Winder Required: No Is patient in pain?: No Allergies No Known Allergies Allergy (Verified 06/05/25 13:06) Medications ???Medication ???Instructions ???Recorded ???Confirmed ???Type NK 05/06/25 06/05/25 History Post menopausal: No Patient : No : No [facility] Medical History Dysmenorrhea Menorrhagia Low iron Injury of back Alcohol use Non-smoker Normal Holter exam Surgical History History of robot-assisted laparoscopic hysterectomy (04/23/25) History of endometrial ablation History of salpingectomy [...] home: Yes additional social history: - 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 She states that she is feeling much better. back to normal activity. pathology: terus, cervix, post endometrial ablation syndrome, dysmenorrhea, total robotic hysterectomy: - Cervix: mild hyperkeratosis, dilated endocervical glands. - Endometrium: focal endometrial hyperplasia without atypia. - Myometrium: adenomyoma (1.2 cm), subserosal adenomyosis History 2 Elective abortions Hx Para 2 Spontaneous abortions Hx # Term Pregnancies Ectopic pregnancies Hx # Pregnancies Multiple births # of living children 2 Past Pregnancies Del. Date Name GA/Weeks Outcome Route Bth Weight Infant Gen Labor Lgth Anesthesia Del Locatn Provider FOB 02/11/09 Rebeca 09/03/10 [facility] ENT: Reports system reviewed and no additional complaints, except as documented Cardio Card: Reports system reviewed and no additional complaints, except as documented Resp Resp: Denies cough, dyspnea or dyspnea on exertion GI GI: Denies abdominal pain, bloating or change in bowel habits : Denies vaginal odor or vaginal pruritus Details: lochia is mild Musc Musc: Reports system reviewed and no additional complaints, except as documented Exam Const General: cooperative, healthy appearing and comfortable Resp Effort Inspection: normal respiratory effort GI Palpation: soft and nontender Rectal Exam: other Other: cuff is intact and suture is dissolving. no bleeding or signs of infection Extrem General: no edema Coding Level of Care Code No Charge Diagnoses History of robot-assisted laparoscopic hysterectomy Z90.710 Assessment and Plan Assessment and Plan (1) History of robot-assisted laparoscopic hysterectomy: Status: Acute Comment: RUFINO Plan: healing well. restrictions lifted RTO in 1 year. Plan Details Goals Barriers: Goals Decrease pain Decrease spasm Improve sleep Improve ability to perform ADLs Barriers Work posture 06/05/25 1327 Date Patsy Camacho Signature: Date (if applicable) CC: Normal [facility] Abdomen/Pelvis W IV Cont ONL Yon 05-06-2025 Abdomen/Pelvis W IV Cont ONLY [facility] Imaging Services [address] [place] [address] [place], [place] [address] Abdomen/Pelvis W IV Cont ONLY MR#: [id number] Acct: [id number] Name: PRASHANT MORAN Rep #: [id number] : 1980 F 44 From: Duran damon MD PCP: Dr. 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 History of prior endometrial ablation. TECHNIQUE: ABDOMEN/PELVIS W IV CONT ONLY Coronal and Sagittal reconstruction series were provided. CONTRAST: Isovue-300 VOLUME: 100 mL One or more dose reduction techniques were used (e.g., Automated exposure control, adjustment of the mA and/or kV according to patient size, use of iterative reconstruction technique. RADIATION DOSE SUMMARY: CTDlvol: 13.8 mGy DLP: 329.64 mGycm COMPARISON: None FINDINGS: Lung bases: The lung bases are clear. The heart is nonenlarged. No coronary artery calcification is seen. Liver: Minimal degree of edematous changes in the portal triads. This may represent early inflammatory process. Gallbladder: No gallstones are seen. Spleen: Normal size. Pancreas: Normal size without evidence of mass surrounding inflammation or ductal dilation. Adrenals: Unremarkable Kidneys: Normal renal sizes. No hydronephrosis. Bladder: The urinary bladder is unremarkable. Reproductive Organs: The patient is status post hysterectomy. Bowel: Nonspecific bowel pattern Appendix: Unremarkable Lymph nodes: Unremarkable. Vasculature: The abdominal aorta and IVC are normal. Peritoneum / Retroperitoneum: Unremarkable Bones: Unremarkable CT/Abdomen/Pelvis W IV Cont ONLY IMPRESSION: Minimal degree of edematous changes in the portal triads. This may represent early inflammatory process. Status post hysterectomy. Reading Location: [id number] CC: Dr. Kurt Richardson DO; Dr. Camilla Kay DO Fisher Eel Spear: Signed Normal [facility] Absolute lymphocyte countOrd ered By: ED PROVIDER on 05-06-2025 Lymphocytes Auto (Unsp spec) [#/Vol] 1.45 10*3/uL 0.83-4.51 [facility] Absolute neutrophil countOrd ered By: ED PROVIDER on 05-06-2025 Neutrophils (Bld) [#/Vol] 11.1 10*3/uL High 2.0-7.7 [facility] Anion gap in Serum or Plasma Ordered By: Kurt Richardson on 05-06-2025 Anion gap [Moles/Vol] 14 mmol/L 5-15 [facility] Automated lymphocyte count a s percentage of total leukocytesOrdered By: ED PROVIDER on 05-06-2025 Lymphocytes/100 WBC Auto (Unsp spec) 10.8 % Low 19-41 [facility] BUN/creatinine ratioOrdered By: Kurt Richardson on 05-06-2025 Urea nitrogen/Creatinine [Mass ratio] 13.8 mg/mg 10-20 [facility] Basophil percentageOrdered B y: ED PROVIDER on 05-06-2025 Basophils/100 WBC (Bld) 0.4 % 0-1 [facility] Bilirubin Test strip Ql (U)O rdered By: ED PROVIDER on 05-06-2025 Bilirubin Ql (U) Negative Negative [facility] Bilirubin, totalOrdered By: Kurt Richardson on 05-06-2025 Bilirubin [Mass/Vol] 0.60 mg/dL 0.00-1.30 [facility] CBC W/Diff, Automatedon Absolute Lymph 1.45 X10 3/uL Normal 0.83-4.51 [facility] Comment on above: Performed By: #### L 100.0100, L501.2450, L500.4050 #### [facility] [address] [place], [address] Absolute Neut 11.1 X10 3/uL High 2.0-7.7 [facility] Comment on above: Performed By: #### L 100.0100, L501.2450, L500.4050 #### [facility] [address] [place], [address] Basophils/100 WBC (Bld) 0.4 % Normal 0-1 [facility] Comment on above: Performed By: #### L 100.0100, L501.2450, L500.4050 #### [facility] [address] [place], [address] Eosinophils/100 WBC (Bld) 0.4 % Normal 0-5 [facility] Comment on above: Performed By: #### L 100.0100, L501.2450, L500.4050 #### [facility] [address] [place], [address] Erythrocyte distribution width (RBC) [Ratio] 11.6 % Normal 11.6-14.6 [facility] Comment on above: Performed By: #### L 100.0100, L501.2450, L500.4050 #### [facility] [address] [place], [address] Hematocrit (Bld) [Volume fraction] 38.9 % Normal 37-47 [facility] Comment on above: Performed By: #### L 100.0100, L501.2450, L500.4050 #### [facility] [address] [place], [address] Hemoglobin (Bld) [Mass/Vol] 12.8 g/dL Normal 12.0-15.0 [facility] Comment on above: Performed By: #### L 100.0100, L501.2450, L500.4050 #### [facility] [address] [place], [address] IG% 0.400 Normal 0.0-0.9 [facility] Comment on above: Result Comment: IG% - Immature Granulocytes (promyelocytes, myelocytes and metamyelocytes) > 1% indicates that a LEFT SHIFT is Present. Performed By: #### L 100.0100, L501.2450, L500.4050 #### [facility] [address] [place], [address] Lymphocytes/100 WBC (Bld) 10.8 % Low 19-41 [facility] Comment on above: Performed By: #### L 100.0100, L501.2450, L500.4050 #### [facility] [address] [place], [address] MCH (RBC) [Entitic mass] 32.8 pg High 27.0-32.0 [facility] Comment on above: Performed By: #### L 100.0100, L501.2450, L500.4050 #### [facility] [address] [place], [address] MCHC (RBC) [Mass/Vol] 32.9 g/dL Normal 32-36 [facility] Comment on above: Performed By: #### L 100.0100, L501.2450, L500.4050 #### [facility] [address] [place], [address] MCV (RBC) [Entitic vol] 99.7 fL High 81-99 [facility] Comment on above: Performed By: #### L 100.0100, L501.2450, L500.4050 #### [facility] [address] [place], [address] Monocytes/100 WBC (Bld) 4.8 % Normal 0-10 [facility] Comment on above: Performed By: #### L 100.0100, L501.2450, L500.4050 #### [facility] [address] [place], [address] Neutrophils/100 WBC (Bld) 83.2 % High 47-70 [facility] Comment on above: Performed By: #### L 100.0100, L501.2450, L500.4050 #### [facility] [address] [place], [address] Nucleated RBC (Bld) [#/Vol] 0 10*3/uL Normal 0-5 [facility] Comment on above: Performed By: #### L 100.0100, L501.2450, L500.4050 #### [facility] [address] [place], [address] Platelet mean volume (Bld) [Entitic vol] 9.6 fL Normal 6.2-12.0 [facility] Comment on above: Performed By: #### L 100.0100, L501.2450, L500.4050 #### [facility] [address] [place], [address] Platelets (Bld) [#/Vol] 302 10*3/uL Normal 150-450 [facility] Comment on above: Performed By: #### L 100.0100, L501.2450, L500.4050 #### [facility] [address] [place], [address] RBC (Bld) [#/Vol] 3.90 10*6/uL Low 4.2-5.4 [facility] Comment on above: Performed By: #### L 100.0100, L501.2450, L500.4050 #### [facility] [address] [place], [address] RDW SD 42.7 fl Normal 35.1-43.9 [facility] Comment on above: Performed By: #### L 100.0100, L501.2450, L500.4050 #### [facility] [address] [place], [address] WBC (Bld) [#/Vol] 13.4 10*3/uL High 4.4-11.0 [facility] Comment on above: Performed By: #### L 100.0100, L501.2450, L500.4050 #### [facility] [address] [place], [address] Carbon dioxide, total [Moles /volume] in Central venous bloodOrdered By: Kurt Richardson on 05-06-2025 CO2 [Moles/Vol] 20.4 mmol/L Low 21.0-32.0 [facility] Chloride assayOrdered By: Ignacio Richardson on 05-06-2025 Chloride [Moles/Vol] 101 mmol/L 98-108 [facility] Comprehensive Metabolic Prof ilon 05-06-2025 Albumin/Globulin [Mass ratio] 1.4 {ratio} Normal 0.9-2.4 [facility] Comment on above: Performed By: #### L 100.0100, L501.2450, L500.4050 #### [facility] [address] [place], [address] ALK PHOS 64 U/L Normal 35-104 [facility] Comment on above: Performed By: #### L 100.0100, L501.2450, L500.4050 #### [facility] [address] [place], [address] ALT [Catalytic activity/Vol] 11 U/L Normal <=34 [facility] Comment on above: Performed By: #### L 100.0100, L501.2450, L500.4050 #### [facility] [address] [place], [address] AST [Catalytic activity/Vol] 19 U/L Normal <=31 [facility] Comment on above: Result Comment: Hemo lysis present, Results??could be affected. ?? Performed By: #### L 100.0100, L501.2450, L500.4050 #### [facility] [address] [place], [address] Bilirubin [Mass/Vol] 0.60 mg/dL Normal 0.00-1.30 [facility] Comment on above: Performed By: #### L 100.0100, L501.2450, L500.4050 #### [facility] [address] [place], [address] Calcium [Mass/Vol] 9.5 mg/dL Normal 7.6-11.0 [facility] Comment on above: Performed By: #### L 100.0100, L501.2450, L500.4050 #### [facility] [address] [place], [address] Chloride [Moles/Vol] 101 mmol/L Normal 98-108 [facility] Comment on above: Performed By: #### L 100.0100, L501.2450, L500.4050 #### [facility] [address] [place], [address] CO2 [Moles/Vol] 20.4 mmol/L Low 21.0-32.0 [facility] Comment on above: Performed By: #### L 100.0100, L501.2450, L500.4050 #### [facility] [address] [place], [address] GAP 14 Normal 5-15 [facility] Comment on above: Performed By: #### L 100.0100, L501.2450, L500.4050 #### [facility] [address] [place], [address] Globulin (S) [Mass/Vol] 3.0 g/dL Normal 2.2-4.2 [facility] Comment on above: Performed By: #### L 100.0100, L501.2450, L500.4050 #### [facility] [address] [place], [address] Potassium [Moles/Vol] 4.1 mmol/L Normal 3.3-5.1 [facility] Comment on above: Result Comment: Hemo lysis present, Results??could be affected. ?? Performed By: #### L 100.0100, L501.2450, L500.4050 #### [facility] [address] [place], [address] Sodium [Moles/Vol] 136 mmol/L Normal 133-145 [facility] Comment on above: Performed By: #### L 100.0100, L501.2450, L500.4050 #### [facility] [address] [place], [address] Albumin [Mass/Vol] 4.3 g/dL Normal 3.5-5.0 [facility] Comment on above: Performed By: #### L 100.0100, L501.2450, L500.4050 #### [facility] [address] [place], [address] BUN/CRE 13.8 RATIO Normal 10-20 [facility] Comment on above: Performed By: #### L 100.0100, L501.2450, L500.4050 #### [facility] [address] [place], [address] Creatinine [Mass/Vol] 0.58 mg/dL Low 0.70-1.20 [facility] Comment on above: Performed By: #### L 100.0100, L501.2450, L500.4050 #### [facility] [address] [place], [address] ECRCL 113.70 ml/min Normal 50-250 [facility] Comment on above: Performed By: #### L 100.0100, L501.2450, L500.4050 #### [facility] [address] [place], [address] GFR/1.73 sq M.predicted among non-blacks MDRD (S/P/Bld) [Vol rate/Area] 116 mL/min/{1.73_m2} Normal >60 [facility] Comment on above: Result Comment: mL/m in/1.73m2 CKD-EPI Creatinine Equation (2020) Performed By: #### L 100.0100, L501.2450, L500.4050 #### [facility] [address] [place], [address] Glucose [Mass/Vol] 80 mg/dL Normal 70-99 [facility] Comment on above: Performed By: #### L 100.0100, L501.2450, L500.4050 #### [facility] [address] [place], [address] T PROT 7.3 g/dL Normal 5.9-8.4 [facility] Comment on above: Performed By: #### L 100.0100, L501.2450, L500.4050 #### [facility] [address] [place], [address] Urea nitrogen [Mass/Vol] 8 mg/dL Normal 4-19 [facility] Comment on above: Performed By: #### L 100.0100, L501.2450, L500.4050 #### [facility] [address] [place], [address] Emergency Department Summary on 05-06-2025 Emergency Department Summary [facility] Medical Records Department [address] [place] [address] Emergency Department Summary 05/06/25 MR#: [id number] Acct: [id number] Name: PRASHANT MORAN Rep #: [id number] : 1980 44 From: Kurt Richardson DO PCP: Dr. Camilla Kay DO Status:DEP ER Location: ED HPI History of Present Illness Chief Complaint: Abd Pain Narrative Narrative: Chief complaint and HPI: Abdominal pain. History taken by patient as well as medical record. 44-year-old female who underwent total robotic hysterectomy, cystoscopy on 04/[address] Siddiqui presents for evaluation of abdominal pain. Patient states that her abdominal pain started approximately 3 days ago. Diffuse and radiates to her back. She endorses worsening pain with eating. Has had decreased p.o. intake due to this. Patient states that she has had pain since her surgery although states that the pain was improving. She states that she had issues with constipation which caused her to stop taking her narcotics. She states she stopped about a week ago. She is no longer constipated. She has been taking ibuprofen regularly. She denies any fever, chills, shortness of breath, chest pain, nausea, vomiting, dysuria, diarrhea. States she was seen at the [facility] office today in which she was sent in for further workup of abdominal pain. Review of systems: See HPI Medications: As listed on the chart Allergies: As listed on the chart PFSH: Per chart Vital signs: As listed on the chart. Reviewed. Physical exam: Gen: A O x3 Head: Normocephalic, atraumatic Eyes: No sclera icterus, conjunctiva clear ENT: Moist mucous membranes Neck: Trachea midline, No JVD CV: RRR, no murmurs, no peripheral edema Resp: Lungs CTA BL, no w/r/c GI: Abd soft, non-distended, tender to palpation diffusely, + voluntary guarding, no rebound or rigidity : No CVA tenderness Musc: Full ROM, no deformity Skin: Warm, dry Neuro: Alert, oriented, grossly intact, sensation intact Psych: Cooperative, appropriate mood and [facility] History Dysmenorrhea Menorrhagia Low iron Injury of back Alcohol use Non-smoker Normal Holter exam Home Medications ???Medication ???Instructions ???Recorded ???Last Taken ???Type NK 05/06/25 Unknown History Allergy/AdvReac Type Severity Reaction Status Date / Time No Known Allergies Allergy Verified 05/06/25 10:57 Family History Brother Myocardial infarction, Onset Age: 49 super healthy Heart disease Hypertension Hyperlipemia Mother Basal cell carcinoma Hypertension Father Heart disease Hypertension Hyperlipemia Grandmother Heart disease Diabetes Uncle Diabetes Surgical History History of robot-assisted laparoscopic hysterectomy (04/23/25) History of endometrial ablation History of salpingectomy History of removal of skin mole History of wisdom tooth extraction History of tonsillectomy Social History household members: spouse housing: house number of children: 2 current occupational status: employed 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 Smoking Status: Never smoker alcohol intake: current alcohol intake frequency: holidays/special occasions only substance use type: does not use what type of physical activity do you participate in: none seatbelt use: always do you feel safe at home: Yes additional social history: - 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 [employer] EXAM Physical Exam Const Vital Signs: 05/06/25 10:57 05/06/25 12:57 05/06/25 14:00 Temperature 98.7 F Temperature Source Temporal Pulse Rate 91 79 75 Respiratory Rate 14 14 16 Blood Pressure 109/72 105/79 106/69 Blood Pressure Mean 84 87 81 Pulse Ox 98 100 Oxygen Delivery Method Room Air Room Air 05/06/25 15:21 Temperature 97 F L Temperature Source Pulse Rate 78 Respiratory Rate 16 Blood Pressure 110/74 Blood Pressure Mean 86 Pulse Ox 100 Oxygen Delivery Method MDM MDM MDM Narrative Medical decision making narrative: 44-year-old female who underwent total robotic hysterectomy, cystoscopy on 04/[address] Siddiqui presents for evaluation of abdominal pain. See HPI. On chart review, I was able to find the operative note from [facility] which I did review. Differential diagnosis includes but is not limited to postoperative pain, ileus, constipation, bowel obstruction, appendicitis, pancreatitis, biliary disease, postoperative complication, UTI, gastritis. NS bolus, Zofran, Pepcid ordered for symptoms. Patient was offered narcotics but declined. She is concerned about constipation. I did explain to (more content not included)... Normal [facility] Eosinophil percentageOrdered By: ED PROVIDER on 05-06-2025 Eosinophils/100 WBC (Bld) 0.4 % 0-5 [facility] Erythrocyte distribution wid th ratioOrdered By: ED PROVIDER on 05-06-2025 Erythrocyte distribution width (RBC) [Ratio] 11.6 % 11.6-14.6 [facility] Erythrocyte distribution wid th standard deviationOrdered By: ED PROVIDER on 05-06-2025 Erythrocyte distribution width (RBC) [Ratio] 42.7 fl 35.1-43.9 [facility] Glomerular filtration rate ( GFR) estimation/1.73 sq m using serum, plasma, or whole bOrdered By: Kurt Richardson on 05-06-2025 GFR/1.73 sq M.predicted among non-blacks MDRD (S/P/Bld) [Vol rate/Area] 116 mL/min/{1.73_m2} >60 [facility] Comment on above: mL/min/1.73m2 CKD-EP I Creatinine Equation (2020) Hematocrit Auto (Bld) [Volum e fraction]Ordered By: ED PROVIDER on 05-06-2025 Hematocrit (Bld) [Volume fraction] 38.9 % 37-47 [facility] Hemoglobin measurementOrdere d By: ED PROVIDER on 05-06-2025 Hemoglobin (Bld) [Mass/Vol] 12.8 g/dL 12.0-15.0 [facility] Immature granulocytes/100 WB C Auto (Bld)Ordered By: ED PROVIDER on 05-06-2025 Immature granulocytes/100 WBC (Bld) 0.400 % 0.0-0.9 [facility] Comment on above: IG% - Immature Granu locytes (promyelocytes, myelocytes and metamyelocytes) > 1% indicates that a LEFT SHIFT is Present. Ketones Test strip Ql (U)Ord ered By: ED PROVIDER on 05-06-2025 Ketones Ql (U) Negative Negative [facility] - Chemistry and C hemistry - challengeOrdered By: Kurt Richardson on 05-06-2025 AST [Catalytic activity/Vol] 19 U/L <32 [facility] Comment on above: Hemolysis present, R esults could be affected. Lactic Acidon 05-06-2025 Lactate [Moles/Vol] 1.3 mmol/L Normal 0.0-2.0 [facility] Comment on above: Order Comment: Y Performed By: #### L 503.6005 ####[facility] [id number] [place], [place], [id number] Lactic acid measurementOrder ed By: Kurt Richardson on 05-06-2025 Lactate [Moles/Vol] 1.3 mmol/L 0.0-2.0 [facility] Lipaseon 05-06-2025 Lipase [Catalytic activity/Vol] 29 U/L Normal 13-75 [facility] Comment on above: Result Comment: Monika das note: LIPASE revised reference range effective 23. New Lipase methodology. Expected to produce lower values than the previous assay method. NEW Reference Range: 13 - 75 U/L Performed By: #### L 100.0100, L501.2450, L500.4050 #### [facility] [place], [address] Lipase measurementOrdered By : Kurt Richardson on 05-06-2025 Lipase [Catalytic activity/Vol] 29 U/L 13-75 [facility] Comment on above: Please note:LIPASE r evised reference range effective 23. New Lipase methodology. Expected to produce lower values than the previous assay method. NEW Reference Range: 13 - 75 U/L MCV (mean corpuscular volume ) determinationOrdered By: ED PROVIDER on 05-06-2025 MCV (RBC) [Entitic vol] 99.7 fL High 81-99 [facility] Mean corpuscular hemoglobin (MCH) determinationOrdered By: ED PROVIDER on 05-06-2025 MCH (RBC) [Entitic mass] 32.8 pg High 27.0-32.0 [facility] Mean corpuscular hemoglobin concentration (MCHC) determinationOrdered By: ED PROVIDER on 05-06-2025 MCHC (RBC) [Mass/Vol] 32.9 g/dL 32-36 [facility] Mean platelet volume determi nationOrdered By: ED PROVIDER on 05-06-2025 Platelet mean volume (Bld) [Entitic vol] 9.6 fL 6.2-12.0 [facility] Microscopic analysis of urin e for red blood cells (RBC)Ordered By: Kurt Richardson on 05-06-2025 Microscopic analysis of urine for red blood cells (RBC) 0 SEEN /hpf 0-5 [facility] Monocyte percentageOrdered B y: ED PROVIDER on 05-06-2025 Monocytes/100 WBC (Bld) 4.8 % 0-10 [facility] Mucus LM Ql (Urine sed)Order ed By: Kurt Richardson on 05-06-2025 Mucus Ql (Urine sed) 0 SEEN /hpf [facility] Neutrophil percentageOrdered By: ED PROVIDER on 05-06-2025 Neutrophils/100 WBC (Bld) 83.2 % High 47-70 [facility] Nitrite Test strip Ql (U)Ord ered By: ED PROVIDER on 05-06-2025 Nitrite Ql (U) Negative Negative [facility] Nucleated red blood cell per centageOrdered By: ED PROVIDER on 05-06-2025 Nucleated RBC/100 WBC (Bld) [Ratio] 0 % 0-5 [facility] Milk Tester Office Visit Reporton 05-06-2025 Milk Tester Office Visit Report [facility] [address], [address] [place] [address] OFFICE VISIT Date of Service: 05/06/25 MR#: [id number] Acct: [id number] Name: PRASHANT MORAN Rep #: [id number] : 1980 Provider: LENORE anderson Age/Sex: 44/F Location: [facility] Status: Signed Intake Vital Signs 02/13/25 10:26 04/23/25 06:25 05/06/25 10:22 05/06/25 10:29 Height 5 ft 5 in 5 ft 5 in 5 ft 5 in 5 ft 5 in Weight: 126 lb BMI 20.9 BP 105/70 Temp 98.2 F Temperature Source Oral Intake Visit Reasons: 2 wk Hysterectomy Chief Complaint: 2 Week Post Hyst Boiling Off Winder Required: No Is patient in pain?: No Allergies No Known Allergies Allergy (Verified 05/06/25 10:21) Medications ???Medication ???Instructions ???Recorded ???Confirmed ???Type multivitamin 1 tab PO QDAY 02/13/25 05/06/25 Hi story ibuprofen 800 mg tablet 800 mg PO Q8H PRN pain #30 tabs 05/06/25 Rx ondansetron HCl 4 mg tablet 4 mg PO Q6H PRN nausea and 5 05/06/25 Rx vomiting #20 tabs oxycodone-acetaminophen 5 mg-325 1 tab PO Q4H PRN pain 7 days #20 0 04/23/25 05/06/25 Rx mg tablet (Percocet) tabs diphenhydramine HCl 25 mg capsule 25 mg PO QHS PRN 05/06/25 5 History (Benadryl) Is last menstrual period known: No Post menopausal: No Patient : No : No Control Method: Hysterectomy [facility] Medical History Dysmenorrhea Menorrhagia Low iron Injury of back Alcohol use Non-smoker Normal Holter exam Surgical History History of robot-assisted laparoscopic hysterectomy (04/23/25) History of endometrial ablation History of salpingectomy [...] home: Yes additional social history: - 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 Tearful today. States started with increased abdominal pain 3 days ago. Denies fever or vaginal bleeding/discharge. States hurts more after eating. History 2 Elective abortions Hx Para 2 Spontaneous abortions Hx # Term Pregnancies Ectopic pregnancies Hx # Pregnancies Multiple births # of living children 2 Past Pregnancies Del. Date Name GA/Weeks Outcome Route Bth Weight Gen Labor Lgth Anesthesia Del Locatn Provider FOB 02/11/09 Rebeca 09/03/10 Jason Exam Const General: cooperative and anxious Orientation: oriented x3 Resp Effort Inspection: normal respiratory effort GI Palpation: soft (tender violetta right. + murphys sign. no masses) External Female Exam: normal external appearance Speculum Exam - Vagina: normal appearance of the vagina (healing well) and normal vaginal discharge Speculum Exam - Cervix: absent Bimanual Exam- Vagina Uterus: uterus absent Bimanual Exam- Adnexa, other: no masses and tender (R>L) Coding Level of Care Code No Charge Diagnoses Postop check Z09 History of robot-assisted laparoscopic hysterectomy Z90.710 Generalized abdominal pain R10.84 Abdominal location: generalized Assessment and Plan Assessment and Plan (1) Postop check: (2) History of robot-assisted laparoscopic hysterectomy: Status: Acute Comment: RUFINO (3) Abdominal pain: Status: Acute Qualifiers: Abdominal location: generalized Qualified Code(s): R10.84 - Generalized abdominal pain Comment: right > left Plan Patient reassessed per Dr Torres and sent to ED for CT scan and further evaluation Plan Details Goals Barriers: Goals Decrease pain Decrease spasm Improve sleep Improve ability to perform ADLs Barriers Work posture 05/06/25 1050 Date Thelma Chakraborty NP [employer] Cosigner Signature: Date ____ (more content not included)... Normal [facility] Platelet countOrdered By: ED PROVIDER on 05-06-2025 Platelets (Bld) [#/Vol] 302 10*3/uL 150-450 [facility] Potassium measurement (mass/ volume)Ordered By: Kurt Richardson on 05-06-2025 Potassium (Unsp spec) [Mass/Vol] 4.1 mmol/L 3.3-5.1 [facility] Comment on above: Hemolysis present, R esults could be affected. Protein Test strip Ql (U)Ord ered By: ED PROVIDER on 05-06-2025 Protein Ql (U) 15 mg/dl High Negative [facility] RBC Auto (Bld) [#/Vol]Ordere d By: ED PROVIDER on 05-06-2025 RBC (Bld) [#/Vol] 3.90 10*6/uL Low 4.2-5.4 [facility] Serum creatinine measurement (mass/volume)Ordered By: Kurt Richardson on 05-06-2025 Creatinine [Mass/Vol] 0.58 mg/dL Low 0.70-1.20 [facility] Serum globulin measurementOr dered By: Kurt Richardson on 05-06-2025 Globulin (S) [Mass/Vol] 3.0 g/dL 2.2-4.2 [facility] Serum glucose measurement (m ass/volume)Ordered By: Kurt Richardson on 05-06-2025 Glucose [Mass/Vol] 80 mg/dL 70-99 [facility] Serum or plasma alanine haas otransferase (ALT) measurementOrdered By: Kurt Richardson on 05-06-2025 ALT [Catalytic activity/Vol] 11 U/L <35 [facility] Serum or plasma albumin doni urement (mass/volume)Ordered By: Kurt Vargas on 05-06-2025 Albumin [Mass/Vol] 4.3 g/dL 3.5-5.0 [facility] Serum or plasma albumin/glob ulin mass ratioOrdered By: Kurt Richardson on 05-06-2025 Albumin/Globulin [Mass ratio] 1.4 {ratio} 0.9-2.4 [facility] Serum or plasma alkaline juan sphatase measurementOrdered By: Kurt Richardson on 05-06-2025 ALP [Catalytic activity/Vol] 64 U/L 35-104 [facility] Serum or plasma calcium doni urement (mass/volume)Ordered By: Kurt Vargas on 05-06-2025 Calcium [Mass/Vol] 9.5 mg/dL 7.6-11.0 [facility] Serum or plasma urea nitroge n measurement (mass/volume)Ordered By: Kurt Richardson on 05-06-2025 Urea nitrogen [Mass/Vol] 8 mg/dL 4-19 [facility] Sodium levelOrdered By: Troy Richardson on 05-06-2025 Sodium [Moles/Vol] 136 mmol/L 133-145 [facility] Squamous epithelial cells de tection in urine sediment by light microscopyOrdered By: Kurt Richardson on 05-06-2025 Epithelial cells.squamous LM Ql (Urine sed) 0-5 SEEN /hpf - [facility] Total proteinOrdered By: Ta Richardson on 05-06-2025 Protein [Mass/Vol] 7.3 g/dL 5.9-8.4 [facility] Urinalysis, Completeon 05-06 EPI,SQUAMOUS 0-5 SEEN Normal 5- [facility] Comment on above: Order Comment: CLEAN CATCH Performed By: #### L 400.0001 #### [facility] [address] [place], [address] BACTERIA 0 SEEN Normal None Seen [facility] Comment on above: Order Comment: CLEAN CATCH Performed By: #### L 400.0001 #### [facility] [address] [place], [address] Mucus Ql (Urine sed) 0 SEEN Normal [facility] Comment on above: Order Comment: CLEAN CATCH Performed By: #### L 400.0001 #### [facility] [address] [place], [address] RBC 0 SEEN Normal 0-5 [facility] Comment on above: Order Comment: CLEAN CATCH Performed By: #### L 400.0001 #### [facility] [address] [facility] [address] WBC 0 SEEN Normal 0-5 [facility] Comment on above: Order Comment: CLEAN CATCH Performed By: #### L 400.0001 #### [facility] [address] [place], [address] Urine clarityOrdered By: ED PROVIDER on 05-06-2025 Clarity (U) Clear Clear [facility] Urine color determinationOrd ered By: ED PROVIDER on 05-06-2025 Color (U) Straw Yellow [facility] Urine glucose detectionOrder ed By: ED PROVIDER on 05-06-2025 Glucose Ql (U) Normal mg/dl Normal [facility] Urine leukocyte esterase det ection by dipstickOrdered By: ED PROVIDER on 05-06-2025 Leukocyte esterase Test strip Ql (U) Negative Negative [facility] Urine pHOrdered By: ED PROVI BRYON on 05-06-2025 pH (U) 6.5 [pH] 5.0 - 8.0 [facility] Urine sediment bacteria coun t by microscopy (number/high power field)Ordered By: Kurt Richardson on 05-06-2025 Bacteria LM.HPF (Urine sed) [#/Area] 0 /[HPF] None Seen [facility] Urine specific gravity measu rementOrdered By: ED PROVIDER on 05-06-2025 Specific gravity (U) [Rel density] 1.010 1.002-1.030 [facility] Urine urobilinogen measureme ntOrdered By: ED PROVIDER on 05-06-2025 Urobilinogen Ql (U) Normal mg/dl Normal [facility] White blood cell (WBC) count Ordered By: ED PROVIDER on 05-06-2025 WBC (Bld) [#/Vol] 13.4 10*3/uL High 4.4-11.0 [facility] White blood cell countOrdere d By: Kurt Richardson on 05-06-2025 White blood cell count 0 SEEN /hpf 0-5 [facility] Glucoseon 04-23-2025 FINGERSTICK GLU 79 mg/dL Normal 74-106 [facility] Comment on above: Result Comment: TIARA MACHADOENT OF PATIENT CARE PER NURSING PROTOCOL Performed By: #### L 501.080 ####[facility] [id number] [address] [place], [address] Discharge Instructionon 04-03 Discharge Instruction [facility] Medical Records Department [address] [place] [address] Instructions for Home/Discharge Instructions 04/23/25 0715 MR#: [id number] Acct: [id number] Name: PRASHANT MORAN Rep #: [id number] : 1980 44 From: Patsy Torres DO PCP: Dr. Camilla Kay DO Status:REG SDC Discharge Instructions DC O2, CPAP, BIPAP needs Home O2 Discharge instructions: No Dressing / Incision Discharge Activity: May Shower May resume sexual activity in: 8 weeks Weight Bearing Status: Full weight bearing Lifting Restrictions: 10 pounds for 2 weeks Dressing / Incision Call your doctor if your incision/area has: Continuous Slow Oozing, Sudden Increased Bleeding, Increased Pain/ Swelling, Increased Redness and Foul Smelling Discharge Call your doctor if you observe: Fever of 101 or Higher, Using more than 1 pad per hour, Shortness of breath, Chest pain and Uncontrolled pain Suture Line Care: Avoid Pulling/Pushing and Avoid Pinching/Bending Remove Dressing in: 1 week (if present) Cleanse incision/area with: Soap Water and Keep Dressing Clean Dry Follow Up Care Please Follow Up With: Patsy Torres DO When: Call to make an appointment with your doctor for a postop visit in 2 and 6 weeks Test Results: Test results from this visit will be discussed in further detail at your follow-up appointment, if applicable. Discharge Plan Admission Primary Reason for Your Visit: hysterectomy Attending Provider: Patsy Torres Primary Care Provider: Camilla Kay Instructions Print Language: Nepalese Discharge Orders/Prescriptions Prescriptions: New ibuprofen 800 mg tablet 800 mg PO Q8H PRN (Reason: pain) Qty: 30 0RF ondansetron HCl 4 mg tablet 4 mg PO Q6H PRN (Reason: nausea and vomiting) Qty: 20 0RF oxycodone-acetaminophen [Percocet] 5-325 mg tablet 1 tab PO Q4H PRN (Reason: pain) 7 Days Qty: 20 0RF No Action multivitamin Tablet 1 tab PO QDAY Referrals / Follow Up: Camilla Kay DO [Primary Care Provider] - Disposition Disposition (needs filled in before D/C Order can be placed): Home, Self Care 04/23/25 0721 Patsy Torres DO CC: Dr. Camilla Kay DO Signed Normal [facility] Glucose measurement at [facility] deOrdered By: Patsy Davis on 04-23-2025 Glucose [Mass/Vol] 79 mg/dL 74-106 [facility] Comment on above: MANAGEMENT OF PATIEN T CARE PER NURSING PROTOCOL MR/POSTOP.ANEon 04-23-2025 MR/POSTOP.ANE [facility] Medical Records Department [address] [place] [place] [address] Anesthesia Postop Eval I 04/23/25 0941 MR#: [id number] Acct: [id number] Name: PRASHANT MORAN Rep #: [id number] : 1980 44 From: Scooter Steen CRNA PCP: Dr. Camilla Kay, DO Status:REG SDC Y Race: C Location: [place] [address] Anesthesia: Postop Eval I Current Vital Signs Temperature: 97.1 F Pulse Rate: 92 Blood Pressure: 106/64 Respiratory Rate: 16 Pulse Ox: 99 Oxygen Delivery Method: Room Air Assessment Airway patent: Yes Spontaneous unlabored respirations: Yes Mental status: Awake nausea: No Vomiting: No Anesthesia Complication: No Fluid Hydration Crystalloid volume administer (ml): 1,000 Total IV fluid infused: 1,000 Progress Note Anesthesia document: Postop Eval 1 completed: Yes 04/23/25 0942 Date Scooter Llamas Signature: Date CC: Signed Normal [facility] MR/ORUNRAII6ki 04-23-2025 MR/POSTOPAN2 [facility] Medical Records Department [address] [place] [address] Anesthesia Postop Eval II 04/23/25 1007 MR#: [id number] Acct: [id number] Name: PRASHANT MORAN Rep #: [id number] : 1980 44 From: Emilio Henriquez MD PCP: Dr. Camilla Kay, DO Status:REG SDC Y Race: C Location: [place] [address] Anesthesia Postop Eval I Sum Postop Eval Completion status Anesthesia document: Postop Eval 1 completed: Yes Anesthesia Postop Eval I Summary Anesthesia Postop Eval I Summary: Anesthesia Postop Eval I: Assessment Summary Airway patent Yes 04/23/25 09:42 BUGGY DRIVER.SHOF Spontaneous unlabored Yes 04/23/25 09:42 BUGGY DRIVER.SHOF respirations Mental status Awake 04/23/25 09:42 BUGGY DRIVER.SHOF nausea No 04/23/25 09:42 BUGGY DRIVER.SHOF Vomiting No 04/23/25 09:42 BUGGY DRIVER.SHOF Anesthesia Postop Eval I: Fluid Summary Crystalloid volume administer 1,000 04/23/25 09:42 BUGGY DRIVER.SHOF (ml) Colloids volume administered ( ml) Blood Product volume administered (ml) Total IV fluid infused 1,000 04/23/25 09:42 BUGGY DRIVER.SHOF Anesthesia Postop Eval I: Summary Notes Anesthesia Complication No 04/23/25 09:42 BUGGY DRIVER.SHOF Anesthesia Complication Comment: Post-operative progress note Anesthesia: Postop Eval II Evaluation Mental status: Awake and Calm Pain Level: 0 nausea: No Vomiting: No Complications Anesthesia Complication: No 04/23/25 1007 Date Emilio Llamas Signature: Date CC: Signed Normal [facility] Operative Reporton 5 Operative Report [facility] Medical Records Department [address] [place] [address] Operative Report 04/23/25 0738 MR#: [id number] Acct: [id number] Name: PRASHANT MORAN Rep #: [id number] : 1980 44 From: Patsy Torres DO PCP: Dr. Camilla Kay DO Status:[facility] Location: [place] [address] Problems Associated Problem List Diagnoses (1) Post endometrial ablation syndrome: (2) Dysmenorrhea: (3) Right ovarian cyst: Multi Select Codes Urinary/Genital Urinary/Genital CPT Codes: 03368 Cystoscopy and 92224 TLH <250gr uterus Operative Report (Standard) Operative Information Date of Procedure: 04/23/25 Pre-Operative Diagnosis: post-ablation syndrome, pelvic pain, ovarian nodule Post-Operative Diagnosis: post-ablation syndrome, pelvic pain, ovarian nodule Surgery/Procedure Performed: total robotic hysterectomy, cystoscopy burglar alarm mechanic: Yes Neurology Manager: Isidro Huerta Tasks completed by hospital clinic assistant: Closing, Trocar and Other (irrigation, insertion of robotic instruments ) Additional title assistant?: No Type of Anesthesia: General RN Documented Start/Stop Times: Operation Date: 04/23/25 07:30 Case Time Into Pre-Op 04/23/25 06:14 Out of Pre-Op 04/23/25 07:25 Anesthesia Start 04/23/25 07:29 Into Room 04/23/25 07:29 Procedure Start 04/23/25 07:56 Procedure Start Time: 07:56 Procedure Stop Time: 09:21 Select all DRAINS/GRAFTS/IMPLANTS that apply: None Estimated Blood Loss: 30cc Fluids Replaced: 1000cc Specimen collected: Yes Description of specimen(s) removed: uterus and cervix Description of surgery: P Findings: 8 cm size uterus, normal appearing ovaries and tubes. On exploration of the abdominal cavity the uterus, adnexa, bowel, and liver were found to be normal. Cystoscopy showed no evidence of leaking at approximately 250 cc of normal saline, positive ureteral orifices and jet flow are seen and no suture material was appreciated in the bladder. Specimens removed: Uterus and cervix, [Bilateral tubes and ovaries] Reason for surgery: This is a 44year-old G3, P2 who presented to my office with history of post ablation syndrome. the planned procedure is for a robotic hysterectomy the risks benefits and alternatives were discussed with the patient the patient had a clear understanding of the procedure and a consent form was signed. Procedure: The patient was placed in the dorsal low lithotomy position and prepped and draped in the normal sterile fashion both abdominally and in the perineum. Her legs were placed in stirrups a Cheng catheter was inserted into the urethra without difficulty. A weighted speculum was placed in the vagina and a single-tooth tenaculum was used to grasp the anterior lip of the cervix. An advincJianshu uterine manipulator was inserted through the cervix without complication. It was then tied into place at the 2 and 10:00 locations on the cervix. Gloves were changed and attention was turned towards the abdomen. Approximately 23 cm above the pubic symphysis in the midline, and after Marcaine injection, a 8 mm incision was made. An 8 mm trocar was inserted through the laparoscope, then inserted into the abdomen under direct visualization using the laparoscope. Good abdominal placement was noted and no complications were appreciated. An air seal device was utilized to create pneumoperitoneum. At 12 cm lateral to the midline on the left and right sides 8 mm accessory ports were placed. Next a left upper quadrant 8 mm title assistant port site was placed. The patient was placed in steep Trendelenburg position. The robot was docked. The hysterectomy was initiated first by taking down the round ligament on each side using the vessel sealer device. The fallopian tubes were noted to be surgically absent. The left ovary was found to have a small less than 1 cm cystic structure that was grasped with the vessel sealer and gently cauterized. There was a similar cyst on the right ovary and this was also ruptured and cauterized clear fluid returned from both sides. The broad ligament was then and taken down using the vessel sealer device. Next the bladder flap was taken down without complication. This was done using monopolar cautery to the level of the cervical vaginal junction. After the bladder flap was created, uterine vessels were then isolated and cauterized using the vessel sealer device and EndoShears. At this point the uterine vessels were taken down further starting from the ascending branch, dissecting along the edges of the cervix to the level of the cervical vaginal junction with hemostasis appreciated. The cervical vaginal junction was then using monopolar cautery in a circumferential pattern across the superior aspect of the cervix. The specimen was delivered through the vagina and sent to pathology. The remaining vaginal cuff was then closed (more content not included)... Normal [facility] ,Urineon 04-23-2025 Beta HCG ( test) Ql (U) Negative Normal [facility] Comment on above: Result Comment: Very dilute urine specimens, as indicated by a low specific gravity, may not contain termite control representative levels of hCG. If is still suspected, a first morning urine specimen should be collected 48 hours later and tested. Performed By: #### L 400.2120 #### [facility] [place], [address] Surgery Specimen Level Von 0 04-23-2025 Surgery Specimen Level V Patient Age/Sex Location Account Attending Physician PRASHANT MORAN 44/F [facility] [id number] [place] Specimen: [id number] Received: 04/23/25 Status: ADRIANA Mendez Num: [id number] Spec Type: UTERUS Subm Dr: Dr. Patsy Torres, DO HEADER OPERATION: ERAS, laparoscopic total robotic hysterectomy, cystoscopy PRE-OP DIAGNOSIS: Post endometrial ablation syndrome, dysmenorrhea, right ovarian cyst TISSUE SUBMITTED: A- Uterus, cervix MICROSCOPIC DIAGNOSIS A. Uterus, cervix, post endometrial ablation syndrome, dysmenorrhea, total robotic hysterectomy: - Cervix: mild hyperkeratosis, dilated endocervical glands. - Endometrium: focal endometrial hyperplasia without atypia. - Myometrium: adenomyoma (1.2 cm), subserosal adenomyosis. MICROSCOPIC DESCRIPTION Slides are reviewed. GROSS DESCRIPTION A. Received in formalin labeled with the patient's name and date of . Designated as uterus, cervix is a 95.7 g, 7.6 x 5.1 x 4.4 cm uterus without attached adnexa. The serosa is felix-pink with a 0.4 x 0.3 cm felix-white, possible serosal nodule on the posterior aspect. The attached cervix is felix-pink and measures 3.2 x 3.0 cm; the 1.0 cm os is probe patent and focally erythematous. The specimen is inked as follows: Zkmoyfhn-qfljgSrmeitqaz-gw ackParametrium-orange. Opening reveals a 5.4 x 0.7 cm stenotic and somewhat fibrotic endometrial canal (consistent with endometrial ablation) lined by minimal, possible pink endometrium that measures up to <0.1 cm thick. The myometrium is pale felix-pink and trabeculated and measures up to 2.2 cm thick. A 1.2 cm possible, intramural leiomyoma is identified (anterior) Slasher Tender sections are submitted as follows: A1-A2: Anterior cervixA3-A4: Posterior cervixA5: Anterior endomyometriumA6: Posterior endomyometriumA7: Anterior endomyometrium with possible intramural leiomyomaA9: Posterior myometrium A9: Posterior serosa with possible nodule MN 04/23/2025 CPT:87741 Patient Age/Sex Location Account Attending Physician PRASHANT MORAN 44/[place] [facility] [id number] Dr. Patsy Torres, [place] Signed (signature on file) Dr. Ruth Canseco MD 04/29/25 1218 Normal [facility] Comment on above: Performed By: #### P SUV ####[facility] [address] [place], [place], [address] Urine testOrdered By: Patsy Davis on 04-23-2025 HCG ( test) Ql (U) Negative [facility] Comment on above: Very dilute urine sp ecimens, as indicated by a low specificgravity, may not contain termite control representative levels of hCG. If is still suspected, a first morning urinespecimen should be collected 48 hours later and tested. CBC-Complete Blood Cnt No Di ffon 04-15-2025 Erythrocyte distribution width (RBC) [Ratio] 11.5 % Low 11.6-14.6 [facility] Comment on above: Performed By: #### L 400.7600, BTSPAT, L100.0500 ####[facility] [address] [place], [address] Hematocrit (Bld) [Volume fraction] 39.2 % Normal 37-47 [facility] Comment on above: Performed By: #### L 400.7600, BTSPAT, L100.0500 ####[facility] [address] [place], [address] Hemoglobin (Bld) [Mass/Vol] 13.0 g/dL Normal 12.0-15.0 [facility] Comment on above: Performed By: #### L 400.7600, BTSPAT, L100.0500 ####[facility] [address] [place], [address] MCH (RBC) [Entitic mass] 33.0 pg High 27.0-32.0 [facility] Comment on above: Performed By: #### L 400.7600, BTSPAT, L100.0500 ####[facility] [address] [place], [address] MCHC (RBC) [Mass/Vol] 33.2 g/dL Normal 32-36 [facility] Comment on above: Performed By: #### L 400.7600, BTSPAT, L100.0500 ####[facility] [address] [place], [address] MCV (RBC) [Entitic vol] 99.5 fL High 81-99 [facility] Comment on above: Performed By: #### L 400.7600, BTSPAT, L100.0500 ####[facility] [address] [place], [address] Platelet mean volume (Bld) [Entitic vol] 10.8 fL Normal 6.2-12.0 [facility] Comment on above: Performed By: #### L 400.7600, BTSPAT, L100.0500 ####[facility] [address] [place], [address] Platelets (Bld) [#/Vol] 272 10*3/uL Normal 150-450 [facility] Comment on above: Performed By: #### L 400.7600, BTSPAT, L100.0500 ####[facility] [address] [place], [address] RBC (Bld) [#/Vol] 3.94 10*6/uL Low 4.2-5.4 [facility] Comment on above: Performed By: #### L 400.7600, BTSPAT, L100.0500 ####[facility] [address] [place], [address] RDW SD 42.5 fl Normal 35.1-43.9 [facility] Comment on above: Performed By: #### L 400.7600, BTSPAT, L100.0500 ####[facility] [address] [place], [address] WBC (Bld) [#/Vol] 5.8 10*3/uL Normal 4.4-11.0 [facility] Comment on above: Performed By: #### L 400.7600, BTSPAT, L100.0500 ####[facility] [address] [place], [address] Erythrocyte distribution wid th ratioOrdered By: Patsy Davis on 04-15-2025 Erythrocyte distribution width (RBC) [Ratio] 11.5 % Low 11.6-14.6 [facility] Erythrocyte distribution wid th standard deviationOrdered By: Patsy Davis on 04-15-2025 Erythrocyte distribution width (RBC) [Ratio] 42.5 fl 35.1-43.9 [facility] Hematocrit Auto (Bld) [Volum e fraction]Ordered By: Patsy Davis on 04-15-2025 Hematocrit (Bld) [Volume fraction] 39.2 % 37-47 [facility] Hemoglobin measurementOrdere d By: Patsy Davis on 04-15-2025 Hemoglobin (Bld) [Mass/Vol] 13.0 g/dL 12.0-15.0 [facility] MCV (mean corpuscular volume ) determinationOrdered By: Patsy Davis on 04-15-2025 MCV (RBC) [Entitic vol] 99.5 fL High 81-99 [facility] Magnesiumon 04-15-2025 Magnesium [Mass/Vol] 2.3 mg/dL High 1.5-2.2 [facility] Comment on above: Performed By: #### L 501.5200 #### [facility] Laboratory [facility] [address] [place], [place], [address] Magnesium measurement (mass/ volume)Ordered By: Pollo Burk on 04-15-2025 Magnesium (Unsp spec) [Mass/Vol] 2.3 mg/dL High 1.5-2.2 [facility] Mean corpuscular hemoglobin (MCH) determinationOrdered By: Patsy Davis on 04-15-2025 MCH (RBC) [Entitic mass] 33.0 pg High 27.0-32.0 [facility] Mean corpuscular hemoglobin concentration (MCHC) determinationOrdered By: Patsy Davis on 04-15-2025 MCHC (RBC) [Mass/Vol] 33.2 g/dL 32-36 [facility] Mean platelet volume determi nationOrdered By: Patsy Davis on 04-15-2025 Platelet mean volume (Bld) [Entitic vol] 10.8 fL 6.2-12.0 [facility] Milk Tester Office Visit Reporton 04-15-2025 Milk Tester Office Visit Report [facility] [place] [facility]'[address], [address] [place] [address] OFFICE VISIT Date of Service: 04/15/25 MR#: [id number] Acct: [id number] Name: PRASHANT MORAN Rep #: [id number] : 1980 Provider: Dr. Patsy Ferguson DO Age/Sex: 44/F Location: [facility] Status: Signed Intake Vital Signs 02/13/25 10:26 04/15/25 10:41 04/15/25 10:42 Height 5 ft 5 in 5 ft 5 in 5 ft 5 in Weight: 131 lb 6 oz 125 lb 4 oz BMI 21.8 20.8 BP 109/69 118/73 Intake Visit Reasons: TRH possible right ooph possible cystectomy Chief Complaint: Preop TRH Boiling Off Winder Required: No Is patient in pain?: No Allergies No Known Allergies Allergy (Verified 04/15/25 10:41) Medications ???Medication ???Instructions ???Recorded ???Confirmed ???Type multivitamin 1 tab PO QDAY 02/13/25 04/15/25 Hi story Post menopausal: No Patient : No : No [facility] Medical History Low iron Injury of [...] home: Yes additional social history: - 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 [facility] Platelet countOrdered By: Mahin Davis on 04-15-2025 Platelets (Bld) [#/Vol] 272 10*3/uL 150-450 [facility] ,Urineon 04-15-2025 Beta HCG ( test) Ql (U) [facility] Comment on above: Result Comment: TO B E DONE SDC Performed By: #### L 400.7600, BTSPAT, L100.0500 ####[facility] [address] [place], [address] INTERNAL QC OK? [facility] Comment on above: Result Comment: TO B E DONE SDC Performed By: #### L 400.7600, BTSPAT, L100.0500 ####[facility] [address] [place], [address] RECORD KIT LOT# [facility] Comment on above: Result Comment: TO B E DONE SDC Performed By: #### L 400.7600, BTSPAT, L100.0500 ####[facility] [address] [place], [address] RBC Auto (Bld) [#/Vol]Ordere d By: Patsy Davis on 04-15-2025 RBC (Bld) [#/Vol] 3.94 10*6/uL Low 4.2-5.4 [facility] Type AND Screen - PAT ONLYon 04-15-2025 Ab SCREEN GEL Negative [facility] Comment on above: Order Comment: Surge ry Date: 04/23/25Reason for Laboratory Test [id number] HYSTERECTOMY Performed By: #### L 400.7600, BTSPAT, L100.0500 ####[facility] [address] [place], [address] ABO and Rh group Nom (Bld) Blood group A Rh(D) positive Normal [facility] Comment on above: Order Comment: Surge ry Date: 04/23/25Reason for Laboratory Test [id number] HYSTERECTOMY Performed By: #### L 400.7600, BTSPAT, L100.0500 ####[facility] [address] [place], [place], [address] White blood cell (WBC) count Ordered By: Patsy Davis on 04-15-2025 WBC (Bld) [#/Vol] 5.8 10*3/uL 4.4-11.0 [facility] Pelvic w/ Transvaginalon Pelvic w/ Transvaginal [facility] Imaging Services [address] [place], [place] [address] Pelvic w/ Transvaginal MR#: [id number] Acct: [id number] Name: PRASHANT MORAN Rep #: [id number] : 1980 F 44 From: Duran damon MD PCP: Dr. Camilla Kay, Status: REG CLI Study: Pelvic w/ Transvaginal Date of Exam: 03/18/25 Exam# [id number] Ordering Dr: Thelma Chakraborty PAN DEVULCANIZER HELPER PAN DEVULCANIZER HELPER -C PROCEDURE: PELVIC W/ TRANSVAGINAL REASON FOR EXAM: [...] Fibroid change of the uterus. Reading Location: [place] [address] CC: LENORE Chakraborty; Dr. Camilla Kay DO Fisher Eel Spear: Signed Normal [facility] Milk Tester Office Visit Reporton 02-13-2025 Milk Tester Office Visit Report [facility] [address], [address] [place] [address] OFFICE VISIT Date of Service: 02/13/25 MR#: [id number] Acct: [id number] Name: PRASHANT MORAN Rep #: [id number] : 1980 Provider: Dr. Patsy Ferguson DO Age/Sex: 44/F Location: [facility] Status: Signed Intake Vital Signs 01/21/25 09:54 02/13/25 10:26 Height 5 ft 5 in 5 ft 5 in Weight: 131 lb 6 oz BMI 21.8 BP 109/69 Intake Visit Reasons: SURGICAL CONSULT $20 COPAY Boiling Off Winder Required: No Is patient in pain?: No Allergies No Known Allergies Allergy (Verified 02/13/25 10:25) Medications ???Medication ???Instructions ???Recorded ???Confirmed ???Type ibuprofen 200 mg capsule 200 mg PO Q6H PRN 02/13/25 5 History multivitamin 1 tab PO QDAY 02/13/25 02/13/25 Hi story Post menopausal: No Patient : No : No PFSH Medical History Alcohol use Anemia Non-smoker [...] at home: Yes additional social history: - 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 She states that she has [...] Del Locatn Provider FOB 02/11/09 Rebeca 09/03/10 [facility] ROS Const ROS Unobtainable: All systems reviewed are unremarkable except as noted in H Resp Resp: Reports system reviewed and no additional complaints, except as docum (more content not included)... Normal [facility] Pelvic w/ Transvaginalon Pelvic w/ Transvaginal [facility] Imaging Services [address] [place], [place] [address] Pelvic w/ Transvaginal MR#: [id number] Acct: [id number] Name: PRASHANT MORAN Rep #: [id number] : 1980 F 44 From: Gino Tapia MD PCP: Dr. Camilla Kay, DO Status: DEP CLI Study: Pelvic w/ Transvaginal Date of Exam: 02/04/25 Exam# [id number] Ordering Dr: Thelma Chakraborty NP, NP ADDENDUM by Dr. Gino Tapia MD on [...] initial exam. END OF ADDENDUM Reading Location: [facility] 02/13/25 1216 Date cc: LENORE Chakraborty; Dr. [...] 2. Additional description as above. Reading Location: [id number] CC: LENORE Chakraborty; Dr. Camilla Kay DO Fisher Eel Spear: Signed Normal [facility] Breast Limited Unilateralon 01-23-2025 Breast Limited Unilateral [facility] Imaging Services [address] [place], [place] [address] Breast Limited Unilateral MR#: [id number] Acct: [id number] Name: PRASHANT MORAN Rep #: [id number] : 1980 F 44 From: Duran damon MD PCP: Dr. Camilla Kay DO Status: REG CLI Study: Breast Limited Unilateral Date of Exam: Exam# [id number] Ordering Dr: Camilla Kay DO PROCEDURE: BREAST [...] SCREENING. Follow-up code: Routine Follow-up Reading Location: [facility] CC: Dr. Camilla Kay DO Fisher Eel Spear: Signed Normal [facility] DIAG MAMM W/CAD, UNILATon DIAG MAMM W/CAD, UNILAT [facility] Imaging Services [address] [place] [address] DIAG MAMM W/CAD, UNILAT MR#: [id number] Acct: [id number] Name: PRASHANT MORAN Rep #: [id number] : 1980 F 44 From: Duran damon MD PCP: Dr. Camilla Kay DO Status: REG CLI Study: DIAG MAMM W/CAD, UNILAT Date of Exam: 01/23/25 Exam# [id number] Ordering Dr: Camilla Kay DO EXAM: Diagnostic [...] correlation recommended. BI-RADS category 0. Reading Location: [place] [address] CC: Dr. Camilla Kay DO Fisher Eel Spear: Signed Normal [facility] Inital Evaluation (1) - PTon 01-23-2025 Inital Evaluation (1) - PT [facility] Physical Therapy [facility] [address] [place] [address] [address] [place] [address] / REHABILITATION SERVICES INITIAL EVALUATION MR#: [id number] Acct: [id number] Name: PRASHANT MORAN Rep #: [id number] : 1980 44 From: Jose Rafael Monte PT. T, OCS Referring Dr.: Dr. Camilla Kay DO Status: REG R CR Insurance: [employer]/[facility] SELF PAY INSURANCE Patient's Visit Information Visit Information Visit Information: PRASHANT MORAN is a 44 year old F referred to Physical Therapy by Dr. Camilla Kay DO with a diagnosis of LOW BACK PAIN ,RUPTURED DISC L5-S1. Date of Evaluation: 01/23/25 Physical Therapist: Darnell Renner PT, Cert T, OCS Visit Plan Frequency: 2x /Week Duration: [...] Response: No effect Lumbar Standing: Right Side [place] - Symptoms During Testing: No effect Lumbar Standing: Right Side [place] - Symptoms After Testing: No effect Lumbar Standing: Left Side [place] - Mechanical Response: No effect Lumbar Standing: Left Side [place] - Symptoms During Testing: No effect Lumbar Standing: Left Side [place] - Symptoms After Testing: No effect Lumbar [...] to perform ADL's, To increase tolerance to activity/condition/positio n, To improve ability of physical actions for home/community/work/leisur e, To improve health of tissue, To decrease soft tissue restriction, To increase flexibility/ROM, To reduce risk of recurrence, To prevent re-injury and To i (more content not included)... Normal [facility] PAP IG HPV APTIMA 16/18,45on 01-23-2025 ADEQ Comment Normal . [facility] Comment on above: Order Comment: Speci men Comment: [id number] Specimen Comment: No. of containers..01 ThinPrep Vial Result Comment: Sati sfactory for evaluation. Endocervical and/or squamous metaplastic cells (endocervical component) are present. Performed By: #### L 7400.0280 #### [facility] [address] [place], [place], [id number] COMM . Normal . [facility] Comment on above: Order Comment: Speci men Comment: [id number] Specimen Comment: No. of containers..01 ThinPrep Vial Performed By: #### L 7400.0280 #### [facility] [address] [place], [address] COMMENT Comment Normal . [facility] Comment on above: Order Comment: Speci men Comment: [id number] Specimen Comment: No. of containers..01 ThinPrep Vial Result Comment: This liquid based ThinPrep(R) pap test was screened with the use of an image guided system. Performed By: #### L 7400.0280 #### [facility] [address] [place], [address] DIAG Comment Normal . [facility] Comment on above: Order Comment: Speci men Comment: [id number] Specimen Comment: No. of containers..01 ThinPrep Vial Result Comment: NEGA TIVE FOR INTRAEPITHELIAL LESION OR MALIGNANCY. Performed By: #### L 7400.0280 #### [facility] [address] [place], [address] HPV APTIMA, HR Negative Normal Negative [facility] Comment on above: Order Comment: Speci men Comment: [id number] Specimen Comment: No. of containers..01 ThinPrep Vial Result Comment: This nucleic acid amplification test detects fourteen high- risk HPV types (16,18,31,33,35,39,45,51,52,56,58,59,66,68) without differentiation. Performed By: #### L 7400.0280 #### [facility] [address] [place], [address] HPV Kendra Rfx Comment Normal . [facility] Comment on above: Order Comment: Speci men Comment: [id number] Specimen Comment: No. of containers..01 ThinPrep Vial Result Comment: Crit eria not met, HPV Genotype not performed. Performed at: [address] [id number] Wet Char Conveyor Tender: Nathalie Pozo MD, Phone: [phone] Performed at: =[address] [id number] Wet Char Conveyor Tender: Nathalie Pozo MD, Phone: [phone] Performed By: #### L 7400.0280 #### [facility] [address] [place], [place], [address] PAPSMR Comment Normal . [facility] Comment on above: Order Comment: Speci men Comment: [id number] Specimen Comment: No. of containers..01 ThinPrep Vial Result Comment: The Pap smear is a screening test designed to aid in the detection of premalignant and malignant conditions of the uterine cervix. It is not a diagnostic procedure and should not be used as the sole means of detecting cervical cancer. Both false-positive and false-negative reports do occur. Performed By: #### L 7400.0280 #### [facility] [address] [place], [place], [id number] PERFORM Comment Normal . [facility] Comment on above: Order Comment: Speci men Comment: [id number] Specimen Comment: No. of containers..01 ThinPrep Vial Result Comment: Brigida Perez Railway Signalling Engineer (ASCP) Performed By: #### L 7400.0280 #### [facility] [address] [place], [place], [address] Cervical or vaginal specimen microscopic examination by liquid based cytology (reportOrdered By: Thelma Chakraborty on 01-21-2025 Cytology report Cyto stain.thin prep Doc (Cvx/Vag) Comment . [facility] Comment on above: Criteria not met, HP V Genotype not performed.Performed at: [address] [id number] Director: Nathalie Pozo MD, Phone: [phone] at: =[address] [id number] Director: Nathalie Pozo MD, Phone: [phone] Cervical or vagninal specime n microscopic examination by cytology stain (reported asOrdered By: Thelma Chakraborty on 01-21-2025 Cytology report Cyto stain Doc (Cvx/Vag) Comment . [facility] Comment on above: The Pap smear is a s creening test designed to aid in thedetection of premalignant and malignant conditions of theuterine cervix. It is not a diagnostic procedure andshould not be used as the sole means of detecting cervicalcancer. Both false-positive and false-negative reports dooccur. Railway Signalling Engineer Cyto stain Nom (C vx/Vag) [ID]Ordered By: Thelma Chakraborty on 01-21-2025 Pap Smear Performed By Comment . [facility] Comment on above: Parul Christy logist (ASCP) Cytology report Cyto stain D oc (Cvx/Vag)Ordered By: Thelma Chakraborty on 01-21-2025 Thin Prep Pap Smear Comment . [facility] Comment on above: The Pap smear is [...] 01-21-2025 HPV Genotype Special Info Comment . [facility] Comment on above: Criteria not met, HP V Genotype not performed.Performed at: - [address] [id number] Director: Nathalie Pozo MD, Phone: [phone] at: = - [facility] [id number] Director: Nathalie Pozo MD, Phone: [phone] Detection in cervical specim en of any of human papilloma virus (HPV) 16, 18, 31, 33,Ordered By: Thelma Chakraborty on 01-21-2025 HPV 16+18+31+33+35+39+45+5 1+52+56+58+59+66+68 DNA Probe+sig amp Ql (Cvx) Negative Negative [facility] Comment on above: This nucleic acid am plification test detects fourteen high- risk HPV types (16,18,31,33,35,39,45,51,52,56,58,59,66,68)without differentiation. HPV 16+18+31+33+35+39+45+51+ 52+56+58+59+66+68 DNA Probe+sig amp Ql (Cvx)Ordered By: Thelma Chakraborty on 01-21-2025 Human Papillomavirus High Risk Negative Negative [facility] Comment on above: This nucleic acid am plification test detects fourteen high- risk HPV types (16,18,31,33,35,39,45,51,52,56,58,59,66,68)without differentiation. Image-guided ThinPrep PapOrd ered By: Thelma Chakraborty on 01-21-2025 Pap Smear Note Comment . [facility] Comment on above: This liquid based Th inPrep(R) pap test was screened withthe use of an image guided system. Image-guided liquid-based Pa pOrdered By: Thelma Chakraborty on 01-21-2025 Pap Smear Diagnosis Comment . [facility] Comment on above: NEGATIVE FOR INTRAEP ITHELIAL LESION OR MALIGNANCY. Laboratory - CytologyOrdered By: Thelma Chakraborty on 01-21-2025 Railway Signalling Engineer Cyto stain Nom (Cvx/Vag) [ID] Comment . [facility] Comment on above: Jerri Perez, Cyto logist (ASCP) Laboratory - Miscellaneous t estsOrdered By: Thelma Chakraborty on 01-21-2025 Service comment (Unsp spec) [Interp] . . [facility] No Panel InformationOrdered By: Thelma Chakraborty on 01-21-2025 Pap Smear Specimen Adequacy Comment . [facility] Comment on above: Satisfactory for raven luation. Endocervical and/or squamous metaplasticcells (endocervical component) are present. Milk Tester Office Visit Reporton 01-21-2025 Milk Tester Office Visit Report [facility] [address], [address] [place] [address] OFFICE VISIT Date of Service: 01/21/25 MR#: [id number] Acct: [id number] Name: PRASHANT MORAN Rep #: [id number] : 1980 Provider: LENORE anderson Age/Sex: 44/F Location: [facility] Status: Signed Intake Vital Signs 03/23/23 14:34 01/21/25 09:49 01/21/25 09:54 Height 5 ft 5 in 5 ft 5 in 5 ft 5 in Weight: 132 lb BMI 21.9 BP 108/64 Intake Visit Reasons: BACK PAIN HAD (US COMPLETED) *copay $20 Chief Complaint: Back pain Boiling Off Winder Required: No Is patient in pain?: No Allergies No Known Allergies Allergy (Verified 01/21/25 09:48) Medications ???Medication ???Instructions ???Recorded ???Confirmed ???Type meloxicam 15 mg tablet 15 mg PO QDAY 01/21/25 01/21/25 Hi story Is last menstrual period known: Yes Last Menstrual Period: 01/06/25 Post menopausal: No Patient : No : No Control Method: Tubal [facility] Medical History Alcohol use Anemia Non-smoker [...] home: Yes additional social history: - 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 Normal [facility] Service comment (Unsp spec) [Interp]Ordered By: Thelma Chakraborty on 01-21-2025 Pap Smear Comment (3) . . [facility] Breast imaging reportOrdered By: Erin Solorzano on 01-18-2025 Study report [facility] Imaging Services [address] [place] [address] SCRN MAMM (CAD)W/LOS BILAT MR#: [id number] Acct: [id number] Name: PRASHANT MORAN Rep #: [id number] : 1980 F 44 From: Gayathri Solorzano MD PCP: Dr. Camilla Kay, Status: REG CLI Study:SCRN MAMM (CAD)W/LOS BILAT Date of Exa m: 01/18/25 Exam# [id number] Ordering Dr: Armida Kay sa DO EXAM: SCRN MAMM (CAD)W/LOS BILAT 01/18/2025 [...] be mailed to the patient. Reading Location: [facility] CC: Dr. Camilla Kay DO ~ Fisher Eel Spear: Signed [facility] SCRN MAMM (CAD)W/LOS BILATo n 01-18-2025 SCRN MAMM (CAD)W/LOS BILAT [facility] Imaging Services [address] [place] [address] SCRN MAMM (CAD)W/LOS BILAT MR#: [id number] Acct: [id number] Name: PRASHANT MORAN Rep #: [id number] : 1980 F 44 From: Erin Solorzano MD PCP: Dr. Camilla Kay DO Status: REG CLI Study: SCRN MAMM (CAD)W/LOS BILAT Date of Exam: 01/01 05/27 Exam# [id number] Ordering Dr: Camilla Kay DO EXAM: SCRN [...] be mailed to the patient. Reading Location: [facility] CC: Dr. Camilla Kay, Fisher Eel Spear: Signed Normal [facility] Cancer Antigen 125on 025 CA 125 7.4 U/mL Normal 0.0-38.1 [facility] Comment on above: Result Comment: [employer] Electrochemiluminescence Immunoassay (ECLIA) Values obtained with different assay methods or kits cannot be used interchangeably. Results cannot be interpreted as absolute evidence of the presence or absence of malignant disease. Performed at: [facility] [id number] Wet Char Conveyor Tender: Robert Conteh PhD, Phone: [phone] Performed By: #### L 700.6800, L3100.5000 ####[facility] [address] [place], [address] Beta HCG ( test) Ql Ordered By: Camilla Kay on 01-02-2025 Serum Test, Qualitative Negative [facility] Cancer antigen 125 (CA-125) measurementOrdered By: Camilla Kay on 01-02-2025 CA 125 Antigen 7.4 U/mL 0.0-38.1 [facility] Comment on above: [employer] El ectrochemiluminescence Immunoassay(ECLIA)Values obtained with different assay methods or kits cannotbe used interchangeably. Results cannot be interpreted asabsolute evidence of the presence or absence of malignantdisease.Performed at: [facility] [id number] Director: Robert Conteh PhD, Phone: [phone] Cancer antigen 125 (CA-125) measurement 7.4 U/mL 0.0-38.1 [facility] Comment on above: [employer] El ectrochemiluminescence Immunoassay(ECLIA)Values obtained with different assay methods or kits cannotbe used interchangeably. Results cannot be interpreted asabsolute evidence of the presence or absence of malignantdisease.Performed at: - [facility] [id number] Director: Robert Conteh PhD, Phone: [phone] ,Serum,hCG Quali.on 01-02-2025 HCG, SERUM QUAL Negative Normal [facility] Comment on above: Performed By: #### L 700.6800, L3100.5000 #### [facility] [address] [facility] [place], [place], [id number] Serum beta-hCG test, qualita tiveOrdered By: Camilla Kay on 01-02-2025 Beta HCG ( test) Ql Negative [facility] Pelvic w/ Transvaginalon Pelvic w/ Transvaginal [facility] Imaging Services [address] [place] [address] Pelvic w/ Transvaginal MR#: [id number] Acct: [id number] Name: PRASHANT MORAN Rep #: [id number] : 1980 F 44 From: Duran damon MD PCP: Dr. Camilla Kay DO Status: REG CLI Study: Pelvic w/ Transvaginal Date of Exam: 12/31/24 Exam# [id number] Ordering Dr: Camilla Kay DO PROCEDURE: PELVIC [...] right ovary. Clinical correlation recommended. Reading Location: [facility] CC: Dr. Camilla Kay DO Fisher Eel Spear: Signed Normal [facility] Magnetic resonance imaging r eportOrdered By: Rose Pereyra on 12-24-2024 Study report [facility] Imaging Services [address] [place], [place] [address] Spine Lumbar (Routine) MR#: [id number] Acct: [id number] Name: PRASHANT MORAN Rep #: [id number] : 1980 F 44 From: Pia Pereyra MD PCP: Dr. Camilla Kay DO Status: REG CLI Study:Spine Lumbar (Routine) Date of Exam: 12/24/24 Exam# [id number] Ordering Dr: Armida Kay sa, DO PROCEDURE: [...] grossly maintained. 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 MRI/Spine Lumbar (Routine) IMPRESSION: 1. Ruptured intervertebral disc with disc desiccation and Schmorl's node at the L5-S1 intervertebral space. No central or neural foraminal stenosis. 2. Partially visualized enlarged uterus. Reading Location: [id number] CC: Dr. Camilla Kay DO ~ Fisher Eel Spear: Signed [facility] Spine Lumbar (Routine)on Spine Lumbar (Routine) [facility] Imaging Services [address] [place] [address] Spine Lumbar (Routine) MR#: [id number] Acct: [id number] Name: PRASHANT MORAN Rep #: [id number] : 1980 F 44 From: Rose Camacho nd, MD PCP: Dr. Camilla Kay DO Status: REG CLI Study: Spine Lumbar (Routine) Date of Exam: 12/24/24 Exam# [id number] Ordering Dr: Camilla Kay DO PROCEDURE: SPINE [...] grossly maintained. 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 MRI/Spine Lumbar (Routine) IMPRESSION: 1. Ruptured intervertebral disc with disc desiccation and Schmorl's node at the L5-S1 intervertebral space. No central or neural foraminal stenosis. 2. Partially visualized enlarged uterus. Reading Location: [facility] CC: Dr. Camilla Kay DO Fisher Eel Spear: Signed Normal [facility] L/S Spine Min 4 Viewson L/S Spine Min 4 Views [facility] Imaging Services [address] [place], [place] [address] L/S Spine Min 4 Views MR#: [id number] Acct: [id number] Name: PRASHANT MORAN Rep #: [id number] : 1980 F 44 From: Gino Williamson MD PCP: Dr. Camilla Kay DO Status: REG CLI Study: L/S Spine Min 4 Views Date of Exam: 12/03/24 Exam# [id number] Ordering Dr: Camilla Kay DO EXAM: XR [...] 2. Degenerative changes as above. Reading [facility] CC: Dr. Camilla Kay DO Fisher Eel Spear: Signed Normal [facility] Absolute lymphocyte countOrd ered By: Camilla Kay on 04-13-2023 Lymphocytes Auto (Unsp spec) [#/Vol] 2.84 10*3/uL 0.83-4.51 [facility] Basophil percentageOrdered B y: Camilla Kay on 04-13-2023 Basophils/100 WBC (Bld) 0.5 % 0-1 [facility] Bilirubin [Mass/Vol] 0.40 mg/dL 0.20-1.00 [facility] Comment on above: For patients on eltr ombopag therapy, use of Dimension Rudyard TBIL is not recommended. Chloride [Moles/Vol] 106 mmol/L 98-107 [facility] Cholesterol [Mass/Vol] 151 mg/dL <200 [facility] Comment on above: <200 mg/dL Desirable 200-240 mg/dL Borderline >240 mg/dL High Risk Eosinophils/100 WBC (Bld) 1.3 % 0-5 [facility] Glucose [Mass/Vol] 79 mg/dL 74-106 [facility] Neutrophils (Bld) [#/Vol] 4.5 10*3/uL 2.0-7.7 [facility] Neutrophils/100 WBC (Bld) 56.7 % 47-70 [facility] Potassium [Moles/Vol] 3.9 mmol/L 3.5-5.1 [facility] Protein [Mass/Vol] 7.3 g/dL 6.4-8.2 [facility] Sodium [Moles/Vol] 137 mmol/L 136-145 [facility] Triglyceride [Mass/Vol] 39 mg/dL <199 [facility] Comment on above: The drugs N-Acetylcy steine and Metamizole may falsely depress this assay.Serum Triglycerides Reference Interval Normal <150 mg/dL Borderline high 150 - 199 mg/dL High 200 - 499 mg/dL Very High > or = 500 mg/dL WBC (Bld) [#/Vol] 8.0 10*3/uL 4.4-11.0 [facility] Blood erythrocytes count (nu mber/volume)Ordered By: Camilla Kay on 04-13-2023 RBC (Bld) [#/Vol] 3.78 10*6/uL 4.2-5.4 [facility] Blood hemoglobin measurement (mass/volume)Ordered By: Camilla Kay on 04-13-2023 Hemoglobin (Bld) [Mass/Vol] 12.6 g/dL 12.0-15.0 [facility] Blood lymphocytes/100 leukoc ytesOrdered By: Camilla Kay on 04-13-2023 Lymphocytes/100 WBC (Bld) 35.7 % 19-41 [facility] Blood monocytes/100 leukocyt esOrdered By: Camilla Kay on 04-13-2023 Monocytes/100 WBC (Bld) 5.5 % 0-10 [facility] Blood platelet mean volumeOr dered By: Camilla Kay on 04-13-2023 Platelet mean volume (Bld) [Entitic vol] 10.7 fL 6.2-12.0 [facility] Determination of erythrocyte mean corpuscular volume (MCV)Ordered By: Camilla Kay on 04-13-2023 MCV (RBC) [Entitic vol] 102.9 fL 81-99 [facility] Hematocrit Auto (Bld) [Volum e fraction]Ordered By: Camilla Kay on 04-13-2023 Hematocrit (Bld) [Volume fraction] 38.9 % 37-47 [facility] - Chemistry and C hemistry - challengeOrdered By: Camilla Kay on 04-13-2023 ALP [Catalytic activity/Vol] 51 U/L 45-117 [facility] ALT [Catalytic activity/Vol] 18 U/L 13-56 [facility] CO2 [Moles/Vol] 26.0 mmol/L 21.0-32.0 [facility] Globulin (S) [Mass/Vol] 3.4 g/dL 2.2-4.2 [facility] Urea nitrogen/Creatinine [Mass ratio] 25.2 mg/mg 10-20 [facility] - Hematology and Cell countsOrdered By: Camilla Kay on 04-13-2023 Erythrocyte distribution width (RBC) [Entitic vol] 47.0 fL 35.1-43.9 [facility] Erythrocyte distribution width (RBC) [Ratio] 12.3 % 11.6-14.6 [facility] Immature granulocytes/100 WBC (Bld) 0.300 % 0.0-0.9 [facility] Comment on above: IG% - Immature Granu locytes (promyelocytes, myelocytes and metamyelocytes) > 1% indicates that a LEFT SHIFT is Present. MCH (RBC) [Entitic mass] 33.3 pg 27.0-32.0 [facility] Nucleated RBC/100 WBC (Bld) [Ratio] 0 % 0-5 [facility] MCHC Auto (RBC) [Mass/Vol]Or dered By: Camilla Kay on 04-13-2023 MCHC (RBC) [Mass/Vol] 32.4 g/dL 32-36 [facility] No Panel InformationOrdered By: Camilla Kay on 04-13-2023 Estimated GFR (MDRD) Amer 133 mL/min >60 [facility] Comment on above: GFR Calc Estimated GFR (MDRD) Non-Af Amer 110 mL/min >60 [facility] Comment on above: Non- GFR Calc Platelets bldOrdered By: Pinky Kay on 04-13-2023 Platelets (Bld) [#/Vol] 264 10*3/uL 150-450 [facility] Serum hepatitis B virus surf bernice antibody IgG detectionOrdered By: Camilla Kay on 04-13-2023 HBV surface IgG Ql (S) Reactive [facility] Comment on above: Non Reactive: Incons istent with immunity less than <10 mIU/mL Reactive: Consistent with immunity greater than or equal to 10 mIU/mL Serum or plasma albumin doni urement (mass/volume)Ordered By: Camilla Kay on 04-13-2023 Albumin [Mass/Vol] 3.9 g/dL 3.2-5.0 [facility] Serum or plasma albumin/glob ulin mass ratioOrdered By: Camilla Kay on 04-13-2023 Albumin/Globulin [Mass ratio] 1.1 {ratio} 0.9-2.4 [facility] Serum or plasma calcium doni urement (mass/volume)Ordered By: Camilla Kay on 04-13-2023 Calcium [Mass/Vol] 9.0 mg/dL 8.5-10.1 [facility] Serum or plasma cholesterol in HDL measurement (mass/volume)Ordered By: Camilla Kay on 04-13-2023 Cholesterol in HDL [Mass/Vol] 79 mg/dL >40 [facility] Comment on above: The drugs N-Acetylcy steine and Metamizole may falsely depress this assay. Reference Range HDL <40 mg/dL Low HDL Cholesterol HDL >or= 60 mg/dL High HDL Cholesterol Serum or plasma cholesterol in VLDL measurement (mass/volume)Ordered By: Camilla Kay on 04-13-2023 Cholesterol in VLDL [Mass/Vol] 8 mg/dL 5-40 [facility] Serum or plasma creatinine m easurement (mass/volume)Ordered By: Camilla Kay on 04-13-2023 Creatinine [Mass/Vol] 0.63 mg/dL 0.55-1.02 [facility] Comment on above: The validity of the calculated GFR & GFRAA in patients over 70 years has not been determined. Clinical correlation is essential. Serum or plasma low density lipoprotein (LDL) cholesterol measurement (mass/volume)Ordered By: Camilla Kay on 04-13-2023 Cholesterol in LDL [Mass/Vol] 64 mg/dL 0-130 [facility] Serum or plasma urea nitroge n measurement (mass/volume)Ordered By: Camilla Kay on 04-13-2023 Urea nitrogen [Mass/Vol] 16 mg/dL 7-18 [facility] Thin prep Papanicolaou smear with manual screeningOrdered By: Camilla Kay on 04-13-2023 Thin prep Papanicolaou smear with manual screening 16 U/L 15-37 [facility] Thin prep Papanicolaou smear with manual screening 5 5-15 [facility] Throat specimen bacteria kirby ntification by cultureOrdered By: Karl Weiner on 03-19-2023 Bacteria identified Cx Nom (Throat) streptococcus isolated. [facility] Throat specimen bacteria kirby ntification by cultureOrdered By: Karl Weiner on 03-17-2023 Bacteria identified Cx Nom (Throat) streptococcus isolated. [facility] Absolute lymphocyte counton 06-11-2022 Lymphocytes Auto (Unsp spec) [#/Vol] 2.01 10*3/uL 0.83-4.51 [facility] Work Phone: Basophil percentageon 2021 Basophils/100 WBC (Bld) 0.4 % 0-1 [facility] Work Phone: Bilirubin [Mass/Vol] 0.60 mg/dL 0.20-1.00 [facility] Work Phone: Comment on above: For patients on eltr ombopag therapy, use of Dimension Rudyard TBIL is not recommended. Chloride [Moles/Vol] 101 mmol/L 98-107 [facility]: Cholesterol [Mass/Vol] 155 mg/dL <200 [facility] [facility] Work Phone: Comment on above: <200 mg/dL Desirable 200-240 mg/dL Borderline >240 mg/dL High Risk Eosinophils/100 WBC (Bld) 0.8 % 0-5 [facility] Work Phone: Glucose [Mass/Vol] 90 mg/dL 74-106 [facility] Work Phone: Neutrophils (Bld) [#/Vol] 5.1 10*3/uL 2.0-7.7 [facility] Work Phone: Neutrophils/100 WBC (Bld) 68.4 % 47-70 [facility] Work Phone: Potassium [Moles/Vol] 3.6 mmol/L 3.5-5.1 [facility] Work Phone: Protein [Mass/Vol] 7.2 g/dL 6.4-8.2 [facility] Work Phone: Sodium [Moles/Vol] 137 mmol/L 136-145 [facility] Work Phone: Triglyceride [Mass/Vol] 38 mg/dL <199 [facility] Work Phone: Comment on above: The drugs N-Acetylcy steine and Metamizole may falsely depress this assay.Serum Triglycerides Reference Interval Normal <150 mg/dL Borderline high 150 - 199 mg/dL High 200 - 499 mg/dL Very High > or = 500 mg/dL WBC (Bld) [#/Vol] 7.5 10*3/uL 4.4-11.0 [facility] Work Phone: Blood erythrocytes count (nu mber/volume)on 06-11-2022 RBC (Bld) [#/Vol] 3.83 10*6/uL 4.2-5.4 [facility] Work Phone: Blood hemoglobin measurement (mass/volume)on 06-11-2022 Hemoglobin (Bld) [Mass/Vol] 12.6 g/dL 12.0-15.0 [facility] Work Phone: Blood lymphocytes/100 leukoc yteson 06-11-2022 Lymphocytes/100 WBC (Bld) 26.9 % 19-41 [facility] Work Phone: Blood monocytes/100 leukocyt eson 06-11-2022 Monocytes/100 WBC (Bld) 3.2 % 0-10 [facility] Work Phone: Blood platelet mean volumeon 06-11-2022 Platelet mean volume (Bld) [Entitic vol] 10.5 fL 6.2-12.0 [facility] Work Phone: Determination of erythrocyte mean corpuscular volume (MCV)on 06-11-2022 MCV (RBC) [Entitic vol] 99.0 fL 81-99 [facility] Work Phone: Hematocrit Auto (Bld) [Volum e fraction]on 06-11-2022 Hematocrit (Bld) [Volume fraction] 37.9 % 37-47 [facility] Work Phone: Laboratory - Chemistry and C hemistry - challengeon 06-11-2022 ALP [Catalytic activity/Vol] 45 U/L 45-117 [facility] Work Phone: ALT [Catalytic activity/Vol] 23 U/L 13-56 [facility] Work Phone: CO2 [Moles/Vol] 29.0 mmol/L 21.0-32.0 [facility] Work Phone: Globulin (S) [Mass/Vol] 3.2 g/dL 2.2-4.2 [facility] Work Phone: Urea nitrogen/Creatinine [Mass ratio] 23.1 mg/mg 10-20 [facility] Work Phone: Laboratory - Hematology and Cell countson 06-11-2022 Erythrocyte distribution width (RBC) [Entitic vol] 43.2 fL 35.1-43.9 [facility] Work Phone: Erythrocyte distribution width (RBC) [Ratio] 11.8 % 11.6-14.6 [facility] Work Phone: Immature granulocytes/100 WBC (Bld) 0.300 % 0.0-0.9 [facility] Work Phone: Comment on above: IG% - Immature Granu locytes (promyelocytes, myelocytes and metamyelocytes) > 1% indicates that a LEFT SHIFT is Present. MCH (RBC) [Entitic mass] 32.9 pg 27.0-32.0 [facility] Work Phone: Nucleated RBC/100 WBC (Bld) [Ratio] 0 % 0-5 [facility] Work Phone: MCHC Auto (RBC) [Mass/Vol]on 06-11-2022 MCHC (RBC) [Mass/Vol] 33.2 g/dL 32-36 [facility] Work Phone: No Panel Informationon 06-11 Estimated GFR (MDRD) Amer 130 mL/min >60 [facility] Work Phone: Comment on above: GFR Calc Estimated GFR (MDRD) Non-Af Amer 108 mL/min >60 [facility] Work Phone: Comment on above: Non- GFR Calc Platelets bldon 06-11-2022 Platelets (Bld) [#/Vol] 317 10*3/uL 150-450 [facility] Work Phone: Serum or plasma albumin doni urement (mass/volume)on 06-11-2022 Albumin [Mass/Vol] 4.0 g/dL 3.2-5.0 [facility] Work Phone: Serum or plasma albumin/glob ulin mass ratioon 06-11-2022 Albumin/Globulin [Mass ratio] 1.2 {ratio} 0.9-2.4 [facility] Work Phone: Serum or plasma calcium doni urement (mass/volume)on 06-11-2022 Calcium [Mass/Vol] 9.0 mg/dL 8.5-10.1 [facility] Work Phone: Serum or plasma cholesterol in HDL measurement (mass/volume)on 06-11-2022 Cholesterol in HDL [Mass/Vol] 74 mg/dL >40 [facility] Work Phone: Comment on above: The drugs N-Acetylcy steine and Metamizole may falsely depress this assay. Reference Range HDL <40 mg/dL Low HDL Cholesterol HDL >or= 60 mg/dL High HDL Cholesterol Serum or plasma cholesterol in VLDL measurement (mass/volume)on 06-11-2022 Cholesterol in VLDL [Mass/Vol] 8 mg/dL 5-40 [facility] Work Phone: Serum or plasma creatinine m easurement (mass/volume)on 06-11-2022 Creatinine [Mass/Vol] 0.65 mg/dL 0.55-1.02 [facility] Work Phone: Comment on above: The validity of the calculated GFR & GFRAA in patients over 70 years has not been determined. Clinical correlation is essential. Serum or plasma low density lipoprotein (LDL) cholesterol measurement (mass/volume)on 06-11-2022 Cholesterol in LDL [Mass/Vol] 73 mg/dL 0-130 [facility] Work Phone: Serum or plasma urea nitroge n measurement (mass/volume)on 06-11-2022 Urea nitrogen [Mass/Vol] 15 mg/dL 7-18 [facility] Work Phone: Thin prep Papanicolaou smear with manual screeningon 06-11-2022 Thin prep Papanicolaou smear with manual screening 15 U/L 15-37 [facility] Work Phone: Thin prep Papanicolaou smear with manual screening 7 5-15 [facility] Work Phone: Laboratory - Chemistry and C hemistry - challengeon 01-21-2022 HCG ( test) Ql (U) Negative [facility] Work Phone: Comment on above: Very dilute urine sp ecimens, as indicated by a low specificgravity, may not contain termite control representative levels of hCG. If is still suspected, a first morning urinespecimen should be collected 48 hours later and tested. Basophil percentageon 2021 WBC (Bld) [#/Vol] 5.4 10*3/uL 4.4-11.0 [facility] Work Phone: Blood erythrocytes count (nu mber/volume)on 01-20-2022 RBC (Bld) [#/Vol] 3.80 10*6/uL 4.2-5.4 [facility] Work Phone: Blood hemoglobin measurement (mass/volume)on 01-20-2022 Hemoglobin (Bld) [Mass/Vol] 12.3 g/dL 12.0-15.0 [facility] Work Phone: Blood platelet mean volumeon 01-20-2022 Platelet mean volume (Bld) [Entitic vol] 10.3 fL 6.2-12.0 [facility] Work Phone: Determination of erythrocyte mean corpuscular volume (MCV)on 01-20-2022 MCV (RBC) [Entitic vol] 99.2 fL 81-99 [facility] Work Phone: Hematocrit Auto (Bld) [Volum e fraction]on 01-20-2022 Hematocrit (Bld) [Volume fraction] 37.7 % 37-47 [facility] Work Phone: INR in Blood by Coagulation assayon 01-20-2022 INR Coag (Bld) [Relative time] 1.1 {INR} [facility] Work Phone: Laboratory - Coagulationon 0 01-20-2022 aPTT Coag (Bld) [Time] 32.0 s 24.1-36.2 [facility] Work Phone: PT Coag (PPP) [Time] 13.4 s 11.7-14.9 [facility] Work Phone: Laboratory - Hematology and Cell countson 01-20-2022 Erythrocyte distribution width (RBC) [Entitic vol] 45.0 fL 35.1-43.9 [facility] Work Phone: Erythrocyte distribution width (RBC) [Ratio] 12.2 % 11.6-14.6 [facility] Work Phone: MCH (RBC) [Entitic mass] 32.4 pg 27.0-32.0 [facility] Work Phone: MCHC Auto (RBC) [Mass/Vol]on 01-20-2022 MCHC (RBC) [Mass/Vol] 32.6 g/dL 32-36 [facility] Work Phone: Platelets bldon 01-20-2022 Platelets (Bld) [#/Vol] 318 10*3/uL 150-450 [facility] Work Phone: Vital Signs Date Time Vital Sign Value Performing Clinician Faci lity 06-05-2025 13:08-0400 Body height 165.[address] Camilla Kay DO Work Phone: [facility] 06-05-2025 13:07-0400 Body mass index (BMI) [Ratio] 21.1 kg/m2 Dr. Camilla Kay DO Work Phone: [facility] 06-05-2025 13:07-0400 Body weight 57.[address] Camilla Kay DO Work Phone: [facility] 06-05-2025 13:07-0400 Diastolic blood pressure 67 mm[Hg] Dr. Camilla Kay DO Work Phone: [facility] 06-05-2025 13:07-0400 Systolic blood pressure 107 mm[Hg] Dr. Camilla Kay DO Work Phone: [facility] 05-06-2025 15:21-0400 Body temperature 97 [degF] Dr. Camilla Kay DO Work Phone: [facility] 05-06-2025 15:21-0400 Diastolic blood pressure 74 mm[Hg] Dr. Camilla Kay DO Work Phone: [facility] 05-06-2025 15:21-0400 Heart rate 78 /min Dr. Camilla Kay DO Work Phone: [facility] 05-06-2025 15:21-0400 Respiratory rate 16 /min Dr. Camilla Kay DO Work Phone: [facility] 05-06-2025 15:21-0400 SaO2% (BldA) [Mass fraction] 100 % Dr. Camilla Kay DO Work Phone: [facility] 05-06-2025 15:21-0400 Systolic blood pressure 110 mm[Hg] Dr. Camilla Kay DO Work Phone: [facility] 05-06-2025 10:57-0400 Body height 165.[address] Camilla Kay DO Work Phone: [facility] 05-06-2025 10:57-0400 Body mass index (BMI) [Ratio] 21.1 kg/m2 Dr. Camilla Kay DO Work Phone: [facility] 05-06-2025 10:57-0400 Body weight 57.[address] Camilla Kay DO Work Phone: [facility] 05-06-2025 10:29-0400 Body height 165.[address] Camilla Kay DO Work Phone: [facility] 05-06-2025 10:22-0400 Body mass index (BMI) [Ratio] 20.9 kg/m2 Dr. Camilla Kay DO Work Phone: [facility] 05-06-2025 10:22-0400 Body temperature 98.2 [degF] Dr. Camilla Kay DO Work Phone: [facility] 05-06-2025 10:22-0400 Body weight 57.[address] Camilla Kay DO Work Phone: [facility] 05-06-2025 10:22-0400 Diastolic blood pressure 70 mm[Hg] Dr. Camilla Kay DO Work Phone: [facility] 05-06-2025 10:22-0400 Systolic blood pressure 105 mm[Hg] Dr. Camilla Kay DO Work Phone: [facility] 04-23-2025 13:20-0400 Body temperature 99.6 [degF] Dr. Camilla Kay DO Work Phone: [facility] 04-23-2025 13:20-0400 Diastolic blood pressure 57 mm[Hg] Dr. Camilla Kay DO Work Phone: [facility] 04-23-2025 13:20-0400 Heart rate 92 /min Dr. Camilla Kay DO Work Phone: [facility] 04-23-2025 13:20-0400 Respiratory rate 14 /min Dr. Camilla Kay DO Work Phone: [facility] 04-23-2025 13:20-0400 SaO2% (BldA) [Mass fraction] 97 % Dr. Camilla Kay DO Work Phone: [facility] 04-23-2025 13:20-0400 Systolic blood pressure 96 mm[Hg] Dr. Camilla Kay DO Work Phone: [facility] 04-23-2025 10:45-0400 Inhaled oxygen flow rate 4 L/min Dr. Camilla Kay DO Work Phone: [facility] 04-23-2025 06:25-0400 Body height 165.[address] Camilla Kay DO Work Phone: [facility] 04-23-2025 06:25-0400 Body mass index (BMI) [Ratio] 21.4 kg/m2 Dr. Camilla Kay DO Work Phone: [facility] 04-23-2025 06:25-0400 Body weight 58.[address] Camilla Kay DO Work Phone: [facility] 04-15-2025 10:42-0400 Body height 165.[address] Camilla Kay DO Work Phone: [facility] 04-15-2025 10:41-0400 Body mass index (BMI) [Ratio] 20.8 kg/m2 Dr. Camilla Kay DO Work Phone: [facility] 04-15-2025 10:41-0400 Body weight 56.[address] Camilla Kay DO Work Phone: [facility] 04-15-2025 10:41-0400 Diastolic blood pressure 73 mm[Hg] Dr. Camilla Kay DO Work Phone: [facility] 04-15-2025 10:41-0400 Systolic blood pressure 118 mm[Hg] Dr. Camilla Kay DO Work Phone: [facility] 02-13-2025 10:26-0400 Body height 165.[address] Camilla Kay DO Work Phone: [facility] 02-13-2025 10:26-0400 Body mass index (BMI) [Ratio] 21.8 kg/m2 Dr. Camilla Kay DO Work Phone: [facility] 02-13-2025 10:26-0400 Body weight 59.[address] Camilla Kay DO Work Phone: [facility] 02-13-2025 10:26-0400 Diastolic blood pressure 69 mm[Hg] Dr. Camilla Kay DO Work Phone: [facility] 02-13-2025 10:26-0400 Systolic blood pressure 109 mm[Hg] Dr. Camilla Kay DO Work Phone: [facility] 01-21-2025 09:54-0400 Body height 165.[address] Camilla Kay DO Work Phone: [facility] 01-21-2025 09:49-0400 Body mass index (BMI) [Ratio] 21.9 kg/m2 Dr. Camilla Kay DO Work Phone: [facility] 01-21-2025 09:49-0400 Body weight 59.[address] Camilla Kay DO Work Phone: [facility] 01-21-2025 09:49-0400 Diastolic blood pressure 64 mm[Hg] Dr. Camilla Kay DO Work Phone: [facility] 01-21-2025 09:49-0400 Systolic blood pressure 108 mm[Hg] Dr. Camilla Kay DO Work Phone: [facility] 03-23-2023 14:34-0400 Body height 165.[address] Camacho Winters Work Phone: [facility] 03-23-2023 14:26-0400 Body mass index (BMI) [Ratio] 20 kg/m2 Dr. Camacho Winters Work Phone: [facility] 03-23-2023 14:26-0400 Body weight 54.[address] Camacho Winters Work Phone: [facility] 03-23-2023 14:26-0400 Diastolic blood pressure 62 mm[Hg] Dr. Camacho Winters Work Phone: [facility] 03-23-2023 14:26-0400 Systolic blood pressure 94 mm[Hg] Dr. Camacho Winters Work Phone: [facility] 03-17-2023 06:44-0400 Body height 165.[address] Camacho Winters Work Phone: [facility] 03-17-2023 06:44-0400 Body mass index (BMI) [Ratio] 20 kg/m2 Dr. Camacho Winters Work Phone: [facility] 03-17-2023 06:44-0400 Body temperature 98.2 [degF] Dr. Camacho Winters Work Phone: [facility] 03-17-2023 06:44-0400 Body weight 54.[address] Camacho Winters Work Phone: [facility] 03-17-2023 06:44-0400 Diastolic blood pressure 60 mm[Hg] Dr. Camacho Winters Work Phone: [facility] 03-17-2023 06:44-0400 Heart rate 97 /min Dr. Camacho Winters Work Phone: [facility] 03-17-2023 06:44-0400 Respiratory rate 16 /min Dr. Camacho Winters Work Phone: [facility] 03-17-2023 06:44-0400 SaO2% (BldA) [Mass fraction] 98 % Dr. Camacho Winters Work Phone: [facility] 03-17-2023 06:44-0400 Systolic blood pressure 102 mm[Hg] Dr. Camacho Winters Work Phone: [facility] 06-11-2022 10:58-0400 Body height 165.[address] Camacho Winters Work Phone: [facility] Work Phone: 06-11-2022 10:58-0400 Body mass index (BMI) [Ratio] 21.8 kg/m2 Dr. Camacho Winters Work Phone: [facility] Work Phone: 06-11-2022 10:58-0400 Body temperature 97.5 [degF] Dr. Camacho Winters Work Phone: [facility] Work Phone: 06-11-2022 10:58-0400 Body weight 59.[address] Camacho Winters Work Phone: [facility] Work Phone: 06-11-2022 10:58-0400 Diastolic blood pressure 58 mm[Hg] Dr. Camacho Winters Work Phone: [facility] Work Phone: 06-11-2022 10:58-0400 Heart rate 85 /min Dr. Camacho Winters Work Phone: [facility] Work Phone: 06-11-2022 10:58-0400 Respiratory rate 16 /min Dr. Camacho Winters Work Phone: [facility] Work Phone: 06-11-2022 10:58-0400 SaO2% (BldA) [Mass fraction] 94 % Dr. Camacho Winters Work Phone: [facility] Work Phone: 06-11-2022 10:58-0400 Systolic blood pressure 92 mm[Hg] Dr. Camacho Winters Work Phone: [facility] Work Phone: 01-21-2022 11:15-0400 Body temperature 99 [degF] [facility] Work Phone: 01-21-2022 11:15-0400 Diastolic blood pressure 54 mm[Hg] [facility] Work Phone: 01-21-2022 11:15-0400 Heart rate 70 /min [facility] Work Phone: 01-21-2022 11:15-0400 Respiratory rate 15 /min [facility] Work Phone: 01-21-2022 11:15-0400 SaO2% (BldA) [Mass fraction] 100 % [facility] Work Phone: 01-21-2022 11:15-0400 Systolic blood pressure 100 mm[Hg] [facility] Work Phone: 01-21-2022 06:21-0400 Body height 165.1 cm [facility] Work Phone: 01-21-2022 06:040 Body mass index (BMI) [Ratio] 20.9 kg/m2 [facility] Work Phone: 01-21-2022 06: Body weight 57 kg [facility] Work Phone: Encounters Encounter Date Encounter Type Care Provider Facility Start: 06-05-2025 End: 06-05-[address] Patsy Torres DO -[facility] Work Phone: Start: 06-05-2025 End: 06-05-[address] Camilla Kay DO Work Phone: -[facility] Start: 05-06-2025 End: 05-06-2025 Emergency department patient visit Dr. Camilla Kay DO Work Phone: -Emergency Department Work Phone: Start: 05-06-2025 End: 05-06-2025 Patient encounter procedure Thelma GROVER -[facility] Work Phone: Start: 05-06-2025 End: 05-06-[address] Camilla Kay DO Work Phone: -[facility] Start: 05-02-2025 Encounter for other preprocedural examination Patsy Torres [facility] Start: 04-23-2025 ambulatory Patsy De Andaty:[facility] Start: 04-23-2025 Non-patient / Non-visit Dr. Mahin Torres DO -[facility] Start: 04-23-2025 End: 04-23-2025 Admission to same day surgery center Dr. Patsy Torres DO [facility] Start: 04-23-2025 End: 04-23-[address] Camilla Kay DO Work Phone: -[facility] Start: 04-15-2025 End: 04-15-[address] Patsy Torres DO -[facility] Work Phone: Start: 04-15-2025 End: 04-15-[address] Camilla Kay DO Work Phone: -[facility] Start: 03-18-2025 End: 03-18-[address] Camilla Kay DO Work Phone: [facility] Work Phone: Start: 03-18-2025 End: 03-18-2025 Patient encounter procedure Thelma Chakraborty [employer] -Ultrasound [facility] Work Phone: Start: 03-18-2025 End: 03-18-2025 ambulatory Thelma Chakraborty [employer] Facility:[facility] Start: 03-08-2025 End: 03-08-[address] Camilla Kay DO Work Phone: -Physical Therapy Start: 03-08-2025 End: 03-08-[address] Camilla Kay DO -Physical Therapy Work Phone: Start: 03-08-[address] Camilla Kay DO -Physical Therapy Work Phone: Start: 02-13-2025 End: 02-13-[address] Patsy Torres DO -[facility] Work Phone: Start: 02-13-2025 End: 02-13-[address] Camilla Kay DO Work Phone: [facility] Work Phone: Start: 02-08-[address] Camilla Kay DO -Physical Therapy Work Phone: Start: 02-04-2025 End: 02-04-[address] Camilla Kay DO Work Phone: [facility] Work Phone: Start: 02-04-2025 End: 02-04-2025 Patient encounter procedure Thelma Galena [employer]C -[facility] Work Phone: Start: 02-04-[address] Camilla Kay DO -Physical Therapy Work Phone: Start: 02-04-2025 End: 02-04-2025 ambulatory Thelma Mylene [employer] Facility:[facility] Start: 01-23-2025 End: 01-23-[address] Camilla Kay DO -Outpatient Breast Imaging Work Phone: Start: 01-23-[address] Camilla Kay DO -Physical Therapy Work Phone: Start: 01-23-2025 End: 01-23-2025 ambulatory Camilla Kay Facility:[facility] Start: 01-21-2025 End: 01-21-2025 Patient encounter procedure Thelma Mylene [employer] -Laboratory, Specimen Work Phone: Start: 01-21-2025 End: 01-21-2025 Patient encounter procedure Thelma Malcolmtings [employer]-C -[facility] Work Phone: Start: 01-21-2025 End: 01-21-2025 ambulatory Camilla Kay Facility:[facility] Start: 01-21-2025 End: 01-21-2025 ambulatory Thelma Chakraborty [employer] Facility:[facility] Start: 01-18-2025 End: 01-18-[address] Camilla Kay DO Work Phone: [facility] Work Phone: Start: 01-18-2025 End: 01-18-[address] Camilla Kay DO -Outpatient Breast Imaging Work Phone: Start: 01-18-2025 End: 01-18-2025 ambulatory Camilla Kay Facility:[facility] Start: 01-02-2025 End: 01-02-[address] Camilla Kay DO Work Phone: [facility] Work Phone: Start: 01-02-2025 End: 01-02-[address] Camilla Kay DO -Laboratory Work Phone: Start: 01-02-2025 End: 01-02-2025 ambulatory Camilla Kay Facility:[facility] Start: 12-31-2024 End: 12-31-[address] Camilla Kay DO Work Phone: [facility] Work Phone: Start: 12-31-2024 End: 12-31-[address] Camilla Kay DO -Ultrasound, [facility] Work Phone: Start: 12-31-2024 End: 12-31-2024 ambulatory Camilla Kay Facility:[facility] Start: 12-24-2024 End: 12-24-[address] Camilla Kay DO Work Phone: [facility] Work Phone: Start: 12-24-2024 End: 12-24-[address] Camilla Kay DO -MRI - [facility] Work Phone: Start: 12-24-2024 End: 12-24-2024 ambulatory Camilla Kay Facility:[facility] Start: 12-03-2024 End: 12-03-[address] Camilla Kay DO Work Phone: [facility] Work Phone: Start: 12-03-2024 End: 12-03-[address] Camilla Kay DO -Radiology, [facility] Work Phone: Start: 12-03-2024 End: 12-03-2024 [facility] Start: 01-18-2024 End: 01-18-2024 ambulatory [facility] Work Phone: Start: 01-18-2024 End: 01-18-2024 Patient encounter procedure [facility]-Outpatient Breast Imaging Work Phone: Start: 04-13-2023 End: 04-13-[address] Camacho Winters Work Phone: [facility] Work Phone: Start: 04-13-2023 End: 04-13-[address] Camacho Winters Work Phone: [facility]-Laboratory, [place] Work Phone: Start: 03-23-2023 End: 03-23-[address] Camacho Winters Work Phone: [facility] Work Phone: Start: 03-17-2023 End: 03-17-[address] Camacho Winters Work Phone: [facility] Work Phone: Start: 03-17-2023 End: 03-17-[address] Camacho Winters Work Phone: [facility]-Laboratory, Specimen Start: 03-17-2023 End: 03-17-[address] Camacho Winters Work Phone: [facility] Start: 11-26-2022 End: 11-26-2022 ambulatory [facility] Work Phone: Start: 11-26-2022 End: 11-26-2022 Patient encounter procedure [facility]-Outpatient Breast Imaging Start: 06-11-2022 End: 06-11-[address] Camacho Winters Work Phone: [facility] Work Phone: Start: 06-11-[address] Laurent Winters Work Phone: [facility] Start: 06-11-2022 End: 06-11-2022 Encounter for general adult medical examination without abnormal findings Dr. Camacho Winters Work Phone: [facility] Internal Medicine Start: 06-11-2022 End: 06-11-[address] Camacho Winters Work Phone: [facility] Internal [facility] Start: 01-21-2022 End: 01-21-2022 Admission to same day surgery center [facility] Procedures Date Procedure Procedure Detail Performing Clinician Start: 05-06-2025 Computed tomography of abdomen and pelvis with intravenous contrast Dr. Camilla Kay DO Work Phone: Start: 05-06-[address] Camilla Kay DO Work Phone: Start: 05-06-2025 Urnls dip stick/tabl et reagent auto microscopy Dr. 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 Camilla Kay DO Work Phone: Start: 03-18-[address] Florinda Kay [...] Treatment Date Care Activity Detail Author Start: 05-06-2025 [facility] Start: 04-23-2025 Anesthesia intraperitoneal lower abd w/laps nos ANESTH SURG LOWER ABDOMEN [facility] Start: 04-23-2025 Laparoscopy w total hysterectomy uterus 250 gm/< TLH UTERUS 250 G OR LESS [facility] Start: 04-23-2025 Patient discharge [facility] Start: 04-23-2025 Ambulation without limitation [facility] Start: 04-23-2025 Medication education [facility] Start: 04-23-2025 Planned voiding [facility] Start: 04-23-2025 Procedure discontinued [facility] Start: 04-23-2025 Taking patient vital signs [facility] Start: 04-23-2025 Vital signs measurements [facility] Start: 04-23-2025 [facility] Start: 01-23-2025 Mammography DIAG MAMM W/CAD, UNILAT [facility] Start: 01-23-2025 MG Breast Diagnostic [facility] Start: 01-23-2025 Ultrasonography of breast Breast Limited Unilateral [facility] Start: 01-23-2025 US Breast limited [facility] Start: 06-11-2022 Patient referral [facility] Work Phone: MG Breast - bilatera l Screening [facility] Work Phone: Patient Education [facility] Work Phone: Patient referral [facility] Work Phone: US Pelvis [facility] Payers Date Payer Category Payer Self-pay [id number] 2024 Unknown [id number] Self-pay [id number] Unknown [id number] Unknown [id number] 2.16.8 40.1.085549.3.579.2.462 Unknown [id number] 2.16.8 40.1.544427.3.579.2.462 Unknown [id number] 2.16.8 40.1.003198.3.579.2.462 Unknown [id number] 2.16.8 40.1.696249.3.579.2.462 Unknown [id number] 2.16.8 40.1.707100.3.579.2.462 Unknown [id number] 2.16.8 40.1.337822.3.579.2.462 Unknown [id number] 2.16.8 40.1.577411.3.579.2.462 Unknown [id number] 2.16.8 40.1.015761.3.579.2.462 Unknown [id number] 2.16.8 40.1.948315.3.579.2.462 Unknown [id number] 2.16.8 40.1.677096.3.579.2.462 Unknown [id number] 2.16.8 40.1.631102.3.579.2.462 Unknown [id number] 2.16.8 40.1.387041.3.579.2.462 Unknown [id number] 2.16.8 40.1.947263.3.579.2.462 Unknown [id number] 2.16.8 40.1.243293.3.579.2.462 Unknown [id number] 2.16.8 40.1.543815.3.579.2.462 Unknown [id number] 2.16.8 40.1.801098.3.579.2.462 Unknown [id number] 2.16.8 40.1.161146.3.579.2.462 Unknown [id number] 2.16.8 40.1.122297.3.579.2.462 Social History Date Type Detail Facility [facility] Work Phone: Start: 01-13-2022 End: 03-23-2023 Tobacco smoking status NHIS Unknown if ever smoked [facility] Start: 1980 Sex Assigned At Female [facility] Start: 03-23-2023 End: 05-06-2025 Tobacco smoking status NHIS Never smoked tobacco (finding) [facility] Start: 12-12-2024 End: 01-24-2025 Sex Female (finding) [facility] Not [facility] NEGATED: Highlighted row Not [facility] Goals Date Patient Goal Desired Activity /State Mental Status Date Assessment Result Facility 04-23-2025 Cognitive function Voice/Name [facility] Work Phone: 01-21-2022 Cognitive function Voice/Name [facility] Work Phone: Clinical Notes 12-03-2024 to 06-10-2025 Note Date & Type Note Facility 06-10-2025 Discharge summary Note Date/Time June 10, 2025 6:25pm [facility] Physical Therapy [facility] [address] [place] [address] / REHABILITATION SERVICES DISCHARGE SUMMARY MR#: [id number] Acct: [id number] Name: PRASHANT MORAN Rep #: [id number] : 1980 44 From: Cert. MADALYN NicholsT, OCS Referring Dr.: Dr. Camilla Kay, DO Status: REG RCR Insurance: [employer]/[facility] SELF PAY INSURANCE Patient Information Patient Information: PRASHANT MORAN was seen in my office for initial evaluation on 01/23/25. The following Plan of Care was established for this patient: POC Established Initial Frequency: 2x /Week Initial Duration: 4 Weeks Anticipated Interventions Patient/Client Instruction: Educate patient on: Condition and Plan of Care For the Purpose of:: To decrease pain, To increase ROM, To improve muscle performance and motor function, To improve ability to perform ADL's, To increasetolerance to activity/condition/position, To improve ability of physical actionsfor home/community/work/leisure, To improve health of tissue, To decrease soft tissue restriction, To increase flexibility/ROM, To reduce risk of recurrence, To prevent re-injury and To improve tolerance to ADL's Therapeutic Exercise to Include: Strength training, Body mechanics, Postural training, Flexibilty training, Dynamic Lumbar Stabilization and Jovanny Exercises For the Purpose of:: To decrease pain, To increase ROM, To improve muscle performance and motor function, To improve ability to perform ADL's, To increasetolerance to activity/condition/position, To improve ability of physical actionsfor home/community/work/leisure, To improve health of tissue, To decrease soft tissue restriction, To increase flexibility/ROM, To reduce risk of recurrence, To prevent re-injury and To improve tolerance to ADL's TENS: Yes IF ES: Yes Cryotherapy (ice pack, ice massage): Yes Thermo therapy (hot pack): Yes Ultrasound (thermal/non thermal): Yes For the Purpose of:: To decrease pain, To decrease swelling/inflammation, To improve muscle performance and motor function, To improve ability to perform ADL's, To improve health of tissue and To decrease soft tissue restriction Last Seen Last Seen: This patient was last seen in our office . Pertinent comments regarding their Physical therapy will appear below: Patient was seen for PT ruptured disc doing fairly well ,managing symptoms thus d/c At this point I will be discontinuing this patient from physical therapy. I would be happy to see this patient again in the future if found appropriate by the physician. Thank you! Darnell Renner PT, Jose Rafael ATKINS, OCS Balance/Gait/Functional tests Balance/Special Test Scores Oswestry Low Back Score: 27 <Electronically signed by Cert. WILBERT Monte PT, OCS> 06/10/25 1827 CC: Dr. Camilla Kay, DO ~ JLA Signed [facility] Work Phone: 1(906) 745-188609-08-2025 Discharge summary [facility] Physical Therapy [facility] [address] [place] [address]. [address] [place] [address] / REHABILITATION SERVICES DISCHARGE SUMMARY MR#: [id number] Acct: [id number] Name: PRASHANT MORAN Rep #: [id number] : 1980 44 From: Cert. WILBERT Nichols, FRANK Referring Dr.: Dr. Camilla Kay DO Status: REG RCR [facility] SELF PAY INSURANCE Patient Information Patient Information: PRASHANT MORAN was seen in my office for initial evaluation on 01/23/25. The following Plan of Care was established for this patient: POC Established Initial Frequency: 2x /Week Initial Duration: 4 Weeks Anticipated Interventions Patient/Client Instruction: Educate patient on: Condition and Plan of Care For the Purpose of:: To decrease pain, To increase ROM, To improve muscle performance and motor function, To improve ability to perform ADL's, To increasetolerance to activity/condition/position, To improve ability of physical actionsfor home/community/work/leisure, To improve health of tissue, To d ecrease soft tissue restriction, To increase flexibility/ROM, To reduce risk of recurrence, To prevent re-injury and To improve tolerance to ADL's Therapeutic Exercise to Include: Strength training, Body mechanics, Postural training, Flexibilty training, Dynamic Lumbar Stabilization and Jovanny Exercises For the Purpose of:: To decrease pain, To increase ROM, To improve muscle performance and motor function, To improve ability to perform ADL's, To increasetolerance to activity/condition/position, To improve ability of physical actionsfor home/community/work/leisure, To improve health of tissue, To d ecrease soft tissue restriction, To increase flexibility/ROM, To reduce risk of recurrence, To prevent re-injury and To improve tolerance to ADL's TENS: Yes IF ES: Yes Cryotherapy (ice pack, ice massage): Yes Thermo therapy (hot pack): Yes Ultrasound (thermal/non thermal): Yes For the Purpose of:: To decrease pain, To decrease swelling/inflammation, To improve muscle performance and motor function, To improve ability to perform ADL's, To improve health of tissue and To decrease soft tissue restriction Last Seen Last Seen: This patient was last seen in our office . Pertinent comments regarding their Physical therapy willappear below: Patient was seen for PT ruptured disc doing fairly well ,managing symptoms thus d/c At this point I will be discontinuing this patient from physical therapy. I would be happy to see this patient again in the future if found appropriate by the physician. Thank you! Darnell Renner, PT, Cert MDT, OCS Balance/Gait/Functional tests Balance/Special Test Scores Oswestry Low Back Score: 27 06/10/25 1825 CC: Dr. Camilla Kay DO ~ JLA Signed [facility]09-03-[address], [address] [place] [address] OFFICE VISIT Date of Service: 06/05/25 MR#: [id number] Acct: [id number] Name: PRASHANT MORAN Rep #: [id number] : 1980 Provider: Dr. Shayy Torres DO Age/Sex: 44/F Location: [facility] Status: Signed Intake Vital Signs 02/13/25 10:26 05/06/25 10:57 06/05/25 13:07 06/05/25 13:08 Height 5 ft 5 in 5 ft 5 in 5 ft 5 in 5 ft 5 in Weight: 127 lb BMI 21.1 BP 107/67 Intake Visit Reasons: 6 wk hysterectomy Boiling Off Winder Required: No Is patient in pain?: No Allergies No Known Allergies Allergy (Verified 06/05/25 13:06) Medications ?Medication ?Instructions ?Recorded ?Confirmed ?Type NK 05/06/25 06/05/25 History Post menopausal: No Patient : No : No [facility] Medical History Dysmenorrhea Menorrhagia Low iron Injury of back Alcohol use Non-smoker Normal Holter exam Surgical History History of robot-assisted laparoscopic hysterectomy (04/23/25) History of endometrial ablation History of salpingectomy [...] home: Yes additional social history: - 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 She states that she is feeling much better. back to normal activity. pathology: terus, cervix, post endometrial ablation syndrome, dysmenorrhea, total robotic hysterectomy: - Cervix: mild hyperkeratosis, dilated endocervical glands. - Endometrium: focal endometrial hyperplasia without atypia. - Myometrium: adenomyoma (1.2 cm), subserosal adenomyosis History 2 Elective abortions Hx Para 2 Spontaneous abortions Hx # Term Pregnancies Ectopic pregnancies Hx # Pregnancies Multiple births # of living children 2 Past Pregnancies Del. Date Name GA/Weeks Outcome Route Bth Weight Gen Labor Lgth Anesthesia Del Locatn Provider FOB 02/11/09 Rebeca 09/03/10 Jason ISAMAR ENT ENT: Reports system reviewed and no additional complaints, except as documented Cardio Card: Reports system reviewed and no additional complaints, except as documented Resp Resp: Denies cough, dyspnea or dyspnea on exertion GI GI: Denies abdominal pain, bloating or change in bowel habits : Denies vaginal odor or vaginal pruritus Details: lochia is mild Musc Musc: Reports system reviewed and no additional complaints, except as documented Exam Const General: cooperative, healthy appearing and comfortable Resp Effort & Inspection: normal respiratory effort GI Palpation: soft and nontender Rectal Exam: other Other: cuff is intact and suture is dissolving. no bleeding or signs of infection Extrem General: no edema Coding Level of Care Code No Charge Diagnoses History of robot-assisted laparoscopic hysterectomy Z90.710 Assessment and Plan Assessment and Plan (1) History of robot-assisted laparoscopic hysterectomy: Status: Acute Comment: JV Plan: healing well. restrictions lifted RTO in 1 year. Plan Details Goals & Barriers: Goals Decrease pain Decrease spasm Improve sleep Improve ability to perform ADLs Barriers Work posture 06/05/25 1327 e Velde DO> Date _ Patsy Torres DO Cosigner Signature: Date (if applicable) CC: ~ [facility]08-04-2025 Radiology Diagnostic study note [facility] Imaging Services [address] [place] [address] Abdomen/Pelvis W IV Cont ONLY MR#: [id number] Acct: [id number] Name: PRASHANT MORAN Rep #: [id number] : 1980 F 44 From: Lenny Rollins MD PCP: Dr. 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 History of prior endometrial ablation. TECHNIQUE: ABDOMEN/PELVIS W IV CONT ONLY Coronal and Sagittal reconstruction series were provided. CONTRAST: Isovue-300 VOLUME: 100 mL One or more dose reduction techniques were used (e.g., Automated exposure control, adjustment of the mA and/or kV according to patient size, use of iterative reconstruction technique. RADIATION DOSE SUMMARY: CTDlvol: 13.8 mGy DLP: 329.64 mGycm COMPARISON: None FINDINGS: Lung bases: The lung bases are clear. The heart is nonenlarged. No coronary artery calcification isseen. Liver: Minimal degree of edematous changes in the portal triads. This may represent early inflammatory process. Gallbladder: No gallstones are seen. Spleen: Normal size. Pancreas: Normal size without evidence of mass surrounding inflammation or ductal dilation. Adrenals: Unremarkable Kidneys: Normal renal sizes. No hydronephrosis. Bladder: The urinary bladder is unremarkable. Reproductive Organs: The patient is status post hysterectomy. Bowel: Nonspecific bowel pattern Appendix: Unremarkable Lymph nodes: Unremarkable. Vasculature: The abdominal aorta and IVC are normal. Peritoneum / Retroperitoneum: Unremarkable Bones: Unremarkable CT/Abdomen/Pelvis W IV Cont ONLY IMPRESSION: Minimal degree of edematous changes in the portal triads. This may represent early inflammatory process. Status post hysterectomy. Reading Location: [id number] CC: Dr. Kurt Richardson DO; Dr. Camilla Kay DO ~ Fisher Eel Spear: Signed [facility]07-22-2025 Consult note [facility] Medical Records Department [address] [place] [address] Anesthesia Postop Eval II 04/23/25 1007 MR#: [id number] Acct: [id number] Name: PRASHANT MORAN Rep #:[id number] : 1980 44 From: Emilio Collins PCP: Dr. Camilla Kay, DO Status:REG SDC Y Race: C Location: [place] [address] Anesthesia Postop Eval I Sum Postop Eval Completion status Anesthesia document: Postop Eval 1 completed: Yes Anesthesia Postop Eval I Summary Anesthesia Postop Eval I Summary: Anesthesia Postop Eval I: Assessment Summary Airway patent Yes 04/23/25 09:42 [email or web address] Spontaneous unlabored Yes 04/23/25 09:42 [email or web address] [email or web address].SHOF respirations Mental status Awake 04/23/25 09:42 [email or web address].SHOF nausea No 04/23/25 09:42 BUGGY DRIVER.SHOF Vomiting No 04/23/25 09:42 BUGGY [email or web address].SHOF Anesthesia Postop Eval I: Fluid Summary Crystalloid volume administer 1,000 04/23/25 09:42 BUGGY DRIVER.SHOF (ml) Colloids volume administered ( ml) Blood Product volume administered (ml) Total IV fluid infused 1,000 04/23/25 09:42 BUGGY [email or web address].SHOF Anesthesia Postop Eval I: Summary Notes Anesthesia Complication No 04/23/25 09:42 [email or web address] [email or web address].SHOF Anesthesia Complication Comment: Post-operative progress note Anesthesia: Postop Eval II Evaluation Mental status: Awake and Calm Pain Level: 0 nausea: No Vomiting: No Complications Anesthesia Complication: No 04/23/25 1007 MD> Date _ Emilio Henriquez MD Cosigner Signature: Date CC: ~ Signed [facility]07-22-2025 Consult note Author Emilio Henriquez [facility] Note Date/Time April 23, 2025 1:40 pm [facility] Medical Records Department [address] [place] [address] Anesthesia Postop Eval II 04/23/25 1007 MR#: [id number] Acct: [id number] Name: PRASHANT MORAN Rep #:[id number] : 1980 44 From: Emilio Collins PCP: Dr. Camilla Kay, DO Status:REG SDC Y Race: C Location: [place] [address] Anesthesia Postop Eval I Sum Postop Eval Completion status Anesthesia document: Postop Eval 1 completed: Yes Anesthesia Postop Eval I Summary Anesthesia Postop Eval I Summary: Anesthesia Postop Eval I: Assessment Summary Airway patent Yes 04/23/25 09:42 [email or web address] Spontaneous unlabored Yes 04/23/25 09:42 BUGGY DRIVER.SHOF respirations Mental status Awake 04/23/25 09:42 BUGGY DRIVER.SHOF nausea No 04/23/25 09:42 BUGGY DRIVER.SHOF Vomiting No 04/23/25 09:42 BUGGY DRIVER.SHOF Anesthesia Postop Eval I: Fluid Summary Crystalloid volume administer 1,000 04/23/25 09:42 BUGGY DRIVER.SHOF (ml) Colloids volume administered ( ml) Blood Product volume administered (ml) Total IV fluid infused 1,000 04/23/25 09:42 BUGGY DRIVER.SHOF Anesthesia Postop Eval I: Summary Notes Anesthesia Complication No 04/23/25 09:42 BUGGY [email or web address].SHOF Anesthesia Complication Comment: Post-operative progress note Anesthesia: Postop Eval II Evaluation Mental status: Awake and Calm Pain Level: 0 nausea: No Vomiting: No Complications Anesthesia Complication: No 04/23/25 1007 <Electronically signed by Emilio Henriquez MD> Date _ Emilio Henriquez MD Cosigner Signature: Date CC: ~ Signed [facility] Work Phone: 1(779) 676-155907-22-2025 Consult note Author Scooter Steen [facility] Note Date/Time April 23, 2025 9:42 am [facility] Medical Records Department [address] [place] [address] Anesthesia Postop Eval I 04/23/25940 MR#: [id number] Acct: [id number] Name: DEANPRASHANT JEFF Rep #:[id number] : 1980 44 From: Scooter Steen CRNA PCP: Dr. Camilla Kay, DO Status:REG SDC Y Race: C Location: [place] [address] Anesthesia: Postop Eval I Current Vital Signs Temperature: 97.1 F Pulse Rate: 92 Blood Pressure: 106/64 Respiratory Rate: 16 Pulse Ox: 99 Oxygen Delivery Method: Room Air Assessment Airway patent: Yes Spontaneous unlabored respirations: Yes Mental status: Awake nausea: No Vomiting: No Anesthesia Complication: No Fluid Hydration Crystalloid volume administer (ml): 1,000 Total IV fluid infused: 1,000 Progress Note Anesthesia document: Postop Eval 1 completed: Yes 04/23/25941 <Electronically signed by Scooter summers CRNA> Date _ Scooter Steen CRNA Cosigner Signature: Date CC: ~ Signed [facility] Work Phone: 1(699) 251-197707-22-2025 Consult note [facility] Medical Records Department [address] [place] [address] [place] [address] Anesthesia Postop Eval I 04/23/25940 MR#: [id number] Acct: [id number] Name: DEANPRASHANT AGUILAR Rep #:[id number] : 1980 44 From: Scooter Steen CRNA PCP: Dr. Camilla Kay, DO Status:REG SDC Y Race: C Location: [place] [address] Anesthesia: Postop Eval I Current Vital Signs Temperature: 97.1 F Pulse Rate: 92 Blood Pressure: 106/64 Respiratory Rate: 16 Pulse Ox: 99 Oxygen Delivery Method: Room Air Assessment Airway patent: Yes Spontaneous unlabored respirations: Yes Mental status: Awake nausea: No Vomiting: No Anesthesia Complication: No Fluid Hydration Crystalloid volume administer (ml): 1,000 Total IV fluid infused: 1,000 Progress Note Anesthesia document: Postop Eval 1 completed: Yes 04/23/25 0942 an BUGGY DRIVER> Date _ Scooter Steen BUGGY DRIVER Cosigner Signature: Date CC: ~ Signed [facility]07-22-2025 Procedure note [facility] Medical Records Department [address] [place] [address] Operative Report 04/23/25 0738 MR#: [id number] Acct: [id number] Name: PRASHANT OMRANTH Rep #:[id number] : 1980 44 From: Patsy Torres DO PCP: Dr. Camilla Kay DO Status:[facility] Location: [place] [address] Problems Associated Problem List Diagnoses (1) Post endometrial ablation syndrome: (2) Dysmenorrhea: (3) Right ovarian cyst: Multi Select Codes Urinary/Genital Urinary/Genital CPT Codes: 14068 Cystoscopy and 16937 TLH <250gr uterus Operative Report (Standard) Operative Information Date of Procedure: 04/23/25 Pre-Operative Diagnosis: post-ablation syndrome, pelvic pain, ovarian nodule Post-Operative Diagnosis: post-ablation syndrome, pelvic pain, ovarian nodule Surgery/Procedure Performed: total robotic hysterectomy, cystoscopy burglar alarm mechanic: Yes Neurology Manager: Isidro Huerta Tasks completed by hospital clinic assistant: Closing, Trocar and Other (irrigation, insertion of robotic instruments ) Additional title assistant?: No Type of Anesthesia: General RN Documented Start/Stop Times: Operation Date: 04/23/25 07:30 Case Time Into Pre-Op 04/23/25 06:14 Out of Pre-Op 04/23/25 07:25 Anesthesia Start 04/23/25 07:29 Into Room 04/23/25 07:29 Procedure Start 04/23/25 07:56 Procedure Start Time: 07:56 Procedure Stop Time: 09:21 Select all DRAINS/GRAFTS/IMPLANTS that apply: None Estimated Blood Loss: 30cc Fluids Replaced: 1000cc Specimen collected: Yes Description of specimen(s) removed: uterus and cervix Description of surgery: P Findings: 8 cm size uterus, normal appearing ovaries and tubes. On exploration of the abdominal cavity the uterus, adnexa, bowel, and liver were found to be normal. Cystoscopy showed no evidence of leaking at approximately 250 cc of normal saline, positive ureteral orifices and jet flow are seen and no suture material was appreciated in the bladder. Specimens removed: Uterus and cervix, [Bilateral tubes and ovaries] Reason for surgery: This is a 44year-old G3, P2 who presented to my office with history of post ablation syndrome. the planned procedure is for a robotic hysterectomy the risks benefits and alternatives were discussed with the patientthe patient had a clear understanding of the procedure and a consent form was signed. Procedure: The patient was placed in the dorsal low lithotomy position and prepped and draped in the normal sterile fashion both abdominally and in the perineum. Her legs were placed in stirrups a Cheng catheter was inserted into the urethra without difficulty. A weighted speculum was placed in the vagina blaine single- tooth tenaculum was used to grasp the anterior lip of the cervix. An advincula uterine manipulator was inserted through the cervix without complication. It wasthen tied into place at the 2 and 10:00 locations on the cervix. Gloves were changed and attention was turned towards the abdomen. Approximately 23 cm above the pubic symphysis in the midline, and after Marcaine injection, a 8 mm in cision was made. An 8 mm trocar was inserted through the laparoscope, then inserted into the abdomen under direct visualization using the laparoscope. Good abdominal placement was noted and no complications were appreciated. An air seal device was utilized to create pneumoperitoneum. At 12 cm lateral to the midline on the left and right sides 8 mm accessory ports were placed. Next a left upper quadrant 8 mm title assistant port site was placed. The patient was placed in steep Trendelenburg position. The robot was docked. The hysterectomy was initiated first by taking down the round ligament on each side using the vessel sealer device. The fallopian tubes were noted to be surgically absent. The left ovary was found to have a small less than 1 cm cystic structure that was grasped with the vessel sealer and gently cauterized. There was a similar cyst on the right ovary and this was also ruptured and cauterized clear fluid returned from both sides. The broad ligament was then and taken down using the vessel sealer device. Nextthe bladder flap was taken down without complication. This was done using monopolar cautery to the level of the cervical vaginal junction. After the bladder flap was created,uterine vessels were thenisolated and cauterized using the vessel sealer deviceand EndoShears. At this point the uterine vessels were taken down further starting from the ascending branch, dissecting along the edges of the cervix to the level of the cervical vaginal junction with hemostasis appreciated. The cervical vaginal junction was then using monopolar cautery in a circumferential pattern across the superior aspect of the cervix. The specimen was delivered through the vagina and sent to pathology. The remaining vaginal cuff was then closed using a V lock suture. This was performed in a running technique. Excellent hemostasis was obtained and good closure was noted. Irrigation was then performed. All operative sites were noted to be hemostatic. A cystoscopy was performed with a 70 degree cystoscope through the urethra into the bladder withoutcomplication. The bladder was instilled with approximately 250 cc of normal saline. Intraoperative images were made. Ureteral orifices and jets were identified. No suture material was appreciated in the bladder. The bladder was then drained and cystoscope was removed. The abdominal cavity was again examined using the laparoscope after the robot was undocked. All operative sites were noted to be hemostatic. The trochars were removed under direct visualization without complication and pneumoperitoneum was reduced. At this point the skin was then closed using 4-0 Monocryl subcuticular stitch and sealed with surgical glue. The patient tolerated the procedure well s ponge lap and needle counts were correct x2 the patient was taken to the recovery room in stable condition. Surgical Findings: Stenotic cervix, bilateral functional appearing cysts on the ovaries. Complications Complications: No Admit VTE Documentation VTE Present on Admission: No VTE Mechan Device Prophylaxis: SCD's VTE Pharm Prophylaxis ordered?: No Reason prophylaxis not ordered: Treatment Not Indicated 04/23/25 6212 Cosigner Signature (if applicable): CC: Dr. Patsy Torres, DO; Dr. Camilla Kay DO~ Signed [facility]07-22-2025 Discharge summary Author Patsy Davis [facility] Note Date/Time April 23, 2025 7:21 am [facility] Medical Records Department [address] [place] [address] Instructions for Home/Discharge Instructions 04/23/25 0715 MR#: [id number] Acct: [id number] Name: PRASHANT MORAN Rep #:[id number] : 1980 44 From: Patsy Torres DO PCP: Dr. Camilla Kay DO Status:REG SDC Discharge Instructions DC O2, CPAP, BIPAP needs Home O2 Discharge instructions: No Dressing / Incision Discharge Activity: May Shower May resume sexual activity in: 8 weeks Weight Bearing Status: Full weight bearing Lifting Restrictions: 10 pounds for 2 weeks Dressing / Incision Call your doctor if your incision/area has: Continuous Slow Oozing, Sudden Increased Bleeding, Increased Pain/ Swelling, Increased Redness and Foul Smelling Discharge Call your doctor if you observe: Fever of 101 or Higher, Using more than 1 pad per hour, Shortness of breath, Chest pain and Uncontrolled pain Suture Line Care: Avoid Pulling/Pushing and Avoid Pinching/Bending Remove Dressing in: 1 week (if present) Cleanse incision/area with: Soap & Water and Keep Dressing Clean & Dry Follow Up Care Please Follow Up With: Patsy Torres DO When: Call to make an appointment with your doctor for a postop visit in 2 and 6weeks Test Results: Test results from this visit will be discussed in further detail at your follow- up appointment, if applicable. Discharge Plan Admission Primary Reason for Your Visit: hysterectomy Attending Provider: Patsy Torres Primary Care Provider: Camilla Kay Print Language: Nepalese Discharge Orders/Prescriptions Prescriptions: New ibuprofen 800 mg tablet 800 mg PO Q8H PRN (Reason: pain) Qty: 30 0RF ondansetron HCl 4 mg tablet 4 mg PO Q6H PRN (Reason: nausea and vomiting) Qty: 20 0RF oxycodone-acetaminophen [Percocet] 5-325 mg tablet 1 tab PO Q4H PRN (Reason: pain) 7 Days Qty: 20 0RF No Action multivitamin Tablet 1 tab PO QDAY Referrals / Follow Up: Camilla Kay DO [Primary Care Provider] - Disposition Disposition (needs filled in before D/C Order can be placed): Home, Self Care 04/23/25720<Electronically signed by Patsy Torres DO>Patsy Torres DO CC: Dr. Camilla Kay, ~ Signed [facility] Work Phone: 1(696) 950-926907-22-2025 History and physical note [facility] Note Date/Time April 23, 2025 7:08 am [facility] Medical Records Department [address] [place] [address] History & Physical Exam 04/23/25706 MR#: [id number] Acct: [id number] Name: PRASHANT MORAN Rep #:[id number] : 1980 44 From: Patsy Torres DO PCP: Dr. Camilla Kay DO [place] [facility] [place] [address] History and Physical Date of Admission: 04/23/25 Intake Vital Signs 02/13/2510:26 04/15/2510:41 04/15/2510:42 Height 5 ft 5 in 5 ft 5 in 5 ft 5 in Weight: 131 lb 6 oz 125 lb 4 oz BMI 21.8 20.8 BP 109/69 118/73 Intake Visit Reasons: TRH possible right ooph possible cystectomy Chief Complaint: Preop TRH Boiling Off Winder Required: No Is patient in pain?: No Allergies No Known Allergies Allergy (Verified 04/15/25 10:41) Medications ?Medication ?Instructions ?Recorded ?Confirmed ?Type multivitamin 1 tab PO QDAY 02/13/25 04/15/25 History Post menopausal: No Patient : No : No PFSH Medical History Low iron Injury of back Alcohol use Non-smoker Normal Holter exam Surgical History History of endometrial ablation History of salpingectomy History of removal of skin mole History of wisdom tooth extraction History of tonsillectomy Family History Brother Myocardial infarction, Onset Age: 49 super healthy Heart disease Hypertension HyperlipemiaMother Basal cell carcinoma HypertensionFather Heart disease Hypertension HyperlipemiaGrandmother Heart disease DiabetesUncle Diabetes Social History household members: spouse housing: [...] home: Yes additional social history: - 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 She had anablation and a laparoscopic tubal ligation in 2021 [...] 2 vaginal deliveries and is Lionel at [employer]'s . 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 Nl CA 125. Rpt 4 wk Orders: Orders ,Urine Today N94.6 - Dysmenorrhea, unspecified, Z41.9 - Encounter for procedure for purposes other than remedying health state, unspecified Plan After discussing the patient's diagnosis and treatment plan options, patient wishes to proceed with surgical management. I have discussed with the patient the risks, benefits, and alternatives of the procedure which include but are notlimited to risks of anesthesia, bleeding, infection, possible damage to bowel, bladder, or surrounding vasculature which could lead to additional surgery to evaluate any complications. Patient agrees to procedure and wishes to proceed. ACOG/uptodate references given for additional information regarding procedure. plan is for a total robotic hysterectomy, bs,possible right cystectomy or oophorectomy (if still there), and cystoscopy. 04/23/25 0708 <Electronically signed by Patsy Vande Velde DO> Cosigner Signature (if applicable): CC: Dr. Patsy Torres DO; Dr. Camilla Kay DO~ Signed [facility] Work Phone: 1(661) 678-247007-22-2025 Consult note Author Emilio Henriquez [facility] Note Date/Time April 23, 2025 6:58 am [facility] Medical Records Department [address] [place] [address] Pre-Anesthesia Evaluation 04/23/25 0655 MR#: [id number] Acct: [id number] Name: PRASHANT MORAN Rep #:[id number] : 1980 44 From: Emilio Collins PCP: Dr. Camilla Kay DO Status:REG SDC Y Race: C Location: [place] [address] ASA Classification* ASA Classification ASA Classification: 1 Assessment & Plan Anesthesia* Anesthesia Assessment Anesthesia Assessment: Discussed sedation and/or anesthesia options, risks, benefits, and alternatives with patient/parents/legal guardian/POA. Questions invited. The patient/parents/legal guardian/POA seems to understand and agrees to proceedwith anesthesia plan. Reviewed the physical assessment, medical history, allergy history and patient home medications list prior to surgery/procedure/anesthetic and documented any changes. Performed airway and anesthesia risk assessments. Anesthesia Type Anesthesia Type: General History Source History Obtained from:: Patient and Chart Anesthesia Focused Assessment* Temperature: 98.1 F Pulse Rate: 75 Blood Pressure: 91/68 Respiratory Rate: 12 Pulse Ox: 99 Airway Assessment Mouth opens: >3 cm Mallampati Score: I Teeth Condition: Intact Neck Range of motion (ROM): Full ROM Labs Anesthesia Preop lab: CBC WBC 5.8 K/mm3 (4.4-11.0) 04/15/25 11:04/15/25 RBC 3.94 M/mm3 (4.2-5.4) L 04/15/25 11:24 04/15/25 Hgb 13.0 g/dL (12.0-15.0) 04/15/25 11:24 04/15/25 Hct 39.2 % (37-47) 04/15/25 11:24 04/15/25 Plt Count 272 K/mm3 (150-450) 04/15/25 11:24 04/15/25 CHEMISTRY Potassium 3.9 mmol/L (3.5-5.1) 04/13/23 15:52 04/13/23 Sodium 137 mmol/L (136-145) 04/13/23 15:52 04/13/23 Magnesium 2.3 mg/dL (1.5-2.2) H 04/15/25 11:23 04/15/25 BUN 16 mg/dL (7-18) 04/13/23 15:52 04/13/23 Creatinine 0.63 mg/dL (0.55-1.02) 04/13/23 15:52 04/13/23 Glucose 79 mg/dL (74-106) 04/13/23 15:52 04/13/23 TSH 2.17 uIU/mL (0.358-3.74) 03/09/19 09:31 COAG PT 13.4 SECONDS (11.7-14.9) 01/20/22 10:53 Urine Test Negative Negative 04/23/25 06:00 04/23/25 Pre-Assessment Diagnosis/Proposed Procedure Planned Operative Procedure(s): LAP TOTAL ROBOTIC HYSTERECTOMY POSS RIGHT OOPHERECTOMY POSS CYSTECTOMY POSS CYSTO Anesthesia History Anesthesia History - registered nurse first assistant: Anesthesia History - registered nurse first assistant Hx Hospitalization No 04/10/25 14:16 Any Problems With Anesthesia No 04/10/25 14:16 Cholinesterase deficiency No 04/10/25 14:16 You/Your Family Experience No 04/10/25 14:16 fever (hyperthermia) with Relationship Recent Exposure to Contagious No 04/23/25 06:25 Disease Does patient have nerve No 04/10/25 14:16 stimulator Patient instructed to have device shut off --Does patient have Pacemaker No 04/23/25 06:25 or ICD? When Was Last Pacemaker Check QUESTION #4 FULL TEXT: You/Your Family Experience fever (hyperthermia) with Anesthesia Any additional information?: No Last Oral Intake Last Oral intake: Last Oral Intake NPO since 04:00 04/23/25 06:25 Meds taken in AM with sips of No 04/23/25 06:25 water? Meds patient instructed to take am of surgery Any additional information?: No PONV PONV - registered nurse first assistant: PONV - registered nurse first assistant Female Yes 04/10/25 14:16 HX of Motion Sickness No 04/10/25 14:16 HX of N/V After Surgery No 04/10/25 14:16 Non-Smoker Yes 04/10/25 14:16 Duration of Surgery greater Yes 04/10/25 14:16 than 60 minutes Number of Risk Factors 3 04/10/25 14:16 PONV Score Moderate Risk 04/10/25 14:16 Any additional information?: No Height & Weight Height & Weight: Anesthesia: Height & Weight Height 5 ft 5 in 04/23/25 06:25 Weight: 58.3 kg 04/23/25 06:25 Body Mass Index (BMI) 21.4 04/23/25 06:25 Respiratory Assessment Respiratory Assessment - registered nurse first assistant: Respiratory Tract Infection Hx - registered nurse first assistant Hx Respiratory Tract Infection No 04/10/25 14:16 Any additional information?: No STOP Sleep Apnea STOP Sleep Apnea - registered nurse first assistant: STOP Sleep Apnea - registered nurse first assistant Hx Hypertension No 04/10/25 14:16 Hx Sleep Apnea No 04/10/25 14:16 CPAP BIPAP Do you snore loudly (louder No 04/10/25 14:16 than talking or can be heard Do you often feel tired/ No 04/10/25 14:16 fatigued/ sleepy during daytime? Has anyone observed you stop No 04/10/25 14:16 breathing during sleep? STOP Results Negative 04/10/25 14:16 QUESTION #5 FULL TEXT : Do you snore loudly (louder than talking or can be heard through closed doors)? 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 Specify any problems Hx of Preganancy in last 3 No 04/10/25 14:16 Months Nurse Filling Out Transfusion DSCHRIBER 04/10/25 14:16 & Questions: Date: 04/10/25 04/10/25 14:16 Time: 14:17 04/10/25 14:16 Patient unable to answer at this time (ie. confused, unrespo Any additional information?: No /Reproduction History /Reproductive History - registered nurse first assistant: /Reproductive Hx- registered nurse first assistant Hx Now No 04/10/25 14:16 Gestational Age (in weeks): EDC: Hx Hx Para Hx Section SAB No 04/15/25 10:42 Any additional information?: No Active Medications Active Medications: Current Medications Generic Name Dose Route Start Last Admin Trade Name Freq PRN Reason Stop Dose Admin Acetaminophen 1,000 mg 04/23/25 09:55 04/23/25 06:33 Acetaminophen 500 Mg Tablet PO 04/23/25 09:56 1,000 mg PREOP ONE Administration Celecoxib 400 mg 04/23/25 09:55 04/23/25 06:33 Celecoxib 200 Mg Capsule PO 04/23/25 09:56 400 mg PREOP ONE Administration Gabapentin 600 mg 04/23/25 09:55 04/23/25 06:34 Gabapentin 600 Mg Tablet PO 04/23/25 09:56 600 mg PREOP ONE Administration Lactated Ringer's 1,000 mls @ 40 mls/hr 04/23/25 09:55 04/23/25 06:16 IV 40 mls/hr .Q25H BRIANNA Administration Cefazolin Sodium 2 gm/ Sodium 110 mls @ 150 mls/hr 04/23/25 09:55 Chloride IV 04/23/25 10:38 INTRAOP ONE Lactated Ringer's 1,000 mls @ 70 mls/hr 04/23/25 09:55 IV .[id number] BRIANNA Magnesium Sulfate 1 gm/ 102 mls @ 408 mls/hr 04/23/25 09:55 04/23/25 06:16 Dextrose IV 04/23/25 10:09 408 mls/hr PREOP ONE Administration Insulin Human Lispro 0 unit 04/23/25 09:55 Insulin Lispro 100 Unit/Ml Insuln.Pen SC 04/23/25 16:00 Q4H PRN PRN BG >/= 180, SEE PROTOCOL Protocol Ondansetron HCl 4 mg 04/23/25 09:55 Ondansetron 4 Mg/2 Ml Vial IV 04/23/25 09:56 INTRAOP ONE Phenazopyridine HCl 190 mg 04/23/25 09:55 04/23/25 06:34 Phenazopyridine 95 Mg Tablet PO 04/23/25 09:56 190 mg PREOP ONE Administration Scopolamine HBr 1 patch 04/23/25 09:55 Scopolamine 1mg/72hr Patch TD 04/23/25 09:56 PREOP ONE [facility] Medical History Low iron Injury of back Alcohol use Non-smoker Normal Holter exam Home Medications ?Medication ?Instructions ?Recorded ?Last Taken ?Type multivitamin 1 tab PO QDAY 02/13/2504/20 History Allergy/AdvReac Type Severity Reaction Status Date / Time No Known Allergies Allergy Verified 04/23/25 06:14 Family History Brother Myocardial infarction, Onset Age: 49 super healthy Heart disease Hypertension Hyperlipemia Mother Basal cell carcinoma Hypertension Father Heart disease Hypertension Hyperlipemia Grandmother Heart disease Diabetes Uncle Diabetes Surgical History History of endometrial ablation History of salpingectomy History of removal of skin mole History of wisdom tooth extraction History of tonsillectomy Social History household members: spouse housing: house number of children: 2 current occupational status: employed 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 04/23/2558 <Electronically signed by Emilio Henriquez MD> Date _ Emilio Llamas Signature: Date CC: ~ Signed [facility] Work Phone: 1(601) 722-940807-22-2025 Discharge summary [facility] Medical Records Department [address] [place] [address] Instructions for Home/Discharge Instructions 04/23/25 0715 MR#: [id number] Acct: [id number] Name: PRASHANT MORAN Rep #:[id number] : 1980 44 From: Patsy Torres DO PCP: Dr. Camilla Kay DO Status:REG SDC Discharge Instructions DC O2, CPAP, BIPAP needs Home O2 Discharge instructions: No Dressing / Incision Discharge Activity: May Shower May resume sexual activity in: 8 weeks Weight Bearing Status: Full weight bearing Lifting Restrictions: 10 pounds for 2 weeks Dressing / Incision Call your doctor if your incision/area has: Continuous Slow Oozing, Sudden Increased Bleeding, Increased Pain/ Swelling, Increased Redness and Foul Smelling Discharge Call your doctor if you observe: Fever of 101 or Higher, Using more than 1 pad per hour, Shortness of breath, Chest pain and Uncontrolled pain Suture Line Care: Avoid Pulling/Pushing and Avoid Pinching/Bending Remove Dressing in: 1 week (if present) Cleanse incision/area with: Soap & Water and Keep Dressing Clean & Dry Follow Up Care Please Follow Up With: Patsy Torres DO When: Call to make an appointment with your doctor for a postop visit in 2 and 6weeks Test Results: Test results from this visit will be discussed in further detail at your follow- up appointment, if applicable. Discharge Plan Admission Primary Reason for Your Visit: hysterectomy Attending Provider: Patsy Torres Primary Care Provider: Camilla Kay Instructions Print Language: Nepalese Discharge Orders/Prescriptions Prescriptions: New ibuprofen 800 mg tablet 800 mg PO Q8H PRN (Reason: pain) Qty: 30 0RF ondansetron HCl 4 mg tablet 4 mg PO Q6H PRN (Reason: nausea and vomiting) Qty: 20 0RF oxycodone-acetaminophen [Percocet] 5-325 mg tablet 1 tab PO Q4H PRN (Reason: pain) 7 Days Qty: 20 0RF No Action multivitamin Tablet 1 tab PO QDAY Referrals / Follow Up: Camilla Kay DO [Primary Care Provider] - Disposition Disposition (needs filled in before D/C Order can be placed): Home, Self Care 04/23/25 0721Jefernando Torres DO CC: Dr. Camilla Kay DO ~ Signed [facility]07-22-2025 History and physical note [facility] Medical Records Department [address] [place] [address] History & Physical Exam 04/23/25 0707 MR#: [id number] Acct: [id number] Name: PRASHANT MORAN Rep #:[id number] : 1980 44 From: Patsy Torres DO PCP: Dr. Camilla Kay DO Status:[facility] Location: [place] [address] History and Physical Date of Admission: 04/23/25 Intake Vital Signs 02/13/2510:26 04/15/2510:41 04/15/2510:42 Height 5 ft 5 in 5 ft 5 in 5 ft 5 in Weight: 131 lb 6 oz 125 lb 4 oz BMI 21.8 20.8 BP 109/69 118/73 Intake Visit Reasons: TRH possible right ooph possible cystectomy Chief Complaint: Preop TRH Boiling Off Winder Required: No Is patient in pain?: No Allergies No Known Allergies Allergy (Verified 04/15/25 10:41) Medications ?Medication ?Instructions ?Recorded ?Confirmed ?Type multivitamin 1 tab PO QDAY 02/13/25 04/15/25 History Post menopausal: No Patient : No : No PFSH Medical History Low iron Injury of back Alcohol use Non-smoker Normal Holter exam Surgical History History of endometrial ablation History of salpingectomy History of removal of skin mole History of wisdom tooth extraction History of tonsillectomy Family History Brother Myocardial infarction, Onset Age: 49 super healthy Heart disease Hypertension HyperlipemiaMother Basal cell carcinoma HypertensionFather Heart disease Hypertension HyperlipemiaGrandmother Heart disease DiabetesUncle Diabetes Social History household members: spouse housing: [...] home: Yes additional social history: - 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 She had anablation and a laparoscopic tubal [place] [address] Blaine leo. There was no mention of endometriosis in the operative note but she has moderate pelvic pain and back pain. She is seeing chiropractors and PT, etcfor her back pain. She also has a nodule on the right ovary that we are following and that side is very painful, enough to keep her up at night. She had 2 vaginal deliveries and is Lionel at [employer] [facility]'s . She states that she has [...] 1.9 cm. 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 Nl CA 125. Rpt 4 wk Orders: Orders ,Urine Today N94.6 - Dysmenorrhea, unspecified, Z41.9 - Encounter for procedure for purposes other than remedying health state, unspecified Plan After discussing the patient's diagnosis and treatment plan options, patient wishes to proceed withsurgical management. I have discussed with the patient the risks, benefits, and alternatives of theprocedure which include but are notlimited to risks of anesthesia, bleeding, infection, possible damage to bowel, bladder, or surrounding vasculature which could lead to additional surgery to evaluate any complications. Patient agrees to procedure and wishes to proceed. ACOG/uptodate references given for additional information regarding procedure. plan is for a total robotic hysterectomy, bs,possible right cystectomy or oophorectomy (if still there), and cystoscopy. 04/23/25 0708 Cosigner Signature (if applicable): CC: Dr. Patsy Torres, DO; Dr. Camilla Kay, DO~ Signed [facility]07-22-2025 [facility] Medical Records Department [address] [place] [address] History Physical Exam 04/23/25 0707 MR#: [id number] Acct: [id number] Name: PRASHANT MORAN Rep #: [id number] : 1980 44 From: Patsy Torres DO PCP: Dr. Camilla Kay DO Status:[facility] Location: [place] [address] History and Physical Date of Admission: 04/23/25 Intake Vital Signs 02/13/2510:26 04/15/2510:41 04/15/2510:42 Height 5 ft 5 in 5 ft 5 in 5 ft 5 in Weight: 131 lb 6 oz 125 lb 4 oz BMI 21.8 20.8 BP 109/69 118/73 Intake Visit Reasons: TRH possible right ooph possible cystectomy Chief Complaint: Preop TRH Boiling Off Winder Required: No Is patient in pain?: No Allergies No Known Allergies Allergy (Verified 04/15/25 10:41) Medications ???Medication ???Instructions ???Recorded ???Confirmed ???Type multivitamin 1 tab PO QDAY 02/13/25 04/15/25 History Post menopausal: No Patient : No : No PFSH Medical History Low iron Injury of back Alcohol use Non-smoker Normal Holter exam Surgical History History of endometrial ablation History of salpingectomy History of removal of skin mole History of wisdom tooth extraction History of tonsillectomy Family History Brother Myocardial infarction, Onset Age: 49 super healthy Heart disease Hypertension HyperlipemiaMother Basal cell carcinoma HypertensionFather Heart disease Hypertension HyperlipemiaGrandmother Heart disease DiabetesUncle Diabetes Social History household members: spouse housing: [...] home: Yes additional social history: - 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 Camilla Kay, DO Status:[facility] Y Race: C Location: [place] [address] ASA Classification* ASA Classification ASA Classification: 1 Assessment & Plan Anesthesia* Anesthesia Assessment Anesthesia Assessment: Discussed sedation and/or anesthesia options, risks, benefits, and alternatives with patient/parents/legal guardian/POA. Questions invited. The patient/parents/legal guardian/POA seems to understand and agrees to proceedwith anesthesia plan. Reviewed the physical assessment, medical history, allergy history and patient home medications list prior to surgery/procedure/anesthetic and documented any changes. Performed airway and anesthesia risk assessments. Anesthesia Type Anesthesia Type: General History Source History Obtained from:: Patient and Chart Anesthesia Focused Assessment* Temperature: 98.1 F Pulse Rate: 75 Blood Pressure: 91/68 Respiratory Rate: 12 Pulse Ox: 99 Airway Assessment Mouth opens: >3 cm Mallampati Score: I Teeth Condition: Intact Neck Range of motion (ROM): Full ROM Labs Anesthesia Preop lab: CBC WBC 5.8 K/mm3 (4.4-11.0) 04/15/25 11:24 04/15/25 RBC 3.94 M/mm3 (4.2-5.4) L 04/15/25 11:24 04/15/25 Hgb 13.0 g/dL (12.0-15.0) 04/15/25 11:24 04/15/25 Hct 39.2 % (37-47) 04/15/25 11:24 04/15/25 Plt Count 272 K/mm3 (150-450) 04/15/25 11:24 04/15/25 CHEMISTRY Potassium 3.9 mmol/L (3.5-5.1) 04/13/23 15:52 04/13/23 Sodium 137 mmol/L (136-145) 04/13/23 15:52 04/13/23 Magnesium 2.3 mg/dL (1.5-2.2) H 04/15/25 11:23 04/15/25 BUN 16 mg/dL (7-18) 04/13/23 15:52 04/13/23 Creatinine 0.63 mg/dL (0.55-1.02) 04/13/23 15:52 04/13/23 Glucose 79 mg/dL (74-106) 04/13/23 15:52 04/13/23 TSH 2.17 uIU/mL (0.358-3.74) 03/09/19 09:31 COAG PT 13.4 SECONDS (11.7-14.9) 01/20/22 10:53 Urine Test Negative Negative 04/23/25 06:00 04/23/25 Pre-Assessment Diagnosis/Proposed Procedure Planned Operative Procedure(s): LAP TOTAL ROBOTIC HYSTERECTOMY POSS RIGHT OOPHERECTOMY POSS CYSTECTOMY POSS CYSTO Anesthesia History Anesthesia History - registered nurse first assistant: Anesthesia History - registered nurse first assistant Hx Hospitalization No 04/10/25 14:16 Any Problems With Anesthesia No 04/10/25 14:16 Cholinesterase deficiency No 04/10/25 14:16 You/Your Family Experience No 04/10/25 14:16 fever (hyperthermia) with Relationship Recent Exposure to Contagious No 04/23/25 06:25 Disease Does patient have nerve No 04/10/25 14:16 stimulator Patient instructed to have device shut off --Does patient have Pacemaker No 04/23/25 06:25 or ICD? When Was Last Pacemaker Check QUESTION #4 FULL TEXT: You/Your Family Experience fever (hyperthermia) with Anesthesia Any additional information?: No Last Oral Intake Last Oral intake: Last Oral Intake NPO since 04:00 04/23/25 06:25 Meds taken in AM with sips of No 04/23/25 06:25 water? Meds patient instructed to take am of surgery Any additional information?: No PONV PONV - registered nurse first assistant: PONV - registered nurse first assistant Female Yes 04/10/25 14:16 HX of Motion Sickness No 04/10/25 14:16 HX of N/V After Surgery No 04/10/25 14:16 Non-Smoker Yes 04/10/25 14:16 Duration of Surgery greater Yes 04/10/25 14:16 than 60 minutes Number of Risk Factors 3 04/10/25 14:16 PONV Score Moderate Risk 04/10/25 14:16 Any additional information?: No Height & Weight Height & Weight: Anesthesia: Height & Weight Height 5 ft 5 in 04/23/25 06:25 Weight: 58.3 kg 04/23/25 06:25 Body Mass Index (BMI) 21.4 04/23/25 06:25 Respiratory Assessment Respiratory Assessment - registered nurse first assistant: Respiratory Tract Infection Hx - registered nurse first assistant Hx Respiratory Tract Infection No 04/10/25 14:16 Any additional information?: No STOP Sleep Apnea STOP Sleep Apnea - registered nurse first assistant: STOP Sleep Apnea - registered nurse first assistant Hx Hypertension No 04/10/25 14:16 Hx Sleep Apnea No 04/10/25 14:16 CPAP BIPAP Do you snore loudly (louder No 04/10/25 14:16 than talking or can be heard Do you often feel tired/ No 04/10/25 14:16 fatigued/ sleepy during daytime? Has anyone observed you stop No 04/10/25 14:16 breathing during sleep? STOP Results Negative 04/10/25 14:16 QUESTION #5 FULL TEXT : Do you snore loudly (louder than talking or can be heard through closeddoors)? 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 Specify any problems Hx of Preganancy in last 3 No 04/10/25 14:16 Months Nurse Filling Out Transfusion DSCHRIBER 04/10/25 14:16 & Questions: Date: 04/10/25 04/10/25 14:16 Time: 14:17 04/10/25 14:16 Patient unable to answer at this time (ie. confused, unrespo Any additional information?: No /Reproduction History /Reproductive History - registered nurse first assistant: /Reproductive Hx- registered nurse first assistant Hx Now No 04/10/25 14:16 Gestational Age (in weeks): EDC: Hx Hx Para Hx Section SAB No 04/15/25 10:42 Any additional information?: No Active Medications Active Medications: Current Medications Generic Name Dose Route Start Last Admin Trade Name Freq PRN Reason Stop Dose Admin Acetaminophen 1,000 mg 04/23/25 09:55 04/23/25 06:33 Acetaminophen 500 Mg Tablet PO 04/23/25 09:56 1,000 mg PREOP ONE Administration Celecoxib 400 mg 04/23/25 09:55 04/23/25 06:33 Celecoxib 200 Mg Capsule PO 04/23/25 09:56 400 mg PREOP ONE Administration Gabapentin 600 mg 04/23/25 09:55 04/23/25 06:34 Gabapentin 600 Mg Tablet PO 04/23/25 09:56 600 mg PREOP ONE Administration Lactated Ringer's 1,000 mls @ 40 mls/hr 04/23/25 09:55 04/23/25 06:16 IV 40 mls/hr .Q25H BRIANNA Administration Cefazolin Sodium 2 gm/ Sodium 110 mls @ 150 mls/hr 04/23/25 09:55 Chloride IV 04/23/25 10:38 INTRAOP ONE Lactated Ringer's 1,000 mls @ 70 mls/hr 04/23/25 09:55 IV .[id number] BRIANNA Magnesium Sulfate 1 gm/ 102 mls @ 408 mls/hr 04/23/25 09:55 04/23/25 06:16 Dextrose IV 04/23/25 10:09 408 mls/hr PREOP ONE Administration Insulin Human Lispro 0 unit 04/23/25 09:55 Insulin Lispro 100 Unit/Ml Insuln.Pen SC 04/23/25 16:00 Q4H PRN PRN BG >/= 180, SEE PROTOCOL Protocol Ondansetron HCl 4 mg 04/23/25 09:55 Ondansetron 4 Mg/2 Ml Vial IV 04/23/25 09:56 INTRAOP ONE Phenazopyridine HCl 190 mg 04/23/25 09:55 04/23/25 06:34 Phenazopyridine 95 Mg Tablet PO 04/23/25 09:56 190 mg PREOP ONE Administration Scopolamine HBr 1 patch 04/23/25 09:55 Scopolamine 1mg/72hr Patch TD 04/23/25 09:56 PREOP ONE PFSH Medical History Low iron Injury of back Alcohol use Non-smoker Normal Holter exam Home Medications ?Medication ?Instructions ?Recorded ?Last Taken ?Type multivitamin 1 tab PO QDAY 02/13/2504/20 History Allergy/AdvReac Type Severity Reaction Status Date / Time No Known Allergies Allergy Verified 04/23/25 06:14 Family History Brother Myocardial infarction, Onset Age: 49 super healthy Heart disease Hypertension Hyperlipemia Mother Basal cell carcinoma Hypertension Father Heart disease Hypertension Hyperlipemia Grandmother Heart disease Diabetes Uncle Diabetes Surgical History History of endometrial ablation History of salpingectomy History of removal of skin mole History of wisdom tooth extraction History of tonsillectomy Social History household members: spouse housing: house number of children: 2 current occupational status: employed 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 04/23/25 0658 > Date _ Emilio Llamas Signature: Date CC: ~ Signed [facility]07-14-2025 Evaluation note* Diagnosis Onset Date Resolution Status Admit Date Post endometrial ablation syndrome acute April 15, 2025 10:25am Right ovarian cyst acute April 022024 10:25am Dysmenorrhea resolved April 15 10:25am Post endometrial ablation syndrome acute April 23, 2025 5:16am Right ovarian cyst acute April 032024 5:16am Dysmenorrhea resolved April 23 5:16am Abdominal pain acute May 10:13am History of robot-assisted laparoscopic hysterectomy April 23, 2025 acute May 06, 2025 10:13am Postop check noneactive May 06, 2025 10:13am History of robot-assisted laparoscopic hysterectomy April 23, 2025 acute Sept2024 1:00pm [facility] Work Phone: 1(969) 987-371606-17-2025 Radiology Diagnostic study note [facility] Imaging Services [address] [place] [address] Pelvic w/ Transvaginal MR#: [id number] Acct: [id number] Name: PRASHANT MORAN Rep #: [id number] : 1980 F 44 From: Lenny Rollins MD PCP: Dr. Camilla Kay DO Status: REG CLI Study:Pelvic w/ Transvaginal Date of Exam: 03/18/25 Exam# [id number] Ordering Dr: Thelma Chakraborty NP PAN DEVULCANIZER HELPER-C PROCEDURE: PELVIC W/ TRANSVAGINAL REASON FOR EXAM: [...] Fibroid change of the uterus. Reading [facility] CC: PAN DEVULCANIZER HELPER-Miguel Angel Chakraborty; Dr. Camilla Kay DO ~ Fisher Eel Spear: Signed [facility]05-14-2025 Evaluation note* Diagnosis Onset Date Resolution Status Admit Date Anemia acute February 13, 2025 9:48am History of salpingectomy acute February 13, 2025 9:48am Pain, coccyx acute February 13 9:48am Post endometrial ablation syndrome acute February 13, 2025 9 :48am Right ovarian cyst acute February 132024 9:48am Dysmenorrhea resolved February 13 9:48am Menorrhagia resolved February 13 9:48am Post endometrial ablation syndrome acute April 15, 2025 10:25am Right ovarian cyst acute April 022024 10:25am Dysmenorrhea resolved April 15, 025 10:25am Post endometrial ablation syndrome acute April 23, 2025 5:16am Right ovarian cyst acute April 032024 5:16am Dysmenorrhea resolved April 23, 5:16am Abdominal pain acute May 10:13am History of robot-assisted laparoscopic hysterectomy April 23, 2025 acute May 06, 2025 10:13am Postop check noneactive May 06, 2025 10:13am History of robot-assisted laparoscopic hysterectomy April 23, 2025 acute Septem 2024 1:00pm [facility] Work Phone: 1(766) 385-998905-05-2025 Radiology Diagnostic study note [facility] Imaging Services [address] [place] [address] Pelvic w/ Transvaginal MR#: [id number] Acct: [id number] Name: PRASHANT MORAN Rep #: [id number] : 1980 F 44 From: Agnieszka Tapia MD PCP: Dr. Camilla Kay, Status: REG CLI Study:Pelvic w/ Transvaginal Date of Exam: 02/04/25 Exam# [id number] Ordering Dr: Thelma Chakraborty PAN DEVULCANIZER HELPER PAN DEVULCANIZER HELPER-C PROCEDURE: PELVIC W/ TRANSVAGINAL, 02/04/2025 REASON FOR EXAM: OVARIAN CYST TECHNIQUE: Grayscale and color doppler transabdominal and transvaginal pelvic ultrasound was performed. COMPARISON: 12/31/2024 FINDINGS: Exam limited by shadowing bowel gas. Uterus: 7.8 x 5.7 x 5.0 cm, Retroflexed. Unremarkable echotexture. Endometrium: 4 mm, echogenic secretory appearance. Cervix: Unremarkable. Right ovary: 2.5 x 1.8 x 1.9 cm. Peripherally vascular solid-appearing structure is redemonstrated,ill-defined and difficult to measure, roughly 1.5 x [...] 2. Additional description as above. Reading Location: [id number] CC: LENORE Chakraborty; Dr. Camilla Kay, DO ~ Fisher Eel Spear: Signed [facility]04-21-2025 NotePap Smear Specimen AdequacyApril 2024 11:59pmComment.Satisfactory for evaluation. Endocervical and/or squamous metaplasticcells (endocervical component)are present.[facility] INTER[facility]ACED A#[id number] Health [facility] Mills HospitalComment on above:Satisfactory for evaluation. Endocervical and/or squamous metaplasticcells (endocervical component)are present.01-21-2025 Evaluation note* Diagnosis Onset Date Resolution Status Admit Date Abnormal mammogram of right breast acute January 21, 2025 9:44am Dysmenorrhea acute January 21, 2025 9:44am Pain, coccyx acute January 21, 2025 9:44am Right ovarian cyst acute January 21, 2025 9:44am Pap smear for cervical cance r screening noneactive January 21, 2025 9:44am [facility] Work Phone: 1(702) 964-184804-21-2025 Evaluation note* Diagnosis Onset Date Resolution Status [...] Right ovarian cyst acute February 132024 9:48am [facility] Work Phone: 1(226) 208-620304-21-2025 Evaluation note* Diagnosis Onset Date Resolution Status [...] Right ovarian cyst acute February 132024 9:48am Dysmenorrhea acute April 15, 025 10:25am Post endometrial ablation syndrome acute April 15, 2025 10:25am Right ovarian cyst acute April 022024 10:25am Dysmenorrhea acute April 23, 025 5:16am Post endometrial ablation syndrome acute April 23, 2025 5:16am Right ovarian cyst acute April 032024 5:16am [facility] Work Phone: 1(788) 636-757704-21-2025 Evaluation note* Diagnosis Onset Date Resolution Status Admit Date Abnormal mammogram of right breast acute January 21, 2025 9:44am Pain, coccyx acute January 21, 2025 9:44am Right ovarian cyst acute January 21, 2025 9:44am Dysmenorrhea resolved January 21, 2025 9:44am Pap smear for cervical cance r screening noneactive January 21, 2025 9:44am Anemia acute February 13, 2025 9:48am History of salpingectomy acute February 13, 2025 9:48am Pain, coccyx acute February 13 9:48am Post endometrial ablation syndrome acute February 13, 2025 9 :48am Right ovarian cyst acute February 132024 9:48am Dysmenorrhea resolved February 13 9:48am Menorrhagia resolved February 13 9:48am Post endometrial ablation syndrome acute April 15, 2025 10:25am Right ovarian cyst acute April 022024 10:25am Dysmenorrhea resolved April 15, 025 10:25am Post endometrial ablation syndrome acute April 23, 2025 5:16am Right ovarian cyst acute April 032024 5:16am Dysmenorrhea resolved April 23, 2 025 5:16am [facility] Work Phone: 1(953) 102-144604-21-2025 Evaluation note* Diagnosis Onset Date Resolution Status Admit Date Abnormal mammogram of right breast acute January 21, 2025 9:44am Pain, coccyx acute January 21, 2025 9:44am Right ovarian cyst acute January 21, 2025 9:44am Dysmenorrhea resolved January 21, 2025 9:44am Pap smear for cervical cancer screening noneactive January 21 9:44am Anemia acute February 13, 2025 9:48am History of salpingectomy acute February 13, 2025 9:48am Pain, coccyx acute February 13 9:48am Post endometrial ablation syndrome acute February 13, 2025 9:48am Right ovarian cyst acute February 132024 9:48am Dysmenorrhea resolved February 13 9:48am Menorrhagia resolved February 13 9:48am Post endometrial ablation syndrome acute April 15, 2025 10:25am Right ovarian cyst acute April 022024 10:25am Dysmenorrhea resolved April 15 025 10:25am Post endometrial ablation syndrome acute April 23, 2025 5:16am Right ovarian cyst acute April 032024 5:16am Dysmenorrhea resolved April 23 025 5:16am Abdominal pain acute May 10:13am History of robot-assisted laparoscopic hysterectomy April 23, 2025 acute May 06, 2025 10:13am Postop check noneactive May 06, 2025 10:13am [facility] Work Phone: 1(770) 922-627404-01-2025 Radiology Diagnostic study note [facility] Imaging Services [address] [place] [address] Pelvic w/ Transvaginal MR#: [id number] Acct: [id number] Name: PRASHANT MORAN Rep #: [id number] : 1980 F 44 From: Lenny Rollins MD PCP: Dr. Camilla Kay DO Status: REG CLI Study:Pelvic w/ Transvaginal Date of Exam: 12/31/24 Exam# [id number] Ordering Dr: Armida Kay sa, DO PROCEDURE: [...] right ovary. Clinical correlation recommended. Reading Location: [id number] CC: Dr. Camilla Kay DO ~ Fisher Eel Spear: Signed [facility]03-03-2025 Radiology Diagnostic study note [facility] Imaging Services [address] [place] [address] L/S Spine Min 4 Views MR#: [id number] Acct: [id number] Name: PRASHANT MORAN Rep #: [id number] : 1980 F 44 From: Agnieszka Williamson MD PCP: Dr. Camilla Kay DO Status: REG CLI Study:L/S Spine Min 4 Views Date of Exam: 12/03/24 Exam# [id number] Ordering Dr: Armida Kay sa, DO EXAM: [...] 2. Degenerative changes as above. Reading [facility] CC: Dr. Camilla Kay DO ~ Fisher Eel Spear: Signed [facility]* Diagnosis Onset Date Resolution Status Anemia acute Menorrhagia acute [facility] Work Phone: Evaluation note* Diagnosis Onset Date Resolution Status Preventative health care acu te [facility] Work Phone: Evaluation noteNo assessment information available [facility] Work Phone: Evaluation note* Diagnosis Onset Date Resolution Status Acute pharyngitis acute [facility] Work Phone: Evaluation note* Diagnosis Onset Date Resolution Status Acute pharyngitis resolved Hidradenitis acute Encounter for routine gynecological examination noneactive [facility] Work Phone: Hospital Discharge instructionsAdditional Instructions Recommend taking your narcotic pain medicine that were prescribed to you along with the stool softeners and MiraLAX. Return back to ED if symptoms change or worsen. Follow-up with [facility] Work Phone: Progress note Author Patsy Davis [facility] Note Date/Time June 05, 2025 1:27pm [facility] [address] [place] [address], [address] [place] [address] OFFICE VISIT Date of Service: 06/05/25 MR#: [id number] Acct: [id number] Name: PRASHANT MORAN Rep #: [id number] : 1980 Provider: Dr. Shayy Torres, Age/Sex: 44/F Location: [facility] Status: Signed Intake Vital Signs 02/13/25 10:26 05/06/25 10:57 06/05/25 13:07 06/05/25 13:08 Height 5 ft 5 in 5 ft 5 in 5 ft 5 in 5 ft 5 in Weight: 127 lb BMI 21.1 BP 107/67 Intake Visit Reasons: 6 wk hysterectomy Boiling Off Winder Required: No Is patient in pain?: No Allergies No Known Allergies Allergy (Verified 06/05/25 13:06) Medications ?Medication ?Instructions ?Recorded ?Confirmed ?Type NK 05/06/25 06/05/25 History Post menopausal: No Patient : No : No [facility] Medical History Dysmenorrhea Menorrhagia Low iron Injury of back Alcohol use Non-smoker Normal Holter exam Surgical History History of robot-assisted laparoscopic hysterectomy (04/23/25) History of endometrial ablation History of salpingectomy [...] home: Yes additional social history: - 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 She states that she is feeling much better. back to normal activity. pathology: terus, cervix, post endometrial ablation syndrome, dysmenorrhea, total robotic hysterectomy: - Cervix: mild hyperkeratosis, dilated endocervical glands. - Endometrium: focal endometrial hyperplasia without atypia. - Myometrium: adenomyoma (1.2 cm), subserosal adenomyosis History 2 Elective abortions Hx Para 2 Spontaneous abortions Hx # Term Pregnancies Ectopic pregnancies Hx # Pregnancies Multiple births # of living children 2 Past Pregnancies Del. Date Name GA/Weeks Outcome Route Bth Weight Gen Labor Lgth Anesthesia Del Locatn Provider FOB 02/11/09 Rebeca 09/03/10 [facility] ENT: Reports system reviewed and no additional complaints, except as documented Cardio Card: Reports system reviewed and no additional complaints, except as documented Resp Resp: Denies cough, dyspnea or dyspnea on exertion GI GI: Denies abdominal pain, bloating or change in bowel habits : Denies vaginal odor or vaginal pruritus Details: lochia is mild Musc Musc: Reports system reviewed and no additional complaints, except as documented Exam Const General: cooperative, healthy appearing and comfortable Resp Effort & Inspection: normal respiratory effort GI Palpation: soft and nontender Rectal Exam: other Other: cuff is intact and suture is dissolving. no bleeding or signs of infection Extrem General: no edema Coding Level of Care Code No Charge Diagnoses History of robot-assisted laparoscopic hysterectomy Z90.710 Assessment and Plan Assessment and Plan (1) History of robot-assisted laparoscopic hysterectomy: Status: Acute Comment: JV Plan: healing well. restrictions lifted RTO in 1 year. Plan Details Goals & Barriers: Goals Decrease pain Decrease spasm Improve sleep Improve ability to perform ADLs Barriers Work posture 06/05/25 1327 <Electronically signed by Patsy Garvin DO> Date _ Patsy Torres DO Cosigner Signature: Date (if applicable) CC: ~ [facility] Work Phone: Reason for referral (narrative)No reason for referral information availableWThe Christ Hospital Work Phone: Chief Complaint and Reason for Visit Chief Complaint LAP BS, HYSTEROSCOPY D&C CECI,IUD REMOVAL Reason for Visit Anemia Menorrhagia Chief Complaint YEARLY Reason for Visit Preventative health care Chief Complaint SCREENING Chief Complaint SCREENING SORE THROAT, COUGH Reason for Visit Acute pharyngitis Chief Complaint SORE THROAT, COUGH 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) Reason for Visit Acute pharyngitis Hidradenitis Encounter [...] possible cystect nan April 15, 2025 10:25am Chief Complaint Admit Date LOW BACK PAIN [...] possible cystect nan April 15, 2025 10:25am Lap Total Robotic Hysterectomy Possible Right Ooph April 23, 2025 5:16am Lap Total Robotic Hysterectomy Possible Right Ooph April 23, 2025 7:07am Reason for Visit Admit Date Abnormal mammogram [...] ovarian cyst February 13, 2025 9:48a m Dysmenorrhea April 15, 2025 10:2 5am Post endometrial ablation syndrome April 15, 2025 10:25am Right ovarian cyst April 15, 2025 10:2 5am Dysmenorrhea April 23, 2025 5:16 am Post endometrial ablation syndrome April 23, 2025 5:16am Right ovarian cyst April 23, 2025 5:16 am Chief Complaint Admit Date SCREENING January 18, 2025 8:4 4am BACK [...] possible cystect nan April 15, 2025 10:25am Lap Total Robotic Hysterectomy Possible Right Ooph April 23, 2025 5:16am Lap Total Robotic Hysterectomy Possible Right Ooph April 23, 2025 7:07am 2 wk Hysterectomy May 06, 2025 10: 13am Reason for Visit Admit Date Abnormal mammogram of right breast January 21, 2025 9:44am Pain, coccyx January 21, 2025 9:4 4am Right ovarian cyst January 21, 2025 9:4 4am Dysmenorrhea January 21, 2025 9:4 4am Pap smear for cervical cancer screening January 21, 2025 9:44am Anemia February 13, 2025 9:48a m History of salpingectomy February 13, 2025 9:48am Pain, coccyx February 13, 2025 9:48a m Post endometrial ablation syndrome January [id number] 9:48am Right ovarian cyst February 13, 2025 9:48a m Dysmenorrhea February 13, 2025 9:48a m Menorrhagia February 13, 2025 9:48a m Post endometrial ablation syndrome April 15, 2025 10:25am Right ovarian cyst April 15, 2025 10:2 5am Dysmenorrhea April 15, 2025 10:2 5am Post endometrial ablation syndrome April 23, 2025 5:16am Right ovarian cyst April 23, 2025 5:16 am Dysmenorrhea April 23, 2025 5:16 am Chief Complaint Admit Date SCREENING January 18, 2025 8:4 4am BACK [...] possible cystect nan April 15, 2025 10:25am Lap Total Robotic Hysterectomy Possible Right Ooph April 23, 2025 5:16am Lap Total Robotic Hysterectomy Possible Right Ooph April 23, 2025 7:07am 2 wk Hysterectomy May 06, 2025 10: 13am ABD May 06, 2025 10: 56am Reason for Visit Admit Date Abnormal mammogram of right breast January 21, 2025 9:44am Pain, coccyx January 21, 2025 9:4 4am Right ovarian cyst January 21, 2025 9:4 4am Dysmenorrhea January 21, 2025 9:4 4am Pap smear for cervical cancer screening January 21, 2025 9:44am Anemia February 13, 2025 9:48a m History of salpingectomy February 13, 2025 9:48am Pain, coccyx February 13, 2025 9:48a m Post endometrial ablation syndrome January [id number] 9:48am Right ovarian cyst February 13, 2025 9:48a m Dysmenorrhea February 13, 2025 9:48a m Menorrhagia February 13, 2025 9:48a m Post endometrial ablation syndrome April 15, 2025 10:25am Right ovarian cyst April 15, 2025 10:2 5am Dysmenorrhea April 15, 2025 10:2 5am Post endometrial ablation syndrome April 23, 2025 5:16am Right ovarian cyst April 23, 2025 5:16 am Dysmenorrhea April 23, 2025 5:16 am Abdominal pain May 06, 2025 10: 13am History of robot-assisted laparoscopic h ysterectomy May 06, 2025 10:13am Postop check May 06, 2025 10: 13am Chief Complaint Admit Date SURGICAL CONSULT $20 COPAY February 13 9:48am BACK RX HERE March 08, 2025 7:30a m RIGHT OVARIAN CYST March 18, 2025 12:3 0pm TRH possible right ooph possible cystect nan April 15, 2025 10:25am Lap Total Robotic Hysterectomy Possible Right Ooph April 23, 2025 5:16am Lap Total Robotic Hysterectomy Possible Right Ooph April 23, 2025 7:07am 2 wk Hysterectomy May 06, 2025 10: 13am ABD May 06, 2025 10: 56am 6 wk hysterectomy June 05, 2025 1:00pm Reason for Visit Admit Date Anemia February 13, 2025 9:48a m History of salpingectomy February 13, 2025 9:48am Pain, coccyx February 13, 2025 9:48a m Post endometrial ablation syndrome January [id number] 9:48am Right ovarian cyst February 13, 2025 9:48a m Dysmenorrhea February 13, 2025 9:48a m Menorrhagia February 13, 2025 9:48a m Post endometrial ablation syndrome April 15, 2025 10:25am Right ovarian cyst April 15, 2025 10:2 5am Dysmenorrhea April 15, 2025 10:2 5am Post endometrial ablation syndrome April 23, 2025 5:16am Right ovarian cyst April 23, 2025 5:16 am Dysmenorrhea April 23, 2025 5:16 am Abdominal pain May 06, 2025 10: 13am History of robot-assisted laparoscopic h ysterectomy May 06, 2025 10:13am Postop check May 06, 2025 10: 13am History of robot-assisted laparoscopic h ysterectomy June 05, 2025 1:00pm Chief Complaint Admit Date BACK RX HERE March 08, 2025 7:30a m RIGHT OVARIAN CYST March 18, 2025 12:3 0pm TRH possible right ooph possible cystect nan April 15, 2025 10:25am Lap Total Robotic Hysterectomy Possible Right Ooph April 23, 2025 5:16am Lap Total Robotic Hysterectomy Possible Right Ooph April 23, 2025 7:07am 2 wk Hysterectomy May 06, 2025 10: 13am ABD May 06, 2025 10: 56am 6 wk hysterectomy June 05, 2025 1:00pm Reason for Visit Admit Date Post endometrial ablation syndrome April 15, 2025 10:25am Right ovarian cyst April 15, 2025 10:2 5am Dysmenorrhea April 15, 2025 10:2 5am Post endometrial ablation syndrome April 23, 2025 5:16am Right ovarian cyst April 23, 2025 5:16 am Dysmenorrhea April 23, 2025 5:16 am Abdominal pain May 06, 2025 10: 13am History of robot-assisted laparoscopic h ysterectomy May 06, 2025 10:13am Postop check May 06, 2025 10: 13am History of robot-assisted laparoscopic h ysterectomy June 05, 2025 1:00pm Family History No Family History Records Found [...] No January 13, 2022 2:49pm Power of Client Relation Specialist No January 13 2:49pm Advance Directive Response Recorded Date/ Time Living Will No January 13, 2022 1:49pm Power of Client Relation Specialist No January 13 1:49pm Advance Directive Response Recorded Date/ Time Do you have a Healthcare Power of Client Relation Specialist? Yes April 10, 2025 2:16pm Advance Directive Response Recorded Date/ Time Do you have a Healthcare Power of Client Relation Specialist? Yes April 10, 2025 2:16pm Do you have a Healthcare Power of Client Relation Specialist? No May 06, 2025 11:12am Summary Purpose Additional Source Comments Care Teams [...] Status: Active Member Role Status Dates Dr. Camilal Kay DO Family Provider Active Dr. Camilla Kay DO Primary Care Provider Active Team Status: Inactive Member Role Status Dates Dr. Camacho Winters MD Primary Care Provider, Refer ring Provider Active Thelma Chakraborty PAN DEVULCANIZER HELPER, PAN DEVULCANIZER HELPER-C Attending Provider Active Team Status: Inactive Member Role Status Dates Dr. Camilla Kay DO Primary Care Provide r, Attending Provider, Referring Provider Active Team Status: Active Member Role Status Dates Dr. Camilal Kay DO Primary Care Provider Active Team [...] 2025 End: January 21, 2025 Thelma Chakraborty NP, JOSEMANUEL-C Attending Provider Active Start: January 21, 2025 End: January 21, 2025 Team Status: Active Member Role Status Dates Dr. Camilla Kay DO Primary Care Provider Active Start: January 21, 2025 Thelma Chakraborty PAN DEVULCANIZER HELPER, PAN DEVULCANIZER HELPER-C Attending Provider Active Start: January 21, 2025 Thelma Chakraborty PAN DEVULCANIZER HELPER, PAN DEVULCANIZER HELPER-C Referring Provider Active Start: January 21, 2025 [...] 2025 End: January 21, 2025 Thelma Chakraborty PAN DEVULCANIZER HELPER, PAN DEVULCANIZER HELPER-C Attending Provider Active Start: January 21, 2025 End: January 21, 2025 Thelma Chakraborty PAN DEVULCANIZER HELPER, PAN DEVULCANIZER HELPER-C Referring Provider Active Start: January 21, 2025 [...] Start: February 04, 2025 Dr. Camilla Kay , Attending Provider Active St art: February 04, 2025 Dr. Camilla Kay , Referring Provider Active St art: February 04, 2025 Team Status: Inactive Member Role Status Dates Dr. Camilla Kay DO Primary Care Provider Active Start: February 04, 2025 End: February 04, 2025 Thelma Chakraborty PAN DEVULCANIZER HELPER, PAN DEVULCANIZER HELPER-C Attending Provider Active Start: February 04, 2025 End: February 04, 2025 Thelma Chakraborty PAN DEVULCANIZER HELPER, PAN DEVULCANIZER HELPER-C Referring Provider Active Start: February 04, 2025 End: February 04, 2025 Team Status: Active Member Role Status Dates Dr. Camilla Kay DO Primary Care Provider Active Start: February 08, 2025 Dr. Camilla Kay , Attending Provider Active St art: February 08, [...] 2025 End: March 18, 2025 Thelma Chakraborty PAN DEVULCANIZER HELPER, PAN DEVULCANIZER HELPER-C Attending Provider Active Start: March 18, 2025 End: March 18, 2025 Thelma Chakraborty PAN DEVULCANIZER HELPER, PAN DEVULCANIZER HELPER-C Referring Provider Active Start: March 18, 2025 End: March 18, 2025 Team Status: Active Member Role/Relationship Status Dates Dr. Camilla Kya DO Primary Care Provider Active Team Status: [...] 21, 2025 End: January 21, 2025 Dr. Cmailla Kay DO Referring Provider Active St art: January 21, 2025 End: January 21, 2025 Thelma Chakraborty PAN DEVULCANIZER HELPER, PAN DEVULCANIZER HELPER-C Attending Provider Active Start: January 21, 2025 End: January 21, 2025 Team Status: Inactive Member Role/Relationship Status Dates Dr. Camilla Kay DO Primary Care Provider Active Start: January 21, 2025 End: January 21, 2025 Thelma Chakraborty PAN DEVULCANIZER HELPER, PAN DEVULCANIZER HELPER-C Attending Provider Active Start: January 21, 2025 End: January 21, 2025 Thelma Chakraborty PAN DEVULCANIZER HELPER, PAN DEVULCANIZER HELPER-C Referring Provider Active Start: January 21, 2025 [...] 2025 End: February 04, 2025 Thelma Chakraborty PAN DEVULCANIZER HELPER, PAN DEVULCANIZER HELPER-C Attending Provider Active Start: February 04, 2025 End: February 04, 2025 Thelma Chakraborty PAN DEVULCANIZER HELPER, PAN DEVULCANIZER HELPER-C Referring Provider Active Start: February 04, 2025 [...] 2025 End: March 18, 2025 Thelma Chakraborty PAN DEVULCANIZER HELPER, PAN DEVULCANIZER HELPER-C Attending Provider Active Start: March 18, 2025 End: March 18, 2025 Thelma Chakraborty PAN DEVULCANIZER HELPER, PAN DEVULCANIZER HELPER-C Referring Provider Active Start: March 18, 2025 [...] April 15, 2025 End: April 15, 2025 Team Status: Inactive Member Role/Relationship Status Dates Dr. Camilla Kay DO Primary Care Provider Active Start: April 23, 2025 End: April 23, 2025 Dr. Patsy Torres , DO Attending Provider Activ e Start: April 23, 2025 End: April 23, 2025 Dr. Patsy Torres DO Referring Provider Activ e Start: April 23, 2025 End: April 23, 2025 Team Status: Active Member Role/Relationship Status Dates Dr. Camilla Malys , DO Primary Care Provider Active Start: April 23, 2025 Dr. Patsy Torres , DO Attending Provider Activ e Start: April 23, 2025 Dr. Patsy Torres , DO Referring Provider Activ e Start: April 23, 2025 Dr. Patsy Torres , DO Other Provider Active Start: April 23, 2025 Team Status: Inactive Member Role/Relationship [...] 2025 End: January 21, 2025 Thelma Chakraborty PAN DEVULCANIZER HELPER, PAN DEVULCANIZER HELPER-C Attending Provider Active Start: January 21, 2025 End: January 21, 2025 Team Status: Inactive Member Role/Relationship Status Dates Dr. Camilla Kay DO Primary Care Provider Active Start: January 21, 2025 End: January 21, 2025 Thelma Chakraborty PAN DEVULCANIZER HELPER, PAN DEVULCANIZER HELPER-C Attending Provider Active Start: January 21, 2025 End: January 21, 2025 Thelma Chakraborty PAN DEVULCANIZER HELPER, PAN DEVULCANIZER HELPER-C Referring Provider Active Start: January 21, 2025 [...] 2025 End: February 04, 2025 Thelma Chakraborty PAN DEVULCANIZER HELPER, PAN DEVULCANIZER HELPER-C Attending Provider Active Start: February 04, 2025 End: February 04, 2025 Thelma Chakraborty PAN DEVULCANIZER HELPER, PAN DEVULCANIZER HELPER-C Referring Provider Active Start: February 04, 2025 End: February 04, 2025 Team Status: Inactive Member Role/Relationship Status Dates Dr. Camilla Kay DO Primary Care Provider Active Start: February 13, 2025 End: February 13, 2025 Dr. Camilla Kay DO Referring Provider Active St art: February 13, 2025 End: February 13, 2025 Dr. Patsy Torres , DO Attending Provider Activ e Start: February [...] 2025 End: March 18, 2025 Thelma Chakraborty PAN DEVULCANIZER HELPER, PAN DEVULCANIZER HELPER-C Attending Provider Active Start: March 18, 2025 End: March 18, 2025 Thelma Chakraborty PAN DEVULCANIZER HELPER, PAN DEVULCANIZER HELPER-C Referring Provider Active Start: March 18, 2025 [...] April 15, 2025 End: April 15, 2025 Team Status: Inactive Member Role/Relationship Status Dates Dr. Camlila Kay DO Primary Care Provider Active Start: April 23, 2025 End: April 23, 2025 Dr. Patsy Torres , DO Attending Provider Activ e Start: April 23, 2025 End: April 23, 2025 Dr. Patsy Torres , DO Referring Provider Activ e Start: April 23, 2025 End: April 23, 2025 Team Status: Active Member Role/Relationship Status Dates Dr. Camilla Kay DO Primary Care Provider Active Start: April 23, 2025 Dr. Patsy Torres , DO Attending Provider Activ e Start: April 23, 2025 Dr. Patsy Torres , DO Referring Provider Activ e Start: April 23, 2025 Dr. Patsy Torres , DO Other Provider Active Start: April 23, 2025 Team Status: Inactive Member Role/Relationship Status Dates Dr. Camilla Kay DO Primary Care Provider Active Start: May 06, 2025 End: May 06, 2025 Dr. Camilla Kay , DO Referring Provider Active St art: May 06, 2025 End: May 06, 2025 Thelma Chakraborty PAN DEVULCANIZER HELPER, PAN DEVULCANIZER HELPER-C Attending Provider Active Start: May 06, 2025 End: May 06, 2025 Team Status: Inactive Member Role/Relationship Status Dates Dr. Camilla Kay DO Primary Care Provider Active Start: May 06, 2025 End: May 06, 2025 Dr. Kurt Richardson , DO Emergency Provider Activ e Start: May 06, 2025 End: May 06, 2025 Team Status: Inactive Member Role/Relationship Status [...] 2025 End: March 18, 2025 Thelma Chakraborty PAN DEVULCANIZER HELPER, PAN DEVULCANIZER HELPER-C Attending Provider Active Start: March 18, 2025 End: March 18, 2025 Thelma Chakraborty PAN DEVULCANIZER HELPER, PAN DEVULCANIZER HELPER-C Referring Provider Active Start: March 18, 2025 [...] April 15, 2025 End: April 15, 2025 Team Status: Inactive Member Role/Relationship Status Dates Dr. Camilla Kay DO Primary Care Provider Active Start: April 23, 2025 End: April 23, 2025 Dr. Patsy Torres , DO Attending Provider Activ e Start: April 23, 2025 End: April 23, 2025 Dr. Patsy Torres DO Referring Provider Activ e Start: April 23, 2025 End: April 23, 2025 Team Status: Active Member Role/Relationship Status Dates Dr. Camilla Kay DO Primary Care Provider Active Start: April 23, 2025 Dr. Patsy Torres , DO Attending Provider Activ e Start: April 23, 2025 Dr. Patsy Torres DO Referring Provider Activ e Start: April 23, 2025 Dr. Patsy Torres , DO Other Provider Active Start: April 23, 2025 Team Status: Inactive Member Role/Relationship Status Dates Dr. Camilla Kay DO Primary Care Provider Active Start: May 06, 2025 End: May 06, 2025 Dr. Camilla Kay DO Referring Provider Active St art: May 06, 2025 End: May 06, 2025 Thelma Chakraborty PAN DEVULCANIZER HELPER, PAN DEVULCANIZER HELPER-C Attending Provider Active Start: May 06, 2025 End: May 06, 2025 Team Status: Inactive Member Role/Relationship Status Dates Dr. Camilla Kay DO Primary Care Provider Active Start: May 06, 2025 End: May 06, 2025 Dr. Kurt Richardson , DO Attending Provider Activ e Start: May 06, 2025 End: May 06, 2025 Dr. Kurt Richardson , DO Emergency Provider Activ e Start: May 06, 2025 End: May 06, 2025 Team Status: Inactive Member Role/Relationship Status Dates Dr. Camilla Kay DO Primary Care Provider Active Start: June 05, 2025 End: June 05, 2025 Dr. Camilla Kay DO Referring Provider Active St art: June 05, 2025 End: June 05, 2025 Dr. Patsy Torres DO Attending Provider Activ e Start: June 05, 2025 End: June 05, 2025 Team Status: Active Member Role/Relationship Status Dates Dr. Camilla Kay DO Primary care physician Active Team Status: Inactive Member Role/Relationship Status Dates Dr. Camilla Kay DO Primary care physician Active Start: March 08, 2025 End: March 08, 2025 Dr. Camilla Kay DO Attending physician Active S tart: March 08, 2025 End: March 08, 2025 Dr. Camilla Kay DO Referring Provider Active St art: March 08, 2025 End: March 08, 2025 Team Status: Inactive Member Role/Relationship Status Dates Dr. Camilla Kay DO Primary care physician Active Start: March 18, 2025 End: March 18, 2025 Thelma Chakraborty PAN DEVULCANIZER HELPER, PAN DEVULCANIZER HELPER-C Attending physician Active Start: March 18, 2025 End: March 18, 2025 Thelma Chakraborty PAN DEVULCANIZER HELPER, PAN DEVULCANIZER HELPER-C Referring Provider Active Start: March 18, 2025 End: March 18, 2025 Team Status: Inactive Member Role/Relationship Status Dates Dr. Camilla Kay DO Primary care physician Active Start: April 15, 2025 End: April 15, 2025 Dr. Camilla Kay DO Referring Provider Active St art: April 15, 2025 End: April 15, 2025 Dr. Patsy Torres DO Attending physician Acti ve Start: April 15, 2025 End: April 15, 2025 Team Status: Inactive Member Role/Relationship Status Dates Dr. Camilla Kay DO Primary care physician Active Start: April 23, 2025 End: April 23, 2025 Dr. Patsy Torres DO Attending physician Acti ve Start: April 23, 2025 End: April 23, 2025 Dr. Patsy Torres DO Referring Provider Activ e Start: April 23, 2025 End: April 23, 2025 Team Status: Active Member Role/Relationship Status Dates Dr. Camilla Kay DO Primary care physician Active Start: April 23, 2025 Dr. Patsy Torres DO Attending physician Acti ve Start: April 23, 2025 Dr. Patsy Torres DO Referring Provider Activ e Start: April 23, 2025 Dr. Patsy Torres DO Nurse Practitioner Activ e Start: April 23, 2025 Team Status: Inactive Member Role/Relationship Status Dates Dr. Camilla Kay DO Primary care physician Active Start: May 06, 2025 End: May 06, 2025 Dr. Camilla Kay DO Referring Provider Active St art: May 06, 2025 End: May 06, 2025 Thelma Chakraborty NP, PAN DEVULCANIZER HELPER-C Attending physician Active Start: May 06, 2025 End: May 06, 2025 Team Status: Inactive Member Role/Relationship Status Dates Dr. Camilla Kay DO Primary care physician Active Start: May 06, 2025 End: May 06, 2025 Dr. Kurt Richardson DO Attending physician Active Start: May 06 End: May 06, 2025 Dr. Kurt Richardson DO Emergency Department Physician Active Start: May 06, 2025 End: May 06, 2025 Team Status: Inactive Member Role/Relationship Status Dates Dr. Camilla Kay DO Primary care physician Active Start: June 05, 2025 End: June 05, 2025 Dr. Camilla Kay DO Referring Provider Active St art: June 05, 2025 End: June 05, 2025 Dr. Patsy Torres DO Attending physician Active Start: June End: June 05, 2025 INFORMATION SOURCE (unrecogn ized section and content) DATE CREATED AUTHOR 06/20/2025 [facility] FOR RECORDS PERTAINING TO PATIENTS WHO [...] BE BASED ON THE PRIMARY CLINICAL RECORDS. [facility]. provides no warranty or guarantee of the accuracy or completeness of information in this document.
--- NOTE | 2025-09-11 07:36 | RAD_ITS ---
PROCEDURE: L/S SPINE MIN 4 VIEWS 09/11/2025 REASON FOR EXAM: ASSESS DISC SPACES AND VERTEBRAL ALIGNMENT TECHNIQUE: Procedure Code: RADSPLS Modality: DX Procedure: L/S SPINE MIN 4 VIEWS COMPARISON: MRI of the lumbar spine dated 12/24/2024 FINDINGS: Curvature: No significant lateral curvature. Alignment: Normal lumbar lordosis. No spondylolisthesis. Vertebral body: No height loss. Soft tissue: Unremarkable. Disc space: There is mild disc space loss noted L5-S1. RAD/L/S Spine Min 4 Views IMPRESSION: There is mild disc space loss noted L5-S1, similar to MRI performed on 12/25/19 25. The exact evaluation of disc is not possible on radiograph. Reading Location: [facility]
[2025-09-11 08:32] LABS: Hematocrit 40.5 % (37-47); Hemoglobin 13.4 g/dL (12.0-15.0); Immature Granulocytes Count 0.020 X10^3/uL (0.0-0.0); Mean Corp Hgb Conc 33.1 g/dL (32-36); Mean Corpuscular Volume 99.5 fL (81-99); Mean Platelet Vol. 9.7 fl (6.2-12.0); NRBC Flagged by Analyzer 0 % (0-5); Platelet Count 372 K/mm3 (150-450); RBC Distribution Width CV 11.9 % (11.6-14.6); RBC Distribution Width SD 43.7 fl (35.1-43.9); Red Blood Count 4.07 M/mm3 (4.2-5.4); White Blood Count 5.9 K/mm3 (4.4-11.0)
[2025-09-11 09:18] LABS: AST(SGOT) 23 U/L (<=31); Alanine Aminotransfer ALT/SGPT 14 U/L (<=34); Albumin, Serum 4.4 g/dL (3.5-5.0); Alkaline Phosphatase 50 U/L (35-104); Anion Gap 9 (5-15); BUN 12 mg/dL (4-19); BUN/Creat Ratio 18.7 RATIO (10-20); Calcium,Total 9.1 mg/dL (7.6-11.0); Carbon Dioxide 25.5 mmol/L (21.0-32.0); Chloride 105 mmol/L (98-108); Cholesterol 154 mg/dL (<=200); Globulin 2.6 g/dL (2.2-4.2); Glucose 81 mg/dL (70-99); Low Density Lipoprotein Calc. 79 mg/dL; Potassium 4.3 mmol/L (3.3-5.1); Triglycerides 28 mg/dL; Very Low Density Lipoprotein 6 mg/dL (5-40); Vitamin D,25 Hydroxy 41.5 ng/mL (30-100); cholesterol:hdl ratio screen 2.28
[2025-09-11 09:22] LABS: CRP < 3.00 mg/L (0.0-3.0)
[2025-09-12 13:08] LABS: ANTINUCLEAR ANTIBODIES DIRECT Negative (Negative)
== END | disposition home or self-care (01) ==
PROVIDERS: PCP Family Medicine; Referring Provider Nurse Practitioner Family; Visit Provider Nurse Practitioner Family
DX: Z00.01 Encounter for general adult medical examination with abnormal findings (principal); Z13.820 Encounter for screening for osteoporosis; Z82.62 Family history of osteoporosis; M54.50 Low back pain, unspecified; E55.9 Vitamin D deficiency, unspecified
CPT/HCPCS: 36415; 72110; 77080; 80053; 80061; 82306; 85025; 85652; 86038; 86140; 86200; 86431